=== PATIENT | female | born 1965 | race Caucasian/White ===

== ENCOUNTER 2016-12-12 22:01 | Inpatient (IN) | payer BC ==
[~2016-12-12] VITALS: Ht 175.3 cm; Wt 73.8 kg
[~2016-12-12 22:01] MED LIST: ALOE25CA4 PO; ASCO500T16 PO; BIOT1CAP3 PO; CALC500C70 PO; CETI10TA10 PO; CHOL1000 PO; CLMTP25 TD; DOCU-94 PO; FEXO1TAB46 PO; LEVO125T72 PO; MULT-506 PO; PSYL55.43 PO
[2016-12-12] MEDS ORDERED: ONDANSETRON INJ 2 MG/ML 2 ML VIAL IV STA (22:28)
[2016-12-12] MEDS ORDERED: FENTANYL CITRATE INJ 50 MCG/1 ML 2 ML VIAL IV STA (22:28)
[2016-12-12] MEDS ORDERED: SODIUM CHLORIDE 0.9% 1000ML 1,000 ML IV STA ×2 (22:28)
--- NOTE | 2016-12-12 23:03 | DIAGNOSTIC IMAGING REPORT ---
PA CHEST WITH ABDOMINAL SERIES CLINICAL HISTORY: Generalized abdominal pain. FINDINGS: A PA chest radiograph is compared to study dated 04/25/2015. The cardiomediastinal silhouette is unremarkable. The lungs and pleural spaces are clear. No pneumothorax is seen. The bony thorax is grossly intact. Supine and erect abdominal radiograph are compared to study dated 04/25/2015 and correlated with abdominal CT dated 12/30/2015. Cholecystectomy clips are seen in the right upper quadrant. There is a nonobstructed abdominal bowel gas pattern noting moderate constipation. No intraperitoneal free air is seen. Suture material is seen in the pelvis. There are no abnormal abdominal calcifications. The lumbosacral spine and bony pelvis appear intact. IMPRESSION: 1. No active disease in the chest. 2. Nonobstructed abdominal bowel gas pattern noting moderate constipation. Electronically signed by: Erwin Vilchis M.D. 12/12/2016 11:02 PM Dictated Date/Time: 12/12/2016 11:00 PM
[2016-12-12] MEDS ORDERED: OPTIRAY 320 IV PRN (23:15)
[2016-12-12 23:29] LABS: BASO % 0.6 %; BASO ABS # 0.04 K/uL (0-0.2); COMPLETE YES; EOS % 1.1 %; HEMATOCRIT 38.9 % (37-47); IG% 0.3 %; LYMPH % 33.1 %; LYMPH ABS # 2.18 K/uL (1.2-3.4); MEAN CELL VOLUME 87.4 fL (80-100); MEAN CORPUSCULAR HGB CONC 35.5 g/dl (32-36); MEAN PLATELET VOLUME 10.9 fL (7.4-10.4); MONO % 8.8 %; NEUT % 56.1 %; PLATELET COUNT 176 K/uL (130-400); RED BLOOD COUNT 4.45 M/uL (4.2-5.4); WHITE BLOOD COUNT 6.59 K/uL (4.8-10.8)
[2016-12-12 23:37] LABS: URINE APPEARANCE CLEAR (CLEAR); URINE BILIRUBIN NEG (NEG); URINE COLOR YELLOW; URINE NITRITE NEG (NEG); URINE SPECIFIC GRAVITY 1.016 (1.000-1.030); UROBILINOGEN NEG (NEG); ZZUR CULT IF INDIC CLEAN CATCH NO
[2016-12-12 23:38] LABS: MANUAL MICROSCOPIC REQUIRED? NO; REVIEW REQ? NO
[2016-12-12 23:48] LABS: ALT/SGPT 23 U/L (12-78); AST/SGOT 19 U/L (15-37); BLOOD UREA NITROGEN 24 mg/dl (7-18); BUN/CREATININE RATIO 27.6 (10-20); CALCIUM 9.3 mg/dl (8.5-10.1); CARBON DIOXIDE 22 mmol/L (21-32); CHLORIDE 111 mmol/L (98-107); CREATININE 0.88 mg/dl (0.60-1.20); GLUCOSE 110 mg/dl (70-99); POTASSIUM 3.5 mmol/L (3.5-5.1); SODIUM 142 mmol/L (136-145)
[2016-12-12 23:51] LABS: ALKALINE PHOSPHATASE 67 U/L (45-117)
[2016-12-13] MEDS ORDERED: FENTANYL CITRATE INJ 50 MCG/1 ML 2 ML VIAL IV STA (02:01)
[2016-12-13] MEDS ORDERED: ONDANSETRON INJ 2 MG/ML 2 ML VIAL IV STA (02:01)
--- NOTE | 2016-12-13 02:17 | History and Physical ---
History & Physical Date & Time of Service: Dec 13, 2016 at 02:05 Chief Complaint: L Side Abd Pain,History Of Twisted Bowel Primary Care Physician: Chet Ordonez M.D. History of Present Illness Source: patient 51 year old female with a history of recurrent small bowel obstruction, presenting with abdominal pain Patient comes in with left lower abdominal pain. It started tonight at 8 o' clock suddenly, and is gradually getting worse and she also started experiencing lots of burping, heartburn and nausea. She progressively began feeling some distension. She denies vomiting. Heating pad did not help. She pain she has is a LLQ, "Labor type", sharp/crunching pain that comes and goes 8/10. No radiation. No alleviating or exacerbating factors. She did just have a BM in the ED with slight relief of symptoms. She is known to have recurrent bowel obstructions. She has a history of multiple surgeries: , hysterectomy, Oophorectomy, Cholecystectomy, Colectomy due to Diverticulitis, Past Medical/Surgical History History of septic shock with resultant pelvic thrombosis Tubal Ligation with emergency hysterectomy Oophorectomy Cholecystectomy Colectomy due to Diverticulitis 6 yeras ago History of volvulus Mitral Valve prolapse Hypothyroid Medical Problems: (1) Diverticulitis Status: Chronic (2) Hypothyroidism Status: Chronic (3) Mitral valve prolapse Status: Resolved Surgical Problems: (1) S/P colectomy Status: Resolved Family History Heart disease Kidney disease Social History Smoking Status: Never Smoker Smokeless Tobacco Use: No Alcohol Use: occasionally Drug Use: none Marital Status: Housing status: lives with family Occupational Status: employed Immunizations History of Influenza Vaccine: Yes History of Tetanus Vaccine?: Yes History of Pneumococcal: Yes History of Hepatitis B Vaccine: No Multi-Drug Resistant Organisms History of MDRO: No Allergies Coded Allergies: Erythromycin (Verified Allergy, Unknown, EDEMA OF MOUTH/LIPS, 03/29/15) Oxycodone (Verified Adverse Reaction, Intermediate, Chest Pain.SYNCOPY, ) Reported by PT/[facility] record. Tramadol (Verified Adverse Reaction, Intermediate, CHEST PAIN,SYNCOPE, 03/29/15) Home Medications Scheduled Aloe Vera (Aloe Vera), 25 MG PO QAM Ascorbic Acid (Ascorbic Acid), 500 MG PO DAILY Biotin (Biotin), 5,000 MCG PO DAILY Calcium/Vitamin D (Os-Cesario 500 Plus D), 1 TAB PO QAM Cholecalciferol (Vitamin D3), 5,000 UNITS PO DAILY Estradiol (Climara), 1 PATCH TD WK Levothyroxine Sodium (Synthroid), 125 MCG PO QAM Multivitamin (Multivitamin), 1 TAB PO QAM Psyllium (Metamucil Powder), 1 PACK PO DAILY Scheduled PRN Cetirizine Hcl (Zyrtec), 10 MG PO DAILY PRN for Allergies Docusate Sodium (Colace), 1 CAP PO BID PRN for Constipation Fexofenadine Hcl (Socorro), 180 MG PO DAILY PRN for Allergies Review of Systems A 10 point review of systems was negative unless stated above. Physical Exam Vital Signs Date Time Temp Pulse Resp B/P (MAP) Pulse Ox O2 Delivery O2 Flow Rate FiO2 12/13/16 01:58 52 20 140/78 100 Room Air 12/13/16 00:45 48 12/13/16 00:35 46 18 113/75 98 Room Air 12/12/16 23:26 Room Air 12/12/16 23:26 53 12 133/87 100 Room Air 12/12/16 22:13 36.6 57 16 138/88 97 Room Air General Appearance: WD/WN, no apparent distress Head: normocephalic, atraumatic Eyes: normal inspection, EOMI ENT: hearing grossly normal, pharynx normal Neck: supple, no adenopathy, no JVD Respiratory/Chest: lungs clear, no respiratory distress Cardiovascular: regular rate, rhythm, no gallop, no murmur Abdomen/GI: non tender, soft, + tenderness, + pertinent finding (bowel sounds present; no guarding or rigidity) Genitourinary - Female: uterus normal shape and size Back: no CVA tenderness, no muscle spasm Extremities/Musculoskelatal: no calf tenderness, no pedal edema Neurologic/Psych: alert, normal mood/affect, oriented x 3 Skin: normal color, warm/dry, no rash Lymphatic: no adenopathy Diagnostics Laboratory Results Results Past 24 Hours Test 12/12/16 23:15 12/12/16 23:25 Range/Units White Blood Count 6.59 4.8-10.8 K/uL Red Blood Count 4.45 4.2-5.4 M/uL Hemoglobin 13.8 12.0-16.0 g/dL Hematocrit 38.9 37-47 % Mean Corpuscular Volume 87.4 80-100 fL Mean Corpuscular Hemoglobin 31.0 25-34 pg Mean Corpuscular Hemoglobin Concent 35.5 32-36 g/dl Platelet Count 176 130-400 K/uL Mean Platelet Volume 10.9 7.4-10.4 fL Neutrophils (%) (Auto) 56.1 % Lymphocytes (%) (Auto) 33.1 % Monocytes (%) (Auto) 8.8 % Eosinophils (%) (Auto) 1.1 % Basophils (%) (Auto) 0.6 % Neutrophils # (Auto) 3.70 1.4-6.5 K/uL Lymphocytes # (Auto) 2.18 1.2-3.4 K/uL Monocytes # (Auto) 0.58 0.11-0.59 K/uL Eosinophils # (Auto) 0.07 0-0.5 K/uL Basophils # (Auto) 0.04 0-0.2 K/uL RDW Standard Deviation 40.3 36.4-46.3 fL RDW Coefficient of Variation 12.6 11.5-14.5 % Immature Granulocyte % (Auto) 0.3 % Immature Granulocyte # (Auto) 0.02 0.00-0.02 K/uL Sodium Level 142 136-145 mmol/L Potassium Level 3.5 3.5-5.1 mmol/L Chloride Level 111 98-107 mmol/L Carbon Dioxide Level 22 21-32 mmol/L Anion Gap 9.0 3-11 mmol/L Blood Urea Nitrogen 24 7-18 mg/dl Creatinine 0.88 0.60-1.20 mg/dl Est Creatinine Clear Calc Drug Dose 80.0 ml/min Estimated GFR () 88.8 Estimated GFR (Non- 76.6 BUN/Creatinine Ratio 27.6 10-20 Random Glucose 110 70-99 mg/dl Calcium Level 9.3 8.5-10.1 mg/dl Total Bilirubin 0.5 0.2-1 mg/dl Direct Bilirubin < 0.1 0-0.2 mg/dl Aspartate Amino Transf (AST/SGOT) 19 15-37 U/L Alanine Aminotransferase (ALT/SGPT) 23 12-78 U/L Alkaline Phosphatase 67 45-117 U/L Total Protein 7.8 6.4-8.2 gm/dl Albumin 3.9 3.4-5.0 gm/dl Bedside Lactic Acid Venous 0.84 0.90-1.70 mmol/L Diagnostic Radiology CT abdomen STATRAD Small Bowel Obstruction Impression Assessment and Plan 51 year old female with history of recurrent SBO, present with SBO, confirmed on CT scan. She did have a bowel movement and is having some relief of symptoms which is reassuring. Small Bowel Obstruction - Symptoms seem mildly improved with 1 BM in the ED - NPO - IV NSS + 20 mEq KCL @ 100 ml/hr - Will hold off on NGT at this time, due to mild relief of symptoms with bowel movement; non-distended - Zofran for Nausea - Morphine 2 mg q 2 hours PRN for pain - General surgery consultation Hypothyroidism - Continue Synthroid DVT Prophylaxis - SCD Knee, THU Hose - Lovenox 40 mg s.c. daily Code Status - Level I Full Code Disposition - Med/Surg - OT and PT needs not anticipated at this time; patient is extremely active when at home Attending Addendum: I have physically seen and examined this patient, have supervised the medical residents activities, and agree with the H&P as noted above with the following exceptions as noted. The patient presents to the emergency department with left lower quadrant abdominal pain, burping, heartburn, and nausea without vomiting. The patient denies chest pain, palpitations, shortness of breath, cough, lower extremity swelling, sore throat, fevers, chills, sweats, weight change, vomiting, diarrhea or constipation, blood in urine or stool, dysuria, urinary frequency or urgency, lightheadedness, dizziness, headache, memory loss, rash, abnormal bruising or bleeding, imbalance, focal or generalized weakness, numbness or tingling in arms or legs, generalized arthralgias or myalgias, back or neck pain, night sweats, or allergy symptoms. The review of systems is otherwise negative other than for that already noted above, and at least 10 systems have been reviewed. The patient is awake, well-developed and adequately nourished, alert and oriented 3, normocephalic and atraumatic, lying in bed and in no acute distress. HEENT--PERRL, EOMI, mucous membranes and oropharynx dry. Neck--supple, no JVD or bruits, thyroid normal, trachea midline, no adenopathy. Heart--normal S1 and S2, no extra beats, no murmurs, rubs or gallops. Lungs--clear bilaterally with good air movement, no respiratory distress, no accessory muscle use. Abdomen--normal bowel sounds and soft, LLQ tenderness. Nondistended, no hernias or masses, no organomegaly. Extremities--no cyanosis, clubbing or edema. There are good distal pulses b/l. Dermatologic--normal skin turgor, normal color, warm and dry, no abnormal lymph nodes, no rash. Neurologic--cranial nerves II through XII grossly intact. Rheumatologic--normal range of motion, nontender, muscles and joints. Psychiatric--normal affect. Assessment and Plan: 1. Recurrent small bowel obstruction--symptoms have mildly improved after having had 2 bowel movements and the emergency department. History of partial colon resection due to diverticulitis. Patient will be admitted to the medical surgical floor. Nothing by mouth status. Zofran 4 mg IV every 6 hours when necessary. Famotidine 20 mg IV every 12 hours. Morphine sulfate 2 mg IV every 2 hours when necessary severe pain. NG tube to low suction if symptoms should worsen, patient prefers no NG tube at this time. Zosyn 3.375 mg IV every 6 hours. Gen. surgery consultation Level of Care Med/Surg Advanced Directives Existing Advance Directive: No Existing Living Will: No Existing Power of Business Leader: No Resuscitation Status FULL RESUSCITATION VTE Prophylaxis VTE Risk Assessment Done? Y/N: Yes Risk Level: Moderate Given or contraindicated: Enoxaparin (Lovenox)SQ Social Service Consult None Apply
[2016-12-13] MEDS ORDERED: ACETAMINOPHEN 325 MG TAB PO PRN (02:30)
[2016-12-13] MEDS ORDERED: MAGNESIUM HYDROXIDE SUSP 30 ML UDC PO PRN (02:30)
[2016-12-13] MEDS ORDERED: ONDANSETRON INJ 2 MG/ML 2 ML VIAL IV PRN (02:30)
[2016-12-13] MEDS ORDERED: ALUMINUM/MAGNESIUM/SIMETH (MAALOX MAX) 30 ML UDC PO PRN (02:30)
[2016-12-13] MEDS ORDERED: POLYETHYLENE (MIRALAX) 17 GM PACK PO PRN (02:30)
[2016-12-13 02:51] VITALS: O2SAT 99
[2016-12-13 03:05] VITALS: BP 127/83; PULSE 51; TEMP 36.4; O2SAT 100
--- NOTE | 2016-12-13 03:11 | EMERGENCY ROOM VISIT NOTE ---
History First contact with patient: 22:19 Chief Complaint: ABDOMINAL PAIN Stated Complaint: L SIDE ABD PAIN,HISTORY OF TWISTED BOWEL Nursing Triage Summary: Pt reports abdominal pain started around 8pm tonight. Hx of diverticulitis. Pt reports nausea and heart burn. History of Present Illness The patient is a 51 year old female who presents to the Emergency Room with complaints of nausea, vomiting and left sided abdominal pain for the past day. Patient has a history of bowel obstructions and diverticulitis. Patient states this feels more similar to her bowel obstructions. She has had multiple abdominal surgeries. Last bowel movement was yesterday. Pain currently 6 out of 10. Nothing makes it better or worse. It does not radiate. Patient denies chest pain, dyspnea, fever, chills, cough, congestion, back pain, urinary symptoms. Patient states all her bowel obstructions have resolved on their own. She had a colon resection secondary to diverticular disease. Review of Systems See HPI for pertinent positives & negatives. A total of 10 systems reviewed and were otherwise negative. Past Medical/Surgical History Medical Problems: (1) Diverticulitis (2) Hypothyroidism (3) Mitral valve prolapse Surgical Problems: (1) S/P colectomy Family History Heart disease Kidney disease Social History Smoking Status: Never Smoker Smokeless Tobacco Use: No Drug Use: none Marital Status: Housing Status: lives with family Occupation Status: employed Current/Historical Medications Scheduled Aloe Vera (Aloe Vera), 25 MG PO QAM Ascorbic Acid (Ascorbic Acid), 500 MG PO DAILY Biotin (Biotin), 5,000 MCG PO DAILY Calcium/Vitamin D (Os-Cesario 500 Plus D), 1 TAB PO QAM Cholecalciferol (Vitamin D3), 5,000 UNITS PO DAILY Estradiol (Climara), 1 PATCH TD WK Levothyroxine Sodium (Synthroid), 125 MCG PO QAM Multivitamin (Multivitamin), 1 TAB PO QAM Psyllium (Metamucil Powder), 1 PACK PO DAILY Scheduled PRN Cetirizine Hcl (Zyrtec), 10 MG PO DAILY PRN for Allergies Docusate Sodium (Colace), 1 CAP PO BID PRN for Constipation Fexofenadine Hcl (Socorro), 180 MG PO DAILY PRN for Allergies Allergies Coded Allergies: Erythromycin (Verified Allergy, Unknown, EDEMA OF MOUTH/LIPS, 12/8/15) Oxycodone (Verified Adverse Reaction, Intermediate, Chest Pain.SYNCOPY, ) Reported by PT/[facility] record. Tramadol (Verified Adverse Reaction, Intermediate, CHEST PAIN,SYNCOPE, 03/29/15) Physical Exam Vital Signs Date Time Temp Pulse Resp B/P (MAP) Pulse Ox O2 Delivery O2 Flow Rate FiO2 12/13/16 01:58 52 20 140/78 100 Room Air 12/13/16 00:45 48 12/13/16 00:35 46 18 113/75 98 Room Air 12/12/16 23:26 Room Air 12/12/16 23:26 53 12 133/87 100 Room Air 12/12/16 22:13 36.6 57 16 138/88 97 Room Air Physical Exam VITALS: Vitals are noted on the nurse's note and reviewed by myself. Vital signs stable. GENERAL: Pleasant female vomiting, in no acute distress, nondiaphoretic, well- developed well-nourished. SKIN: The skin was without rashes, erythema, edema, or bruising. There is no tenting of the skin. Capillary reflex less than 2 seconds. HEAD: Normocephalic atraumatic. EARS: External auditory canals clear, tympanic membranes pearly marie without erythema or effusion bilaterally. EYES: Pupils equal round and reactive to light and accommodation. Conjunctivae without injection, sclerae without icterus. Extraocular movements intact. NOSE: Patent, turbinates without inflammation or discharge. MOUTH: Mucous membranes moist. Pharynx without erythema or exudate. Uvula midline. Airway patent. Tongue does not deviate. NECK: Supple without nuchal rigidity. No lymphadenopathy. No thyromegaly. Cervical spine is nontender. No JVD. HEART: Regular rate and rhythm without murmurs gallops or rubs. LUNGS: Clear to auscultation bilaterally without wheezes, rales or rhonchi. No dullness to percussion. No retractions or accessory muscle use. ABDOMEN: Positive bowel sounds x 4. Normal tympanic percussion. Soft, tender to palpation left upper and lower quadrants, no CVA tenderness, without masses or organomegaly. Greene sign negative. No guarding or rebound tenderness. MUSCULOSKELETAL: No muscle atrophy, erythema, or edema noted. NEURO: Patient was alert and oriented to person place and time. Normal sensation to light and sharp touch. No focal neurological deficits. Medical Decision & Procedures Laboratory Results 12/12/16 23:15 Red Blood Count 4.45, Mean Corpuscular Volume 87.4, Mean Corpuscular Hemoglobin 31.0, Mean Corpuscular Hemoglobin Concent 35.5, Mean Platelet Volume 10.9, Neutrophils (%) (Auto) 56.1, Lymphocytes (%) (Auto) 33.1, Monocytes (%) (Auto) 8.8, Eosinophils (%) (Auto) 1.1, Basophils (%) (Auto) 0.6, Neutrophils # (Auto) 3.70, Lymphocytes # (Auto) 2.18, Monocytes # (Auto) 0.58, Eosinophils # (Auto) 0.07, Basophils # (Auto) 0.04 12/12/16 23:15 Test 12/12/16 00:00 12/12/16 23:15 12/12/16 23:25 Urine Color YELLOW Urine Appearance CLEAR (CLEAR) Urine pH 6.0 (4.5-7.5) Urine Specific [place] 1.016 (1.000-1.030) Urine Protein NEG (NEG) Urine Glucose (UA) NEG (NEG) Urine Ketones NEG (NEG) Urine Occult Blood NEG (NEG) Urine Nitrite NEG (NEG) Urine Bilirubin NEG (NEG) Urine Urobilinogen NEG (NEG) Urine Leukocyte Esterase NEG (NEG) White Blood Count 6.59 K/uL (4.8-10.8) Red Blood Count 4.45 M/uL (4.2-5.4) Hemoglobin 13.8 g/dL (12.0-16.0) Hematocrit 38.9 % (37-47) Mean Corpuscular Volume 87.4 fL (80-100) Mean Corpuscular Hemoglobin 31.0 pg (25-34) Mean Corpuscular Hemoglobin Concent 35.5 g/dl (32-36) Platelet Count 176 K/uL (130-400) Mean Platelet Volume 10.9 fL (7.4-10.4) Neutrophils (%) (Auto) 56.1 % Lymphocytes (%) (Auto) 33.1 % Monocytes (%) (Auto) 8.8 % Eosinophils (%) (Auto) 1.1 % Basophils (%) (Auto) 0.6 % Neutrophils # (Auto) 3.70 K/uL (1.4-6.5) Lymphocytes # (Auto) 2.18 K/uL (1.2-3.4) Monocytes # (Auto) 0.58 K/uL (0.11-0.59) Eosinophils # (Auto) 0.07 K/uL (0-0.5) Basophils # (Auto) 0.04 K/uL (0-0.2) RDW Standard Deviation 40.3 fL (36.4-46.3) RDW Coefficient of Variation 12.6 % (11.5-14.5) Immature Granulocyte % (Auto) 0.3 % Immature Granulocyte # (Auto) 0.02 K/uL (0.00-0.02) Anion Gap 9.0 mmol/L (3-11) Est Creatinine Clear Calc Drug Dose 80.0 ml/min Estimated GFR () 88.8 Estimated GFR (Non- 76.6 BUN/Creatinine Ratio 27.6 (10-20) Calcium Level 9.3 mg/dl (8.5-10.1) Total Bilirubin 0.5 mg/dl (0.2-1) Direct Bilirubin < 0.1 mg/dl (0-0.2) Aspartate Amino Transf (AST/SGOT) 19 U/L (15-37) Alanine Aminotransferase (ALT/SGPT) 23 U/L (12-78) Alkaline Phosphatase 67 U/L (45-117) Total Protein 7.8 gm/dl (6.4-8.2) Albumin 3.9 gm/dl (3.4-5.0) Bedside Lactic Acid Venous 0.84 mmol/L (0.90-1.70) Medications Administered Medications (Trade) Dose Ordered Sig/Demar Route Start Time Stop Time Status Last Admin Dose Admin Sodium Chloride 1,000 ml @ 999 mls/hr Q1H1M STAT IV 12/12/16 22:28 12/12/16 23:28 DC 12/12/16 23:21 999 MLS/HR Sodium Chloride 1,000 ml @ 125 mls/hr Q8H STAT IV 12/12/16 22:28 12/13/16 06:27 12/12/16 23:21 125 MLS/HR Ondansetron HCl (Zofran Inj) 4 mg NOW STAT IV 12/12/16 22:28 12/12/16 22:30 DC 12/12/16 23:20 4 MG Fentanyl Citrate (Fentanyl Inj) 50 mcg NOW STAT IV 12/12/16 22:28 12/12/16 22:30 DC 12/12/16 23:20 50 MCG Fentanyl Citrate (Fentanyl Inj) 50 mcg NOW STAT IV 12/13/16 02:01 12/13/16 02:02 DC 12/13/16 02:31 50 MCG Ondansetron HCl (Zofran Inj) 4 mg NOW STAT IV 12/13/16 02:01 12/13/16 02:02 DC 12/13/16 02:31 4 MG ED Course Prior records/ancillary studies reviewed. Triage Nursing notes reviewed. Additional history obtained from family The patient's history was concerning for abdominal pain. Differential diagnosis: Etiologies such as appendicitis, diverticulitis, PUD, biliary pathology, UTI, pancreatitis, obstruction, mesenteric ischemia, aortic pathology, infections, inflammatory bowel disease, renal colic, as well as others were entertained. Physical examination findings: As above. ER treatment provided: Fentanyl, Zofran, IV fluids On reassessment the patient felt better. Diagnostics interpreted by me: The labs revealed no leukocytosis. Negative lactic acid Imaging studies: CT ABDOMEN & PELVIS: Prior from 01/09/2016 Dilated small bowel loops in the left abdomen with air-fluid levels. Distal loops are collapsed. Consistent with small bowel obstruction. Mild associated mesenteric edema and fluid. Ischemic component not excluded. Just at and distal to the transition point in the left lower quadrant, thickened small bowel loop. May represent enteritis. No free air. Normal appendix. Small hiatal hernia. Sigmoid sutures Colonic diverticulosis without evidence acute diverticulitis. Cholecystectomy and mild central biliary dilation, stable. Absent uterus. Radiologist: Ashvin Carpio M.D. Study ready at 00:23 and initial results PA CHEST WITH ABDOMINAL SERIES CLINICAL HISTORY: Generalized abdominal pain. FINDINGS: A PA chest radiograph is compared to study dated 04/25/2015. The cardiomediastinal silhouette is unremarkable. The lungs and pleural spaces are clear. No pneumothorax is seen. The bony thorax is grossly intact. Supine and erect abdominal radiograph are compared to study dated 04/25/2015 and correlated with abdominal CT dated 12/30/2015. Cholecystectomy clips are seen in the right upper quadrant. There is a nonobstructed abdominal bowel gas pattern noting moderate constipation. No intraperitoneal free air is seen. Suture material is seen in the pelvis. There are no abnormal abdominal calcifications. The lumbosacral spine and bony pelvis appear intact. IMPRESSION: 1. No active disease in the chest. 2. Nonobstructed abdominal bowel gas pattern noting moderate constipation. Electronically signed by: Erwin Vilchis M.D. Consultation: A consultation was placed with the surgeon, Dr. Cano. the case was discussed and diagnostics were reviewed. He recommended medical admission and he will see the patient and be consulted in the morning. I spoke to [facility], Dr Damian, and he will evaluate the patient for admission. Exam and history seem consistent with small bowel obstruction. Patient had a small bowel movement just prior to me explaining the results to her. She states she would rather not have a NG tube at this time. This was deferred to medicine. Patient is agreeable to treatment plan of admission. Patient had a negative lactic acid. She felt much better to be medicated as above. I do not believe she has ischemic bowel.By the evaluation outlined above emergent etiologies such as appendicitis, diverticulitis, PUD, biliary pathology, UTI, pancreatitis, mesenteric ischemia, aortic pathology, infections, inflammatory bowel disease, renal colic, as well as others were deemed relatively unlikely. The pt informed about the findings as listed above. All questions were answered and pleased with the treatment. Case reviewed with my attending Medical Decision as above Impression Primary Impression: Small bowel obstruction Departure Information Dispostion Being Evaluated By Hospitalist Condition GOOD Referrals Chet Ordonez M.D. (PCP) [facility] Inst[facility]
[2016-12-13] MEDS: NSS + 20MEQ KCL 1000ML 1,000 ML IV SCH ×3 (03:21→21:48)
[2016-12-13 03:35] VITALS: Ht 175.3 cm; Wt 73.8 kg
[2016-12-13] MEDS: LEVOTHYROXINE 125 MCG TAB PO SCH (05:26)
[2016-12-13] MEDS: RANITIDINE IV 50 MG in DEXTROSE 5% 100ML 100 ML IV SCH ×3 (05:47→21:48)
[2016-12-13] MEDS: MoRPHine SULFATE 2 MG/ML CARP IV PRN ×3 (05:47→15:53)
[2016-12-13] MEDS ORDERED: PROCHLORPERAZINE INJ 5 MG in SYRINGE 4 ML IV STA (06:02)
[2016-12-13 06:50] VITALS: BP 112/73; PULSE 50; TEMP 36.7; O2SAT 95
--- NOTE | 2016-12-13 07:28 | DIAGNOSTIC IMAGING REPORT ---
ABDOMEN AND PELVIS CT WITH IV CONTRAST CT DOSE: 354.50 mGy.cm HISTORY: Left lower quadrant abdominal pain. TECHNIQUE: Multiaxial CT images of the abdomen and pelvis were performed following the use of intravenous contrast. A dose lowering technique was utilized adhering to the principles of ALARA. COMPARISON STUDY: Abdomen and pelvis CT 01/09/2016. FINDINGS: A stable 4 mm nodule within the left lower lobe on image 20. No pneumoperitoneum. No pneumatosis. Cholecystectomy. The liver, spleen, adrenal glands, pancreas, and kidneys are unremarkable. No retroperitoneal lymphadenopathy. The bladder is unremarkable. Prior rectosigmoid anastomosis. Hysterectomy. Colonic diverticulosis. Normal appendix. Distended loops of small bowel seen within the left midabdomen containing fluid levels and a small amount of surrounding mesenteric edema. This measures up to 3.6 cm in diameter. Both the proximal and distal loops of bowel to this area are decompressed. The loops of bowel distal to the site of obstruction are slightly thickened. IMPRESSION: 1. Small bowel obstruction within the left midabdomen. The loops of bowel distal to the site of obstruction are slightly thickened raising the possibility of an enteritis. There is mild mesenteric edema surrounding the distended loops of small bowel. Therefore, vascular compromise cannot be excluded. Of note, there is an additional transition point proximal to the site of obstruction. Therefore, a closed loop obstruction code have a similar appearance but is considered less likely. Consider follow-up for further evaluation. 2. Postoperative changes as described above. 3. Normal appendix. 4. Stable 4 mm nodule within the left lower lobe. Electronically signed by: Michael Edwards M.D. 12/13/2016 7:27 AM Dictated Date/Time: 12/13/2016 7:17 AM
[2016-12-13 07:44] LABS: HEMATOCRIT 37.4 % (37-47); MEAN CELL VOLUME 89.3 fL (80-100); MEAN CORPUSCULAR HEMOGLOBIN 31.5 pg (25-34); MEAN CORPUSCULAR HGB CONC 35.3 g/dl (32-36); PLATELET COUNT 160 K/uL (130-400); RED BLOOD COUNT 4.19 M/uL (4.2-5.4)
--- NOTE | 2016-12-13 07:44 | SURGICAL CONSULTATION ---
DATE OF CONSULTATION: 12/13/2016 DATE OF CONSULTATION: 12/13/2016 SUMMARY: This is a 51-year-old female that I was called at approximately 1:30 this morning by FAHAD Thompson in the Emergency Room with recurrent bowel obstruction. The patient was admitted to the medical service. The history is that she is a 51-year-old female who is very active. 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 Yesterday when she finished her daily routine with her bike she went home and ate some spaghetti with red sauce and started developing some lower abdominal pain mostly in the left lower quadrant, somewhat in the epigastric area transversely. The patient following this developed significant nausea and reflux and came down to the Emergency Room thinking that she had a bowel obstruction which she was familiar with since she was admitted here multiple times with a similar episode, last being about a year ago. PAST MEDICAL AND SURGICAL HISTORY: Included a hysterectomy for bleed with a left oophorectomy and then went back in and they took out the other ovary because of a torsion. She has also had a cholecystectomy. Her home meds were reviewed in her past medical history. PHYSICAL EXAMINATION: GENERAL: This morning, Margie is resting comfortably. She is nauseated and feels like she needs to vomit. I volunteered to put an NG tube in, she refused that. Her only pain that she is is in the left lower quadrant at this time. HEAD: Normocephalic. EYES: PERRLA. The sclerae is nonicteric. HEART AND LUNGS: Normal. ABDOMEN: Soft, it is not distended in the lower abdomen. In the mid abdomen there may have some fullness. She has some tympanism there. There are no hernias. EXTREMITIES: Grossly normal. VITAL SIGNS: Her last vitals showed a temperature of 36.4, pulse 51, respirations 16, blood pressure 127/83, O2 sats 100 on room air. I&O she has voided. She has had at least 3-4 bowel movements. She had 3 bowel movements in the ER and 1 this morning. LABORATORY DATA: Laboratory stahl showed her white count last night was 6.59. There is no left shift. The chemistry showed a potassium 3.5, BUN 24, creatinine 0.88. Lactic acid is 0.84. Liver enzymes were normal. The CAT scan, I don't have the official reading, but in review it looked like she had a small-bowel obstruction. In comparison to what we had seen about a year ago there may be a little more small bowel dilatation. PLAN: At this point I will get an upper GI with small bowel follow through with likelihood that this may eventually help her obstruction. I would keep her n.p.o. and certainly reevaluate her on a clinical basis, but most likely she is going to open up without any surgical intervention. We will follow along with you at this time.
[2016-12-13 07:52] LABS: PROTHROMBIN TIME (PATIENT) 11.2 SECONDS (9.0-12.0)
[2016-12-13 08:22] LABS: BUN/CREATININE RATIO 23.5 (10-20); CALCIUM 8.6 mg/dl (8.5-10.1); CREATININE 0.81 mg/dl (0.60-1.20); POTASSIUM 3.9 mmol/L (3.5-5.1)
[2016-12-13] MEDS: ENOXAPARIN 30 MG/0.3 ML SYR SQ SCH ×2 (08:48→21:00)
[2016-12-13] MEDS ORDERED: NURSING VERBAL MED ORDER ONE (11:30)
[2016-12-13] MEDS ORDERED: ONDANSETRON INJ 8 MG in DEXTROSE 5% 50ML 50 ML IV SCH (11:30)
[2016-12-13] MEDS ORDERED: METOCLOPRAMIDE HCL INJ 5 MG/ML 2 ML VIAL IV STA (12:21)
[2016-12-13] MEDS ORDERED: PROMETHAZINE HCL INJ 12.5 MG in SODIUM CHLORIDE 0.9% 50ML 50 ML IV PRN (14:15)
--- NOTE | 2016-12-13 15:09 | Progress Note ---
Progress Note Date of Service Dec 13, 2016. (Kanika Edgar ., PA-C) Progress Note Patient admitted after midnight. Seen and examined by me. Pt complains of 8/10 burning abdominal pain in upper quadrants and down center of the abdomen. She has also been nauseous with continued vomiting since receiving barium for upper GI study this morning. Pt did have 3 bowel movements early this morning while in ED which did provide some relief. She had 1 very small BM since moving up to the floor. Physical exam pertinent for diffuse abdominal tenderness, most marked in epigastrium and umbilical areas and in upper quadrants of abdomen. Hypoactive bowel sounds. Physical exam otherwise unremarkable. A/P: SBO--ongoing - Admit to med/surg - NPO - IVF with NSS + 20 KCl at 100 cc/hr - Zofran 4 mg IV q6h prn, Phenergan 12.5 mg IV q6h prn - Pt received Zofran 8 mg IV x1, Reglan 10 mg IV x 1 and still with vomiting - Insert NGT w/low intermittent wall suction - Check KUB to confirm placement - Morphine 2 mg IV q2h prn pain - Ranitidine 50 mg IV q8h - General surgery consulted, appreciate recs: upper GI w/small bowel follow through - Pt unable to complete upper GI d/t vomiting (Kanika Edgar ., PA-C) Attending Attestation: Pt seen/examined, chart reviewed, care plan d/w FAHAD Edgar. I agree with her documentation as outlined. Ms. Edgar appropriately ordered an NG tube because of persistent emesis despite reglan and zofran. When I saw her mid-afternoon the patient desperately asked us to hold off on the NG tube (she was now stating that the reglan helped). No flatus. Abd pain present in upper abdomen. VSS exam - gen - NAD abd - mild distension, BS severely diminished, tender epigastric region A/P: SBO in the setting of numerous previous abdominal surgeries. Appreciate gen surg consultation & recs. Cont NPO status and IVF. Low threshold for NG tube. Reglan 10mg IV q6h prn. Jak TRENT MD (Chet Trent MD)
[2016-12-13 15:34] VITALS: BP 120/78; PULSE 59; TEMP 36.7; O2SAT 100
--- NOTE | 2016-12-13 16:05 | DIAGNOSTIC IMAGING REPORT ---
GI W/AIR SMALL BOWEL ROUTINE CLINICAL HISTORY: recurrent small bowel obstruction COMPARISON STUDY: Abdomen and pelvis CT 12/13/2016. FLUOROSCOPY TIME: 3.4 minutes.. FINDINGS: 32 fluoroscopic spot and overhead images were obtained. The esophagus is normal in course, caliber, motility. No hiatus hernia. No gastroesophageal reflux. The duodenal bulb and duodenal C sweep are normally distensible. Suggestion of a tiny apthous ulcer at the gastric antrum. This is best in image 24. Small bowel follow-through demonstrates distended loops of proximal to mid small bowel which extend into the deep pelvis. This likely represents the transition point of the patient's known small bowel obstruction. IMPRESSION: 1. Multiple distended loops of proximal to mid small bowel which extend into the deep pelvis which likely represents a transition point of the patient's known small bowel obstruction. An additional KUB at 12 hours should be performed to confirm the transition point. 2. Suggestion of a tiny apthous ulcer at the gastric antrum. Electronically signed by: Michael Edwards M.D. 12/13/2016 4:04 PM Dictated Date/Time: 12/13/2016 3:59 PM
[2016-12-13] MEDS ORDERED: METOCLOPRAMIDE HCL INJ 5 MG/ML 2 ML VIAL IV PRN (17:45)
[2016-12-13 23:05] VITALS: BP 114/70; PULSE 55; TEMP 36.8; O2SAT 99
[2016-12-14] MEDS: LEVOTHYROXINE 125 MCG TAB PO SCH (05:51)
[2016-12-14] MEDS: NSS + 20MEQ KCL 1000ML 1,000 ML IV SCH ×3 (05:51→21:34)
[2016-12-14] MEDS: RANITIDINE IV 50 MG in DEXTROSE 5% 100ML 100 ML IV SCH ×3 (05:51→21:35)
[2016-12-14] MEDS ORDERED: ACETAMINOPHEN IV 100 ML IV STA (06:27)
--- NOTE | 2016-12-14 06:54 | PROGRESS NOTE ---
DATE: 12/14/2016 SUBJECTIVE: Margie feels great compared to yesterday. She says she had multiple bowel movements during the night. She is passing flatus. She did have an emesis with the contrast that we gave her for the upper GI. The preliminary films with the upper GI with small bowel follow-through at 3-1/2 hours showed significant hold up mid abdomen. There is a delayed film to be done this morning. OBJECTIVE: VITAL SIGNS: Margie's last vitals showed a temperature of 36.8, a pulse 55, respirations 14, blood pressure 114/70, O2 sats 99 on room air. Her I&O, she is voiding fine, although we did increase her fluid yesterday to 150 cc/hr but apparently that has not been followed through yet. Last urine was 775 yesterday. She says she is voiding fine, but none was recorded yet. ABDOMEN: Completely benign, much better so than yesterday and she is not feeling any pain. She is not nauseated at this time. LABORATORIES: Pending. ASSESSMENT AND PLAN: At this point, we will wait and see what the flat plate that will be done at 6:00 this morning shows. I was concerned that after reviewing the upper GI with small bowel follow-through yesterday that she would need surgery, but hopefully with her clinical picture, she is improved and this will not be the case. JOHN
[2016-12-14 07:06] VITALS: BP 107/67; PULSE 57; TEMP 36.6; O2SAT 96
--- NOTE | 2016-12-14 07:45 | DIAGNOSTIC IMAGING REPORT ---
KUB HISTORY: Bowel obstruction. follow up ugi series COMPARISON: Upper GI series 12/13/2016. FINDINGS: Contrast has passed through the dilated loops of small bowel now resides within the colon. The small bowel loops have slightly decompressed. Dilated gas-filled loop of small bowel remains within the left upper quadrant. No renal calculi. No ureteral calculi. No pneumoperitoneum or pneumatosis. IMPRESSION: Contrast has passed into the colon in the interval. A dilated loop of small bowel remains within the left upper quadrant. Therefore, this is consistent with a partial small bowel obstruction. Electronically signed by: Michael Edwards M.D. 12/14/2016 7:43 AM Dictated Date/Time: 12/14/2016 7:41 AM
--- NOTE | 2016-12-14 07:54 | PROGRESS NOTE ---
DATE: 12/14/2016 DATE: 12/14/2016 I saw her a couple hours ago. She had her KUB of the abdomen which shows no residual barium in the colon except 1 area of the small bowel, but pretty much everything went through and then she has contrast in the colon with significant diverticular disease. At this point, since clinically she is doing well I would go ahead and start her on full liquid diet and see how she progresses.
[2016-12-14 08:15] LABS: HEMATOCRIT 36.5 % (37-47); MEAN CELL VOLUME 91.9 fL (80-100); MEAN CORPUSCULAR HEMOGLOBIN 30.2 pg (25-34); MEAN CORPUSCULAR HGB CONC 32.9 g/dl (32-36); MEAN PLATELET VOLUME 10.9 fL (7.4-10.4); PLATELET COUNT 157 K/uL (130-400); RED BLOOD COUNT 3.97 M/uL (4.2-5.4); WHITE BLOOD COUNT 5.01 K/uL (4.8-10.8)
[2016-12-14 08:17] LABS: BUN/CREATININE RATIO 16.6 (10-20); CREATININE 0.76 mg/dl (0.60-1.20); POTASSIUM 3.9 mmol/L (3.5-5.1)
[2016-12-14] MEDS: ENOXAPARIN 30 MG/0.3 ML SYR SQ SCH ×2 (09:00→21:00)
--- NOTE | 2016-12-14 10:38 | Hospitalist Progress Note ---
Hospitalist Progress Note Date of Service Dec 14, 2016. (Kanika Edgar ., KERONC) Subjective Pt evaluation today including: conversation w/ patient, physical exam, chart review, lab review, review of studies, review of inpatient medication list Pain: Intermittent 6/10 sharp LLQ pain PO Intake: Tolerating full liquid diet Voiding: no voiding problems Patient reports feeling much better today. She states that she was able to have a formed bowel movement this morning after eating a full liquid breakfast. She did develop some LLQ pain after breakfast but denies any nausea or vomiting. She states she has an intermittent 6/10 sharp pain in the LLQ. She has been up ambulating in the hallway without difficulty. She does complain of a "pounding" frontal headache. The patient denies fevers, chills, sweats, chest pain, palpitations, claudication, cough, wheezing, shortness of breath, nausea, vomiting, dysuria, hematuria, urinary retention, paralysis, weakness, numbness and tingling. Additional Comments: See HPI for pertinent positives and negatives. All other systems reviewed and negative. (Kanika Edgar ., KERONC) Objective Vital Signs Date Time Temp Pulse Resp B/P (MAP) Pulse Ox O2 Delivery O2 Flow Rate FiO2 12/14/16 07:20 Room Air 12/14/16 07:06 36.6 57 16 107/67 (80) 96 Room Air 12/14/16 00:45 Room Air 12/13/16 23:05 36.8 55 14 114/70 (85) 99 Room Air 12/13/16 16:00 Room Air 12/13/16 15:34 36.7 59 18 120/78 (92) 100 Room Air (Kanika Edgar ., FAHAD-C) Physical Exam Notes: General appearance: Well-developed, well-nourished, no apparent distress Head: Normocephalic, atraumatic Eyes: Normal inspection, PERRL, EOMI ENT: Normal ENT inspection, hearing grossly normal, pharynx normal Neck: Supple, no JVD, trachea midline Respiratory/Chest: Lungs clear to auscultation, normal breath sounds, no respiratory distress Cardiovascular: Regular rate & rhythm, no gallop, no murmur Abdomen/GI: +Suprapubic area mildly TTP. Normal bowel sounds, soft Extremities/Musculoskeletal: Normal inspection, no calf tenderness, no pedal edema Neurological/Psych: Alert, normal mood/affect, oriented x 3 Skin: Normal color, warm/dry, no rash (Kanika Edgar PA-C) Laboratory Results Last 24 Hours Test 12/14/16 07:10 White Blood Count 5.01 K/uL Red Blood Count 3.97 M/uL Hemoglobin 12.0 g/dL Hematocrit 36.5 % Mean Corpuscular Volume 91.9 fL Mean Corpuscular Hemoglobin 30.2 pg Mean Corpuscular Hemoglobin Concent 32.9 g/dl RDW Standard Deviation 43.4 fL RDW Coefficient of Variation 13.0 % Platelet Count 157 K/uL Mean Platelet Volume 10.9 fL Sodium Level 143 mmol/L Potassium Level 3.9 mmol/L Chloride Level 115 mmol/L Carbon Dioxide Level 24 mmol/L Anion Gap 4.0 mmol/L Blood Urea Nitrogen 13 mg/dl Creatinine 0.76 mg/dl Est Creatinine Clear Calc Drug Dose 92.6 ml/min Estimated GFR () 106.0 Estimated GFR (Non- 91.5 BUN/Creatinine Ratio 16.6 Random Glucose 87 mg/dl Calcium Level 8.0 mg/dl (Kanika Edgar PA-C) Diagnostic Results Reviewed the following studies and agree with interpretation as follows: Patient Name: ALESSIA RODRIGUEZ Unit Number: [id number] Dictated: 12/13/161558 Transcribed: 12/13/161558 [facility] Printed Date/Time: [~ rep prt dt]/[~ rep prt tm] [~ rep ct labl] - [~ rep ct ivnm] [facility] [place] [address] Dictated: 12/13/161558 Transcribed: 12/13/161558 [facility] Printed Date/Time: [~ rep prt dt]/[~ rep prt tm] [~ rep ct labl] - [~ rep ct ivnm] Patient: ALESSIA RODRIGUEZ Address1: [address] [facility] Rec: [id number] Address2: Acct ID: [id number] [facility] [id number] Date: 1965 Sex: F Room/Bed: [facility] Ref Phy: Chet Ordonez M.D. SC: C.MSN Att Phy: Chet Dove MD Report #: [id number] [place] Phy: Chet Ordonez M.D. Test: GIASB Admit Phy: Khari Damian MD Hose Builder: ANDEER Interpreting Phy: Michael Edwards MD Diagnosis: SMALL BOWEL OBSTRUCTION Ordering Phy: Iglesia Cano M.D. Service Date: 12/13/16 Admit Date: 12/13/1707/24/17 MNE: [id number] CONF: DICTATED BY: Michael Edwards M.D.]] CC: Chet Ordonez M.D. Ramondelli, Salvatore, M.D. Siuta, Jonathan R., MD Endcc: [~ rep ct add3]] GI W/AIR SMALL BOWEL ROUTINE CLINICAL HISTORY: recurrent small bowel obstruction COMPARISON STUDY: Abdomen and pelvis CT 12/13/2016. FLUOROSCOPY TIME: 3.4 minutes.. FINDINGS: 32 fluoroscopic spot and overhead images were obtained. The esophagus is normal in course, caliber, motility. No hiatus hernia. No gastroesophageal reflux. The duodenal bulb and duodenal C sweep are normally distensible. Suggestion of a tiny apthous ulcer at the gastric antrum. This is best in image 24. Small bowel follow-through demonstrates distended loops of proximal to mid small bowel which extend into the deep pelvis. This likely represents the transition point of the patient's known small bowel obstruction. IMPRESSION: 1. Multiple distended loops of proximal to mid small bowel which extend into the deep pelvis which likely represents a transition point of the patient's known small bowel obstruction. An additional KUB at 12 hours should be performed to confirm the transition point. 2. Suggestion of a tiny apthous ulcer at the gastric antrum. Electronically signed by: Michael Edwards M.D. 12/13/2016 4:04 PM Dictated Date/Time: 12/13/2016 3:59 PM The status of this report is Signed. Draft = Not yet reviewed or approved by Radiologist. Signed = Reviewed and approved by Radiologist. <AttendingPhy>Chet Dove MD</AttendingPhy> <FamilyPhy>Chet Ordonez M.D.</FamilyPhy> <PrimaryPhy>Chet Ordonez M.D.</PrimaryPhy> <UnitNumber> [id number]</UnitNumber> <VisitNumber>[id number]</VisitNumber> <PatientName> JENNIFER,ALESSIA Sage</PatientName> <DateOfBirth>1965</DateOfBirth> <Location> C.MSN</Location> <ServiceDate>12/12/16</ServiceDate> <MNE>ESINDI</MNE> < OrderingPhy>Iglesia Cano M.D.</OrderingPhy> <OrderingPhyMNE>f rep ord dr flynn</OrderingPhyMNE> <DictatingPhyMNE>f rep dict dr flynn</DictatingPhyMNE> < CCListMNE>f rep ct mne</CCListMNE> <AdmittingPhyMNE>f pt admit dr flynn</ AdmittingPhyMNE> <AttendingPhyMNE>f pt attend dr flynn</AttendingPhyMNE> <ConsultingPhyMNE>f pt consult dr flynn</ConsultingPhyMNE> <FamilyPhyMNE>f pt fam dr flynn</FamilyPhyMNE> <OtherPhyMNE>f pt other dr flynn</OtherPhyMNE> < PrimaryPhyMNE>f pt prim care dr flynn</PrimaryPhyMNE> <ReferringPhyMNE>f pt referring dr flynn</ReferringPhyMNE> Patient Name: IBIS RODRIGUEZJUSTINE Sage Unit Number: [id number] Dictated: 12/14/16740 Transcribed: 12/14/16740 [facility] Printed Date/Time: [~ rep prt dt]/[~ rep prt tm] [~ rep ct labl] - [~ rep ct ivnm] [facility] [place] [place] [address] Dictated: 12/14/16740 Transcribed: 12/14/16740 [facility] Printed Date/Time: [~ rep prt dt]/[~ rep prt tm] [~ rep ct labl] - [~ rep ct ivnm] Patient: ALESSIA RODRIGUEZ Address1: [address] [facility] Rec: [id number] Address2: Acct ID: [id number] [facility] Zip: [place] [address] Date: 1965 Sex: F Room/Bed: [facility] Ref Phy: Chet Ordonez M.D. SC: C.MSN Att Phy: Chet Dove MD Report #: [id number] [place] Phy: Chet Ordonez M.D. Test: KUB Admit Phy: Khari Damian MD Hose Builder: COREY Interpreting Phy: Michael Edwards MD Diagnosis: SMALL BOWEL OBSTRUCTION Ordering Phy: Iglesia Cano M.D. Service Date: 12/14/16 Admit Date: 12/13/1707/24/17 MNE: [id number] CONF: DICTATED BY: Michael Edwards M.D.]] CC: Chet Ordonez M.D. Ramondelli, Salvatore, M.D. Siuta, Jonathan R., MD Endcc: [~ rep ct add3]] KUB HISTORY: Bowel obstruction. follow up ugi series COMPARISON: Upper GI series 12/13/2016. FINDINGS: Contrast has passed through the dilated loops of small bowel now resides within the colon. The small bowel loops have slightly decompressed. Dilated gas-filled loop of small bowel remains within the left upper quadrant. No renal calculi. No ureteral calculi. No pneumoperitoneum or pneumatosis. IMPRESSION: Contrast has passed into the colon in the interval. A dilated loop of small bowel remains within the left upper quadrant. Therefore, this is consistent with a partial small bowel obstruction. Electronically signed by: Michael Edwards M.D. 12/14/2016 7:43 AM Dictated Date/Time: 12/14/2016 7:41 AM The status of this report is Signed. Draft = Not yet reviewed or approved by Radiologist. Signed = Reviewed and approved by Radiologist. <AttendingPhy>Chet Dove MD</AttendingPhy> <FamilyPhy>Chet Ordonez M.D.</FamilyPhy> <PrimaryPhy>Chet Ordonez M.D.</PrimaryPhy> <UnitNumber> [id number]</UnitNumber> <VisitNumber>[id number]</VisitNumber> <PatientName> JENNIFERALESSIA</PatientName> <DateOfBirth>1965</DateOfBirth> <Location> C.MSN</Location> <ServiceDate>12/12/16</ServiceDate> <MNE>ESINDI</MNE> < OrderingPhy>Iglesia Cano M.D.</OrderingPhy> <OrderingPhyMNE>f rep ord dr flynn</OrderingPhyMNE> <DictatingPhyMNE>f rep dict dr flynn</DictatingPhyMNE> < CCListMNE>f rep ct mne</CCListMNE> <AdmittingPhyMNE>f pt admit dr flynn</ AdmittingPhyMNE> <AttendingPhyMNE>f pt attend dr flynn</AttendingPhyMNE> <ConsultingPhyMNE>f pt consult dr flynn</ConsultingPhyMNE> <FamilyPhyMNE>f pt fam dr flynn</FamilyPhyMNE> <OtherPhyMNE>f pt other dr flynn</OtherPhyMNE> < PrimaryPhyMNE>f pt prim care dr flynn</PrimaryPhyMNE> <ReferringPhyMNE>f pt referring dr flynn</ReferringPhyMNE> (Kanika Edgar ., PACarmelaC) Assessment and Plan 51 y/o female with a history of hypothyroidism, MVP, h/o previous SBO and multiple abdominal surgeries who presents with nausea and LLQ abdominal pain. CT abdomen/pelvis shows SBO. SBO--improving - Admit to med/surg - Pt refusing NGT when attending physician saw, now improved and no longer indicated - General surgery consulted, appreciate recs: advance to full liquid diet - Pt tolerating full liquids this morning w/o N/V but did have some abdominal pain after - Decrease IVF NSS + 20 mEq KCl from 150 to 100 cc/hr - Zofran 4 mg IV q6h prn, Phenergan 12.5 mg IV q6h prn, Reglan 10 mg IV q6h prn. Denies N/V today - Morphine 2 mg IV q2h prn pain - Ranitidine 50 mg IV q8h - Upper GI and small bowel x-ray shows multiple distended loops of proximal to mid small bowel, likely represents a transition point of the patient's known SBO. Suggestion of a tiny apthous ulcer at the gastric antrum. - KUB shows that contrast has passed into the colon in the interval. A dilated loop of small bowel remains within the left upper quadrant consistent with a partial SBO. Hypothyroidism -Resume Synthroid 125 mcg PO qd as no longer NPO DVT prophylaxis -Enoxaparin 40 mg SC q24h -THU sommers and SCDs Code Status -Level I, FULL RESUSCITATION STATUS (Kanika Edgar ., PAGabriel) Attending Attestation: Pt seen/examined, chart reviewed, care plan d/w FAHAD Edgar. I agree w/ the potter components of her documentation. Pt feeling much better - +flatus, +bowel movements, minimal abd discomfort, tolerating diet. Main complaint is frontal headache - it responded to fioricet that was ordered by gen surg. No emesis. VSS gen - nad heart - RRR lungs - CTA b/l abd - soft, NT, ND, BS+ A/P: 1. SBO - resolving. management per surgery 2. headache - may be migraine - toradol with anti-emetic prn, fioricet prn as well - follow d/c tomorrow if stable and ok with gen surg bmp in am Chet Dove MD (Chet Dove MD)
[2016-12-14] MEDS ORDERED: BUTALBITAL/ACETAMIN/CAFFEINE TAB PO STA (11:57)
[2016-12-14] MEDS ORDERED: BUTALBITAL/ACETAMIN/CAFFEINE TAB PO PRN (12:00)
[2016-12-14 15:15] VITALS: BP 123/81; PULSE 57; TEMP 36.6; O2SAT 96
[2016-12-14] MEDS ORDERED: KETOROLAC TROMETHAMINE 30 MG/ML VIAL IV PRN (16:30)
[2016-12-14 23:25] VITALS: BP 118/81; PULSE 67; TEMP 36.7; O2SAT 98
[2016-12-15] MEDS: RANITIDINE IV 50 MG in DEXTROSE 5% 100ML 100 ML IV SCH ×2 (05:29→13:24)
[2016-12-15] MEDS: LEVOTHYROXINE 125 MCG TAB PO SCH (05:29)
[2016-12-15] MEDS: NSS + 20MEQ KCL 1000ML 1,000 ML IV SCH (05:29)
[2016-12-15 07:09] VITALS: BP 115/74; PULSE 46; TEMP 36.6; O2SAT 98
[2016-12-15] MEDS: ENOXAPARIN 30 MG/0.3 ML SYR SQ SCH (08:32)
[2016-12-15 08:46] LABS: BUN/CREATININE RATIO 8.5 (10-20); CALCIUM 8.7 mg/dl (8.5-10.1); CREATININE 0.79 mg/dl (0.60-1.20); MAGNESIUM 1.8 mg/dl (1.8-2.4); POTASSIUM 3.6 mmol/L (3.5-5.1)
--- NOTE | 2016-12-15 09:30 | Surgery Progress Note ---
Surgery Progress Note Date of Service Dec 15, 2016. Subjective Patient examined at bedside this morning. Afebrile, vitals stable overnight on room air, no acute events. Feels great this morning. Tolerating full liquid diet without N/V. Ambulating and voiding without difficulty. Having BMs. Wants to try regular food. Objective Vital Signs: Date Time Temp Pulse Resp B/P (MAP) Pulse Ox O2 Delivery O2 Flow Rate FiO2 12/15/16 07:15 Room Air 12/15/16 07:09 36.6 46 17 115/74 (88) 98 Room Air 12/15/16 00:15 Room Air 12/14/16 23:25 36.7 67 16 118/81 (93) 98 Room Air 12/14/16 15:25 Room Air 12/14/16 15:15 36.6 57 16 123/81 (95) 96 Room Air General Appearance: WD/WN, no apparent distress Head: normocephalic, atraumatic Neck: supple Respiratory/Chest: lungs clear, normal breath sounds, no respiratory distress Cardiovascular: regular rate, rhythm Abdomen: normal bowel sounds, non tender, non distended, soft Extremities: normal range of motion Laboratory Results: Results Past 24 Hours Test 12/15/16 07:48 Range/Units Sodium Level 141 136-145 mmol/L Potassium Level 3.6 3.5-5.1 mmol/L Chloride Level 108 98-107 mmol/L Carbon Dioxide Level 26 21-32 mmol/L Anion Gap 7.0 3-11 mmol/L Blood Urea Nitrogen 7 7-18 mg/dl Creatinine 0.79 0.60-1.20 mg/dl Est Creatinine Clear Calc Drug Dose 89.1 ml/min Estimated GFR () 101.2 Estimated GFR (Non- 87.3 BUN/Creatinine Ratio 8.5 10-20 Random Glucose 85 70-99 mg/dl Calcium Level 8.7 8.5-10.1 mg/dl Magnesium Level 1.8 1.8-2.4 mg/dl Assessment & Plan Margie Norton is a 51 year old woman admitted with a partial small bowel obstruction, now resolving. -Advance to regular diet -Discontinue IVF -No pain at this time -If tolerates regular diet, possible discharge to home later today Loraine Godoy MD 12/15/16
[2016-12-15 14:06] VITALS: BP 115/74; PULSE 46; TEMP 36.6; O2SAT 98
--- NOTE | 2016-12-15 14:22 | Discharge Instructions ---
Discharge Instructions Date of Service Dec 15, 2016. Admission Reason for Admission: Small Bowel Obstruction Discharge Discharge Diagnosis / Problem: Small Bowel Obstruction Discharge Goals Goal(s): Improve disease control, Therapeutic intervention, Prevent Disease Progression Activity Recommendations Activity Limitations: resume your previous activity Lifting Limitations: none Exercise/Sports Limitations: none May Resume Sexual Activity: when tolerated Shower/Bathe: no limitations Driving or Machine Use: no limitations Progress diet gradually, as tolerated. . Current Hospital Diet Patient's current hospital diet: Regular Diet Discharge Diet Recommended Diet: Regular Diet Fluid Restriction: None Pending Studies Studies pending at discharge: no Laboratory Results Test 12/12/16 00:00 12/12/16 23:15 12/12/16 23:25 12/13/16 07:01 Urine Color YELLOW Urine Appearance CLEAR Urine pH 6.0 Urine Specific [place] 1.016 Urine Protein NEG Urine Glucose (UA) NEG Urine Ketones NEG Urine Occult Blood NEG Urine Nitrite NEG Urine Bilirubin NEG Urine Urobilinogen NEG Urine Leukocyte Esterase NEG Immature Granulocyte % (Auto) 0.3 White Blood Count 6.59 5.80 Red Blood Count 4.45 4.19 Hemoglobin 13.8 13.2 Hematocrit 38.9 37.4 Mean Corpuscular Volume 87.4 89.3 Mean Corpuscular Hemoglobin 31.0 31.5 Mean Corpuscular Hemoglobin Concent 35.5 35.3 Platelet Count 176 160 Mean Platelet Volume 10.9 11.0 Neutrophils (%) (Auto) 56.1 Lymphocytes (%) (Auto) 33.1 Monocytes (%) (Auto) 8.8 Eosinophils (%) (Auto) 1.1 Basophils (%) (Auto) 0.6 Neutrophils # (Auto) 3.70 Lymphocytes # (Auto) 2.18 Monocytes # (Auto) 0.58 Eosinophils # (Auto) 0.07 Basophils # (Auto) 0.04 Immature Granulocyte # (Auto) 0.02 Total Bilirubin 0.5 Direct Bilirubin < 0.1 Aspartate Amino Transferase (AST) 19 Alanine Aminotransferase (ALT) 23 Alkaline Phosphatase 67 Total Protein 7.8 Albumin 3.9 POC Lactic Acid Venous 0.84 RDW Standard Deviation 41.3 RDW Coefficient of Variation 12.7 Prothrombin Time 11.2 Prothrombin Time INR 1.0 Test 12/14/16 07:10 12/15/16 07:48 White Blood Count 5.01 Red Blood Count 3.97 Hemoglobin 12.0 Hematocrit 36.5 Mean Corpuscular Volume 91.9 Mean Corpuscular Hemoglobin 30.2 Mean Corpuscular Hemoglobin Concent 32.9 RDW Standard Deviation 43.4 RDW Coefficient of Variation 13.0 Platelet Count 157 Mean Platelet Volume 10.9 Sodium Level 143 141 Potassium Level 3.9 3.6 Chloride Level 115 108 Carbon Dioxide Level 24 26 Anion Gap 4.0 7.0 Blood Urea Nitrogen 13 7 Creatinine 0.76 0.79 Est Creatinine Clear Calc Drug Dose 92.6 89.1 Estimated GFR () 106.0 101.2 Estimated GFR (Non- 91.5 87.3 BUN/Creatinine Ratio 16.6 8.5 Random Glucose 87 85 Calcium Level 8.0 8.7 Magnesium Level 1.8 Work Instructions Return To Work: 2 days Lifting Limitations: none Medical Emergencies . Who to Call and When: Medical Emergencies: If at any time you feel your situation is an emergency, please call 911 immediately. . Non-Emergent Contact Non-Emergency issues call your: Primary Care Provider Call Non-Emergent contact if: you have a fever, you have any medication questions Please contact your PCP if any recurrent abdominal pain, colic, nausea, or vomiting. . . "Provider Documentation" section prepared by Deuce Fournier. . VTE Core Measure Inpt VTE Proph given/why not?: Enoxaparin (Lovenox)SQ
--- NOTE | 2016-12-16 00:07 | DISCHARGE SUMMARY ---
ADMITTING DIAGNOSIS: Small bowel obstruction. SECONDARY DIAGNOSES: 1. Status post hysterectomy and left oophorectomy for bleed. 2. History of right ovarian torsion status post right oophorectomy. 3. History of cholecystectomy. 4. Likely has abdominal adhesions. HOSPITAL COURSE: Mrs. Norton is a very pleasant 51-year-old white female, who presented acutely to [facility] Emergency Room with a recurrent small bowel obstruction. On 12/12/2016, she finished her daily routine, rode her bike home and ate some spaghetti with red sauce. Thereafter she began to develop some lower abdominal pain, mostly in the left lower quadrant and somewhat in the epigastric area. She then developed significant nausea, reflux, and anorexia. She subsequently presented to the ER for further evaluation and treatment. The patient was admitted, placed on bowel rest, given IV fluids and was given analgesics for pain control. The patient underwent an upper GI with small bowel followthrough, which showed multiple distant loops of proximal to mid small bowel obstruction. A followup KUB x-ray was done 24 hours later and this revealed only a partial small bowel obstruction and passage of barium into the distal bowel. As patient became less symptomatic, her diet was progressed. She ate a regular diet for lunch today, and tolerated this without abdominal pain, nausea, vomiting, or diarrhea. The patient has had 1 bowel movement since being here and is passing gas freely. She wants to go home. PHYSICAL EXAMINATION: VITAL SIGNS: Temperature is 36.6 degrees Celsius, pulse is 50 and regular, respiratory rate is 14 and unlabored. Blood pressure is 115/74. SpO2 is 98% on room air. GENERAL: The patient is in no acute distress. HEENT: Head is atraumatic, normocephalic. EOMs intact. Sclerae are anicteric. Facies symmetric. No perioral cyanosis. Mucous membranes are moist. NECK: Without thyromegaly, adenopathy or JVD. Carotid upstrokes are +2 bilaterally without bruits. CHEST AND LUNGS: Clear to auscultation throughout all lung laurent, no wheezes, rales or rhonchi. CARDIOVASCULAR: S1 and S2 are regular without murmur, gallop, or rub. PMI is nondisplaced. No lifts, heaves, or thrills. ABDOMEN: Bowel sounds present, mildly decreased. No masses, organomegaly, or tenderness. EXTREMITIES: Without clubbing, cyanosis, or edema. NEUROLOGIC: Within normal limits. LABORATORY DATA: Sodium is 141 mmol/L, potassium 3.6 mmol/L. BUN is 7mg/dL, creatinine is 0.79 mg/dL. Random glucose 85 mg/dL, magnesium level 1.8 mg/dL. CBC with diff is largely unremarkable. DISCHARGE MEDICATIONS: 1. Zyrtec 10 mg daily as needed. 2. Vitamin D3 5000 units daily. 3. Colace 100 mg b.i.d. 4. Estradiol transdermal system 0.025 mg apply patch to skin once weekly. 5. [place] 180 mg daily as needed for allergies. 6. Levothyroxine 125 mcg daily. 7. Multivitamin daily. 8. Metamucil 1 packet daily. 9. Aloe vera capsules 25 mg daily. 10. Vitamin C 500 mg a day. 11. Biotin 5000 mcg daily. 12. Calcium with vitamin D 500 mg daily. ALLERGIES: 1. ERYTHROMYCIN. 2. OXYCODONE. 3. TRAMADOL. CONSULTATIONS: Dr. Cano for general surgical consultation. FOLLOWUP INSTRUCTIONS: The patient is to progress diet as tolerated. Follow up with PCP in the next 1-2 weeks. The patient agrees with this plan. Attending Attestation: I agree with the potter components of this discharge summary by FAHAD Fournier. Chet LOPEZ
== END 2016-12-15 15:15 | disposition home or self-care (01) | DRG 390 ==
LOC: C.EDB 22:02 → C.MSN 12-13 02:22 → ENRESERV 12-13 02:40
PROVIDERS: ADMIT Student in an Organized Health Care Education/Training Program; ATTEND Internal Medicine
DX: K56.5 Intestinal adhesions [bands] with obstruction (postinfection) (principal); E03.9 Hypothyroidism, unspecified; G43.909 Migraine, unspecified, not intractable, without status migrainosus; Z87.19 Personal history of other diseases of the digestive system; Z90.49 Acquired absence of other specified parts of digestive tract; Z90.710 Acquired absence of both cervix and uterus; Z90.722 Acquired absence of ovaries, bilateral; Z79.890 Hormone replacement therapy; Z88.1 Allergy status to other antibiotic agents; Z88.5 Allergy status to narcotic agent; Z82.49 Family history of ischemic heart disease and other diseases of the circulatory system; Z84.1 Family history of disorders of kidney and ureter

== ENCOUNTER → 2017-03-22 | Outpatient (CLI) | payer BC ==
--- NOTE | 2017-03-25 15:20 | MAMMOGRAPHY REPORT ---
BILATERAL DIGITAL SCREENING MAMMOGRAM TOMOSYNTHESIS WITH CAD: 03/22/2017 CLINICAL HISTORY: Routine screening. Patient has no complaints. TECHNIQUE: Breast tomosynthesis in addition to standard 2D mammography was performed. Current study was also evaluated with a Computer Aided Detection (CAD) system. COMPARISON: Comparison is made to exams dated: 03/21/2016 mammogram, 03/18/2015 mammogram, 02/25/2014 mammogram, 02/24/2013 mammogram, 12/26/2011 mammogram, and 12/22/2010 mammogram - [facility] enter. BREAST COMPOSITION: There are scattered areas of fibroglandular density in both breasts. FINDINGS: No suspicious masses, calcifications, or areas of architectural distortion are noted in ei ther breast. There has been no significant interval change compared to prior exams. Grouped calcific ations in the left upper outer quadrant are stable dating back to at least the 2012 and 2010 exams. IMPRESSION: ACR BI-RADS CATEGORY 2: BENIGN There is no mammographic evidence of malignancy. A 1 year screening mammogram is recommended. The pa tient will receive written notification of the results. Approximately 10% of breast cancers are not detected with mammography. A negative mammographic report should not delay biopsy if a clinically suggestive mass is present. Karolyn Ochoa M.D. ah/:03/22/2017 16:28:44 Yeast Culture Developer: Macy MEDINA(Danna)(Jaime)(BD), [facility] letter sent: Normal 1/2 BI-RADS Code: ACR BI-RADS Category 2: Benign
== END | disposition home or self-care (01) ==
LOC: C.MAMM 15:50
PROVIDERS: ATTEND Obstetrics & Gynecology
DX: Z12.31 Encounter for screening mammogram for malignant neoplasm of breast (principal)

== ENCOUNTER 2017-07-11 18:19 | Emergency (ER) | payer BC ==
[~2017-07-11] VITALS: Ht 172.7 cm; Wt 73.2 kg
[2017-07-11 18:31] VITALS: TEMP 36.4; Ht 172.7 cm; Wt 73.2 kg
[2017-07-11] MEDS ORDERED: ONDANSETRON INJ 2 MG/ML 2 ML VIAL IV STA (18:53)
[2017-07-11 19:22] LABS: BASO % 0.4 %; BASO ABS # 0.02 K/uL (0-0.2); EOS % 0.8 %; EOS ABS # 0.04 K/uL (0-0.5); HEMATOCRIT 39.9 % (37-47); HEMOGLOBIN 13.9 g/dL (12.0-16.0); IG# 0.01 K/uL (0.00-0.02); LYMPH % 46.8 %; MEAN CELL VOLUME 87.7 fL (80-100); MEAN CORPUSCULAR HEMOGLOBIN 30.5 pg (25-34); MEAN CORPUSCULAR HGB CONC 34.8 g/dl (32-36); MEAN PLATELET VOLUME 10.2 fL (7.4-10.4); MONO ABS # 0.46 K/uL (0.11-0.59); NEUT % 42.8 %; PLATELET COUNT 194 K/uL (130-400); RED CELL DISTRIBUTION WIDTH CV 12.4 % (11.5-14.5); WHITE BLOOD COUNT 5.13 K/uL (4.8-10.8)
[2017-07-11 19:43] LABS: ALBUMIN 4.2 gm/dl (3.4-5.0); ALT/SGPT 22 U/L (12-78); AST/SGOT 16 U/L (15-37); BLOOD UREA NITROGEN 14 mg/dl (7-18); CALCIUM 9.3 mg/dl (8.5-10.1); CARBON DIOXIDE 25 mmol/L (21-32); CREATININE 0.93 mg/dl (0.60-1.20); GLUCOSE 96 mg/dl (70-99); LIPASE 293 U/L (73-393); POTASSIUM 3.4 mmol/L (3.5-5.1); SODIUM 138 mmol/L (136-145)
[2017-07-11 19:45] LABS: ALKALINE PHOSPHATASE 75 U/L (45-117); TOTAL PROTEIN 8.2 gm/dl (6.4-8.2)
--- NOTE | 2017-07-11 19:56 | DIAGNOSTIC IMAGING REPORT ---
ABDOMEN 2VIEW W/PA CHEST RTN CLINICAL HISTORY: llq pain eval for obstruction pain COMPARISON STUDY: No previous studies for comparison. FINDINGS: The soft tissues, psoas shadows, renal outlines and intestinal gas pattern appear normal. There is no evidence for bowel obstruction. There is no evidence for free intraperitoneal air. No abnormal abdominal calcifications are seen. A frontal view of the chest was performed and is unremarkable. IMPRESSION: Normal study. The above report was generated using voice recognition software. It may contain grammatical, syntax or spelling errors. Electronically signed by: George Menendez M.D. 07/11/2017 7:55 PM Dictated Date/Time: 07/11/2017 7:55 PM
[2017-07-11 20:22] VITALS: BP 116/71; PULSE 50; O2SAT 100
[2017-07-11] MEDS ORDERED: PSYL48.59 PO (20:25)
--- NOTE | 2017-07-11 21:50 | EMERGENCY ROOM VISIT NOTE ---
History Report prepared by Catherine: Aiden Lombardo Under the Supervision of: Dr. Saeid Oakley M.D. First contact with patient: 18:46 Chief Complaint: ABDOMINAL PAIN Stated Complaint: AB PAIN Nursing Triage Summary: Patient presents ambulatory to triage with c/o LLQ pain She has a history of small bowl obstruction States pain began about 1714 today Patient has had increased bloating, flatus, constipation, nausea History of Present Illness The patient is a 51 year old female who presents to the Emergency Room with complaints of intermittent abdominal pain since 1714 today. She describes the pain as a cramp that releases and then cramps again. She notes the pain is similar to previous symptoms related to her history of recurrent SBO. She has a history of partial colon resection for severe diverticulitis. She passed a small amount of stool after the pain began. She notes nausea, though denies any vomiting. She denies any fever, though she feels warm. She states that she is normally has CT scans. She states that she is okay with an XR. She states that she does not do well drinking the oral contrast and she normally vomits it back up. Source of History: patient Onset: 1714 today Position: abdomen Symptom Intensity: moderate Quality: cramping Timing: intermittent Associated Symptoms: + nausea, No fevers, No vomiting Note: She notes increased warmth Review of Systems See HPI for pertinent positives & negatives. A total of 10 systems reviewed and were otherwise negative. Past Medical & Surgical Medical Problems: (1) Diverticulitis (2) Hypothyroidism (3) Mitral valve prolapse Surgical Problems: (1) S/P colectomy Family History Heart disease Kidney disease Social History Smoking Status: Never Smoker Drug Use: none Marital Status: Housing Status: lives with family Occupation Status: employed Current/Historical Medications Scheduled Aloe Vera (Aloe Vera), 25 MG PO QAM Ascorbic Acid (Ascorbic Acid), 500 MG PO DAILY Biotin (Biotin), 5,000 MCG PO DAILY Calcium/Vitamin D (Os-Cesario 500 Plus D), 1 TAB PO QAM Cholecalciferol (Vitamin D3), 5,000 UNITS PO DAILY Estradiol (Climara), 1 PATCH TD WK Levothyroxine Sodium (Synthroid), 125 MCG PO QAM Multivitamin (Multivitamin), 1 TAB PO QAM Psyllium (Metamucil), 1 DOSE PO DAILY Scheduled PRN Cetirizine Hcl (Zyrtec), 10 MG PO DAILY PRN for Allergies Docusate Sodium (Colace), 100 MG PO BID PRN for Constipation Fexofenadine Hcl (Socorro), 180 MG PO DAILY PRN for Allergies Allergies Coded Allergies: Erythromycin (Verified Allergy, Unknown, EDEMA OF MOUTH/LIPS, 07/11/17) Oxycodone (Verified Adverse Reaction, Intermediate, Chest Pain.SYNCOPY, ) Reported by PT/[facility] record. Tramadol (Verified Adverse Reaction, Intermediate, CHEST PAIN,SYNCOPE, ) Physical Exam Vital Signs Date Time Temp Pulse Resp B/P (MAP) Pulse Ox O2 Delivery O2 Flow Rate FiO2 07/11/17 20:22 50 16 116/71 100 Room Air 07/11/17 18:31 36.4 63 16 127/79 100 Room Air Physical Exam Constitutional: Vital signs reviewed. Eyes: Pupils are equal round reactive to light. Conjunctiva are noninjected. ENT: Pharynx is clear without erythema or exudate. Mucous membranes are moist. Neck supple without meningeal signs. Respiratory: Clear to auscultation bilaterally. Breath sounds are equal bilaterally. Cardiovascular: Regular rate and rhythm. No rubs or gallops. GI: Soft, nondistended and mild LLQ tenderness, no guarding. Bowel sounds are present. Musculoskeletal: No peripheral edema. No CVA tenderness. Integumentary: No cyanosis. Neurological: The patient is awake and alert. No focal deficits. Psychiatric: Normal affect. Medical Decision & Procedures ER Provider Diagnostic Interpretation: Radiology results as stated below per my review and the radiologist's interpretation: ABDOMEN 2VIEW W/PA CHEST RTN CLINICAL HISTORY: llq pain eval for obstruction pain COMPARISON STUDY: No previous studies for comparison. FINDINGS: The soft tissues, psoas shadows, renal outlines and intestinal gas pattern appear normal. There is no evidence for bowel obstruction. There is no evidence for free intraperitoneal air. No abnormal abdominal calcifications are seen. A frontal view of the chest was performed and is unremarkable. IMPRESSION: Normal study. The above report was generated using voice recognition software. It may contain grammatical, syntax or spelling errors. Electronically signed by: George Menendez M.D. 07/11/2017 7:55 PM Dictated Date/Time: 07/11/2017 7:55 PM Laboratory Results 07/11/17 19:02 Red Blood Count 4.55, Mean Corpuscular Volume 87.7, Mean Corpuscular Hemoglobin 30.5, Mean Corpuscular Hemoglobin Concent 34.8, Mean Platelet Volume 10.2, Neutrophils (%) (Auto) 42.8, Lymphocytes (%) (Auto) 46.8, Monocytes (%) (Auto) 9.0, Eosinophils (%) (Auto) 0.8, Basophils (%) (Auto) 0.4, Neutrophils # (Auto) 2.20, Lymphocytes # (Auto) 2.40, Monocytes # (Auto) 0.46, Eosinophils # (Auto) 0.04, Basophils # (Auto) 0.02 07/11/17 19:02 Test 07/11/17 18:57 07/11/17 19:02 Urine Color YELLOW Urine Appearance CLEAR (CLEAR) Urine pH 7.5 (4.5-7.5) Urine Specific [place] 1.005 (1.000-1.030) Urine Protein NEG (NEG) Urine Glucose (UA) NEG (NEG) Urine Ketones NEG (NEG) Urine Occult Blood NEG (NEG) Urine Nitrite NEG (NEG) Urine Bilirubin NEG (NEG) Urine Urobilinogen NEG (NEG) Urine Leukocyte Esterase NEG (NEG) Urine Test NEG (NEG) White Blood Count 5.13 K/uL (4.8-10.8) Red Blood Count 4.55 M/uL (4.2-5.4) Hemoglobin 13.9 g/dL (12.0-16.0) Hematocrit 39.9 % (37-47) Mean Corpuscular Volume 87.7 fL (80-100) Mean Corpuscular Hemoglobin 30.5 pg (25-34) Mean Corpuscular Hemoglobin Concent 34.8 g/dl (32-36) Platelet Count 194 K/uL (130-400) Mean Platelet Volume 10.2 fL (7.4-10.4) Neutrophils (%) (Auto) 42.8 % Lymphocytes (%) (Auto) 46.8 % Monocytes (%) (Auto) 9.0 % Eosinophils (%) (Auto) 0.8 % Basophils (%) (Auto) 0.4 % Neutrophils # (Auto) 2.20 K/uL (1.4-6.5) Lymphocytes # (Auto) 2.40 K/uL (1.2-3.4) Monocytes # (Auto) 0.46 K/uL (0.11-0.59) Eosinophils # (Auto) 0.04 K/uL (0-0.5) Basophils # (Auto) 0.02 K/uL (0-0.2) RDW Standard Deviation 40.0 fL (36.4-46.3) RDW Coefficient of Variation 12.4 % (11.5-14.5) Immature Granulocyte % (Auto) 0.2 % Immature Granulocyte # (Auto) 0.01 K/uL (0.00-0.02) Anion Gap 5.0 mmol/L (3-11) Est Creatinine Clear Calc Drug Dose 73.0 ml/min Estimated GFR () 83.1 Estimated GFR (Non- 71.7 BUN/Creatinine Ratio 15.0 (10-20) Calcium Level 9.3 mg/dl (8.5-10.1) Total Bilirubin 0.4 mg/dl (0.2-1) Direct Bilirubin < 0.1 mg/dl (0-0.2) Aspartate Amino Transf (AST/SGOT) 16 U/L (15-37) Alanine Aminotransferase (ALT/SGPT) 22 U/L (12-78) Alkaline Phosphatase 75 U/L (45-117) Total Protein 8.2 gm/dl (6.4-8.2) Albumin 4.2 gm/dl (3.4-5.0) Lipase 293 U/L (73-393) Laboratory results as reviewed by me. Medications Administered Medications (Trade) Dose Ordered Sig/Demar Route Start Time Stop Time Status Last Admin Dose Admin Ondansetron HCl (Zofran Inj) 4 mg NOW STAT IV 07/11/17 18:53 07/11/17 18:54 DC 07/11/17 18:53 4 MG ED Course 184: The patient was evaluated in room C1B. A complete history and physical exam was performed. 1852: Ordered Zofran 4 mg IV 2009: I reassessed the patient at this time. She is resting comfortably. I discussed the results and treatment plan with the patient. I recommended a CT scan, though she preferred to try a more conservative treatment with a liquid diet. I answered all pertaining questions that she had. She expressed understanding and verbalized agreement. The patient will be discharged home. Medical Decision This is a 51-year-old female who presents with left lower quadrant abdominal pain. Differential diagnosis includes small bowel obstruction, partial obstruction, strain, kidney stone, UTI, diverticulitis. I did perform a limited focused review of portions of the patient's old chart on the electronic medical record. The patient was admitted in November 2016 for SBO. I did evaluate the patient as noted above. The patient is presenting with left lower quadrant abdominal pain. She states she has similar symptoms to when she had a bowel obstruction. I did treat her with Zofran IV. IV access was established. I did order and personally review the patient's abdominal and chest x-rays as described above. I did order and review the patient's blood work as noted in the electronic medical record. She has mild hypokalemia but otherwise her labs are unremarkable. Urinalysis was unremarkable as well. I did reassess the patient. She states that she has no symptoms currently. She has no abdominal pain. I did discuss the limitations of the x-rays and discuss the possibility of CT scanning. As the patient has no symptoms currently she preferred not to have the CAT scan. I did recommend she stay on a clear liquid diet for the next 24 hours and advance to full liquids after that as she said her symptoms are consistent with her prior bowel obstructions and she may be developing a small bowel obstruction. She was advised to return immediately should she have any worsening symptoms. She was discharged in good condition. Medication Reconcilliation Current Medication List: was personally reviewed by me Blood Pressure Screening Patient's blood pressure: Elevated blood pressure Blood pressure disposition: Elevated BP felt to be situational Impression Primary Impression: Abdominal pain, LLQ (left lower quadrant) Scribe Attestation The scribe's documentation has been prepared under my direct and personally reviewed by me in its entirety. I confirm that the note above accurately reflects all work, treatment, procedures, and medical decision making performed by me. Departure Information Dispostion Home / Self-Care Referrals Chet Ordonez M.D. (PCP) Forms Call Back Authorization, HOME CARE DOCUMENTATION FORM, IMPORTANT VISIT INFORMATION Patient Instructions ED Abdominal Pain Unkn Cause, My [facility], Obstruction Sm Bowel Additional Instructions You have been examined and treated today on an emergency basis only. This is not a substitute for, or an effort to provide, complete comprehensive medical care. It is impossible to recognize and treat all injuries or illnesses in a single emergency department visit. It is therefore important that you follow up closely with your physician. Call as soon as possible for an appointment. Return immediately for worsening symptoms or if you develop fever, vomiting, or any other concerning symptoms. Stay on a clear liquid diet for the next 24 hours. Advance to full liquids after this.
== END 2017-07-11 20:58 | disposition home or self-care (01) ==
LOC: C.EDB 18:20 → C.EDC 20:58
DX: R10.32 Left lower quadrant pain (principal); R03.0 Elevated blood-pressure reading, without diagnosis of hypertension; E87.6 Hypokalemia; K56.699 Other intestinal obstruction unspecified as to partial versus complete obstruction; K57.10 Diverticulosis of small intestine without perforation or abscess without bleeding; Z90.49 Acquired absence of other specified parts of digestive tract; E03.9 Hypothyroidism, unspecified; Z88.6 Allergy status to analgesic agent; Z88.1 Allergy status to other antibiotic agents; Z82.49 Family history of ischemic heart disease and other diseases of the circulatory system; Z84.1 Family history of disorders of kidney and ureter

== ENCOUNTER 2017-08-07 14:26 | Inpatient (IN) | payer BC ==
[~2017-08-07] VITALS: Ht 172.7 cm; Wt 72.4 kg
[~2017-08-07 14:26] MED LIST changes: +PSYL48.59 PO; -PSYL55.43 PO
[2017-08-07] MEDS ORDERED: ONDANSETRON INJ 2 MG/ML 2 ML VIAL IV STA ×2 (14:58→17:50)
[2017-08-07] MEDS ORDERED: FENTANYL CITRATE INJ 50 MCG/1 ML 2 ML VIAL IV STA ×2 (14:58→15:59)
[2017-08-07] MEDS ORDERED: SODIUM CHLORIDE 0.9% 1000ML 2,000 ML IV STA (14:58)
[2017-08-07] MEDS ORDERED: OPTIRAY 320 IV PRN (15:15)
[2017-08-07 15:22] LABS: BASO % 0.4 %; BASO ABS # 0.03 K/uL (0-0.2); EOS % 0.4 %; EOS ABS # 0.03 K/uL (0-0.5); HEMATOCRIT 40.8 % (37-47); HEMOGLOBIN 14.2 g/dL (12.0-16.0); IG# 0.02 K/uL (0.00-0.02); LYMPH % 25.5 %; LYMPH ABS # 1.82 K/uL (1.2-3.4); MEAN CELL VOLUME 87.6 fL (80-100); MEAN CORPUSCULAR HEMOGLOBIN 30.5 pg (25-34); MEAN CORPUSCULAR HGB CONC 34.8 g/dl (32-36); MEAN PLATELET VOLUME 10.2 fL (7.4-10.4); MONO % 8.1 %; MONO ABS # 0.58 K/uL (0.11-0.59); NEUT % 65.3 %; NEUT ABS # 4.65 K/uL (1.4-6.5); PLATELET COUNT 197 K/uL (130-400); RED CELL DISTRIBUTION WIDTH CV 12.2 % (11.5-14.5); RED CELL DISTRIBUTION WIDTH SD 39.1 fL (36.4-46.3); WHITE BLOOD COUNT 7.13 K/uL (4.8-10.8)
[2017-08-07 15:50] LABS: ALBUMIN 4.3 gm/dl (3.4-5.0); ALT/SGPT 23 U/L (12-78); AST/SGOT 17 U/L (15-37); BLOOD UREA NITROGEN 18 mg/dl (7-18); CALCIUM 9.6 mg/dl (8.5-10.1); CARBON DIOXIDE 25 mmol/L (21-32); CREATININE 0.99 mg/dl (0.60-1.20); GLUCOSE 96 mg/dl (70-99); LIPASE 225 U/L (73-393); SODIUM 138 mmol/L (136-145)
[2017-08-07 15:53] LABS: ALKALINE PHOSPHATASE 74 U/L (45-117); TOTAL PROTEIN 8.5 gm/dl (6.4-8.2)
[2017-08-07] MEDS: FENTANYL CITRATE INJ 50 MCG/1 ML 2 ML VIAL IV PRN ×3 (16:47→20:35)
--- NOTE | 2017-08-07 17:51 | DIAGNOSTIC IMAGING REPORT ---
ABD/PELVIS IV CONTRAST ONLY CLINICAL HISTORY: 52 years-old Female presenting with EVAL SBO, left-sided abdominal pain. TECHNIQUE: Multidetector CT of the abdomen and pelvis was performed after the administration of intravenous contrast. IV contrast: 118 mL of Optiray 320. A dose lowering technique was used consistent with the principles of ALARA (as low as reasonably achievable). COMPARISON: 12/13/2016. CT DOSE (mGy.cm): The estimated cumulative dose is 313.45 mGy.cm. FINDINGS: Technical Services Consultant topogram: Cholecystectomy clips. Lung bases: Lungs and pleural spaces clear. Normal heart size. No pericardial or pleural effusion. Liver: Normal morphology. No liver lesion. Poor opacification of the hepatic veins likely relates to timing of contrast bolus. Otherwise patent hepatic vasculature. Biliary: Mild biliary ductal prominence likely a reservoir effect in the post cholecystectomy state. Gallbladder surgically absent. Pancreas: Normal. Spleen: Normal. Adrenal glands: Normal. Kidneys and ureters: Normal. No hydronephrosis. Bladder: Allowing for underdistention, suggestion of circumferential bladder wall thickening. Pelvic organs: Uterus surgically absent. Bowel: Colocolonic anastomosis at the upper rectum likely indicating sigmoidectomy. Reticulosis of the descending colon. No pericolonic inflammatory change. The appendix is normal. Persistent segmental wall thickening of the extended loop of bowel in the left mid abdomen. The wall measures up to 7 mm in thickness (series 3 image [id number]). This distribution is unchanged from prior exam suggesting stricture/submucosal fibrotic change rather than submucosal edema. There is upstream small bowel distention compatible with small bowel obstruction. Small bowel measures up to 3.3 cm in diameter. There is fecal material upstream further evidencing obstruction. There is smooth tapering of less dilated upstream bowel, excluding a closed loop obstruction. No additional site of small bowel wall thickening. Peritoneal cavity: No free fluid or intraperitoneal gas. Lymph nodes: No enlarged lymph nodes in the abdomen or pelvis. Vasculature: Aorta and IVC patent and normal in caliber. Abdominal wall: Postsurgical changes suggested in the umbilical midline abdominal wall. Musculoskeletal: Normal. IMPRESSION: 1. Persistent segment of small bowel wall thickening in a loop in the left mid abdomen, which is the cause of a small bowel obstruction. This is likely a high-grade partial small bowel obstruction. This is more likely to represent stricture/submucosal fibrosis rather than submucosal edema considering its fixed appearance since the prior exam in November. Differential considerations include radiation enteritis, Crohn's disease, and prior mesenteric ischemia. Mesenteric lymphoma is considered less likely given the obstruction. Other etiologies such as drug induced enteritis, vasculitis, or angioedema are considered less likely because of the lack of change attendant 8 months. 2. Surgically absent uterus. 3. Circumferential bladder wall thickening may be present allowing for underdistention. Correlate with urinalysis to exclude cystitis. Electronically signed by: Christian Joyner M.D. 08/07/2017 5:49 PM Dictated Date/Time: 08/07/2017 5:39 PM
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
[2017-08-07] MEDS ORDERED: PROMETHAZINE HCL INJ 12.5 MG in SODIUM CHLORIDE 0.9% 50ML 50 ML IV STA (20:16)
--- NOTE | 2017-08-07 21:31 | Surgery Consultation ---
Consultation Date of Consultation: Aug 07, 2017. Attending Physician: Reason for Consultation: small bowel obstruction History of Present Illness Patient is a 52F with PMHx of MVP, hypothyroidism and septic shock who presents to the ED this evening due to LLQ abdominal pain which started around noon today. Reports the pain got progressively worse and she developed a burning pain along her epigastric area which prompted her to come to the ED. She has a history of 7 small bowel obstructions in the past which have all presented similarly. Reports her last small bowel obstruction occurred approximately 4 weeks ago. Reports she ate breakfast without issue this morning but her pain started soon after she had chicken salad for lunch. Reports nausea since the onset of her pain but denies any vomiting. Denies fever/chills/recent illness. She is urinating without issue. Reports she actually just had a BM approximately 20 minutes ago in the ED which was normal for her. PSHx significant for sigmoidectomy due to diverticulitis, , cholecystectomy. She also had a hysterectomy where they took everything but left 1 ovary. She later had surgery to remove the other ovary when it wrapped around her bowel. Appendix still present. Denies any other abdominal surgeries in the past. Denies use of blood thinning or anticoagulant medications. WBC WNL. CT shows findings significant for a high-grade partial small bowel obstruction. At this time patients pain is minimal. She did receive pain medication in the ED. She was also given phenergan in the ED and denies nausea/ vomiting at this time. Patient reports she does regularly take dulcolax which seems to help her bowels move. Past Medical/Surgical History Medical Problems: (1) Diverticulosis Colon (W/O Ment Of Hemorrhage) Status: Chronic (2) Hypothyroidism Status: Chronic (3) Mitral valve prolapse Status: Chronic Family History Heart disease Kidney disease Social History Smoking Status: Never Smoker Drug Use: none Marital Status: Housing Status: lives with family Occupation Status: employed Allergies Coded Allergies: Erythromycin (Verified Allergy, Unknown, EDEMA OF MOUTH/LIPS, 08/07/17) Oxycodone (Verified Adverse Reaction, Intermediate, Chest Pain.SYNCOPY, ) Reported by PT/[facility] record. Tramadol (Verified Adverse Reaction, Intermediate, CHEST PAIN,SYNCOPE, ) Home Medications Scheduled Aloe Vera (Aloe Vera), 25 MG PO QAM Ascorbic Acid (Ascorbic Acid), 500 MG PO DAILY Biotin (Biotin), 5,000 MCG PO DAILY Calcium/Vitamin D (Os-Cesario 500 Plus D), 1 TAB PO QAM Cholecalciferol (Vitamin D3), 5,000 UNITS PO DAILY Estradiol (Climara), 1 PATCH TD WK Levothyroxine Sodium (Synthroid), 125 MCG PO QAM Multivitamin (Multivitamin), 1 TAB PO QAM Psyllium (Metamucil), 1 DOSE PO DAILY Scheduled PRN Cetirizine Hcl (Zyrtec), 10 MG PO DAILY PRN for Allergies Docusate Sodium (Colace), 100 MG PO BID PRN for Constipation Fexofenadine Hcl (Socorro), 180 MG PO DAILY PRN for Allergies Current Inpatient Medications Current Inpatient Medications Medications (Trade) Dose Ordered Sig/Demar Route Start Time Stop Time Status Last Admin Dose Admin Fentanyl Citrate (Fentanyl Inj) 50 mcg Q1H PRN IV 08/07/17 15:00 08/21/17 14:59 08/07/17 20:35 50 MCG Ioversol (Optiray 320) 125 ml UD PRN IV 08/07/17 15:15 08/11/17 15:14 Review of Systems Constitutional: No fever, No chills, No fatigue Respiratory: No shortness of breath Cardiovascular: No chest pain Abdomen: + pain (LLQ pain, epigastic burning.), + nausea, + problem reported ( reports abdominal bloating and increased burping.), No vomiting, No diarrhea, No constipation Genitourinary - Female: No dysuria Integumentary: No color change Physical Exam Date Time Temp Pulse Resp B/P (MAP) Pulse Ox O2 Delivery O2 Flow Rate FiO2 08/07/17 20:36 44 15 119/77 100 Room Air 08/07/17 19:30 51 17 115/85 99 Room Air 08/07/17 19:01 114/72 08/07/17 19:00 54 20 100 Room Air 08/07/17 18:47 51 08/07/17 18:46 55 16 100 Room Air 08/07/17 18:31 122/77 08/07/17 18:16 47 15 98 Room Air 08/07/17 18:00 128/75 08/07/17 17:46 56 17 125/84 100 Room Air 08/07/17 17:45 53 16 125/84 100 Room Air 08/07/17 16:36 47 16 100 Room Air 08/07/17 16:31 102/70 08/07/17 16:21 56 21 100 Room Air 08/07/17 16:06 45 18 100 Room Air 08/07/17 16:01 122/64 08/07/17 15:51 48 21 100 Room Air 08/07/17 15:36 50 17 100 Room Air 08/07/17 15:31 107/74 08/07/17 15:30 49 17 100 Room Air 08/07/17 15:28 52 08/07/17 15:27 54 14 111/66 100 Room Air 08/07/17 14:39 36.5 58 20 141/88 100 Room Air Patient resting comfortably in bed with at bedside. General Appearance: WD/WN, no apparent distress Head: normocephalic, atraumatic ENT: hearing grossly normal Neck: trachea midline Respiratory/Chest: no respiratory distress, no accessory muscle use Abdomen/GI: soft, no organomegaly, no pulsatile mass, + tenderness (LLQ TTP ( mild)) Neurologic/Psych: alert, normal mood/affect, oriented x 3 Skin: normal color, warm/dry Laboratory Results Last 24 Hours Test 08/07/17 15:05 White Blood Count 7.13 K/uL Red Blood Count 4.66 M/uL Hemoglobin 14.2 g/dL Hematocrit 40.8 % Mean Corpuscular Volume 87.6 fL Mean Corpuscular Hemoglobin 30.5 pg Mean Corpuscular Hemoglobin Concent 34.8 g/dl Platelet Count 197 K/uL Mean Platelet Volume 10.2 fL Neutrophils (%) (Auto) 65.3 % Lymphocytes (%) (Auto) 25.5 % Monocytes (%) (Auto) 8.1 % Eosinophils (%) (Auto) 0.4 % Basophils (%) (Auto) 0.4 % Neutrophils # (Auto) 4.65 K/uL Lymphocytes # (Auto) 1.82 K/uL Monocytes # (Auto) 0.58 K/uL Eosinophils # (Auto) 0.03 K/uL Basophils # (Auto) 0.03 K/uL RDW Standard Deviation 39.1 fL RDW Coefficient of Variation 12.2 % Immature Granulocyte % (Auto) 0.3 % Immature Granulocyte # (Auto) 0.02 K/uL Urine Color YELLOW Urine Appearance CLEAR Urine pH 8.0 Urine Specific [place] 1.007 Urine Protein NEG Urine Glucose (UA) NEG Urine Ketones NEG Urine Occult Blood NEG Urine Nitrite NEG Urine Bilirubin NEG Urine Urobilinogen NEG Urine Leukocyte Esterase NEG Sodium Level 138 mmol/L Potassium Level 4.0 mmol/L Chloride Level 109 mmol/L Carbon Dioxide Level 25 mmol/L Anion Gap 4.0 mmol/L Blood Urea Nitrogen 18 mg/dl Creatinine 0.99 mg/dl Estimated GFR () 76.5 Estimated GFR (Non- 66.0 BUN/Creatinine Ratio 17.8 Random Glucose 96 mg/dl Calcium Level 9.6 mg/dl Total Bilirubin 0.6 mg/dl Aspartate Amino Transf (AST/SGOT) 17 U/L Alanine Aminotransferase (ALT/SGPT) 23 U/L Alkaline Phosphatase 74 U/L Total Protein 8.5 gm/dl Albumin 4.3 gm/dl Globulin 4.2 gm/dl Albumin/Globulin Ratio 1.0 Lipase 225 U/L Assessment & Plan small bowel obstruction pain controlled, abdomen soft, non-distended. Minimal LLQ TTP. No N/V at this time. No acute surgical intervention indicated at this time. May consider planned surgical options as she has had multiple small bowel obstructions in past. Admit per medicine service, bowel rest, NPO, IV fluids, pain medication prn, anti-emetics PRN, SCDs. Can hold off on NGT for now. May place to LIWS if patient develops uncontrolled nausea or vomiting. Will discuss findings with Dr. Dubon. Surgery will follow.
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
[2017-08-07 23:45] VITALS: BP 126/83; PULSE 47; TEMP 36.8; O2SAT 99; Ht 172.7 cm; Wt 72.4 kg
[2017-08-07] MEDS: SODIUM CHLORIDE 0.9% 1000ML 1,000 ML IV SCH (23:57)
[2017-08-08] MEDS: PROMETHAZINE HCL INJ 25 MG in SODIUM CHLORIDE 0.9% 50ML 50 ML IV PRN ×3 (04:09→20:14)
[2017-08-08] MEDS: KETOROLAC TROMETHAMINE 30 MG/ML VIAL IV PRN ×3 (06:44→20:15)
[2017-08-08 07:12] VITALS: BP 104/56; PULSE 50; TEMP 37; O2SAT 97
[2017-08-08] MEDS: SODIUM CHLORIDE 0.9% 1000ML 1,000 ML IV SCH ×2 (08:37→16:55)
--- NOTE | 2017-08-08 11:48 | Surgery Progress Note ---
Surgery Progress Note Date of Service Aug 08, 2017. Subjective 52-year-old female with history of multiple abdominal surgeries including sigmoidectomy for diverticulitis, with recurrent bowel obstructions, presented overnight with partial small-bowel obstruction. She started having some cramping along with some nausea yesterday, and presented to the emergency room last night. A CT scan revealed a recurrent partial small-bowel obstruction with a transition point in the left lower quadrant. At this area there is some thickening of the small bowel that is similar to a CT scan performed in November. At the time of my exam she had already had 2 bowel movements, was passing flatus, and felt sore in her abdomen but the pain she was having upon arrival was significantly improved. She was anxious to start liquids and was hoping for discharge later in the afternoon. Objective Vital Signs: Date Time Temp Pulse Resp B/P (MAP) Pulse Ox O2 Delivery O2 Flow Rate FiO2 08/08/17 07:12 37.0 50 17 104/56 (72) 97 Room Air 08/08/17 06:45 Room Air 08/08/17 00:00 Room Air 08/07/17 23:45 36.8 47 16 126/83 99 Room Air 08/07/17 23:22 62 16 109/64 95 08/07/17 22:00 114/68 08/07/17 21:50 58 16 94 Room Air 08/07/17 21:31 102/65 08/07/17 21:20 46 20 99 Room Air 08/07/17 21:15 57 19 98 Room Air 08/07/17 21:01 129/70 08/07/17 20:45 45 10 94 Room Air 08/07/17 20:36 44 15 119/77 100 Room Air 08/07/17 19:30 51 17 115/85 99 Room Air 08/07/17 19:01 114/72 08/07/17 19:00 54 20 100 Room Air 08/07/17 18:47 51 08/07/17 18:46 55 16 100 Room Air 08/07/17 18:31 122/77 08/07/17 18:16 47 15 98 Room Air 08/07/17 18:00 128/75 08/07/17 17:46 56 17 125/84 100 Room Air 08/07/17 17:45 53 16 125/84 100 Room Air 08/07/17 16:36 47 16 100 Room Air 08/07/17 16:31 102/70 08/07/17 16:21 56 21 100 Room Air 08/07/17 16:06 45 18 100 Room Air 08/07/17 16:01 122/64 08/07/17 15:51 48 21 100 Room Air 08/07/17 15:36 50 17 100 Room Air 08/07/17 15:31 107/74 08/07/17 15:30 49 17 100 Room Air 08/07/17 15:28 52 08/07/17 15:27 54 14 111/66 100 Room Air 08/07/17 14:39 36.5 58 20 141/88 100 Room Air General Appearance: WD/WN, no apparent distress Head: normocephalic, atraumatic Respiratory/Chest: chest non-tender, lungs clear, normal breath sounds, no respiratory distress, no accessory muscle use Cardiovascular: regular rate, rhythm, no edema, no gallop, no JVD, no murmur Abdomen: non tender, soft, + distended (Mild) Extremities: normal range of motion, non-tender, normal inspection, no pedal edema, no calf tenderness, normal capillary refill, pelvis stable Laboratory Results: Results Past 24 Hours Test 08/07/17 15:05 Range/Units White Blood Count 7.13 4.8-10.8 K/uL Red Blood Count 4.66 4.2-5.4 M/uL Hemoglobin 14.2 12.0-16.0 g/dL Hematocrit 40.8 37-47 % Mean Corpuscular Volume 87.6 80-100 fL Mean Corpuscular Hemoglobin 30.5 25-34 pg Mean Corpuscular Hemoglobin Concent 34.8 32-36 g/dl Platelet Count 197 130-400 K/uL Mean Platelet Volume 10.2 7.4-10.4 fL Neutrophils (%) (Auto) 65.3 % Lymphocytes (%) (Auto) 25.5 % Monocytes (%) (Auto) 8.1 % Eosinophils (%) (Auto) 0.4 % Basophils (%) (Auto) 0.4 % Neutrophils # (Auto) 4.65 1.4-6.5 K/uL Lymphocytes # (Auto) 1.82 1.2-3.4 K/uL Monocytes # (Auto) 0.58 0.11-0.59 K/uL Eosinophils # (Auto) 0.03 0-0.5 K/uL Basophils # (Auto) 0.03 0-0.2 K/uL RDW Standard Deviation 39.1 36.4-46.3 fL RDW Coefficient of Variation 12.2 11.5-14.5 % Immature Granulocyte % (Auto) 0.3 % Immature Granulocyte # (Auto) 0.02 0.00-0.02 K/uL Urine Color YELLOW Urine Appearance CLEAR CLEAR Urine pH 8.0 4.5-7.5 Urine Specific [place] 1.007 1.000-1.030 Urine Protein NEG NEG Urine Glucose (UA) NEG NEG Urine Ketones NEG NEG Urine Occult Blood NEG NEG Urine Nitrite NEG NEG Urine Bilirubin NEG NEG Urine Urobilinogen NEG NEG Urine Leukocyte Esterase NEG NEG Sodium Level 138 136-145 mmol/L Potassium Level 4.0 3.5-5.1 mmol/L Chloride Level 109 98-107 mmol/L Carbon Dioxide Level 25 21-32 mmol/L Anion Gap 4.0 3-11 mmol/L Blood Urea Nitrogen 18 7-18 mg/dl Creatinine 0.99 0.60-1.20 mg/dl Estimated GFR () 76.5 Estimated GFR (Non- 66.0 BUN/Creatinine Ratio 17.8 10-20 Random Glucose 96 70-99 mg/dl Calcium Level 9.6 8.5-10.1 mg/dl Total Bilirubin 0.6 0.2-1 mg/dl Aspartate Amino Transf (AST/SGOT) 17 15-37 U/L Alanine Aminotransferase (ALT/SGPT) 23 12-78 U/L Alkaline Phosphatase 74 45-117 U/L Total Protein 8.5 6.4-8.2 gm/dl Albumin 4.3 3.4-5.0 gm/dl Globulin 4.2 2.5-4.0 gm/dl Albumin/Globulin Ratio 1.0 0.9-2 Lipase 225 73-393 U/L Diagnostic Interpretation: ABD/PELVIS IV CONTRAST ONLY CLINICAL HISTORY: 52 years-old Female presenting with EVAL SBO, left-sided abdominal pain. TECHNIQUE: Multidetector CT of the abdomen and pelvis was performed after the administration of intravenous contrast. IV contrast: 118 mL of Optiray 320. A dose lowering technique was used consistent with the principles of ALARA (as low as reasonably achievable). COMPARISON: 12/13/2016. CT DOSE (mGy.cm): The estimated cumulative dose is 313.45 mGy.cm. 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 Lung bases: Lungs and pleural spaces clear. Normal heart size. No pericardial or pleural effusion. Liver: Normal morphology. No liver lesion. Poor opacification of the hepatic veins likely relates to timing of contrast bolus. Otherwise patent hepatic vasculature. Biliary: Mild biliary ductal prominence likely a reservoir effect in the post cholecystectomy state. Gallbladder surgically absent. Pancreas: Normal. Spleen: Normal. Adrenal glands: Normal. Kidneys and ureters: Normal. No hydronephrosis. Bladder: Allowing for underdistention, suggestion of circumferential bladder wall thickening. Pelvic organs: Uterus surgically absent. Bowel: Colocolonic anastomosis at the upper rectum likely indicating sigmoidectomy. Reticulosis of the descending colon. No pericolonic inflammatory change. The appendix is normal. Persistent segmental wall thickening of the extended loop of bowel in the left mid abdomen. The wall measures up to 7 mm in thickness (series 3 image 269). This distribution is unchanged from prior exam suggesting stricture/submucosal fibrotic change rather than submucosal edema. There is upstream small bowel distention compatible with small bowel obstruction. Small bowel measures up to 3.3 cm in diameter. There is fecal material upstream further evidencing obstruction. There is smooth tapering of less dilated upstream bowel, excluding a closed loop obstruction. No additional site of small bowel wall thickening. Peritoneal cavity: No free fluid or intraperitoneal gas. Lymph nodes: No enlarged lymph nodes in the abdomen or pelvis. Vasculature: Aorta and IVC patent and normal in caliber. Abdominal wall: Postsurgical changes suggested in the umbilical midline abdominal wall. Musculoskeletal: Normal. IMPRESSION: 1. Persistent segment of small bowel wall thickening in a loop in the left mid abdomen, which is the cause of a small bowel obstruction. This is likely a high-grade partial small bowel obstruction. This is more likely to represent stricture/submucosal fibrosis rather than submucosal edema considering its fixed appearance since the prior exam in November. Differential considerations include radiation enteritis, Crohn's disease, and prior mesenteric ischemia. Mesenteric lymphoma is considered less likely given the obstruction. Other etiologies such as drug induced enteritis, vasculitis, or angioedema are considered less likely because of the lack of change lead 8 months. 2. Surgically absent uterus. 3. Circumferential bladder wall thickening may be present allowing for underdistention. Correlate with urinalysis to exclude cystitis. Assessment & Plan 52-year-old female with recurrent small bowel obstruction. She has had 7 episodes in the past several years. I would normally attribute this to adhesive disease, however, her CT scan continues to show a thickened area of small bowel at the area of transition. This would be concerning for a process other than adhesive disease causing the obstruction. I discussed the findings with the patient and offered her diagnostic laparoscopy with lysis of adhesions and possible small bowel resection, possible open, however since she is feeling somewhat better she would prefer to pursue an outpatient workup. I think this is reasonable, and she is very aware of the signs and symptoms of obstruction. I think she is okay to start clear liquids and follow up with me as an outpatient. Patient may start clear liquids, advance diet as tolerated to low residual If patient continues to progress and is feeling better, she may be discharged this afternoon or tomorrow Recommend follow-up with myself as an outpatient Return precautions given The diagnosis, treatment options, and plan of care were discussed the patient, all questions were answered, the patient expressed understanding agrees the plan of care stated.
[2017-08-08] MEDS ORDERED: NURSING VERBAL MED ORDER ONE (12:00)
[2017-08-08] MEDS ORDERED: ACETAMINOPHEN 500 MG TAB PO PRN (12:30)
[2017-08-08] MEDS: ONDANSETRON INJ 2 MG/ML 2 ML VIAL IV PRN ×2 (12:44→19:29)
[2017-08-08 15:05] VITALS: BP 118/75; PULSE 65; TEMP 37.1; O2SAT 97
[2017-08-08 16:40] VITALS: BP 165/78; PULSE 90; TEMP 36.4; O2SAT 100
--- NOTE | 2017-08-08 19:01 | Progress Note ---
Subjective Date of Service: Aug 08, 2017. Subjective Pt evaluation today including: conversation w/ patient, physical exam, chart review, lab review, review of studies, review of inpatient medication list feeling better doing well with clears hoping to go home later today if possible discussed CT finding that looks like small bowel has wall thickening - and likely would be beneficial to evaluate w direct visualization if possible ( scope ideally, capsule if not) - she agrees Problem List Medical Problems: (1) Diverticulosis Colon (W/O Ment Of Hemorrhage) Status: Chronic (2) Hypothyroidism Status: Chronic (3) Mitral valve prolapse Status: Chronic Review of Systems all other ROS otherwise negative except for as above Objective Vital Signs Date Time Temp Pulse Resp B/P (MAP) Pulse Ox O2 Delivery O2 Flow Rate FiO2 08/08/17 15:08 Room Air 08/08/17 15:05 37.1 65 18 118/75 (89) 97 Room Air 08/08/17 07:12 37.0 50 17 104/56 (72) 97 Room Air 08/08/17 06:45 Room Air 08/08/17 00:00 Room Air 08/07/17 23:45 36.8 47 16 126/83 99 Room Air 08/07/17 23:22 62 16 109/64 95 08/07/17 22:00 114/68 08/07/17 21:50 58 16 94 Room Air 08/07/17 21:31 102/65 08/07/17 21:20 46 20 99 Room Air 08/07/17 21:15 57 19 98 Room Air 08/07/17 21:01 129/70 08/07/17 20:45 45 10 94 Room Air 08/07/17 20:36 44 15 119/77 100 Room Air 08/07/17 19:30 51 17 115/85 99 Room Air Physical Exam General Appearance: no apparent distress Eyes: EOMI ENT: hearing grossly normal Neck: trachea midline Respiratory/Chest: no respiratory distress, no accessory muscle use Abdomen: soft, + distended (very mild, nontender no guarding no rebound) Neurologic/Psychiatric: 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 High grade partial small bowel obstruction - improving - advance diet as tolerated if does well w low fiber then home later today; slower advancement if pain/nausea - outpt eval of small bowel area (will check if can be done locally - likely will need to be double balloon at tertiary -for which she prefers zulma) Hypothyroidism - home synthroid once able to take PO well Post menopausal symptoms - continue estrogen patch, outpt f/u on utility/risks/benefits DVT prophylaxis - SCD's FULL CODE
[2017-08-08 22:47] VITALS: BP 106/71; PULSE 83; TEMP 36.9; O2SAT 96
[2017-08-09] MEDS: SODIUM CHLORIDE 0.9% 1000ML 1,000 ML IV SCH ×2 (02:23→10:47)
--- NOTE | 2017-08-09 07:04 | Surgery Progress Note ---
Surgery Progress Note Date of Service Aug 09, 2017. Subjective + feeling well, + ambulating, + bowel movement, + flatus, + pain controlled, + diet (Tolerating clears), No complaints, No nausea, No vomiting Patient does reports some nausea/vomiting yesterday but since she has had multiple bowel movements and has been tolerating clear liquids without issue. Objective Vital Signs: Date Time Temp Pulse Resp B/P (MAP) Pulse Ox O2 Delivery O2 Flow Rate FiO2 08/08/17 23:50 Room Air 08/08/17 22:47 36.9 83 16 106/71 (83) 96 Room Air 08/08/17 20:00 Room Air 08/08/17 15:08 Room Air 08/08/17 15:05 37.1 65 18 118/75 (89) 97 Room Air 08/08/17 07:12 37.0 50 17 104/56 (72) 97 Room Air General Appearance: WD/WN, no apparent distress Head: normocephalic, atraumatic Neck: trachea midline Respiratory/Chest: no respiratory distress, no accessory muscle use Abdomen: non distended, soft, no organomegaly, no pulsatile mass, + tenderness (LLQ minimal TTP) Assessment & Plan Recurrent small bowel obstruction Doing well, minimal pain. Tolerating clears, No N/V at this time. Multiple BM yesterday and today. Ambulating in hallway frequently. Keep clears for breakfast due to N/V yesterday - ADAT. Outpatient follow-up with Dr. Dubon - will provide instructions. Okay to d/c today from surgical standpoint if she tolerates foods. Will discuss findings with Dr. Dubon. Please contact with questions or concerns.
[2017-08-09 07:21] VITALS: BP 108/72; PULSE 61; TEMP 36.4; O2SAT 99
[2017-08-09 08:49] VITALS: O2SAT 99
[2017-08-09] MEDS ORDERED: NURSING VERBAL MED ORDER ONE (11:15)
[2017-08-09 15:11] VITALS: BP 111/75; PULSE 61; TEMP 36.6; O2SAT 99
[2017-08-09 17:37] VITALS: BP 111/75; PULSE 61; TEMP 36.6; O2SAT 99
--- NOTE | 2017-08-09 18:27 | Discharge Instructions ---
Discharge Instructions Date of Service Aug 09, 2017. Admission Reason for Admission: Small Bowel Obstruction Discharge Discharge Diagnosis / Problem: small bowel obstruction Discharge Goals Goal(s): Diagnostic testing, Therapeutic intervention Activity Recommendations Activity Limitations: resume your previous activity . Instructions / Follow-Up Instructions / Follow-Up The local gastroenterologists don't believe they could reliably scope to the area of your small bowel in question - we'll have our nurse navigator refer/set you up in [place] for evaluation of this and probably a scope to directly evaluate the area that looked thickened. Current Hospital Diet Patient's current hospital diet: Low Fiber Diet Discharge Diet Recommended Diet: Low Fiber Diet Pending Studies Studies pending at discharge: no Medical Emergencies . Who to Call and When: Medical Emergencies: If at any time you feel your situation is an emergency, please call 911 immediately. . Non-Emergent Contact Non-Emergency issues call your: Primary Care Provider, [facility] . . "Provider Documentation" section prepared by Gio Ramirez. .
--- NOTE | 2017-08-09 18:45 | Discharge Summary ---
Discharge Summary Date of Service Aug 09, 2017. Discharge Summary Admission Date: Aug 07, 2017 at 21:35 Discharge Date: Aug 09, 2017 Discharge Disposition: Home Principal Diagnosis: SBO Problems/Secondary Diagnoses: (1) Diverticulosis Colon (W/O Ment Of Hemorrhage) Status: Chronic (2) Hypothyroidism Status: Chronic (3) Mitral valve prolapse Status: Chronic Immunizations: Have You Had Influenza Vaccine: Yes History of Tetanus Vaccine?: Yes History of Pneumococcal: Yes History of Hepatitis B Vaccine: No Procedures: ABD/PELVIS IV CONTRAST ONLY CLINICAL HISTORY: 52 years-old Female presenting with EVAL SBO, left-sided abdominal pain. TECHNIQUE: Multidetector CT of the abdomen and pelvis was performed after the administration of intravenous contrast. IV contrast: 118 mL of Optiray 320. A dose lowering technique was used consistent with the principles of ALARA (as low as reasonably achievable). COMPARISON: 12/13/2016. CT DOSE (mGy.cm): The estimated cumulative dose is 313.45 mGy.cm. 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 Lung bases: Lungs and pleural spaces clear. Normal heart size. No pericardial or pleural effusion. Liver: Normal morphology. No liver lesion. Poor opacification of the hepatic veins likely relates to timing of contrast bolus. Otherwise patent hepatic vasculature. Biliary: Mild biliary ductal prominence likely a reservoir effect in the post cholecystectomy state. Gallbladder surgically absent. Pancreas: Normal. Spleen: Normal. Adrenal glands: Normal. Kidneys and ureters: Normal. No hydronephrosis. Bladder: Allowing for underdistention, suggestion of circumferential bladder wall thickening. Pelvic organs: Uterus surgically absent. Bowel: Colocolonic anastomosis at the upper rectum likely indicating sigmoidectomy. Reticulosis of the descending colon. No pericolonic inflammatory change. The appendix is normal. Persistent segmental wall thickening of the extended loop of bowel in the left mid abdomen. The wall measures up to 7 mm in thickness (series 3 image 269). This distribution is unchanged from prior exam suggesting stricture/submucosal fibrotic change rather than submucosal edema. There is upstream small bowel distention compatible with small bowel obstruction. Small bowel measures up to 3.3 cm in diameter. There is fecal material upstream further evidencing obstruction. There is smooth tapering of less dilated upstream bowel, excluding a closed loop obstruction. No additional site of small bowel wall thickening. Peritoneal cavity: No free fluid or intraperitoneal gas. Lymph nodes: No enlarged lymph nodes in the abdomen or pelvis. Vasculature: Aorta and IVC patent and normal in caliber. Abdominal wall: Postsurgical changes suggested in the umbilical midline abdominal wall. Musculoskeletal: Normal. IMPRESSION: 1. Persistent segment of small bowel wall thickening in a loop in the left mid abdomen, which is the cause of a small bowel obstruction. This is likely a high-grade partial small bowel obstruction. This is more likely to represent stricture/submucosal fibrosis rather than submucosal edema considering its fixed appearance since the prior exam in November. Differential considerations include radiation enteritis, Crohn's disease, and prior mesenteric ischemia. Mesenteric lymphoma is considered less likely given the obstruction. Other etiologies such as drug induced enteritis, vasculitis, or angioedema are considered less likely because of the lack of change management lead 8 months. 2. Surgically absent uterus. 3. Circumferential bladder wall thickening may be present allowing for underdistention. Correlate with urinalysis to exclude cystitis. Electronically signed by: Christian Joyner M.D. 08/07/2017 5:49 PM Dictated Date/Time: 08/07/2017 5:39 PM Last Resulted CBC 08/07/17 15:05 Red Blood Count 4.66, Mean Corpuscular Volume 87.6, Mean Corpuscular Hemoglobin 30.5, Mean Corpuscular Hemoglobin Concent 34.8, Mean Platelet Volume 10.2, Neutrophils (%) (Auto) 65.3, Lymphocytes (%) (Auto) 25.5, Monocytes (%) (Auto) 8.1, Eosinophils (%) (Auto) 0.4, Basophils (%) (Auto) 0.4, Neutrophils # (Auto) 4.65, Lymphocytes # (Auto) 1.82, Monocytes # (Auto) 0.58, Eosinophils # (Auto) 0.03, Basophils # (Auto) 0.03 Last Resulted BMP 08/07/17 15:05 Consultations: general surgery Medication Reconciliation Continued Medications: Aloe Vera (Aloe Vera) 25 Mg Cap 25 MG PO QAM Ascorbic Acid (Ascorbic Acid) 500 Mg Tab 500 MG PO DAILY, TAB Biotin (Biotin) 5,000 Mcg Cap 5000 MCG PO DAILY Calcium/Vitamin D (Os-Cesario 500 Plus D) Tab 1 TAB PO QAM, TAB Cetirizine Hcl (Zyrtec) 10 Mg Tab 10 MG PO DAILY PRN for Allergies, TAB Cholecalciferol (Vitamin D3) 1,000 Unit Tab 5000 UNITS PO DAILY, 5 Refills Docusate Sodium (Colace) 100 Mg Cap 100 MG PO BID PRN for Constipation for 15 Days, #30 CAP Estradiol (Climara) 0.025 Mg Tdsy 1 PATCH TD WK CHANGE PATCH EVERY SATURDAY. Fexofenadine Hcl (Socorro) 180 Mg Tab 180 MG PO DAILY PRN for Allergies, TAB Levothyroxine Sodium (Synthroid) 125 Mcg Tab 125 MCG PO QAM, TAB Multivitamin (Multivitamin) Tab 1 TAB PO QAM, 0 Refills Psyllium (Metamucil) 48.57 % Pow 1 DOSE PO DAILY Discharge Exam Physical Exam: General Appearance: no apparent distress Eyes: EOMI ENT: hearing grossly normal Neck: trachea midline Respiratory/Chest: no respiratory distress, no accessory muscle use Abdomen / GI: non tender (no distention), soft Neurologic/Psychiatric: fruit washer II-XII nml as tested, alert, normal mood/affect Skin: normal color, warm/dry Hospital Course 52 year old female with a PMH of repeated SBO presented to [facility] due to worsening abdominal pain and was found to have a LLQ SBO . High grade partial small bowel obstruction - improving - stable for home - outpt eval of small bowel area (will check if can be done locally - likely will need to be double balloon at tertiary -for which she prefers zulma) Hypothyroidism - home synthroid Post menopausal symptoms - continue estrogen patch, outpt f/u on utility/risks/benefits ongoing over time DVT prophylaxis - SCDs and ambulation utilized while here FULL CODE Total Time Spent: Less than 30 minutes This includes examination of the patient, discharge planning, medication reconciliation, and communication with other providers. Discharge Instructions Please refer to the electronic Patient Visit Report (Discharge Instructions) for additional information. Additional Copies To Chet Ordonez M.D.
== END 2017-08-09 18:40 | disposition home or self-care (01) | DRG 390 ==
LOC: C.EDB 14:27 → C.MSN 21:35 → ENRESERV 21:44
PROVIDERS: ADMIT Hospitalist; ATTEND Family Medicine
DX: K56.51 Intestinal adhesions [bands], with partial obstruction (principal); Y83.2 Surgical operation with anastomosis, bypass or graft as the cause of abnormal reaction of the patient, or of later complication, without mention of misadventure at the time of the procedure; E03.9 Hypothyroidism, unspecified; N95.9 Unspecified menopausal and perimenopausal disorder; Z79.890 Hormone replacement therapy; Z79.899 Other long term (current) drug therapy; Z88.1 Allergy status to other antibiotic agents; Z88.5 Allergy status to narcotic agent

== ENCOUNTER → 2017-09-12 | Outpatient (CLI) | payer BC ==
[~2017-09-12] MED LIST changes: +GADAVIST IV PRN
--- NOTE | 2017-09-12 10:33 | DIAGNOSTIC IMAGING REPORT ---
ENTEROGRAPHY ABD/PELVIS COMBO CLINICAL HISTORY: 52 years-old Female presenting with K63.9 Bowel wall [id number] History of small bowel obstruc. TECHNIQUE: Multisequence, multiplanar MR imaging of the abdomen and pelvis was performed before and after the administration of intravenous contrast using an enterography protocol. IV contrast: 7 mL of Gadavist. 1 mg of glucagon was also administered IM as part of the examination. COMPARISON: CT from 08/07/2017. FINDINGS: Localizer images: Unremarkable. Lung bases: Lung bases clear. Normal heart size. No pericardial or pleural effusion. Liver: Normal morphology. No liver lesion. Patent hepatic vasculature. Biliary: No intrahepatic or extrahepatic biliary ductal dilatation. Normal gallbladder. Pancreas: Normal. Spleen: Normal. Adrenal glands: Normal. Kidneys and ureters: Normal. No hydronephrosis. Bladder: Normal. Pelvic organs: Normal. Bowel: Colorectal anastomosis noted at the upper rectum, which is patent. Diverticulosis of the descending colon. The previously noted loop of small bowel in the left lower quadrant with pathologic wall thickening is no longer apparent. No small bowel distention to suggest low-grade or high-grade obstruction. No pericolonic or perienteric inflammatory change. No dilated bowel. Peritoneal cavity: No free fluid. Lymph nodes: No enlarged lymph nodes in the abdomen or pelvis. Vasculature: Aorta and IVC patent and normal in caliber. Abdominal wall: Normal. Musculoskeletal: Normal. IMPRESSION: 1. Resolution of previously noted small bowel wall thickening in the left lower quadrant. No evidence of abnormal small bowel distention or obstruction. Given the resolution since the prior exam, this could suggest enteritis, vasculitis, or angioedema as the etiology. No fixed fibrostenotic stricture. Electronically signed by: Christian Joyner M.D. 09/12/2017 10:32 AM Dictated Date/Time: 09/12/2017 10:20 AM
== END | disposition home or self-care (01) ==
LOC: C.MRIBC 08:30
PROVIDERS: ATTEND Surgery
DX: K63.9 Disease of intestine, unspecified (principal); Z87.19 Personal history of other diseases of the digestive system

== ENCOUNTER 2018-12-15 14:23 | Inpatient (IN) ==
--- OUTSIDE RECORDS SUMMARY | 2018-12-15 14:25 | External Medical Summary | Continuity of Care Document ---
:1965 Author Name Gilda Edmonds, Provider Address Unavailable Unavailable , Care Team Providers Name Role Phone Unavailable Unavailable Unavailable Diego Edmonds, Olive Dale Unavailable [email or web address] [email or web address] Iniguez Unavailable Unavailable Unavailable Unavailable Unavailable Problems Encounter for routine gynecological examination (V72.31) (Z0 1.419) Postmenopausal HRT (hormone replacement therapy) (V07.4) (Z7 9.890) Angioedema (995.1) (T78.3XXA) History of cold-induced urticaria (V13.3) (Z87.2) History of small bowel obstruction (V12.79) (Z87.19) Bowel wall thickening (569.89) (K63.9) Mitral valve prolapse syndrome (424.0) (I34.1) Need for prophylactic measure (V07.9) (Z29.9) Diverticulitis of colon (562.11) (K57.32) Hypothyroidism (244.9) (E03.9) Biliary dyskinesia (575.8) (K82.8) Allergies and Adverse Reactions Erythromycin Derivatives (Allergy) React ion: Anaphylaxis Percodan TABS (Allergy) Ultram TABS (Allergy) Medications Estradiol 0.025 MG/24HR Transdermal Patc h Weekly; apply 1 patch every week as directed Grey Cortze Start: 20-Apr-2013 Quantity: 12 Refills: 3 Zyrtec TABS; TAKE TABLET PRN , M.D. Refills: 0 Socorro CAPS; TAKE 1 CAPSULE PRN , M.D. Refills: 0 Synthroid 125 MCG Oral Tablet; TAKE 1 TABLET DAILY DIRECT ED. , M.D. Refills: 0 Multi-Vitamin Oral Tablet; TAKE 1 TABLET DAILY. , M.D. Refills: 0 Vitamin D TABS , M.D. Refills: 0 Vitamin C 250 MG Oral Tablet , M.D. Refills: 0 Echinacea 500 MG Oral Capsule; TAKE 1 CAPSULE TWICE DAILY. , M.D. Start: 16-Aug-2017 Refills: 0 Metamucil 48.57 % Oral Powder; USE DIRECTEDGrey Traylor Start: 16-Aug-2017 Refills: 0 822 GM Bottle Procedures History of Tubal Ligation Status: Comple josi History of Section Status: Comp leted History of Hand Repair Status: Completed History of Total Abdominal Hysterectomy With Removal Of Righ t Status: Completed Ovary History of Salpingo-oophorectomy Left Side Status: Completed History of Oral Surgery Tooth Extraction Status: Completed History of Cholecystectomy Status: Compl eted History of Partial Colectomy Status: Com pleted History of Breast Surgery Reduction Procedure Bilateral Status: Completed Need for prophylactic measure Immunizations Immunizations not documented Family History Father Family history of Heart Disease (V17.49) Status: Active uncle Family history of Colon Cancer (V16.0) Status: Active Family history of Colon Cancer (V16.0) Status: Active aunt Family history of Acute Lymphoma Status: Active Unknown Family Member Family history of breast cancer (V16.3) Status: Active Comments: Family History (Z80.3) Grandparent Family history of diabetes mellitus (V18.0) (Z83.3) Status: Active Mother Family history of hypertension (V17.49) (Z82.49) Status: Act jorge Family history of cerebrovascular accident (CVA) (V17.1) (Z8 2.3) Status: Active Family history of Hemorrhage of brain, nontraumatic (4 31) (I61.9) Status: Active Grandmother Family history of cerebrovascular accident (CVA) (V17.1) (Z8 2.3) Status: Active Plan of Treatment Planned Observations Planned Goals not documented Results No Known Results Results not documented Encounters Appointment; Luisa Nicolas M.D. 11-Apr-2018 14:00 Encounter Diagnosis: Problem not documented Appointment; Olive Cortez M.D. 04-Feb-2018 11:30 Encounter Diagnosis: Problem not documented Appointment; Luisa Nicolas M.D. 16-Jan-2018 9:50 Encounter Diagnosis: Problem not documented Appointment; Sagar Dubon DO 16-Aug-2017 9:00 Encounter Diagnosis: Problem not documented Appointment; Olive Cortez M.D. 01-Feb-2017 13:45 Encounter Diagnosis: Problem not documented
[2018-12-15] MEDS ORDERED: HYDROmorphone INJ 0.5 MG/0.5 ML SYR IV STA ×2 (14:53→17:55)
[2018-12-15] MEDS ORDERED: ONDANSETRON INJ 2 MG/ML 2 ML VIAL IV STA ×2 (14:53→17:55)
[2018-12-15] MEDS ORDERED: SODIUM CHLORIDE 0.9% 1000ML 1,000 ML IV ONE (14:53)
[2018-12-15] MEDS ORDERED: SODIUM CHLORIDE 0.9% 500 ML IV SCH (15:00)
[2018-12-15 15:02] LABS: Basophils # (auto) 0.03 K/uL (0-0.2); Basophils % (auto) 0.6 %; Eosinophils # (auto) 0.04 K/uL (0-0.5); Eosinophils % (auto) 0.8 %; Hematocrit (blood only) 39.7 % (37-47); Hemoglobin 14.2 g/dL (12.0-16.0); Immature Granulocytes # (auto) 0.01 K/uL (0.00-0.02); Immature Granulocytes % (auto) 0.2 %; Lymphocytes # (auto) 1.68 K/uL (1.2-3.4); Lymphocytes % (auto) 32.4 %; Mean Corpuscular Hemoglobin 30.9 pg (25-34); Mean Corpuscular Hgb Conc 35.8 g/dL (32-36); Mean Corpuscular Volume 86.5 fL (80-100); Mean Platelet Volume 10.2 fL (7.4-10.4); Monocytes # (auto) 0.48 K/uL (0.11-0.59); Monocytes % (auto) 9.3 %; Neutrophils # (auto) 2.94 K/uL (1.4-6.5); Neutrophils % (auto) 56.7 %; Platelet Count 192 K/uL (130-400); RDW Standard Deviation 41.3 fL (36.4-46.3); Red Blood Count 4.59 M/uL (4.2-5.4); White Blood Count 5.18 K/uL (4.8-10.8)
[2018-12-15 15:11] LABS: Albumin Level 4.4 gm/dl (3.4-5.0); BUN Creatinine Ratio 20.6 (10-20); Calcium 9.7 mg/dl (8.5-10.1); Creatinine Clr Calc Pharmacy 71.4 ml/min; Est GFR (African American) 81.9; Est GFR (Non-African American) 70.7; Potassium 3.7 mmol/L (3.5-5.1)
[2018-12-15 15:14] LABS: Albumin Globulin Ratio 1.2 (0.9-2); Bilirubin,Total 0.7 mg/dl (0.2-1); Globulin 3.8 gm/dl (2.5-4.0); Total Protein 8.2 gm/dl (6.4-8.2)
[2018-12-15 15:34] LABS: Appearance Urine Clear (Clear); Bilirubin Urine Negative (Negative); Blood Urine Negative (Negative); Color Urine Yellow; Glucose Urine UA Negative (Negative); Ketones Urine Negative (Negative); Leukocyte Esterase Urine Negative (Negative); Nitrite Urine Negative (Negative); Protein Urine Negative (Negative); Specific Gravity Urine 1.011 (1.000-1.030); Urobilinogen Urine Negative (Negative); pH Urine 8.5 (4.5-7.5)
[2018-12-15] MEDS ORDERED: IOVERSOL 100ml IV PRN (15:40)
--- NOTE | 2018-12-15 16:03 | CT Scan Report ---
ABDOMEN AND PELVIS CT WITH IV CONTRAST CT DOSE: 344.60 mGy.cm HISTORY: Acute abdominal pain with small bowel obstruction SBO TECHNIQUE: Multiaxial CT images of the abdomen and pelvis were performed following the use of intrave nous contrast. A dose lowering technique was utilized adhering to the principles of ALARA. COMPARISON STUDY: CT abdomen and pelvis 08/07/2017, and 12/13/2016, 04/26/2015 and 03/30/2015 MR enterogra phy 09/12/2017 FINDINGS: Unchanged 4 mm solid nodule the basal left lower lobe. No pneumatosis or pneumoperitoneum. The imaged inferior cardiac chambers appear unremarkable. Trace pericardial effusion. Cholecystectomy. Mild int rahepatic and extrahepatic delayed ductal dilation is likely on a postsurgical basis. Liver otherwise appears unremarkable. Patency of the hepatic and portal veins. Spleen, pancreas and adrenal glands a re unremarkable. Kidneys, ureters and urinary bladder are unremarkable. Hysterectomy. No adnexal mass lesions. Aorta and IVC are within normal limits. No adenopathy. Multiple dilated fluid-filled loops of small bowel with air-fluid levels are noted measuring up to 3. 5 cm transversely. Transition point involves a loop of small bowel within the abdominal left lower qu adrant which demonstrates moderate circumferential wall thickening, image 284 series 3. This appears to be within the same location of prior studies dated 12/13/2016 and 08/07/2017 no obstructing mass sammi ntified. There is mild interloop edema with reactive mesenteric edema. Postoperative changes from marshall or partial sigmoid colon resection with colocolonic anastomosis. Colonic diverticulosis without acute diverticulitis. Normal terminal ileum and appendix. Breast parenchyma and soft tissues appear unrema rkable. Bones appear intact. IMPRESSION: 1. Small bowel obstruction with transition point present within the abdominal left lower quadrant. Si te of obstruction is a loop of small bowel within the abdominal left lower quadrant which again demon strates circumference wall thickening. A similar disease pattern was seen on multiple prior studies d ating back to least 2015. No obstructing mass identified. No pneumatosis or pneumoperitoneum. 2. Cholecystectomy. 3. Normal appendix. 4. Prior partial sigmoid colon resection with colocolonic anastomosis. 5. Chronic diverticulosis without acute diverticulitis. Electronically signed by: Jordon Neri M.D. 12/15/2018 4:02 PM
--- NOTE | 2018-12-15 17:37 | History & Physical Report ---
Date of Service December 15, 2018 Assessment & Plan (1) Small bowel obstruction: Hx of same, all resolved without OR intervention Will hold on gen surg c/s for now IVF, NPO PRN zofran, morphine (2) Hypothyroid: IV dosing (3) DVT prophylaxis: SCDs and ambulation in case of need for OR History of Present Illness Primary Care Provider: Chet Ordonez MD 53 y/o F c/o abd pain. Pt states she was having a usual day for herself until around 11a when she had sudden onset of LLQ pain. It was cramping and non radiating and would come and go. She then developed nausea and her pain was worse. Pt has hx of SBO and this felt similar, so she knew to come to the ED. She states she did have one episode of emesis on the way to the ED, but it was minimal. Pt states she had a loose bowel movement yesterday and then more loose and more this this AM after this started. Pt denies fever, SOB, chest pain, LE pain or swelling. Pt is s/p IVF, zofran in the ED and states she is now passing gas. Her pain and nausea are improving. Allergies Allergy/AdvReac Type Severity Reaction Status Date / Time erythromycin base Allergy Intermediate EDEMA OF Verified 12/15/18 15:30 MOUTH/LIPS oxycodone AdvReac Intermediate Chest Verified 12/15/18 15:30 Pain.SYNCOPY tramadol AdvReac Intermediate CHEST Verified 12/15/18 15:30 PAIN,SYNCOPE Home Medications Home Medications Medication Instructions Recorded Confirmed Type aloe vera 1 cap PO QAM 03/01/18 12/15/18 History ascorbic acid (vitamin C) [Vitamin 500 mg PO DAILY 03/01/18 12/15/18 History C] biotin 1 tab PO QAM 03/01/18 12/15/18 History calcium carbonate-vitamin D3 1 tab PO QAM 03/01/18 12/15/18 History [Calcium 500 + D] cetirizine 10 mg PO DAILY PRN 03/01/18 12/15/18 History cholecalciferol (vitamin D3) 5,000 unit PO DAILY 03/01/18 12/15/18 History docusate sodium 100 mg PO BID PRN 03/01/18 12/15/18 History estradiol 1 patch TRANSDERMAL WK 03/01/18 12/15/18 History fexofenadine [Socorro Allergy] 180 mg PO DAILY PRN 03/01/18 12/15/18 History levothyroxine 125 mcg PO QAM 03/01/18 12/15/18 History multivitamin 1 tab PO QAM 03/01/18 12/15/18 History hyoscyamine sulfate 0.125 mg PO Q8 PRN 12/15/18 12/15/18 History Past Med/Surg History Medical History Bradycardia PT'S NORM. PT STATES WHEN SLEEPING THAT POST OP HER HR IS HIGH 30'S AND LOW 40'S. 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 PT HAS NOT NEEDED AN ECHO IS "SEVERAL YEARS" Diverticular disease History of hysterectomy PARTIAL Surgical History History of bilateral tubal ligation History of bowel resection S/T DIVERTICULITIS, AND ILLEUS History of laparoscopy BSO History of thumb surgery RIGHT HAND History of wisdom tooth extraction Status post trigger finger release TOTAL 3 FINGERS Family History Mother Stroke Other No pertinent family history in first degree relatives Social History Preferred Language: Swedish Communication Ability: Effective Audio Visual Aids Director Required: No Beliefs That Will Affect Care: None Current Living Situation: Spouse Feels Safe at Home: Yes Smoking Status: Never smoker Second Hand Exposure: No ; Hx Alcohol Use: Yes Alcohol type: other Alcohol Intake Frequency Comment: a glass of wine once a week or so Hx Substance Use: No Review of Systems Review of Systems: Pertinent positives and negatives reviewed in HPI--all others negative Physical Exam Constitutional: WD/WN, vitals as above Eyes: normal visual laurent by confrontation and + anicteric sclerae Neck: normal visual inspection and trachea midline Respiratory: normal respiratory effort, lungs clear to auscultation Cardiovascular: Rate/Rhythm: regular rate and regular rhythm Gastrointestinal (Abdomen): Inspection/Auscultation: + abdomen distended Percussion/Palpation: + abdomen tender (LLQ) and abdomen soft Musculoskeletal: Head/Neck/Chest: normocephalic and head atraumatic negative for edema, peripheral pulses intact Skin: no rashes, warm and dry Neurologic: awake; not confused Speech / Cognition: normal speech Psychiatric: A+Ox3, euthymic affect Results & Data Vital Signs (Past 12 Hours) Vital Signs Temp Pulse Pulse Resp BP BP Pulse Ox 12/15/18 17:30 52 L 18 114/72 100 12/15/18 16:30 47 L 16 107/63 94 12/15/18 16:20 46 L 16 99 12/15/18 16:10 47 L 14 94 12/15/18 16:00 48 L 16 108/60 93 12/15/18 15:55 45 L 14 117/52 L 100 12/15/18 15:50 43 L 19 100 12/15/18 15:49 66 23 99 12/15/18 15:22 99 12/15/18 15:20 53 L 13 99 12/15/18 15:12 59 L 14 112/69 100 12/15/18 15:10 54 L 15 100 12/15/18 15:01 77 22 12/15/18 14:50 54 L 16 12/15/18 14:40 56 L 16 12/15/18 14:39 58 L 18 12/15/18 14:35 76 19 129/90 12/15/18 14:27 36.5 C 62 16 131/84 100 Diagnostic Findings CTAP: SBO in LLQ Code Status & VTE Plan Code Status Full code VTE Prophylaxis Plan VTE Prophylaxis will be ordered: Yes PG Care Time/CCT Total # of Minutes Spent Total Time Spent with Patient: Total time spent is greater than 50% in coordination of care (as documented) at patient's floor/unit and/or counseling patient:
--- NOTE | 2018-12-15 17:45 | Emergency Department Note ---
Entered by Milo Pires acting as a scribe for Bharti Maier MD History of Present Illness General Chief complaint: Abdominal Pain Stated complaint: SEVERE ABD PAIN, VOMITING Time Seen by Provider: 12/15/18 14:35 Source: patient History of Present Illness Provider complaint: Abdominal pain Onset (ago): hour(s) (3.5) Location: abdomen Severity: similar to prior episodes Pain Consistency: + colicky Maximum Pain Intensity: 10 Current Pain Intensity: 10 Relieved By: + none Exacerbated By: + other (Sitting up) Associated symptoms: + nausea/vomiting The patient is a 53 year old female who presents to the Emergency Room with complaints of colicky abdominal pain that started today about 3.5 hours ago. The patient rates the pain as a 10/10 and notes that sitting up exacerbates it. With the pain, the patient also had an episode of emesis en route to the hospital. The patient reports that she has an extensive history of "twisted bowel," having it 9 times in the past, and today's symptoms feel similar. The patient states s he also has a history of a cholecystectomy as well as diverticulitis for which she had to have a partial bowel resection done. Home Medications Home Medications Medication Instructions Recorded Confirmed Type aloe vera 1 cap PO QAM 03/01/18 12/15/18 History ascorbic acid (vitamin C) [Vitamin 500 mg PO DAILY 03/01/18 12/15/18 History C] biotin 1 tab PO QAM 03/01/18 12/15/18 History calcium carbonate-vitamin D3 1 tab PO QAM 03/01/18 12/15/18 History [Calcium 500 + D] cetirizine 10 mg PO DAILY PRN 03/01/18 12/15/18 History cholecalciferol (vitamin D3) 5,000 unit PO DAILY 03/01/18 12/15/18 History docusate sodium 100 mg PO BID PRN 03/01/18 12/15/18 History estradiol 1 patch TRANSDERMAL WK 03/01/18 12/15/18 History fexofenadine [Socorro Allergy] 180 mg PO DAILY PRN 03/01/18 12/15/18 History levothyroxine 125 mcg PO QAM 03/01/18 12/15/18 History multivitamin 1 tab PO QAM 03/01/18 12/15/18 History hyoscyamine sulfate 0.125 mg PO Q8 PRN 12/15/18 12/15/18 History Allergies Allergy/AdvReac Type Severity Reaction Status Date / Time erythromycin base Allergy Intermediate EDEMA OF Verified 12/15/18 15:30 MOUTH/LIPS oxycodone AdvReac Intermediate Chest Verified 12/15/18 15:30 Pain.SYNCOPY tramadol AdvReac Intermediate CHEST Verified 12/15/18 15:30 PAIN,SYNCOPE Past Med/Surg History Medical History Bradycardia PT'S NORM. PT STATES WHEN SLEEPING THAT POST OP HER HR IS HIGH 30'S AND LOW 40'S. 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 and A total of 10 systems reviewed and were otherwise negative Physical Exam Vital Signs Vital Signs - 24 hr 12/15/18 17:10 12/15/18 17:20 12/15/18 17:30 Pulse Rate 46 L 55 L Pulse Rate [Apical] 52 L Pulse Rate from SpO2 Sensor 48 L 49 L Pulse Rhythm [Apical] Regular Respiratory Rate 19 23 18 Respiratory Effort / Characteristics Non-Labored Spontaneous Respiratory Depth Normal Respiratory Pattern Regular Blood Pressure Blood Pressure [Left Arm] 114/72 Blood Pressure Mean Blood Pressure Mean [Left Arm] 86 Pulse Oximetry 100 100 Oxygen Delivery Method Room Air 12/15/18 17:31 12/15/18 17:32 Pulse Rate Pulse Rate [Apical] Pulse Rate from SpO2 Sensor 49 L 47 L Pulse Rhythm [Apical] Respiratory Rate Respiratory Effort / Characteristics Respiratory Depth Respiratory Pattern Blood Pressure 114/72 Blood Pressure [Left Arm] Blood Pressure Mean 86 Blood Pressure Mean [Left Arm] Pulse Oximetry 100 100 Oxygen Delivery Method Vital signs reviewed. General: Well-appearing 53 year old female, in no significant distress. HEENT: No scleral icterus, PERRLA, neck supple. Atraumatic. Cardiovascular: Regular rate and rhythm, no extra sounds. Pulmonary: Clear to auscultation bilaterally, normal work of breathing. Abdomen: Soft, diffuse tenderness, positive tympani to percussion, positive sanju l sounds. Musculoskeletal: Atraumatic, no peripheral edema. Neurologic: Patient awake alert and oriented x 3. Skin: Warm, dry, no rash Course 52: Past medical records reviewed. The patient was evaluated in room female, and a complete history and physical examination were performed. 1643: I spoke to Dr. Fidencio Wing about the patient's case. He suggested getting a C4 on the patient. 1648: I spoke to Dr. Maxwell [facility] Hospitalist about the patient's case. She will be accepting the patient for further evaluation. 1701: The patient has refused the NG tube. Consultations Consultation #1: I spoke to Dr. Fidencio Wing about the patient's case. He suggested getting a C4 on the patient. Time: 16:43 Consultation #2: I spoke to Dr. Maxwell [facility] Hospitalist about the patient's case. She will be accepting the patient for further evaluation. Time: 16:48 Administered Medications Acetaminophen (Tylenol) 650 mg PO Q4H PRN PRN Reason: pain/fever Stop: 01/14/19 19:06 Last Admin: 12/16/18 13:04 Dose: 650 mg Documented by: [id number] Admin: 12/16/18 09:04 Dose: 650 mg Documented by: [id number] Admin: 12/16/18 05:19 Dose: 650 mg Documented by: [id number] Dextrose/Sodium Chloride (D5w And Nss) 1,000 mls @ 100 mls/hr IV .Q10H WAYNE Stop: 01/14/19 19:06 Last Admin: 12/16/18 16:08 Dose: 100 mls/hr Documented by: [id number] Infusion: 12/16/18 16:01 Dose: 100 mls/hr Documented by: [id number] Admin: 12/16/18 06:01 Dose: 100 mls/hr Documented by: [id number] Infusion: 12/16/18 06:01 Dose: 100 mls/hr Documented by: [id number] Admin: 12/15/18 20:09 Dose: 100 mls/hr Documented by: [id number] Levothyroxine Sodium 62.5 mcg/ (Syringe) 3.125 mls @ 2 mls/min IV DAILY@0900 WAYNE Stop: 01/15/19 08:59 Last Admin: 12/16/18 09:04 Dose: 2 mls/min Documented by: [id number] Ioversol (Optiray 320 100ml) 94 ml IV ONCE PRN PRN Reason: Interaction Checking Stop: 12/19/18 15:39 Last Admin: 12/15/18 15:41 Dose: 94 ml Documented by: [id number] Ketorolac Tromethamine (Toradol) 30 mg IV Q6H PRN PRN Reason: Pain Stop: 12/20/18 20:59 Last Admin: 12/15/18 21:54 Dose: 30 mg Documented by: [id number] Ondansetron HCl (Zofran) 4 mg IV Q6H PRN PRN Reason: Nausea Stop: 01/14/19 19:06 Last Admin: 12/16/18 08:33 Dose: 4 mg Documented by: [id number] Discontinued Medications Hydromorphone HCl (Dilaudid) 0.5 mg IV NOW STA Stop: 12/15/18 14:54 Last Admin: 12/15/18 15:10 Dose: 0.5 mg Documented by: [id number] Hydromorphone HCl (Dilaudid) 0.5 mg IV NOW STA Stop: 12/15/18 17:56 Last Admin: 12/15/18 18:02 Dose: 0.5 mg Documented by: [id number] Sodium Chloride (Nss 1000ml) 1,000 mls @ 125 mls/hr IV .Q8H ONE Stop: 12/15/18 22:52 Last Infusion: 12/15/18 20:03 Dose: 0 mls/hr Documented by: [id number] Infusion: 12/15/18 18:32 Dose: 0 mls/hr Documented by: [id number] Admin: 12/15/18 15:58 Dose: 125 mls/hr Documented by: [id number] Sodium Chloride (Nss) 500 mls @ 999 mls/hr IV .Q31M WAYNE Stop: 12/15/18 15:30 Last Infusion: 12/15/18 15:58 Dose: 0 mls/hr Documented by: [id number] Admin: 12/15/18 15:11 Dose: 999 mls/hr Documented by: [id number] Ondansetron HCl (Zofran) 4 mg IV NOW STA Stop: 12/15/18 14:54 Last Admin: 12/15/18 15:08 Dose: 4 mg Documented by: [id number] Ondansetron HCl (Zofran) 4 mg IV NOW STA Stop: 12/15/18 17:56 Last Admin: 12/15/18 18:01 Dose: 4 mg Documented by: [id number] Medical Decision Making Differential Diagnosis Differential diagnoses includes but is not limited to gastritis, peptic ulcer disease, GERD, gallbladder disease, pancreatitis, small bowel obstruction, acute coronary syndrome, pericarditis, ischemic bowel, irritable bowel disease, irritable bowel syndrome, appendicitis, diverticulitis, malignancy, hernia, urinary tract infection, torsion, perforation, trauma, infectious. Medical Records Attestation: I reviewed the patient's medical records. Home Medications Current Medication List: was personally reviewed by me Laboratory Data Attestation: I reviewed the patient's lab results. Result diagrams: 12/16/18 06:53 12/16/18 06:53 Lab Results 12/15/18 12/15/18 12/15/18 Range/Units 14:44 14:44 14:44 WBC 5.18 (4.8-10.8) K/uL RBC 4.59 (4.2-5.4) M/uL Hgb 14.2 (12.0-16.0) g/dL Hct 39.7 (37-47) % MCV 86.5 (80-100) fL MCH 30.9 (25-34) pg MCHC 35.8 (32-36) g/dL RDW Std Deviation 41.3 (36.4-46.3) fL RDW Coeff of Yani 13.0 (11.5-14.5) % Plt Count 192 (130-400) K/uL MPV 10.2 (7.4-10.4) fL Immature Gran % (Auto) 0.2 % Neut % (Auto) 56.7 % Lymph % (Auto) 32.4 % [place] % (Auto) 9.3 % Eos % (Auto) 0.8 % Baso % (Auto) 0.6 % Immature Gran # (Auto) 0.01 (0.00-0.02) K/uL Neut # (Auto) 2.94 (1.4-6.5) K/uL Lymph # (Auto) 1.68 (1.2-3.4) K/uL [place] # (Auto) 0.48 (0.11-0.59) K/uL Eos # (Auto) 0.04 (0-0.5) K/uL Baso # (Auto) 0.03 (0-0.2) K/uL Sodium 140 (136-145) mmol/L Potassium 3.7 (3.5-5.1) mmol/L Chloride 107 (98-107) mmol/L Carbon Dioxide 27 (21-32) mmol/L Anion Gap 7.0 (3-11) BUN 19 H (7-18) mg/dl Creatinine 0.93 (0.6-1.2) mg/dl Est Cr Clr Drug Dosing 71.4 ml/min Est GFR ( Amer) 81.9 Est GFR (Non-Af Amer) 70.7 BUN/Creatinine Ratio 20.6 H (10-20) Glucose 97 (70-99) mg/dl Lactate (0.4-2.0) mmol/L Calcium 9.7 (8.5-10.1) mg/dl Total Bilirubin 0.7 (0.2-1) mg/dl AST 17 (15-37) U/L ALT 24 (12-78) U/L Alkaline Phosphatase 73 (45-117) U/L Total Protein 8.2 (6.4-8.2) gm/dl Albumin 4.4 (3.4-5.0) gm/dl Globulin 3.8 (2.5-4.0) gm/dl Albumin/Globulin Ratio 1.2 (0.9-2) Lipase 312 (73-393) U/L Urine Color Yellow Urine Appearance Clear (Clear) Urine pH 8.5 H (4.5-7.5) Ur Specific [place] 1.011 (1.000-1.030) Urine Protein Negative (Negative) Urine Glucose (UA) Negative (Negative) Urine Ketones Negative (Negative) Urine Blood Negative (Negative) Urine Nitrite Negative (Negative) Urine Bilirubin Negative (Negative) Urine Urobilinogen Negative (Negative) Ur Leukocyte Esterase Negative (Negative) 12/15/18 Range/Units 15:29 WBC (4.8-10.8) K/uL RBC (4.2-5.4) M/uL Hgb (12.0-16.0) g/dL Hct (37-47) % MCV (80-100) fL MCH (25-34) pg MCHC (32-36) g/dL RDW Std Deviation (36.4-46.3) fL RDW Coeff of Yani (11.5-14.5) % Plt Count (130-400) K/uL MPV (7.4-10.4) fL Immature Gran % (Auto) % Neut % (Auto) % Lymph % (Auto) % [place] % (Auto) % Eos % (Auto) % Baso % (Auto) % Immature Gran # (Auto) (0.00-0.02) K/uL Neut # (Auto) (1.4-6.5) K/uL Lymph # (Auto) (1.2-3.4) K/uL [place] # (Auto) (0.11-0.59) K/uL Eos # (Auto) (0-0.5) K/uL Baso # (Auto) (0-0.2) K/uL Sodium (136-145) mmol/L Potassium (3.5-5.1) mmol/L Chloride (98-107) mmol/L Carbon Dioxide (21-32) mmol/L Anion Gap (3-11) BUN (7-18) mg/dl Creatinine (0.6-1.2) mg/dl Est Cr Clr Drug Dosing ml/min Est GFR ( Amer) Est GFR (Non-Af Amer) BUN/Creatinine Ratio (10-20) Glucose (70-99) mg/dl Lactate 1.3 (0.4-2.0) mmol/L Calcium (8.5-10.1) mg/dl Total Bilirubin (0.2-1) mg/dl AST (15-37) U/L ALT (12-78) U/L Alkaline Phosphatase (45-117) U/L Total Protein (6.4-8.2) gm/dl Albumin (3.4-5.0) gm/dl Globulin (2.5-4.0) gm/dl Albumin/Globulin Ratio (0.9-2) Lipase (73-393) U/L Urine Color Urine Appearance (Clear) Urine pH (4.5-7.5) Ur Specific [place] (1.000-1.030) Urine Protein (Negative) Urine Glucose (UA) (Negative) Urine Ketones (Negative) Urine Blood (Negative) Urine Nitrite (Negative) Urine Bilirubin (Negative) Urine Urobilinogen (Negative) Ur Leukocyte Esterase (Negative) Imaging Data Radiologist's Impression: Radiology results as stated below per my review and the radiologist's interpretation: ABDOMEN AND PELVIS CT WITH IV CONTRAST CT DOSE: 344.60 mGy.cm HISTORY: Acute abdominal pain with small bowel obstruction SBO TECHNIQUE: Multiaxial CT images of the abdomen and pelvis were performed following the use of intravenous contrast. A dose lowering technique was utilized adhering to the principles of ALARA. COMPARISON STUDY: CT abdomen and pelvis 08/07/2017, and 12/13/2016, 04/26/2015 and 03/30/2015 MR enterography 09/12/2017 FINDINGS: Unchanged 4 mm solid nodule the basal left lower lobe. No pneumatosis or pne umoperitoneum. The imaged inferior cardiac chambers appear unremarkable. Trace pericardial effusion. Cholecystectomy. Mild intrahepatic and extrahepatic delayed ductal dilation is likely on a postsurgical basis. Liver otherwise appears unremarkable. Patency of the hepatic and portal veins. Spleen, pancreas and adrenal glands are unremarkable. Kidneys, ureters and urinary bladder are unremarkable. Hysterectomy. No adnexal mass lesions. Aorta and IVC are within normal limits. No adenopathy. Multiple dilated fluid-filled loops of small bowel with air-fluid levels are noted measuring up to 3.5 cm transversely. Transition point involves a loop of small bowel within the abdominal left lower quadrant which demonstrates moderate circumferential wall thickening, image 284 series 3. This appears to be within the same location of prior studies dated 12/13/2016 and 08/07/2017 no obstructing mass identified. There is mild interloop edema with reactive mesenteric edema. Postoperative changes from prior partial sigmoid colon resection with colocolonic anastomosis. Colonic diverticulosis without acute diverticulitis. Normal terminal ileum and appendix. Breast parenchyma and soft tissues appear unremarkable. Bones appear intact. IMPRESSION: 1. Small bowel obstruction with transition point present within the abdominal left lower quadrant. Site of obstruction is a loop of small bowel within the abdominal left lower quadrant which again demonstrates circumference wall thickening. A similar disease pattern was seen on multiple prior studies dating back to least 2016. No obstructing mass identified. No pneumatosis or pneumoperitoneum. 2. Cholecystectomy. 3. Normal appendix. 4. Prior partial sigmoid colon resection with colocolonic anastomosis. 5. Chronic diverticulosis without acute diverticulitis. Electronically signed by: Jordon Neri M.D. 12/15/2018 4:02 PM Blood Pressure Blood Pressure Findings: Normal blood pressure Blood Pressure Disposition: further management by hospitalist MDM Narrative This patient was evaluated and appeared to be in some discomfort. IV access was obtained and laboratory work was drawn. The patient was placed on the awake overnight monitor. Patient was administered IV Dilaudid and Zofran for pain and nausea. Patient was hydrated with normal saline solution. CT imaging of the abdomen and pelvis was performed and reveals evidence of SBO. Laboratory work is fairly reassuring and UA is negative. Patient was advised of the findings. Dr. Maxwell of the hospitalist service was consulted for further evaluation and management. Patient is aware of the plan, and NG tube was recommended. Patient is extremely apprehensive about the procedure and is declining at this time. Impression & Plan Small bowel obstruction Discharge Plan Visit Data *Final* Discharge Date/Time: 12/15/18 18:20 Chief Complaint: Abdominal Pain Stated Complaint: SEVERE ABD PAIN, VOMITING ED Provider: Bharti Maier Discharge Problem: Small bowel obstruction Patient Disposition: Admitted As Inpatient Discharge Instructions Interventions: ED Discharge Assessment Last Done: 12/15/18 18:20 The scribe's documentation has been prepared under my direction and personally reviewed by me in its entirety. I confirm that the note above accurately reflect s all work, treatment, procedures, and medical decision making performed by me.
[2018-12-15] MEDS ORDERED: ONDANSETRON INJ 2 MG/ML 2 ML VIAL IV PRN (19:07)
[2018-12-15] MEDS ORDERED: MAGNESIUM HYDROXIDE SUSP 30 ML UDC PO PRN (19:07)
[2018-12-15] MEDS ORDERED: MoRPHine SULFATE 2 MG/ML CARP IV PRN (19:07)
[2018-12-15] MEDS: D5W AND NSS 1,000 ML IV SCH (20:09)
[2018-12-15] MEDS ORDERED: KETOROLAC 30 MG/ML VIAL IV PRN (21:00)
[2018-12-16] MEDS: ACETAMINOPHEN 325 MG TAB PO PRN ×4 (05:19→21:06)
[2018-12-16] MEDS: D5W AND NSS 1,000 ML IV SCH ×2 (06:01→16:08)
[2018-12-16 07:35] LABS: Basophils # (auto) 0.01 K/uL (0-0.2); Basophils % (auto) 0.2 %; Eosinophils # (auto) 0.05 K/uL (0-0.5); Eosinophils % (auto) 1.1 %; Hematocrit (blood only) 35.7 % (37-47); Hemoglobin 12.2 g/dL (12.0-16.0); Immature Granulocytes # (auto) 0.01 K/uL (0.00-0.02); Immature Granulocytes % (auto) 0.2 %; Lymphocytes # (auto) 1.29 K/uL (1.2-3.4); Lymphocytes % (auto) 27.4 %; Mean Corpuscular Hemoglobin 30.3 pg (25-34); Mean Corpuscular Hgb Conc 34.2 g/dL (32-36); Mean Corpuscular Volume 88.6 fL (80-100); Mean Platelet Volume 10.3 fL (7.4-10.4); Monocytes # (auto) 0.59 K/uL (0.11-0.59); Monocytes % (auto) 12.5 %; Neutrophils # (auto) 2.76 K/uL (1.4-6.5); Neutrophils % (auto) 58.6 %; Platelet Count 147 K/uL (130-400); RDW Coefficient of Variation 13.2 % (11.5-14.5); RDW Standard Deviation 43.3 fL (36.4-46.3); Red Blood Count 4.03 M/uL (4.2-5.4); White Blood Count 4.71 K/uL (4.8-10.8)
[2018-12-16 08:03] LABS: BUN Creatinine Ratio 18.2 (10-20); Calcium 8.3 mg/dl (8.5-10.1); Est GFR (African American) 84.1; Est GFR (Non-African American) 72.5; Magnesium 2.1 mg/dl (1.8-2.4); Phosphorus 3.6 mg/dl (2.5-4.9); Potassium 4.1 mmol/L (3.5-5.1)
[2018-12-16] MEDS ORDERED: LEVOTHYROXINE SODIUM 62.5 MCG in SYRINGE 0 ML IV SCH (09:00)
--- NOTE | 2018-12-16 21:45 | Hospitalist Progress Note ---
Date of Service December 16, 2018 Assessment & Plan (1) Small bowel obstruction: Resolving nicely w/ conservative measures. Can advance diet to full liquids in am. Cut fluid rate to 50cc/hr. Labs am. Suspect SBO was on basis of adhesions from prior colonic surgery and other surgeries. Has had numerous SBOs in the past - all of them resolved conservatively. (2) Hypothyroid: stop IV dosing; convert to PO. TSH 12/2017 wnl. (3) DVT prophylaxis: SCDs and ambulation anticipate d/c in am Subjective had 2 BMs since 10am this am. +flatus multiple times. tolerating ice chips and clears. no nausea/vomiting. mild soreness in LLQ but this, too, is improved. Review of Systems Constitutional: no fever Respiratory: no dyspnea Cardiovascular: no chest pain Physical Exam Constitutional: WD/WN, vitals as above no acute distress ENMT: external ear and nose normal, oropharynx normal Respiratory: normal respiratory effort, lungs clear to auscultation Cardiovascular: RRR, no murmur, no edema Heart Sounds: normal S1 and normal S2 Vessels: posterior tibial pulses present and dorsalis pedis pulses present ; no JVD Gastrointestinal (Abdomen): Inspection/Auscultation: + abdomen distended (mild) and normal bowel sounds Percussion/Palpation: abdomen soft; abdomen nontender and no hepatosplenomegaly Psychiatric: A+Ox3, euthymic affect Results & Data Vital Signs (Past 12 Hours) Vital Signs Temp Pulse Resp BP Pulse Ox 12/16/18 15:29 36.5 C 51 L 18 98/63 L 98 Laboratory Results Laboratory Results - last 24 hr 12/16/18 12/16/18 06:53 06:53 WBC 4.71 L RBC 4.03 L Hgb 12.2 Hct 35.7 L MCV 88.6 MCH 30.3 MCHC 34.2 RDW Std Deviation 43.3 RDW Coeff of Yani 13.2 Plt Count 147 MPV 10.3 Immature Gran % (Auto) 0.2 Neut % (Auto) 58.6 Lymph % (Auto) 27.4 [place] % (Auto) 12.5 Eos % (Auto) 1.1 Baso % (Auto) 0.2 Immature Gran # (Auto) 0.01 Neut # (Auto) 2.76 Lymph # (Auto) 1.29 [place] # (Auto) 0.59 Eos # (Auto) 0.05 Baso # (Auto) 0.01 Sodium 143 Potassium 4.1 Chloride 113 H Carbon Dioxide 25 Anion Gap 5.0 BUN 17 Creatinine 0.91 Est Cr Clr Drug Dosing 73.0 Est GFR ( Amer) 84.1 Est GFR (Non-Af Amer) 72.5 BUN/Creatinine Ratio 18.2 Glucose 95 Calcium 8.3 L Phosphorus 3.6 Magnesium 2.1 PG Care Time/CCT Total # of Minutes Spent Total Time Spent with Patient: Total time spent is greater than 50% in coordination of care (as documented) at patient's floor/unit and/or counseling patient: (1) Hypothyroid Hypothyroidism type: acquired Qualified Code(s): E03.9 - Hypothyroidism, unspecified
[2018-12-17] MEDS ORDERED: LEVOTHYROXINE SODIUM 125 MCG TABLET PO SCH (06:30)
[2018-12-17] MEDS: ACETAMINOPHEN 325 MG TAB PO PRN (06:35)
[2018-12-17 07:47] LABS: Est GFR (African American) 88.8; Potassium 4.4 mmol/L (3.5-5.1)
[2018-12-17 07:48] LABS: BUN Creatinine Ratio 10.8 (10-20); Calcium 8.7 mg/dl (8.5-10.1); Creatinine Clr Calc Pharmacy 76.3 ml/min; Est GFR (Non-African American) 76.6
[2018-12-17 07:51] LABS: Thyroid Stimulating Hormone 1.23 uIu/ml (0.300-4.500)
--- NOTE | 2018-12-23 14:46 | Discharge Summary ---
Date of Service date of admission - 12/15/18 date of discharge - 12/17/18 Admission HPI Per Admitting Provider 53 y/o F c/o abd pain. Pt states she was having a usual day for herself until around 11am when she had sudden onset of LLQ pain. It was cramping and nonradiating and would come and go. She then developed nausea and her pain was worse. Pt has hx of SBO and this felt similar, so she knew to come to the ED. She states she did have one episode of emesis on the way to the ED, but it was minimal. Pt states she had a loose bowel movement yesterday and also this AM. Pt denies fever, SOB, chest pain, LE pain or swelling. Upon ED presentation a CT of the abdomen/pelvis confirmed a SBO with transition point in the LLQ. She received IVF and zofran in the ED. By the time the admitting hospitalist performed the admission the patient reported some passage of flatus. NG tube was deferred. Principal Diagnosis small bowel obstruction Discharge Exam Constitutional WD/WN, vitals as above no acute distress ENMT external ear and nose normal, oropharynx normal Respiratory normal respiratory effort, lungs clear to auscultation Cardiovascular RRR, no murmur, no edema Heart Sounds: normal S1 and normal S2 Vessels: posterior tibial pulses present and dorsalis pedis pulses present; no JVD Gastrointestinal (Abdomen) Inspection/Auscultation: + abdomen distended (scant - marked improvement from prior exams) and normal bowel sounds Percussion/Palpation: abdomen soft; abdomen nontender and no hepatosplenomegaly Psychiatric A+Ox3, euthymic affect Discharge Data Allergies Allergy/AdvReac Type Severity Reaction Status Date / Time erythromycin base Allergy Intermediate EDEMA OF Verified 12/15/18 15:30 MOUTH/LIPS oxycodone AdvReac Intermediate Chest Verified 12/15/18 15:30 Pain.SYNCOPY tramadol AdvReac Intermediate CHEST Verified 12/15/18 15:30 PAIN,SYNCOPE Ordered Studies CT abd pelvis - IMPRESSION: 1. Small bowel obstruction with transition point present within the abdominal left lower quadrant. Site of obstruction is a loop of small bowel within the abdominal left lower quadrant which again demonstrates circumference wall thickening. A similar disease pattern was seen on multiple prior studies dating back to least 2015. No obstructing mass identified. No pneumatosis or pneumoperitoneum. 2. Cholecystectomy. 3. Normal appendix. 4. Prior partial sigmoid colon resection with colocolonic anastomosis. 5. Chronic diverticulosis without acute diverticulitis. Hospital Course (1) Small bowel obstruction: The patient's SBO resolved rather quickly with conservative measures. She never needed NG tube decompression. By the AM of hospital day #2 she was passing flatus and stool. Clear liquid diet was resumed at that time and advanced without difficulty. She continued to have bowel movements on hospital day #3 which was her day of discharge. Suspect the SBO was on the basis of adhesions from prior colonic surgery and other surgeries. She has had numerous SBOs in the past - fortunately all of them resolved conservatively and without need for surgery. I recommended that she have a routine follow-up with her surgeon at [facility] who performed her colonic resection years ago for diverticulitis. I also recommended follow-up with her PCP within a week of discharge. Low-fiber diet was advised for about 10 days post-discharge followed by a regular diet. (2) Hypothyroid: TSH this admission was 1. No changes were made in her synthroid. Total Time Total Time Spent Total Time Spent (In Minutes): 25 Total Time Includes: Examination of the Patient, Discharge Planning and Medication Reconciliation Discharge Plan Discharge Items Patient Disposition: Home - Self-Care Reason For Visit: SBO Discharge Diagnosis: SBO (small bowel obstruction) - resolved Discharge Goals: Decrease discomfort, Diagnostic testing and Therapeutic intervention Activity: As commented below Activity Comment: take it easy for the next 2 days then gradually increase activities Exercise/Sports: Gradually increase as tolerated Driving/Machine Use: No limitations Non-emergency contact: Primary Care Provider Call non-emergency contact if: you have any medication questions, your symptoms worsen, your pain is not controlled, your pain is worsening, your pain is unusual for you, your pain is concerning for you and your temperature is above 100.5 Follow-up/Referrals: Chet Ordonez MD [Primary Care Provider] - 12/23/18 10:50 am (Please, follow up at Dr. Ordonez' office on SaturdayDecember 23 at 10:50 am. *If you need to change this appointment, call the office at [phone].) Diet: Low Fiber Addtl Provider Instructions: You were admitted for SBO. This resolved with conservative measures including bowel rest/diet restriction, fluids, and time. Your CAT scan showed that the "lead point" which caused the bowel obstruction was in the left lower portion of the abdomen. This is why you had mild abdominal discomfort in that location. Your CAT scan was very similar to past CATs you have had at [facility]. It is likely that your SBOs are due to adhesions (scar tissue) from your prior surgeries in the abdomen. Recommendations - 1. low fiber diet for 7-10 days. Avoid high-fiber cereals, excessive fruits/veggies, beans, etc. Can return to normal diet in about 10 days. Especially for today, 12/17/18, please avoid "heavy foods", fast food, fried foods, etc. Gradually increase your solids intake today. 2. please push fluids and focus on good hydration over the next few days. 3. gradually increase your activities over the next 2-3 days. 4. please consider following-up with your surgeon at [place], Dr Burroughs, in 3-4 weeks to discuss the frequent nature of your bowel obstructions. 5. see Dr Ordonez within 1 week. Return to [facility] if - * you have worsening or recurrent abdominal pain * you have recurrent nausea and/or vomiting * you cannot pass stool or gas from your rectum * you have any concerns that the bowel obstruction is returning * you have fever over 100.5 degrees * any other concerns Prescriptions: Continued multivitamin Tablet 1 tab PO QAM RF: 0 cetirizine 10 mg Tablet 10 mg PO DAILY PRN (Reason: Allergy Symptoms) RF: 0 fexofenadine [Socorro Allergy] 180 mg Tablet 180 mg PO DAILY PRN (Reason: Allergy Symptoms) RF: 0 estradiol 0.025 mg/24 hr Patch Weekly 1 patch Transdermal WK RF: 0 ascorbic acid (vitamin C) [Vitamin C] 500 mg Tablet 500 mg PO DAILY RF: 0 levothyroxine 125 mcg Tablet 125 mcg PO QAM RF: 0 cholecalciferol (vitamin D3) 5,000 unit Capsule 5,000 unit PO DAILY RF: 0 docusate sodium 100 mg Tablet 100 mg PO BID PRN (Reason: Constipation) RF: 0 aloe vera 25 mg Capsule 1 cap PO QAM RF: 0 calcium carbonate-vitamin D3 [Calcium 500 + D] 500 mg(1,250mg) -200 unit Tablet 1 tab PO QAM RF: 0 biotin 5 mg Tablet 1 tab PO QAM RF: 0 hyoscyamine sulfate 0.125 mg Tablet 0.125 mg PO Q8 PRN (Reason: Pain) RF: 0 Stand-Alone Forms: Call Back Authorization, [facility] Discharge Orders: Discharge Order (Routine); Ordered 12/17/18 Ordered By: Chet Dove Admission Data Admit Date/Time: 12/15/18 17:34 Attending Provider: Chet Dove Admit Provider: Sally Maxwell Primary Care Provider: Chet Ordonez Other Providers: Sally Maxwell Service: Medical Other Interventions: Discharge Summary Assessment (RN) Last Done: 12/17/18 11:14 DC Date/Time DO NOT enter until pt leaves facility: 12/17/18 13:55
== END 2018-12-17 13:55 | disposition home or self-care (01) | DRG 390 ==
LOC: ED 14:23 → 4W 17:34 → SUATTDRO 17:34 → 4W 18:20

== ENCOUNTER 2020-07-26 18:22 | Inpatient (IN) ==
[2020-07-26] MEDS ORDERED: ONDANSETRON INJ 2 MG/ML 2 ML VIAL IV STA (19:56)
[2020-07-26] MEDS ORDERED: SODIUM CHLORIDE 0.9% 1000ML 1,000 ML IV STA (19:56)
[2020-07-26] MEDS ORDERED: MoRPHine SULFATE 2 MG/ML CARP IV STA ×2 (19:56→22:28)
--- NOTE | 2020-07-26 20:02 | Emergency Department Note ---
Impression & Plan Small bowel obstruction, Abdominal pain, High serum chloride ED Provider Note NAME: ALESSIA RODRIGUEZ AGE: 54 SEX: F : 1965 ARRIVES VIA: Walk-In INFORMANT: Patient ED PROVIDER(S): Gio oTrres DO CHIEF COMPLAINT: Severe abdominal pain HPI: Patient is a 54-year-old female with a past medical history of bowel resection secondary to diverticulitis, cholecystectomy and hysterectomy that presents to the ER for left lower quadrant abdominal pain. Sharp and stabbing in nature and comes and goes in waves. At its worst is a 10 out of 10. At baseline is a 4 out of 10. She notes this feels like her previous obstructions. She has been belching. She is not passing gas anymore. Denies any dysuria urgency or frequency. No vaginal bleeding or vaginal discharge. No other exacerbating or remitting factors. ROS: See above HPI for pertinent positives & negatives. A total of 10 systems reviewed and were otherwise negative. PAST MEDICAL HISTORY:See Below PAST SURGICAL HISTORY:See Below FAMILY HISTORY:See Below SOCIAL HISTORY:See Below HOME MEDICATIONS:See Below ALLERGIES:See Below VITALS:See Below PHYSICAL EXAMINATION: GENERAL: Sitting up in bed, alert, moderate distress, holding left lower quadrant EYE EXAM: normal conjunctiva. OROPHARYNX: no exudate, no erythema, lips, buccal mucosa, and tongue normal and mucous membranes are moist NECK: supple, no nuchal rigidity, no adenopathy, non-tender LUNGS: Clear to auscultation. Normal chest wall mechanics HEART: no murmurs, S1 normal and S2 normal ABDOMEN: abdomen soft, mild tenderness left lower quadrant, normo-active bowel sounds, no masses, no rebound or guarding. BACK: Back is symmetrical on inspection and there is no deformity, no midline tenderness, no CVA tenderness. SKIN: no rashes and no bruising UPPER EXTREMITIES: upper extremities are grossly normal. LOWER EXTREMITIES: No pitting edema. NEURO EXAM: Normal sensorium, cranial nerves II-XII grossly intact, normal speech, no gross weakness of arms, no gross weakness of legs. MEDICAL DECISION MAKING: Patient is a 54-year-old female who presents the ER for abdominal pain which feels like her previous bowel obstructions as well as belching and not passing gas. IV was established blood work was obtained. Labs show no significant leukocytosis or anemia. INR was unremarkable. BMP with a slightly elevated chloride. LFTs bilirubin and troponin was negative. Lipase was normal. UA was negative. Covid was negative. CT confirms possible early small bowel obstruction. With this and her complaints and her previous history she was given IV fluids and multiple dose of IV narcotics as well as Zofran and discussed with the hospitalist for further evaluation. Triage Nursing notes reviewed. Limited review of prior medical records performed Vital Signs: reviewed and remarkable for no significant abnormalities Differential diagnosis: Differential diagnoses includes but is not limited to gastritis, peptic ulcer disease, GERD, gallbladder disease, pancreatitis, small bowel obstruction, acute coronary syndrome, pericarditis, ischemic bowel, irritable bowel disease, irritable bowel syndrome, appendicitis, diverticulitis, malignancy, hernia, urinary tract infection, torsion, perforation, trauma, infectious. ER treatment provided: See below Diagnostics interpreted by me: ECG: none Cardiac Monitoring: An order was placed for continuous cardiac monitoring. The monitor shows a rate of 52 with sinus rhythm. Laboratory studies: As stated above and show below. Imaging studies: CT abdomen pelvis shows early small bowel obstruction cannot be excluded Consultation(s): Discussed with Dr. Susie Zarate for further evaluation Procedures: none Critical Care: None Past Med/Surg History Medical History (Updated 07/26/20 @ 23:43 by Gio Torres DO) Bradycardia PT'S NORM. PT STATES WHEN SLEEPING THAT POST OP HER HR IS HIGH 30'S AND LOW 40'S. 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 PT HAS NOT NEEDED AN ECHO IS "SEVERAL YEARS" Diverticular disease Hypothyroid Postmenopausal hormone replacement therapy Small bowel obstruction Surgical History History of bilateral tubal ligation History of bowel resection S/T DIVERTICULITIS, AND ILLEUS History of hysterectomy PARTIAL History of laparoscopy BSO History of partial colectomy History of thumb surgery RIGHT HAND History of wisdom tooth extraction Hx of breast reduction, elective Status post trigger finger release TOTAL 3 FINGERS Family History Mother Stroke Family/Other Breast cancer Uncle Colorectal cancer Other Kidney stones Denies family history of Ovarian cancer Social History (Updated 05/02/20 @ 14:19 by Kerri Grubbs) Smoking Status: Never smoker Second Hand Exposure: No; Hx Alcohol Use: Yes Alcohol type: other Alcohol Intake Frequency Comment: a glass of wine once a week or so Hx Substance Use: No Preferred Language: Greek Communication Ability: Effective Button Broacher Required: No Beliefs That Will Affect Care: None Current Living Situation: Spouse Current Living Situation Comment: House Feels Safe at Home: Yes Assistive Devices: None Allergies Allergies Allergy/AdvReac Type Severity Reaction Status Date / Time erythromycin base Allergy Intermediate EDEMA OF Verified 07/26/20 20:26 MOUTH/LIPS oxycodone AdvReac Intermediate Chest Verified 07/26/20 20:26 Pain.SYNCOPY tramadol AdvReac Intermediate CHEST Verified 07/26/20 20:26 PAIN,SYNCOPE Home Meds Home Medications Medication Instructions Recorded Confirmed aloe vera 1 cap PO QAM 03/01/18 07/26/20 ascorbic acid (vitamin C) [Vitamin 500 mg PO DAILY 03/01/18 07/26/20 C] calcium carbonate-vitamin D3 1 tab PO QAM 03/01/18 07/26/20 [Calcium 500 + D] cetirizine 10 mg PO DAILY PRN 03/01/18 07/26/20 cholecalciferol (vitamin D3) 5,000 unit PO DAILY 03/01/18 07/26/20 docusate sodium 100 mg PO BID PRN 03/01/18 07/26/20 fexofenadine [Socorro Allergy] 180 mg PO DAILY PRN 03/01/18 07/26/20 multivitamin 1 tab PO QAM 03/01/18 07/26/20 hyoscyamine sulfate 0.125 mg PO Q8 PRN 12/15/18 07/26/20 ascorbic acid-vitamin E-biotin 1 tab PO DAILY 06/29/19 07/26/20 [Hair, Skin, Nails with Biotin] echinacea 500 mg PO DAILY 06/29/19 07/26/20 levothyroxine 100 mcg PO QAM 07/26/20 07/26/20 Previous Rx's Medication Instructions Recorded estradiol 0.0375 mg/24 hr weekly 1 patch TRANSDERMAL WK #12 ea 05/02/20 transdermal patch Results & Data (ED) Vital Signs Vital Signs - 24 hr 07/26/20 18:47 07/26/20 20:30 07/26/20 20:37 Temperature 36.9 C Temperature Source Temporal Artery Scan Pulse Rate 60 51 L 51 L Pulse Rate from SpO2 Sensor 52 L 51 L Respiratory Rate 18 25 H 19 Blood Pressure 128/88 107/79 Blood Pressure Mean 101 88 Pulse Oximetry 99 99 99 Sepsis Recent Fever Within 48 Hours No Sepsis New/Unexplained Change in Mental Status No Sepsis Action Taken by Nursing No Action Required 07/26/20 20:40 07/26/20 20:50 07/26/20 21:05 Temperature Temperature Source Pulse Rate 52 L 51 L 51 L Pulse Rate from SpO2 Sensor 53 L 51 L 53 L Respiratory Rate 12 14 19 Blood Pressure Blood Pressure Mean Pulse Oximetry 100 97 99 Sepsis Recent Fever Within 48 Hours Sepsis New/Unexplained Change in Mental Status Sepsis Action Taken by Nursing 07/26/20 21:10 07/26/20 21:20 07/26/20 21:30 Temperature Temperature Source Pulse Rate 52 L 54 L 52 L Pulse Rate from SpO2 Sensor 52 L 55 L 53 L Respiratory Rate 13 14 10 L Blood Pressure 113/79 Blood Pressure Mean 90 Pulse Oximetry 99 98 97 Sepsis Recent Fever Within 48 Hours Sepsis New/Unexplained Change in Mental Status Sepsis Action Taken by Nursing 07/26/20 21:31 07/26/20 21:40 07/26/20 21:50 Temperature Temperature Source Pulse Rate 54 L 51 L 69 Pulse Rate from SpO2 Sensor 54 L 51 L 56 L Respiratory Rate 18 16 17 Blood Pressure Blood Pressure Mean Pulse Oximetry 100 100 100 Sepsis Recent Fever Within 48 Hours Sepsis New/Unexplained Change in Mental Status Sepsis Action Taken by Nursing 07/26/20 22:00 07/26/20 22:10 07/26/20 22:20 Temperature Temperature Source Pulse Rate 61 48 L 85 Pulse Rate from SpO2 Sensor 52 L 49 L 55 L Respiratory Rate 21 21 17 Blood Pressure 123/78 Blood Pressure Mean 93 Pulse Oximetry 100 100 100 Sepsis Recent Fever Within 48 Hours Sepsis New/Unexplained Change in Mental Status Sepsis Action Taken by Nursing 07/26/20 22:30 Temperature Temperature Source Pulse Rate 50 L Pulse Rate from SpO2 Sensor 49 L Respiratory Rate 23 Blood Pressure 123/82 Blood Pressure Mean 95 Pulse Oximetry 100 Sepsis Recent Fever Within 48 Hours Sepsis New/Unexplained Change in Mental Status Sepsis Action Taken by Nursing Laboratory Data Result diagrams: 07/26/20 20:19 07/26/20 20:19 Lab Results 07/26/20 07/26/20 07/26/20 Range/Units 20:19 20:19 20:19 WBC 5.83 (4.8-10.8) K/uL RBC 4.68 (4.2-5.4) M/uL Hgb 14.6 (12.0-16.0) g/dL Hct 40.9 (37-47) % MCV 87.4 (80-100) fL MCH 31.2 (25-34) pg MCHC 35.7 (32-36) g/dL RDW Std Deviation 40.5 (36.4-46.3) fL RDW Coeff of Yani 12.6 (11.5-14.5) % Plt Count 181 (130-400) K/uL MPV 10.5 H (7.4-10.4) fL Immature Gran % (Auto) 0.3 % Neut % (Auto) 49.0 % Lymph % (Auto) 38.9 % [place] % (Auto) 10.1 % Eos % (Auto) 1.0 % Baso % (Auto) 0.7 % Neut # (Auto) 2.85 (1.4-6.5) K/uL Lymph # (Auto) 2.27 (1.2-3.4) K/uL [place] # (Auto) 0.59 (0.11-0.59) K/uL Eos # (Auto) 0.06 (0-0.5) K/uL Baso # (Auto) 0.04 (0-0.2) K/uL Immature Gran # (Auto) 0.02 (0.00-0.02) K/uL PT 10.5 (9.0-12.0) Seconds INR 1.0 (0.9-1.1) Sodium 139 (136-145) mmol/L Potassium 3.8 (3.5-5.1) mmol/L Chloride 109 H (98-107) mmol/L Carbon Dioxide 24 (21-32) mmol/L Anion Gap 6.0 (3-11) BUN 16 (7-18) mg/dl Creatinine 0.84 (0.6-1.2) mg/dl Est Cr Clr Drug Dosing 78.1 ml/min Est GFR ( Amer) 92.0 Est GFR (Non-Af Amer) 79.3 BUN/Creatinine Ratio 18.7 (10-20) Glucose 90 (70-99) mg/dl Calcium 9.4 (8.5-10.1) mg/dl Total Bilirubin 0.4 (0.2-1) mg/dl AST 16 (15-37) U/L ALT 20 (12-78) U/L Alkaline Phosphatase 75 (45-117) U/L Troponin I < 0.015 (0-0.045) ng/ml Total Protein 7.8 (6.4-8.2) gm/dl Albumin 4.1 (3.4-5.0) gm/dl Globulin 3.7 (2.5-4.0) gm/dl Albumin/Globulin Ratio 1.1 (0.9-2) Lipase 179 (73-393) U/L Urine Color Urine Appearance (Clear) Urine pH (4.5-7.5) Ur Specific [place] (1.000-1.030) Urine Protein (Negative) Urine Glucose (UA) (Negative) Urine Ketones (Negative) Urine Blood (Negative) Urine Nitrite (Negative) Urine Bilirubin (Negative) Urine Urobilinogen (Negative) Ur Leukocyte Esterase (Negative) COVID-19 Eval Order SARS-CoV-2 (PCR) (Negative) Influenza Type A (PCR) (Neg) Influenza Type B (PCR) (Neg) RSV (RT-PCR) (Neg) 07/26/20 07/26/20 07/26/20 Range/Units 20:19 20:19 20:19 WBC (4.8-10.8) K/uL RBC (4.2-5.4) M/uL Hgb (12.0-16.0) g/dL Hct (37-47) % MCV (80-100) fL MCH (25-34) pg MCHC (32-36) g/dL RDW Std Deviation (36.4-46.3) fL RDW Coeff of Yani (11.5-14.5) % Plt Count (130-400) K/uL MPV (7.4-10.4) fL Immature Gran % (Auto) % Neut % (Auto) % Lymph % (Auto) % [place] % (Auto) % Eos % (Auto) % Baso % (Auto) % Neut # (Auto) (1.4-6.5) K/uL Lymph # (Auto) (1.2-3.4) K/uL [place] # (Auto) (0.11-0.59) K/uL Eos # (Auto) (0-0.5) K/uL Baso # (Auto) (0-0.2) K/uL Immature Gran # (Auto) (0.00-0.02) K/uL PT (9.0-12.0) Seconds INR (0.9-1.1) Sodium (136-145) mmol/L Potassium (3.5-5.1) mmol/L Chloride (98-107) mmol/L Carbon Dioxide (21-32) mmol/L Anion Gap (3-11) BUN (7-18) mg/dl Creatinine (0.6-1.2) mg/dl Est Cr Clr Drug Dosing ml/min Est GFR ( Amer) Est GFR (Non-Af Amer) BUN/Creatinine Ratio (10-20) Glucose (70-99) mg/dl Calcium (8.5-10.1) mg/dl Total Bilirubin (0.2-1) mg/dl AST (15-37) U/L ALT (12-78) U/L Alkaline Phosphatase (45-117) U/L Troponin I (0-0.045) ng/ml Total Protein (6.4-8.2) gm/dl Albumin (3.4-5.0) gm/dl Globulin (2.5-4.0) gm/dl Albumin/Globulin Ratio (0.9-2) Lipase (73-393) U/L Urine Color Yellow Urine Appearance Clear (Clear) Urine pH >= 9.0 H (4.5-7.5) Ur Specific [place] 1.012 (1.000-1.030) Urine Protein Negative (Negative) Urine Glucose (UA) Negative (Negative) Urine Ketones Negative (Negative) Urine Blood Negative (Negative) Urine Nitrite Negative (Negative) Urine Bilirubin Negative (Negative) Urine Urobilinogen Negative (Negative) Ur Leukocyte Esterase Negative (Negative) COVID-19 Eval Order CovFluRsv at [facility] SARS-CoV-2 (PCR) NEGATIVE (Negative) Influenza Type A (PCR) Negative (Neg) Influenza Type B (PCR) Negative (Neg) RSV (RT-PCR) Negative (Neg) Administered Medications Discontinued Medications Sodium Chloride (Nss 1000ml) 1,000 mls @ 999 mls/hr IV .[id number] STA Stop: 07/26/20 20:56 Last Infusion: 07/26/20 21:32 Dose: 0 mls/hr Documented by: [id number] Admin: 07/26/20 20:22 Dose: 999 mls/hr Documented by: [id number] Ioversol (Ioversol 100ml) 93 ml IV ONCE ONE Stop: 07/26/20 21:00 Last Admin: 07/26/20 21:00 Dose: 93 ml Documented by: [id number] Morphine Sulfate (Morphine Sulfate 2 Mg/Ml Carp) 2 mg IV NOW STA Stop: 07/26/20 19:57 Last Admin: 07/26/20 20:21 Dose: 2 mg Documented by: [id number] Morphine Sulfate (Morphine Sulfate 2 Mg/Ml Carp) 2 mg IV NOW STA Stop: 07/26/20 22:29 Last Admin: 07/26/20 22:46 Dose: 2 mg Documented by: [id number] Ondansetron HCl (Ondansetron Inj 2 Mg/Ml 2 Ml Vial) 4 mg IV NOW STA Stop: 07/26/20 19:57 Last Admin: 07/26/20 20:22 Dose: 4 mg Documented by: [id number] Discharge Plan Visit Data Chief Complaint: Abdominal Pain Stated Complaint: Abdominal Pain ED Provider: Gio Torres Discharge Problem: Small bowel obstruction, Abdominal pain, High serum chloride Forms Stand Alone Forms: [employer] [facility] [employer] Prescriptions Prescriptions: No Action estradiol 0.0375 mg/24 hr patch weekly 1 patch Transdermal WK Qty: 12 RF: 3 Hair, Skin, Nails with Biotin 7.5-7.5-1,250 mg-unit-mcg Tablet,Chewable 1 tab PO DAILY RF: 0 echinacea 500 mg Capsule 500 mg PO DAILY RF: 0 multivitamin Tablet 1 tab PO QAM RF: 0 cetirizine 10 mg Tablet 10 mg PO DAILY PRN (Reason: Allergy Symptoms) RF: 0 fexofenadine [Socorro Allergy] 180 mg Tablet 180 mg PO DAILY PRN (Reason: Allergy Symptoms) RF: 0 ascorbic acid (vitamin C) [Vitamin C] 500 mg Tablet 500 mg PO DAILY RF: 0 cholecalciferol (vitamin D3) 5,000 unit Capsule 5,000 unit PO DAILY RF: 0 docusate sodium 100 mg Tablet 100 mg PO BID PRN (Reason: Constipation) RF: 0 aloe vera 25 mg Capsule 1 cap PO QAM RF: 0 calcium carbonate-vitamin D3 [Calcium 500 + D] 500 mg(1,250mg) -200 unit Tablet 1 tab PO QAM RF: 0 hyoscyamine sulfate 0.125 mg Tablet 0.125 mg PO Q8 PRN (Reason: Pain) RF: 0 levothyroxine 100 mcg tablet 100 mcg PO QAM RF: 0 Discharge Problem: Abdominal pain Qualifiers: Abdominal location: unspecified location Qualified Code(s): R10.9 - Unspecified abdominal pain
[2020-07-26 20:29] LABS: Basophils # (auto) 0.04 K/uL (0-0.2); Basophils % (auto) 0.7 %; Eosinophils # (auto) 0.06 K/uL (0-0.5); Hematocrit (blood only) 40.9 % (37-47); Hemoglobin 14.6 g/dL (12.0-16.0); Immature Granulocytes # (auto) 0.02 K/uL (0.00-0.02); Immature Granulocytes % (auto) 0.3 %; Lymphocytes # (auto) 2.27 K/uL (1.2-3.4); Lymphocytes % (auto) 38.9 %; Mean Corpuscular Hemoglobin 31.2 pg (25-34); Mean Corpuscular Hgb Conc 35.7 g/dL (32-36); Mean Corpuscular Volume 87.4 fL (80-100); Mean Platelet Volume 10.5 fL (7.4-10.4); Monocytes # (auto) 0.59 K/uL (0.11-0.59); Monocytes % (auto) 10.1 %; Neutrophils # (auto) 2.85 K/uL (1.4-6.5); Platelet Count 181 K/uL (130-400); RDW Coefficient of Variation 12.6 % (11.5-14.5); RDW Standard Deviation 40.5 fL (36.4-46.3); Red Blood Count 4.68 M/uL (4.2-5.4); White Blood Count 5.83 K/uL (4.8-10.8)
[2020-07-26 20:35] LABS: Appearance Urine Clear (Clear); Bilirubin Urine Negative (Negative); Blood Urine Negative (Negative); Color Urine Yellow; Glucose Urine UA Negative (Negative); Ketones Urine Negative (Negative); Leukocyte Esterase Urine Negative (Negative); Nitrite Urine Negative (Negative); Protein Urine Negative (Negative); Specific Gravity Urine 1.012 (1.000-1.030); Urobilinogen Urine Negative (Negative); pH Urine >= 9.0 (4.5-7.5)
[2020-07-26 20:39] LABS: Prothrombin Time 10.5 Seconds (9.0-12.0)
[2020-07-26 20:45] LABS: Albumin Level 4.1 gm/dl (3.4-5.0); BUN Creatinine Ratio 18.7 (10-20); Blood Urea Nitrogen 16 mg/dl (7-18); Calcium 9.4 mg/dl (8.5-10.1); Carbon Dioxide 24 mmol/L (21-32); Chloride 109 mmol/L (98-107); Creatinine Clr Calc Pharmacy 78.1 ml/min; Est GFR (Non-African American) 79.3; Glucose 90 mg/dl (70-99); Lipase 179 U/L (73-393); Potassium 3.8 mmol/L (3.5-5.1); Sodium 139 mmol/L (136-145)
[2020-07-26 20:50] LABS: Alanine Aminotransferase 20 U/L (12-78); Albumin Globulin Ratio 1.1 (0.9-2); Alkaline Phosphatase 75 U/L (45-117); Aspartate Aminotransferase 16 U/L (15-37); Bilirubin,Total 0.4 mg/dl (0.2-1); Globulin 3.7 gm/dl (2.5-4.0); Total Protein 7.8 gm/dl (6.4-8.2); Troponin I < 0.015 ng/ml (0-0.045)
[2020-07-26] MEDS ORDERED: OPTIRAY 320 100ml IV ONE (20:59)
[2020-07-26 23:13] LABS: Influenza A virus by PCR Negative (Neg); Influenza B virus by PCR Negative (Neg); RSV by PCR Negative (Neg); SARS CoV2 RNA(COVID-19) InHosp NEGATIVE (Negative)
[2020-07-26] MEDS ORDERED: ONDANSETRON INJ 2 MG/ML 2 ML VIAL IV PRN (23:47)
[2020-07-26] MEDS ORDERED: KETOROLAC TROMETHAMINE 15 MG/ML VIAL IV PRN (23:47)
[2020-07-26] MEDS ORDERED: HYDROmorphone INJ 0.5 MG/0.5 ML SYR IV PRN ×2 (23:47)
--- NOTE | 2020-07-26 23:49 | History & Physical Report ---
Date of Service July 26, 2020 Assessment & Plan (1) Small bowel obstruction: Patient is a 54 year old female with PMHx SBO, Diverticulitis requiring bowel resection, Hypothyroidism, postmenopausal hormone replacement therapy that presents with history of LLQ abdominal pain similar to prior SBO pain. Small Bowel Obstruction -Suspect secondary to patients multitude of bowel surgeries in the past -CT Ab/Pelv statrad noting possible partial small bowel obstruction in the LLQ where pain is located -Will defer NG decompression at this time and treat conservatively in hopes that it can resolve with bowel rest -NPO for bowel rest, LR 125ml/hr x2L -Zofran and Phenergan PRN for nausea -Toradol and Dilaudid PRN for pain, morphine worsens patients nausea -Repeat KUB in AM to monitor for resolution Hypothyroidism -Continue home Levothyroxine Estrogen Replacement -Patient wearing estrogen patch, changes every Saturday Dispo: Med/Surg for IVF and monitoring for resolution of SBO FEN: NPO, LR 125ml/hr x2L DVT: Lovenox QD Code: Full History of Present Illness Chief Complaint: Abdominal pain Primary Care Provider: Chet Ordonez MD Patient is a 54 year old female with PMHx SBO, Diverticulitis requiring bowel resection, Hypothyroidism, postmenopausal hormone replacement therapy that presents with history of LLQ abdominal pain similar to prior SBO pain. Patient notes that around 4:30PM today she noticed she was having some left sided lower abdominal pain and inability to pass gas. She notes that her last bowel movement was fairly loose and was around lunch time today. She states that her pain has ranged from a 4/10 to an 8/10 depending. She states that since being in the ED she has been able to pass some gas, but no stool. CT scan in the ED statrad showed a partial SBO in the LLQ of the small bowel in addition to possible enteritis. Patient notes currently that she is having abdominal pain in the LLQ 4/10 dull ache to sharp pain and nausea. She denies any fever, chills, SOB, chest pain, chest pressure, dysuria, hematuria. Med Hx: Hypothyroidism, SBO, Diverticulitis, postmenopausal hormone therapy replacement Surg Hx: Cholecystectomy, Hysterectomy, Bowel Resection, Elective breast reduction Soc Hx: No tobacco or illicit drug use. Has 1-2 alcoholic beverages/month Allergies Allergy/AdvReac Type Severity Reaction Status Date / Time erythromycin base Allergy Intermediate EDEMA OF Verified 07/26/20 20:26 MOUTH/LIPS oxycodone AdvReac Intermediate Chest Verified 07/26/20 20:26 Pain.SYNCOPY tramadol AdvReac Intermediate CHEST Verified 07/26/20 20:26 PAIN,SYNCOPE Home Medications Medication Instructions Recorded Confirmed Type aloe vera 1 cap PO QAM 03/01/18 07/26/20 History ascorbic acid (vitamin C) [Vitamin 500 mg PO DAILY 03/01/18 07/26/20 History C] calcium carbonate-vitamin D3 1 tab PO QAM 03/01/18 07/26/20 History [Calcium 500 + D] cetirizine 10 mg PO DAILY PRN 03/01/18 07/26/20 History cholecalciferol (vitamin D3) 5,000 unit PO DAILY 03/01/18 07/26/20 History docusate sodium 100 mg PO BID PRN 03/01/18 07/26/20 History fexofenadine [Socorro Allergy] 180 mg PO DAILY PRN 03/01/18 07/26/20 History multivitamin 1 tab PO QAM 03/01/18 07/26/20 History hyoscyamine sulfate 0.125 mg PO Q8 PRN 12/15/18 07/26/20 History Hair, Skin, Nails with Biotin 1 tab PO DAILY 06/29/19 07/26/20 History echinacea 500 mg PO DAILY 06/29/19 07/26/20 History estradiol 0.0375 mg/24 hr weekly 1 patch TRANSDERMAL WK #12 ea 05/02/20 07/26/20 Rx transdermal patch levothyroxine 100 mcg PO QAM 07/26/20 07/26/20 History ondansetron HCl [Zofran] 4 mg PO Q6H PRN #30 tab 07/27/20 Rx Past Med/Surg History Medical History Bradycardia PT'S NORM. PT STATES WHEN SLEEPING THAT POST OP HER HR IS HIGH 30'S AND LOW 40'S. 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 PT HAS NOT NEEDED AN ECHO IS "SEVERAL YEARS" Diverticular disease Hypothyroid Postmenopausal hormone replacement therapy Small bowel obstruction Surgical History History of bilateral tubal ligation History of bowel resection S/T DIVERTICULITIS, AND ILLEUS History of hysterectomy PARTIAL History of laparoscopy BSO History of partial colectomy History of thumb surgery RIGHT HAND History of wisdom tooth extraction Hx of breast reduction, elective Status post trigger finger release TOTAL 3 FINGERS Family History Mother Stroke Family/Other Breast cancer maternal cousin Uncle Colorectal cancer paternal Other Kidney stones Denies family history of Ovarian cancer Social History Smoking Status: Never smoker Second Hand Exposure: No; Hx Alcohol Use: Yes Alcohol type: wine Alcohol Intake Frequency Comment: a glass of wine once a week or so Hx Substance Use: No Preferred Language: Italian Communication Ability: Effective Detective Sergeant Required: No Beliefs That Will Affect Care: None Current Living Situation: Spouse Current Living Situation Comment: House Other Information That Helps Us Care for You: No Feels Safe at Home: Yes Safety Concerns: Feels Safe At This Time Assistive Devices: Glasses Review of Systems Review of Systems: All systems reviewed & are unremarkable except as noted in Subjective Physical Exam Constitutional: WD/WN, vitals as above Eyes: PERRL, conjunctivae normal, anicteric sclerae ENMT: external ear and nose normal, oropharynx normal Respiratory: normal respiratory effort, lungs clear to auscultation Cardiovascular: RRR, no murmur, no edema Gastrointestinal (Abdomen): Inspection/Auscultation: abdomen normal to inspection and normal bowel sounds; abdomen not distended Percussion/Palpation: + abdomen tender (slight TTP in the LLQ ) and abdomen soft Musculoskeletal: no cyanosis or clubbing, extremities motor strength 5/5 Neurologic: PERRL, EOMI, accommodation nl, no face palsy, no dysarthria Psychiatric: A+Ox3, euthymic affect Results & Data Results & Data ([facility]) Vital Signs (Past 12 Hours) Vital Signs Temp Pulse Resp BP Pulse Ox 07/26/20 22:30 50 L 23 123/82 100 07/26/20 22:20 85 17 100 07/26/20 22:10 48 L 21 100 07/26/20 22:00 61 21 123/78 100 04/06/21 21:50 69 17 100 07/26/20 21:40 51 L 16 100 07/26/20 21:31 54 L 18 100 07/26/20 21:30 52 L 10 L 113/79 97 07/26/20 21:20 54 L 14 98 07/26/20 21:10 52 L 13 99 07/26/20 21:05 51 L 19 99 07/26/20 20:50 51 L 14 97 07/26/20 20:40 52 L 12 100 07/26/20 20:37 51 L 19 99 07/26/20 20:30 51 L 25 H 107/79 99 07/26/20 18:47 36.9 C 60 18 128/88 99 Laboratory Results Lab Results 07/26/20 07/26/20 07/26/20 Range/Units 20:19 20:19 20:19 WBC 5.83 (4.8-10.8) K/uL RBC 4.68 (4.2-5.4) M/uL Hgb 14.6 (12.0-16.0) g/dL Hct 40.9 (37-47) % MCV 87.4 (80-100) fL MCH 31.2 (25-34) pg MCHC 35.7 (32-36) g/dL RDW Std Deviation 40.5 (36.4-46.3) fL RDW Coeff of Yani 12.6 (11.5-14.5) % Plt Count 181 (130-400) K/uL MPV 10.5 H (7.4-10.4) fL Immature Gran % (Auto) 0.3 % Neut % (Auto) 49.0 % Lymph % (Auto) 38.9 % Moore % (Auto) 10.1 % Eos % (Auto) 1.0 % Baso % (Auto) 0.7 % Neut # (Auto) 2.85 (1.4-6.5) K/uL Lymph # (Auto) 2.27 (1.2-3.4) K/uL Moore # (Auto) 0.59 (0.11-0.59) K/uL Eos # (Auto) 0.06 (0-0.5) K/uL Baso # (Auto) 0.04 (0-0.2) K/uL Immature Gran # (Auto) 0.02 (0.00-0.02) K/uL PT 10.5 (9.0-12.0) Seconds INR 1.0 (0.9-1.1) Sodium 139 (136-145) mmol/L Potassium 3.8 (3.5-5.1) mmol/L Chloride 109 H (98-107) mmol/L Carbon Dioxide 24 (21-32) mmol/L Anion Gap 6.0 (3-11) BUN 16 (7-18) mg/dl Creatinine 0.84 (0.6-1.2) mg/dl Est Cr Clr Drug Dosing 78.1 ml/min Est GFR ( Amer) 92.0 Est GFR (Non-Af Amer) 79.3 BUN/Creatinine Ratio 18.7 (10-20) Glucose 90 (70-99) mg/dl Calcium 9.4 (8.5-10.1) mg/dl Magnesium (1.8-2.4) mg/dl Total Bilirubin 0.4 (0.2-1) mg/dl AST 16 (15-37) U/L ALT 20 (12-78) U/L Alkaline Phosphatase 75 (45-117) U/L Troponin I < 0.015 (0-0.045) ng/ml Total Protein 7.8 (6.4-8.2) gm/dl Albumin 4.1 (3.4-5.0) gm/dl Globulin 3.7 (2.5-4.0) gm/dl Albumin/Globulin Ratio 1.1 (0.9-2) Lipase 179 (73-393) U/L Urine Color Urine Appearance (Clear) Urine pH (4.5-7.5) Ur Specific [place] (1.000-1.030) Urine Protein (Negative) Urine Glucose (UA) (Negative) Urine Ketones (Negative) Urine Blood (Negative) Urine Nitrite (Negative) Urine Bilirubin (Negative) Urine Urobilinogen (Negative) Ur Leukocyte Esterase (Negative) COVID-19 Eval Order SARS-CoV-2 (PCR) (Negative) Influenza Type A (PCR) (Neg) Influenza Type B (PCR) (Neg) RSV (RT-PCR) (Neg) 07/26/20 07/26/20 07/26/20 Range/Units 20:19 20:19 20:19 WBC (4.8-10.8) K/uL RBC (4.2-5.4) M/uL Hgb (12.0-16.0) g/dL Hct (37-47) % MCV (80-100) fL MCH (25-34) pg MCHC (32-36) g/dL RDW Std Deviation (36.4-46.3) fL RDW Coeff of Yani (11.5-14.5) % Plt Count (130-400) K/uL MPV (7.4-10.4) fL Immature Gran % (Auto) % Neut % (Auto) % Lymph % (Auto) % Moore % (Auto) % Eos % (Auto) % Baso % (Auto) % Neut # (Auto) (1.4-6.5) K/uL Lymph # (Auto) (1.2-3.4) K/uL Moore # (Auto) (0.11-0.59) K/uL Eos # (Auto) (0-0.5) K/uL Baso # (Auto) (0-0.2) K/uL Immature Gran # (Auto) (0.00-0.02) K/uL PT (9.0-12.0) Seconds INR (0.9-1.1) Sodium (136-145) mmol/L Potassium (3.5-5.1) mmol/L Chloride (98-107) mmol/L Carbon Dioxide (21-32) mmol/L Anion Gap (3-11) BUN (7-18) mg/dl Creatinine (0.6-1.2) mg/dl Est Cr Clr Drug Dosing ml/min Est GFR ( Amer) Est GFR (Non-Af Amer) BUN/Creatinine Ratio (10-20) Glucose (70-99) mg/dl Calcium (8.5-10.1) mg/dl Magnesium (1.8-2.4) mg/dl Total Bilirubin (0.2-1) mg/dl AST (15-37) U/L ALT (12-78) U/L Alkaline Phosphatase (45-117) U/L Troponin I (0-0.045) ng/ml Total Protein (6.4-8.2) gm/dl Albumin (3.4-5.0) gm/dl Globulin (2.5-4.0) gm/dl Albumin/Globulin Ratio (0.9-2) Lipase (73-393) U/L Urine Color Yellow Urine Appearance Clear (Clear) Urine pH >= 9.0 H (4.5-7.5) Ur Specific [place] 1.012 (1.000-1.030) Urine Protein Negative (Negative) Urine Glucose (UA) Negative (Negative) Urine Ketones Negative (Negative) Urine Blood Negative (Negative) Urine Nitrite Negative (Negative) Urine Bilirubin Negative (Negative) Urine Urobilinogen Negative (Negative) Ur Leukocyte Esterase Negative (Negative) COVID-19 Eval Order [facility]FluRsv at [facility] SARS-CoV-2 (PCR) NEGATIVE (Negative) Influenza Type A (PCR) Negative (Neg) Influenza Type B (PCR) Negative (Neg) RSV (RT-PCR) Negative (Neg) 07/26/20 07/27/20 07/27/20 Range/Units 20:19 05:56 05:56 WBC 8.36 (4.8-10.8) K/uL RBC 4.57 (4.2-5.4) M/uL Hgb 14.0 (12.0-16.0) g/dL Hct 40.8 (37-47) % MCV 89.3 (80-100) fL MCH 30.6 (25-34) pg MCHC 34.3 (32-36) g/dL RDW Std Deviation 41.8 (36.4-46.3) fL RDW Coeff of Yani 12.9 (11.5-14.5) % Plt Count 167 (130-400) K/uL MPV 10.6 H (7.4-10.4) fL Immature Gran % (Auto) 0.1 % Neut % (Auto) 81.4 % Lymph % (Auto) 13.2 % Moore % (Auto) 5.0 % Eos % (Auto) 0.2 % Baso % (Auto) 0.1 % Neut # (Auto) 6.80 H (1.4-6.5) K/uL Lymph # (Auto) 1.10 L (1.2-3.4) K/uL Moore # (Auto) 0.42 (0.11-0.59) K/uL Eos # (Auto) 0.02 (0-0.5) K/uL Baso # (Auto) 0.01 (0-0.2) K/uL Immature Gran # (Auto) 0.01 (0.00-0.02) K/uL PT (9.0-12.0) Seconds INR (0.9-1.1) Sodium 141 (136-145) mmol/L Potassium 3.9 (3.5-5.1) mmol/L Chloride 112 H (98-107) mmol/L Carbon Dioxide 25 (21-32) mmol/L Anion Gap 4.0 (3-11) BUN 13 (7-18) mg/dl Creatinine 0.85 (0.6-1.2) mg/dl Est Cr Clr Drug Dosing 77.2 ml/min Est GFR ( Amer) 90.7 Est GFR (Non-Af Amer) 78.2 BUN/Creatinine Ratio 15.4 (10-20) Glucose 96 (70-99) mg/dl Calcium 8.3 L (8.5-10.1) mg/dl Magnesium 2.2 2.0 (1.8-2.4) mg/dl Total Bilirubin (0.2-1) mg/dl AST (15-37) U/L ALT (12-78) U/L Alkaline Phosphatase (45-117) U/L Troponin I (0-0.045) ng/ml Total Protein (6.4-8.2) gm/dl Albumin (3.4-5.0) gm/dl Globulin (2.5-4.0) gm/dl Albumin/Globulin Ratio (0.9-2) Lipase (73-393) U/L Urine Color Urine Appearance (Clear) Urine pH (4.5-7.5) Ur Specific [place] (1.000-1.030) Urine Protein (Negative) Urine Glucose (UA) (Negative) Urine Ketones (Negative) Urine Blood (Negative) Urine Nitrite (Negative) Urine Bilirubin (Negative) Urine Urobilinogen (Negative) Ur Leukocyte Esterase (Negative) COVID-19 Eval Order SARS-CoV-2 (PCR) (Negative) Influenza Type A (PCR) (Neg) Influenza Type B (PCR) (Neg) RSV (RT-PCR) (Neg) Diagnostic Findings KUB CLINICAL HISTORY: SBO follow up COMPARISON STUDY: CT of the abdomen and pelvis July 26, 2020. FINDINGS: Cholecystectomy clips are noted. Sigmoid anastomosis is noted. A few loops of moderately dilated small bowel are similar to prior CT. IMPRESSION: No significant change in a few loops of moderately dilated small bowel. ACT 112: Negative or not required by law. Electronically signed by: Fidencio Guzman M.D. 07/27/2020 9:53 AM Dictated: 07/27/2051Transcribed: 07/27/2052\\ CT OF THE ABDOMEN AND PELVIS WITH CONTRAST CLINICAL HISTORY: Abdominal pain. COMPARISON STUDY: CT of the abdomen and pelvis June 29, 2019. TECHNIQUE: Following IV administration of 93 mL of Optiray-320, axial images of the abdomen and pelvis were obtained from the lung bases to the proximal femurs. Images were reviewed in the axial, sagittal, and coronal planes. IV contrast was administered without complication. Automated exposure control was utilized for the study. A dose lowering technique was utilized adhering to the principles of ALARA. CT DOSE: 332.25 mGy.cm FINDINGS: No pneumatosis, free air or portal venous gas is present. Biliary ductal dilatation is unchanged since prior exam. This is likely related to cholecystectomy. There is no peripancreatic infiltration. There is no pancreatic ductal dilatation dictation. The spleen, adrenal glands and kidneys are unrem arkable. There is no hydronephrosis. The nephrograms are symmetric. No hepatic lesions are present. Liver morphology is normal. Note is made of mild wall thickening of multiple left abdominal small bowel loops which were shown on prior examination. A few loops of moderately dilated fluid-filled upper extreme small bowel are similar to prior exam of June 28, 2020 as well. There is minimal infiltration. Sigmoid anastomosis is noted. The appendix is unremarkable. There is no lymphadenopathy. Major vasculature is patent. No acute fracture or suspicious lesion is identified within the visualized skeletal structures. IMPRESSION: 1. Wall thickening of several left abdominal small bowel loops with a few loops of moderately dilated upstream small bowel with trace ascites and minimal mesenteric infiltration. Findings similar to previous exam. The appearance favors a nonspecific enteritis with partial small bowel obstruction. 2. Normal appendix. 3. No change in biliary ductal dilatation which is likely related to cholecystectomy. ACT 112: Negative or not required by law. Electronically signed by: Fidencio Guzman M.D. 07/27/2020 8:12 AM Dictated: 07/27/20805Transcribed: 07/27/20805 Code Status & VTE Plan VTE Prophylaxis Plan VTE Prophylaxis will be ordered: Yes Supervising Physician Co-Signing Physician Notes Patient seen and examined, chart reviewed, case discussed with Dr. Zuluaga and I agree with his assessment and plan as documented above. Briefly, patient is a 54yo female with multiple bowel surgeries in past, multiple episodes of SBO in the past all of which were managed conservatively presenting with SBO today. On exam she is afebrile, HD stable - baseline bradycardia confirmed, asymptomatic Skin - no rash HEENT - NC/AT, PERRL, EOMI, MMM, Neck supple Heart - +S1/S2, regular, no m/r/g Lungs - CTA Abd- +BS, soft, diffusely tender without rebound/guarding/peritoneal signs Ext - No edema Labs and images reviewed Assessment/Plan - conservative management -Bowel rest -IVF and electrolyte repletion -Pain and nausea control -Remainder of plan as above Resident Activity Tracking Resident Involvement: Resident Care Provided Care Provided: Adult [facility] Medicine
[2020-07-27] MEDS: LACTATED RINGER'S 1,000 ML IV SCH ×2 (01:36→09:51)
[2020-07-27] MEDS ORDERED: PROMETHAZINE HCL 12.5 MG in SODIUM CHLORIDE 0.9% 50 ML IV PRN (03:38)
[2020-07-27] MEDS ORDERED: ENOXAPARIN INJ 40 MG/0.4 ML SYR SQ SCH (06:00)
[2020-07-27 06:16] LABS: Basophils # (auto) 0.01 K/uL (0-0.2); Basophils % (auto) 0.1 %; Eosinophils # (auto) 0.02 K/uL (0-0.5); Eosinophils % (auto) 0.2 %; Hematocrit (blood only) 40.8 % (37-47); Immature Granulocytes # (auto) 0.01 K/uL (0.00-0.02); Immature Granulocytes % (auto) 0.1 %; Lymphocytes % (auto) 13.2 %; Mean Corpuscular Hemoglobin 30.6 pg (25-34); Mean Corpuscular Hgb Conc 34.3 g/dL (32-36); Mean Corpuscular Volume 89.3 fL (80-100); Mean Platelet Volume 10.6 fL (7.4-10.4); Monocytes # (auto) 0.42 K/uL (0.11-0.59); Neutrophils % (auto) 81.4 %; Platelet Count 167 K/uL (130-400); RDW Coefficient of Variation 12.9 % (11.5-14.5); RDW Standard Deviation 41.8 fL (36.4-46.3); Red Blood Count 4.57 M/uL (4.2-5.4); White Blood Count 8.36 K/uL (4.8-10.8)
[2020-07-27] MEDS ORDERED: LEVOTHYROXINE SODIUM 100 MCG TABLET PO SCH (06:30)
[2020-07-27 06:52] LABS: BUN Creatinine Ratio 15.4 (10-20); Calcium 8.3 mg/dl (8.5-10.1); Creatinine Clr Calc Pharmacy 77.2 ml/min; Est GFR (African American) 90.7; Est GFR (Non-African American) 78.2; Potassium 3.9 mmol/L (3.5-5.1)
--- NOTE | 2020-07-27 08:13 | CT Scan Report ---
CT OF THE ABDOMEN AND PELVIS WITH CONTRAST CLINICAL HISTORY: Abdominal pain. COMPARISON STUDY: CT of the abdomen and pelvis June 29, 2019. TECHNIQUE: Following IV administration of 93 mL of Optiray-320, axial images of the abdomen and pelvi s were obtained from the lung bases to the proximal femurs. Images were reviewed in the axial, sagitt al, and coronal planes. IV contrast was administered without complication. Automated exposure contro l was utilized for the study. A dose lowering technique was utilized adhering to the principles of A ULISES. CT DOSE: 332.25 mGy.cm FINDINGS: No pneumatosis, free air or portal venous gas is present. Biliary ductal dilatation is unch anged since prior exam. This is likely related to cholecystectomy. There is no peripancreatic infiltr ation. There is no pancreatic ductal dilatation dictation. The spleen, adrenal glands and kidneys are unremarkable. There is no hydronephrosis. The nephrograms are symmetric. No hepatic lesions are pres ent. Liver morphology is normal. Note is made of mild wall thickening of multiple left abdominal smal l bowel loops which were shown on prior examination. A few loops of moderately dilated fluid-filled u pper extreme small bowel are similar to prior exam of June 28, 2020 as well. There is minimal infiltr ation. Sigmoid anastomosis is noted. The appendix is unremarkable. There is no lymphadenopathy. Major vasculature is patent. No acute fracture or suspicious lesion is identified within the visualized sk eletal structures. IMPRESSION: 1. Wall thickening of several left abdominal small bowel loops with a few loops of moderately dilated upstream small bowel with trace ascites and minimal mesenteric infiltration. Findings similar to pre vious exam. The appearance favors a nonspecific enteritis with partial small bowel obstruction. 2. Normal appendix. 3. No change in biliary ductal dilatation which is likely related to cholecystectomy. ACT 112: Negative or not required by law. Electronically signed by: Fidencio Guzman M.D. 07/27/2020 8:12 AM
--- NOTE | 2020-07-27 09:55 | XRay Report ---
KUB CLINICAL HISTORY: SBO follow up COMPARISON STUDY: CT of the abdomen and pelvis July 26, 2020. FINDINGS: Cholecystectomy clips are noted. Sigmoid anastomosis is noted. A few loops of moderately di lated small bowel are similar to prior CT. IMPRESSION: No significant change in a few loops of moderately dilated small bowel. ACT 112: Negative or not required by law. Electronically signed by: Fidencio Guzman M.D. 07/27/2020 9:53 AM
--- NOTE | 2020-07-27 10:22 | Hospitalist Progress Note ---
Date of Service July 27, 2020 Assessment & Plan Admission and Anticipated Discharge Date Admission Date: July 26, 2020 Results & Data Results & Data ([facility]) Vital Signs (Past 12 Hours) Vital Signs Temp Pulse Pulse Resp BP BP Pulse Ox 07/27/20 07:22 36.8 C 52 L 17 112/66 98 07/27/20 01:10 36.6 C 57 L 16 117/67 97 07/27/20 00:31 47 L 14 97 07/27/20 00:30 52 L 14 112/72 98 07/27/20 00:01 61 24 122/73 100 07/27/20 00:00 76 16 99 07/26/20 23:30 70 19 100 07/26/20 23:00 50 L 13 120/64 97 07/26/20 22:30 50 L 23 123/82 100
[2020-07-27] MEDS ORDERED: ACETAMINOPHEN 325 MG TAB PO ONE (10:47)
[2020-07-27] MEDS ORDERED: ACETAMINOPHEN 325 MG TAB PO PRN (17:15)
--- NOTE | 2020-07-27 18:16 | Discharge Summary ---
Date of Service July 27, 2020 Admission HPI Per Admitting Provider Patient is a 54 year old female with PMHx SBO, Diverticulitis requiring bowel resection, Hypothyroidism, postmenopausal hormone replacement therapy that presents with history of LLQ abdominal pain similar to prior SBO pain. Patient notes that around 4:30PM today she noticed she was having some left sided lower abdominal pain and inability to pass gas. She notes that her last bowel movement was fairly loose and was around lunch time today. She states that her pain has ranged from a 4/10 to an 8/10 depending. She states that since being in the ED she has been able to pass some gas, but no stool. CT scan in the ED statrad showed a partial SBO in the LLQ of the small bowel in addition to possible enteritis. Patient notes currently that she is having abdominal pain in the LLQ 4/10 dull ache to sharp pain and nausea. She denies any fever, chills, SOB, chest pain, chest pressure, dysuria, hematuria. Med Hx: Hypothyroidism, SBO, Diverticulitis, postmenopausal hormone therapy replacement Surg Hx: Cholecystectomy, Hysterectomy, Bowel Resection, Elective breast reduction Soc Hx: No tobacco or illicit drug use. Has 1-2 alcoholic beverages/month Admission Exam Per Admitting Provider Constitutional: WD/WN, vitals as above Eyes: PERRL, conjunctivae normal, anicteric sclerae ENMT: external ear and nose normal, oropharynx normal Respiratory: normal respiratory effort, lungs clear to auscultation Cardiovascular: RRR, no murmur, no edema Gastrointestinal (Abdomen): Inspection/Auscultation: abdomen normal to inspection and normal bowel sounds; abdomen not distended Percussion/Palpation: + abdomen tender (slight TTP in the LLQ ) and abdomen soft Musculoskeletal: no cyanosis or clubbing, extremities motor strength 5/5 Neurologic: PERRL, EOMI, accommodation nl, no face palsy, no dysarthria Psychiatric: A+Ox3, euthymic affect Principal Diagnosis Partial SBO Discharge Exam Well-appearing, no acute distress, sitting in bedside chair NCAT, MMM Bradycardia, regular rhythm, no murmur appreciated (pt's history of MVP noted) Resp CTABL Abd - soft, minimal generalized tenderness to palpation, BS normoactive Mood euthymic, affect congruent with mood, pleasant, interactive Discharge Data Allergies Allergy/AdvReac Type Severity Reaction Status Date / Time erythromycin base Allergy Intermediate EDEMA OF Verified 07/26/20 20:26 MOUTH/LIPS oxycodone AdvReac Intermediate Chest Verified 07/26/20 20:26 Pain.SYNCOPY tramadol AdvReac Intermediate CHEST Verified 07/26/20 20:26 PAIN,SYNCOPE Consultations 07/26/20 22:03 ED Decision to Admit Stat Ordered Studies 07/26/20 19:56 CT abd pelvis IV con only Urgent Hospital Course (1) Small bowel obstruction: Partial small bowel obstruction Patient was admitted with nausea, vomiting, and abdominal pain without fever or leukocytosis. Imaging was concerning for partial SBO. Patient's history of recurrent SBO was noted. Obstruction was thought to be secondary to patient's history of multiple abdominal surgeries including cholecystectomy and bowel resection for diverticulitis. Patient was treated conservatively with IVF, bowel rest, antiemetics, and analgesics. NG decompression was deferred pending clinical change. Patient clinically improved overnight, and repeat KUB the morning after admission was reassuring. By afternoon, patient was ambulating with minimal pain, and was able to tolerate a clear liquid diet. Patient's clinical picture continued to improve, and that evening (hospital day 1), patient was discharged home in stable condition with antiemetic medication and instructions for gentle diet advancement. Patient was hemodynamically stable for the entirety of her hospital stay. Hypothyroidism Patient's home dose levothyroxine was continued during her hospital stay. Estrogen replacement Patient was wearing an estrogen replacement patch upon arrival to the ED. This was not removed or replaced, as patient changes this weekly on Sundays. Total Time Total Time Spent Total Time Spent (In Minutes): see attending documentation Discharge Plan Discharge Items Patient Disposition: Home - Self-Care Reason For Visit: SBO Discharge Diagnosis: SBO Activity: Resume your previous activity Non-emergency contact: Primary Care Provider Call non-emergency contact if: your symptoms worsen, your pain is not controlled, your pain is worsening and you have a fever Follow-up/Referrals: Chet Ordonez MD [Primary Care Provider] - Diet: Other - See Diet Comment Addtl Attending Provider Instructions: You were admitted for partial small bowel obstruction (SBO). You were treated with IV fluids and anti-nausea medicine. Your bowel began functioning well on its own without the need for surgical intervention. You have tolerated a clear liquid diet and had multiple bowel movements so far today, which support our team's decision that it is safe for you to be discharged home. A discharge summary will be sent to your primary care physician to ensure continuity of care. Please bring this discharge summary with you to your next office appointment so that your provider can review it at that time. Follow-up appointments: - Make a follow-up appointment with your primary care physician (Dr. Ordonez or Dr. Ovalles, the resident physician who saw you in the hospital) within the next week. It is very important that you follow up with them shortly after discharge from the hospital. - Keep all your follow-up appointments as already scheduled. If you cannot make an appointment, notify your provider. Diet: You tolerated a clear liquid diet in the hospital prior to discharge. You indicated to the treatment team that you have a good understanding of how to advance your diet slowly towards a regular diet, since you have had small bowel obstructions before. Please contact your primary care provider if you have questions or concerns about advancing your diet. Medications: - Your medication list has been reviewed and reconciled upon discharge to ensure accuracy and continuity of care. - You are provided with a list of all your current medications at this time. Please review this list closely and make note of any changes. - Please take all of your medications exactly as prescribed. * You have been prescribed one new medicine, ondansetron (also known as zofran), to help with nausea. You can take ondansetron (4mg) one tablet every six hours as needed for nausea. If you have worsening nausea despite using ondansetron, please contact your primary care provider. - Tell your primary care provider if you cannot afford your medications. - Call your primary care provider if you are having any side effects or any other problems. - Call your primary care provider before taking any over the counter medications or supplements, including herbals and vitamins, because some of these may interact with your current medications and/or make your symptoms worse. CONTACT YOUR PRIMARY CARE PROVIDER if you experience any of the following: -fever -inability to pass gas or have a bowel movement -inability to tolerate food or liquid intake -shortness of breath or have more difficulty breathing -inability to take medications or follow treatment plan CALL 911 OR GO TO THE EMERGENCY DEPARTMENT if you experience any of the following: -sudden, severe abdominal pain -sudden, severe nausea or vomiting -vomit that is red, bloody, black, or looks like coffee grounds -sudden chest pain, or chest pain that radiates (moves) to your jaw or arm -sudden or severe shortness of breath Thank you for allowing us to participate in your care. Pending Studies at Discharge: No Stand-Alone Forms: My [facility] Medications and DC Order Prescriptions: New ondansetron HCl [Zofran] 4 mg tablet 4 mg PO Q6H PRN (Reason: nausea and vomiting) Qty: 30 RF: 1 Continued estradiol 0.0375 mg/24 hr patch weekly 1 patch Transdermal WK Qty: 12 RF: 3 Hair, Skin, Nails with Biotin 7.5-7.5-1,250 mg-unit-mcg Tablet,Chewable 1 tab PO DAILY RF: 0 echinacea 500 mg Capsule 500 mg PO DAILY RF: 0 multivitamin Tablet 1 tab PO QAM RF: 0 cetirizine 10 mg Tablet 10 mg PO DAILY PRN (Reason: Allergy Symptoms) RF: 0 fexofenadine [Socorro Allergy] 180 mg Tablet 180 mg PO DAILY PRN (Reason: Allergy Symptoms) RF: 0 ascorbic acid (vitamin C) [Vitamin C] 500 mg Tablet 500 mg PO DAILY RF: 0 cholecalciferol (vitamin D3) 5,000 unit Capsule 5,000 unit PO DAILY RF: 0 docusate sodium 100 mg Tablet 100 mg PO BID PRN (Reason: Constipation) RF: 0 aloe vera 25 mg Capsule 1 cap PO QAM RF: 0 calcium carbonate-vitamin D3 [Calcium 500 + D] 500 mg(1,250mg) -200 unit Tablet 1 tab PO QAM RF: 0 hyoscyamine sulfate 0.125 mg Tablet 0.125 mg PO Q8 PRN (Reason: Pain) RF: 0 levothyroxine 100 mcg tablet 100 mcg PO QAM RF: 0 Discharge Orders: Discharge Order (Routine); Ordered 07/27/20 Ordered By: Rodo Ovalles Admission Data Admit Date/Time: 07/26/20 23:47 Attending Provider: Concepción Hoff Admit Provider: Saeid Zuluaga Primary Care Provider: Ceht Ordonez Other Providers: Марина Zarate Other Interventions: Discharge Summary Assessment (RN) Last Done: 07/27/20 18:23 Supervising Physician Co-Signing Physician Notes Resident Physician Supervision Note: I independently interviewed and examined the patient and verified the potter history and physical, reviewed labs and image studies, discussed the case with the resident Dr. Ovalles and agree with the findings and care plan. Resident Activity Tracking Resident Involvement: Resident Care Provided Care Provided: Adult [facility]
--- NOTE | 2020-07-27 21:00 | Billing Data ---
Date of Service July 27, 2020 Coding Level of Care Code 19777 Initial Inpt Care Lvl 3
[2020-07-29] MEDS ORDERED: ESTRADIOL SCH (08:00)
--- NOTE | 2020-08-03 13:25 | Coding Query ---
CODING QUERY To promote full compliance with coding requirements relating to patient care, provider participation is requested in all cases of private branch exchange service advisor uncertainty. Please assist us with the question(s) below: Coding Question(s): Partial Small Bowel Obstruction is documented with documentation of, "Obstruction was thought to be secondary to patient's history of multiple abdominal surgeries including cholecystectomy and bowel resection for diverticulitis". Please Specify below. ( ) Partial Small Bowel Obstruction - thought to be secondary to patient's history of multiple abdominal surgeries including cholecystectomy and bowel resection for diverticulitis. This is Postoperative Complication. ( x ) Partial Small Bowel Obstruction - thought to be secondary to patient's history of multiple abdominal surgeries including cholecystectomy and bowel resection for diverticulitis. This is NOT Postoperative Complication. ( ) Partial Small Bowel Obstruction - thought to be secondary to patient's history of multiple abdominal surgeries including cholecystectomy and bowel resection for diverticulitis. Other: Please Specify Physician's Response(s): Thank you Amanda High Principal Diagnosis: "that condition established after study, to be chiefly responsible for occasioning the admission of the patient to the hospital for care." Co-Existing Principal Diagnosis: "when two or more diagnoses equally meet the criteria for principal diagnosis as determined by the circumstances of admission, diagnostic work up, and/or therapy provided, and the Alphabetic Index, Tabular List, or another coding guideline does not provide sequencing direction, any one of the diagnoses may be sequenced first." "When the physician has documented what appears to be a current diagnosis in the body of the record, but has not included the diagnosis in the final diagnostic statement, the physician should be asked whether the diagnosis should be added." (Source Coding Clinic 2 QTR90. p3-4) JOHN
== END 2020-07-27 19:08 | disposition home or self-care (01) | DRG 390 ==
LOC: ED 18:22 → SUATTDRO 23:47 → 3W 23:47

== ENCOUNTER 2020-10-18 06:12 | Inpatient (IN) ==
[2020-10-18] MEDS ORDERED: ONDANSETRON INJ 2 MG/ML 2 ML VIAL IV STA (06:36)
[2020-10-18] MEDS ORDERED: HYDROmorphone INJ 0.5 MG/0.5 ML SYR IV STA (06:36)
--- NOTE | 2020-10-18 06:41 | Emergency Department Note ---
Impression & Plan Partial small bowel obstruction, History of bowel resection, Abdominal pain, Vomiting ED Provider Note NAME: ALESSIA RODRIGUEZ AGE: 55 SEX: F : 1965 ARRIVES VIA: Ambulance INFORMANT: Patient ED PROVIDER(S): Gio Torres DO CHIEF COMPLAINT: Abdominal pain HPI: Patient is a 55-year-old female with a past medical history of a small bowel resection secondary to diverticulitis that presents to the ER last night for abdominal pain which started around 8 PM associate with nausea and vomiting. This feels like her previous small bowel obstructions. Pain is located in the lower belly and is sharp stabbing in nature and comes in waves. No other exacerbating or remitting factors. She was seen here last night and had blood work as well as a negative Covid test and CT abdomen pelvis which showed partial small bowel obstruction. She went home she was feeling much better after fluids and Dilaudid and continued to vomit and consequently came back in. ROS: See above HPI for pertinent positives & negatives. A total of 10 systems reviewed and were otherwise negative. PAST MEDICAL HISTORY:See Below PAST SURGICAL HISTORY:See Below FAMILY HISTORY:See Below SOCIAL HISTORY:See Below HOME MEDICATIONS:See Below ALLERGIES:See Below VITALS:See Below PHYSICAL EXAMINATION: GENERAL: Sitting up in bed, alert, well appearing, well nourished, no distress, non-toxic EYE EXAM: normal conjunctiva. OROPHARYNX: no exudate, no erythema, lips, buccal mucosa, and tongue normal and mucous membranes are moist NECK: supple, no nuchal rigidity, no adenopathy, non-tender LUNGS: Clear to auscultation. Normal chest wall mechanics HEART: no murmurs, S1 normal and S2 normal ABDOMEN: abdomen soft, non-tender, normo-active bowel sounds, no masses, no rebound or guarding. UPPER EXTREMITIES: upper extremities are grossly normal. LOWER EXTREMITIES: No pitting edema. NEURO EXAM: Normal sensorium, cranial nerves II-XII grossly intact, normal speech, no gross weakness of arms, no gross weakness of legs. MEDICAL DECISION MAKING: Patient is a 55-year-old female who was seen and evaluated yesterday and diagnosed with partial small bowel obstruction. She requested to be discharged and was discharged home and she thought she may be able to get past this at home. She presents today/this morning for worsening symptoms. IV was established blood work was obtained. Labs show no significant leukocytosis or anemia. BMP with slightly elevated chloride at 109. LFTs bilirubin and lipase is under remarkable. Patient was given IV fluids Zofran and Dilaudid. Obstruction series suggesting consistent with an SBO requested by internal medicine. Patient was updated bedside discussed with hospitalist admitted for further work-up. Triage Nursing notes reviewed. Limited review of prior medical records performed Vital Signs: reviewed and remarkable for no significant abnormalities Differential diagnosis: Differential diagnoses includes but is not limited to gastritis, peptic ulcer disease, GERD, gallbladder disease, pancreatitis, small bowel obstruction, acute coronary syndrome, pericarditis, ischemic bowel, irritable bowel disease, irritable bowel syndrome, appendicitis, diverticulitis, malignancy, hernia, urinary tract infection, torsion, perforation, trauma, infectious. ER treatment provided: See below Diagnostics interpreted by me: ECG: none Cardiac Monitoring: An order was placed for continuous cardiac monitoring. The monitor shows a rate of 52 with sinus rhythm. Laboratory studies: As stated above and show below. Imaging studies: Obstruction series with air-fluid levels Consultation(s): none Procedures: none Critical Care: None Past Med/Surg History Medical History (Updated 10/18/20 @ 12:51 by Gio Torres DO) Abdominal pain Bradycardia PT'S NORM. PT STATES WHEN SLEEPING THAT POST OP HER HR IS HIGH 30'S AND LOW 40'S. 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 PT HAS NOT NEEDED AN ECHO IS "SEVERAL YEARS" Diverticular disease Hypothyroid Postmenopausal hormone replacement therapy Small bowel obstruction numerous episodes (10+) Surgical History (Updated 10/18/20 @ 12:51 by Gio Torres DO) History of bilateral tubal ligation History of bowel resection S/P DIVERTICULITIS (hemicolectomy) - [facility] () History of hysterectomy PARTIAL History of laparoscopy BSO History of thumb surgery RIGHT HAND History of wisdom tooth extraction Hx of breast reduction, elective Status post trigger finger release TOTAL 3 FINGERS Family History Mother Stroke Hypertension Family/Other Breast cancer maternal cousin Uncle Colorectal cancer paternal Father Atrial fibrillation Other Kidney stones Denies family history of Ovarian cancer Social History (Updated 10/18/20 @ 08:11 by Chet Dove) Smoking Status: Never smoker Second Hand Exposure: No; Do You Dip or Chew Tobacco: No; Hx Alcohol Use: Yes Alcohol type: wine Alcohol Intake Frequency Comment: a glass of wine once a week or so Hx Substance Use: No Preferred Language: Romansh Communication Ability: Effective Bowling Ball Assembler Required: No Beliefs That Will Affect Care: None marital status: Current Living Situation: Spouse Current Living Situation Comment: [place] 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[employer]; 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[place] How many Children do You have: 2 How many Children do You have Comment: 1 son, 1 daughter Other Information That Helps Us Care for You: No Feels Safe at Home: Yes Safety Concerns: Feels Safe At This Time Assistive Devices: None Allergies Allergies Allergy/AdvReac Type Severity Reaction Status Date / Time erythromycin base Allergy Intermediate EDEMA OF Verified 10/17/20 21:59 MOUTH/LIPS oxycodone AdvReac Intermediate Chest Verified 10/17/20 21:59 Pain.SYNCOPY tramadol AdvReac Intermediate CHEST Verified 10/17/20 21:59 PAIN,SYNCOPE Home Meds Home Medications Medication Instructions Recorded Confirmed aloe vera 1 cap PO QAM 03/01/18 10/17/20 ascorbic acid (vitamin C) [Vitamin 500 mg PO DAILY 03/01/18 10/17/20 C] calcium carbonate-vitamin D3 1 tab PO QAM 03/01/18 10/17/20 [Calcium 500 + D] cholecalciferol (vitamin D3) 5,000 unit PO DAILY 03/01/18 10/17/20 docusate sodium 100 mg PO BID PRN 03/01/18 10/17/20 multivitamin 1 tab PO QAM 03/01/18 10/17/20 hyoscyamine sulfate 0.125 mg PO Q8 PRN 12/15/18 10/17/20 Hair, Skin, Nails with Biotin 1 tab PO DAILY 06/29/19 10/17/20 echinacea 500 mg PO DAILY 06/29/19 10/17/20 levothyroxine 100 mcg PO QAM 07/26/20 10/17/20 terbinafine HCl 250 mg PO DAILY 10/17/20 10/17/20 Previous Rx's Medication Instructions Recorded estradiol 0.0375 mg/24 hr weekly 1 patch TRANSDERMAL WK #12 ea 05/02/20 transdermal patch ondansetron HCl [Zofran] 4 mg PO Q6H PRN #30 tab 07/27/20 Results & Data (ED) Vital Signs Vital Signs - 24 hr 10/18/20 06:18 10/18/20 07:04 Temperature 36.8 C Temperature Source Oral Pulse Rate 52 L Pulse Rate [Finger] 52 L Pulse Rhythm Regular Pulse Strength Normal Respiratory Rate 19 16 Respiratory Effort / Characteristics Non-Labored Spontaneous Accessory Muscle Use Respiratory Depth Normal Blood Pressure [Right Arm] 118/72 Blood Pressure Mean [Right Arm] 87 Pulse Oximetry 100 97 Oxygen Delivery Method Room Air Room Air Sepsis Recent Fever Within 48 Hours No Sepsis New/Unexplained Change in Mental Status No Sepsis Action Taken by Nursing No Action Required Laboratory Data Result diagrams: 10/18/20 06:30 10/18/20 06:30 Lab Results 10/18/20 10/18/20 10/18/20 Range/Units : 06:30 06:30 WBC 6.19 (4.8-10.8) K/uL RBC 4.77 (4.2-5.4) M/uL Hgb 14.6 (12.0-16.0) g/dL Hct 43.2 (37-47) % MCV 90.6 (80-100) fL MCH 30.6 (25-34) pg MCHC 33.8 (32-36) g/dL RDW Std Deviation 42.4 (36.4-46.3) fL RDW Coeff of Yani 12.8 (11.5-14.5) % Plt Count 189 (130-400) K/uL MPV 11.1 H (7.4-10.4) fL Immature Gran % (Auto) 0.3 % Neut % (Auto) 53.8 % Lymph % (Auto) 33.4 % Hood % (Auto) 11.6 % Eos % (Auto) 0.6 % Baso % (Auto) 0.3 % Neut # (Auto) 3.32 (1.4-6.5) K/uL Lymph # (Auto) 2.07 (1.2-3.4) K/uL Hood # (Auto) 0.72 H (0.11-0.59) K/uL Eos # (Auto) 0.04 (0-0.5) K/uL Baso # (Auto) 0.02 (0-0.2) K/uL Immature Gran # (Auto) 0.02 (0.00-0.02) K/uL Sodium 140 (136-145) mmol/L Potassium 3.8 (3.5-5.1) mmol/L Chloride 109 H (98-107) mmol/L Carbon Dioxide 21 (21-32) mmol/L Anion Gap 10.0 (3-11) BUN 15 (7-18) mg/dl Creatinine 0.86 (0.6-1.2) mg/dl Est Cr Clr Drug Dosing 75.4 ml/min Est GFR ( Amer) 88.8 ml/min Est GFR (Non-Af Amer) 76.6 ml/min BUN/Creatinine Ratio 17.0 (10-20) Glucose 119 H (70-99) mg/dl Calcium 9.6 (8.5-10.1) mg/dl Magnesium 2.1 (1.8-2.4) mg/dl Total Bilirubin 0.6 (0.2-1) mg/dl AST 17 (15-37) U/L ALT 23 (12-78) U/L Alkaline Phosphatase 67 (45-117) U/L Total Protein 7.7 (6.4-8.2) gm/dl Albumin 4.0 (3.4-5.0) gm/dl Globulin 3.7 (2.5-4.0) gm/dl Albumin/Globulin Ratio 1.1 (0.9-2) Lipase 393 (73-393) U/L Administered Medications Hydromorphone HCl (Hydromorphone Inj 0.5 Mg/0.5 Ml Syr) 0.5 mg IV Q3H PRN PRN Reason: Pain Stop: 11/01/20 08:46 Last Admin: 10/18/20 12:02 Dose: 0.5 mg Documented by: [id number] Potassium Chloride/Dextrose/Sod Cl (D5nss + 20meq Kcl) 20 meq in 1,000 mls @ 125 mls/hr IV .Q8H WAYNE Stop: 11/17/20 09:14 Last Infusion: 10/18/20 10:00 Dose: 125 mls/hr Documented by: [id number] Infusion: 10/18/20 09:45 Dose: 0 mls/hr Documented by: [id number] Admin: 10/18/20 09:23 Dose: 125 mls/hr Documented by: [id number] Promethazine HCl 12.5 mg/ (Sodium Chloride) 50.5 mls @ 202 mls/hr IV Q6H PRN PRN Reason: Nausea And Vomiting Stop: 11/17/20 08:46 Last Infusion: 10/18/20 10:07 Dose: 0 mls/hr Documented by: [id number] Admin: 10/18/20 09:45 Dose: 202 mls/hr Documented by: [id number] Ondansetron HCl (Ondansetron Inj 2 Mg/Ml 2 Ml Vial) 4 mg IV Q6H PRN PRN Reason: Nausea Stop: 11/17/20 08:46 Last Admin: 10/18/20 11:17 Dose: 4 mg Documented by: [id number] Discontinued Medications Hydromorphone HCl (Hydromorphone Inj 0.5 Mg/0.5 Ml Syr) 0.5 mg IV NOW STA Stop: 10/18/20 06:37 Last Admin: 10/18/20 06:58 Dose: 0.5 mg Documented by: [id number] Hydromorphone HCl (Hydromorphone Inj 0.5 Mg/0.5 Ml Syr) 0.25 mg IV Q3H PRN PRN Reason: Pain Stop: 11/01/20 08:46 Last Admin: 10/18/20 09:20 Dose: 0.25 mg Documented by: [id number] Ondansetron HCl (Ondansetron Inj 2 Mg/Ml 2 Ml Vial) 4 mg IV NOW STA Stop: 10/18/20 06:37 Last Admin: 10/18/20 06:58 Dose: 4 mg Documented by: [id number] Imaging Data Radiologist's Impression: Chest/Abdomen X-ray 10/18/20 06:49 PA CHEST RADIOGRAPH AND UPRIGHT AND SUPINE AP RADIOGRAPHS OF THE ABDOMEN CLINICAL HISTORY: Small bowel obstruction. COMPARISON STUDY: Chest radiograph and abdominal series July 11, 2017. CT of the abdomen and pelvis October 18, 2020 at 12:03 AM. FINDINGS: Lung volumes are normal. There is no consolidation or evidence for pulmonary edema. No pneumothorax or pleural effusion is noted. Cardiac size is normal. Mediastinal contours are normal. There is no free air. Contrast within the collecting systems and bladder from recent contrast-enhanced CT is noted. There are cholecystectomy clips. Surgical staple line within the pelvis is noted. Persistent small bowel dilatation is noted. A stool-filled loop of small bowel within left lower quadrant measures 5.2 cm in caliber. Small bowel air- fluid levels are present. IMPRESSION: 1. No free air. 2. Persistent small bowel dilatation consistent with a small bowel obstruction. Associated small bowel air-fluid levels. 3. No acute cardiopulmonary findings. ACT 112: Negative or not required by law. Electronically signed by: Fidencio Guzman M.D. 10/18/2020 7:32 AM Discharge Plan Visit Data Chief Complaint: Abdominal Pain Stated Complaint: SEVERE ABD. PAIN/NAUSEA & VOMITING ED Provider: Gio Torres Discharge Problem: Partial small bowel obstruction, History of bowel resection, Abdominal pain, Vomiting Patient Disposition: Admitted As Inpatient Discharge Instructions Interventions: ED Discharge Assessment Last Done: 10/18/20 08:29 Discharge Problem: Abdominal pain Qualifiers: Abdominal location: unspecified location Qualified Code(s): R10.9 - Unspecified abdominal pain Vomiting Qualifiers: Vomiting type: unspecified Vomiting Intractability: unspecified Nausea presence: with nausea Qualified Code(s): R11.2 - Nausea with vomiting, unspecified
[2020-10-18 07:15] LABS: Basophils # (auto) 0.02 K/uL (0-0.2); Basophils % (auto) 0.3 %; Eosinophils # (auto) 0.04 K/uL (0-0.5); Eosinophils % (auto) 0.6 %; Hematocrit (blood only) 43.2 % (37-47); Hemoglobin 14.6 g/dL (12.0-16.0); Immature Granulocytes # (auto) 0.02 K/uL (0.00-0.02); Immature Granulocytes % (auto) 0.3 %; Lymphocytes # (auto) 2.07 K/uL (1.2-3.4); Lymphocytes % (auto) 33.4 %; Mean Corpuscular Hemoglobin 30.6 pg (25-34); Mean Corpuscular Hgb Conc 33.8 g/dL (32-36); Mean Corpuscular Volume 90.6 fL (80-100); Mean Platelet Volume 11.1 fL (7.4-10.4); Monocytes # (auto) 0.72 K/uL (0.11-0.59); Monocytes % (auto) 11.6 %; Neutrophils # (auto) 3.32 K/uL (1.4-6.5); Neutrophils % (auto) 53.8 %; Platelet Count 189 K/uL (130-400); RDW Coefficient of Variation 12.8 % (11.5-14.5); RDW Standard Deviation 42.4 fL (36.4-46.3); Red Blood Count 4.77 M/uL (4.2-5.4); White Blood Count 6.19 K/uL (4.8-10.8)
[2020-10-18 07:32] LABS: Calcium 9.6 mg/dl (8.5-10.1); Creatinine Clr Calc Pharmacy 75.4 ml/min; Est GFR (African American) 88.8 ml/min; Est GFR (Non-African American) 76.6 ml/min; Potassium 3.8 mmol/L (3.5-5.1)
[2020-10-18 07:34] LABS: Albumin Globulin Ratio 1.1 (0.9-2); Bilirubin,Total 0.6 mg/dl (0.2-1); Globulin 3.7 gm/dl (2.5-4.0); Total Protein 7.7 gm/dl (6.4-8.2)
--- NOTE | 2020-10-18 07:34 | XRay Report ---
PA CHEST RADIOGRAPH AND UPRIGHT AND SUPINE AP RADIOGRAPHS OF THE ABDOMEN CLINICAL HISTORY: Small bowel obstruction. COMPARISON STUDY: Chest radiograph and abdominal series July 11, 2017. CT of the abdomen and pelvis October 18, 2020 at 12:03 AM. FINDINGS: Lung volumes are normal. There is no consolidation or evidence for pulmonary edema. No pne umothorax or pleural effusion is noted. Cardiac size is normal. Mediastinal contours are normal. Ther e is no free air. Contrast within the collecting systems and bladder from recent contrast-enhanced CT is noted. There are cholecystectomy clips. Surgical staple line within the pelvis is noted. Persiste nt small bowel dilatation is noted. A stool-filled loop of small bowel within left lower quadrant pearl sures 5.2 cm in caliber. Small bowel air-fluid levels are present. IMPRESSION: 1. No free air. 2. Persistent small bowel dilatation consistent with a small bowel obstruction. Associated small sanju l air-fluid levels. 3. No acute cardiopulmonary findings. ACT 112: Negative or not required by law. Electronically signed by: Fidencio Guzman M.D. 10/18/2020 7:32 AM
--- NOTE | 2020-10-18 07:54 | History & Physical Report ---
Date of Service October 18, 2020 Assessment & Plan (1) Small bowel obstruction: History and CT along with x-rays all c/w SBO. This is likely on the basis of adhesions. Has had numerous intra-abdominal and pelvic surgeries. Upper GI series with SBFT in July 2020 was wnl. No red flags on history or on CT imaging. Plan - * NPO * IV fluids * IV pain meds * IV anti-emetics * any worsening, refractory vomiting, etc - place NG tube and obtain surgical consult She has had 10+ SBOs to her recollection and all previous events have resolved without surgical intervention. (2) Hypothyroid: Last TSH in [facility] - 2019. Check TSH am. Can hold synthroid today; hopefully can resume tomorrow if able to take PO. (3) History of bowel resection: Sigmoid resection 2nd to diverticulitis. No diverticulitis on 10/17/20 CT scan. (4) DVT prophylaxis: lovenox 40mg daily starting tomorrow History of Present Illness Chief Complaint: pSBO, abdominal pain Primary Care Provider: Chet Ordonez MD 55yo female with h/o multiple SBOs in the past - last one in 07/2020 managed conservatively - presents with acute onset of abdominal pain, nausea, and vomiting beginning at 1800 last night. Pain is worst in the LLQ, with radiation of pain to the RLQ. Was seen in the ER late last night and had CT of abd/pelvis showing SBO. She was passing liquid BMs in ER last pm and felt better therefore she requested d/c. Went home about 0200. She went to bed upon return home. Woke at 0430 with abdominal pain, dizziness, and had emesis once again at home (two times). She called EMS because of how poorly she felt. Ambulance was summoned to her home, and in the ambulance en route to [facility] she had emesis three times. Upon ER arrival her vomiting had stopped. Received IV pain meds and pain is now 5/10 on pain scale. Denies passage of flatus over the last few hours. Allergies Allergy/AdvReac Type Severity Reaction Status Date / Time erythromycin base Allergy Intermediate EDEMA OF Verified 10/17/20 21:59 MOUTH/LIPS oxycodone AdvReac Intermediate Chest Verified 10/17/20 21:59 Pain.SYNCOPY tramadol AdvReac Intermediate CHEST Verified 10/17/20 21:59 PAIN,SYNCOPE Home Medications Medication Instructions Recorded Confirmed Type aloe vera 1 cap PO QAM 03/01/18 10/17/20 History ascorbic acid (vitamin C) [Vitamin 500 mg PO DAILY 03/01/18 10/17/20 History C] calcium carbonate-vitamin D3 1 tab PO QAM 03/01/18 10/17/20 History [Calcium 500 + D] cholecalciferol (vitamin D3) 5,000 unit PO DAILY 03/01/18 10/17/20 History docusate sodium 100 mg PO BID PRN 03/01/18 10/17/20 History multivitamin 1 tab PO QAM 03/01/18 10/17/20 History hyoscyamine sulfate 0.125 mg PO Q8 PRN 12/15/18 10/17/20 History Hair, Skin, Nails with Biotin 1 tab PO DAILY 06/29/19 10/17/20 History echinacea 500 mg PO DAILY 06/29/19 10/17/20 History estradiol 0.0375 mg/24 hr weekly 1 patch TRANSDERMAL WK #12 ea 05/02/20 10/17/20 Rx transdermal patch levothyroxine 100 mcg PO QAM 07/26/20 10/17/20 History ondansetron HCl [Zofran] 4 mg PO Q6H PRN #30 tab 07/27/20 10/17/20 Rx terbinafine HCl 250 mg PO DAILY 10/17/20 10/17/20 History Past Med/Surg History Medical History (Updated 10/18/20 @ 08:44 by Chet Dove) Abdominal pain Bradycardia PT'S NORM. PT STATES WHEN SLEEPING THAT POST OP HER HR IS HIGH 30'S AND LOW 40'S. 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 PT HAS NOT NEEDED AN ECHO IS "SEVERAL YEARS" Diverticular disease Hypothyroid Postmenopausal hormone replacement therapy Small bowel obstruction numerous episodes (10+) Surgical History (Updated 10/18/20 @ 08:44 by Chet Dove) History of bilateral tubal ligation History of bowel resection S/P DIVERTICULITIS (hemicolectomy) - [facility] () History of hysterectomy PARTIAL History of laparoscopy BSO History of thumb surgery RIGHT HAND History of wisdom tooth extraction Hx of breast reduction, elective Status post trigger finger release TOTAL 3 FINGERS Family History Mother Stroke Hypertension Family/Other Breast cancer maternal cousin Uncle Colorectal cancer paternal Father Atrial fibrillation Other Kidney stones Denies family history of Ovarian cancer Social History (Updated 10/18/20 @ 08:11 by Chet Dove) Smoking Status: Never smoker Second Hand Exposure: No; Hx Alcohol Use: Yes Alcohol type: wine Alcohol Intake Frequency Comment: a glass of wine once a week or so Hx Substance Use: No Preferred Language: Greenlandic Communication Ability: Effective Building Service Worker Required: No Beliefs That Will Affect Care: None marital status: Current Living Situation: Spouse Current Living Situation Comment: [place] current occupation: [employer] at [employer]; 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[place] How many Children do You have: 2 How many Children do You have Comment: 1 son, 1 daughter Feels Safe at Home: Yes Assistive Devices: Glasses Review of Systems Constitutional: no fever, no fatigue, no anorexia, no weight loss and no weight gain Eyes: no worsening vision Ear, Nose, Mouth, Throat: no dysphagia Respiratory: no cough and no dyspnea Cardiovascular: no chest pain Gastrointestinal: + abdominal pain, + nausea, + vomiting and + diarrhea/loose stools; no blood in stools Genitourinary: no dysuria Musculoskeletal: no back pain and no neck pain Integumentary: no rash Neurologic: + dizziness (middle of night prior to arrival at [facility]) and + headache(s) Psychiatric: no depression Endocrine: no diabetes Hematologic / Lymphatic: no easy bleeding and no easy bruising Allergy / Immunological: + urticaria (cold urticaria ) Physical Exam Constitutional: well developed and well nourished; no acute distress and no altered mental status Eyes: PERRL ENMT: Ears: no TM abnormality Mouth: + dry oral mucous membranes Neck: trachea midline, no thyromegaly Respiratory: normal respiratory effort, lungs clear to auscultation Cardiovascular: Rate/Rhythm: regular rate and regular rhythm Heart Sounds: normal S1 and normal S2; no murmur Vessels: posterior tibial pulses present and dorsalis pedis pulses present; no JVD Extremities: no edema Gastrointestinal (Abdomen): Inspection/Auscultation: + abdomen distended and + hyperactive bowel sounds Percussion/Palpation: + abdomen tender (mild - LLQ); no guarding, abdomen not rigid and no hepatosplenomegaly Musculoskeletal: no cyanosis or clubbing, extremities motor strength 5/5 Skin: no rashes, warm and dry Neurologic: deep tendon reflexes 2+ bilaterally and moves all extremities; no focal motor deficits Psychiatric: A+Ox3, euthymic affect Lymphatic: no cervical lymphadenopathy Results & Data Results & Data ([facility]) Vital Signs (Past 12 Hours) Vital Signs Temp Pulse Pulse Resp BP Pulse Ox 10/18/20 07:04 52 L 16 118/72 97 10/18/20 06:18 36.8 C 52 L 19 100 Laboratory Results Laboratory Results - last 24 hr 10/18/20 10/18/20 06:30 06:30 WBC 6.19 RBC 4.77 Hgb 14.6 Hct 43.2 MCV 90.6 MCH 30.6 MCHC 33.8 RDW Std Deviation 42.4 RDW Coeff of Yani 12.8 Plt Count 189 MPV 11.1 H Immature Gran % (Auto) 0.3 Neut % (Auto) 53.8 Lymph % (Auto) 33.4 [place] % (Auto) 11.6 Eos % (Auto) 0.6 Baso % (Auto) 0.3 Neut # (Auto) 3.32 Lymph # (Auto) 2.07 [place] # (Auto) 0.72 H Eos # (Auto) 0.04 Baso # (Auto) 0.02 Immature Gran # (Auto) 0.02 Sodium 140 Potassium 3.8 Chloride 109 H Carbon Dioxide 21 Anion Gap 10.0 BUN 15 Creatinine 0.86 Est Cr Clr Drug Dosing 75.4 Est GFR ( Amer) 88.8 Est GFR (Non-Af Amer) 76.6 BUN/Creatinine Ratio 17.0 Glucose 119 H Calcium 9.6 Total Bilirubin 0.6 AST 17 ALT 23 Alkaline Phosphatase 67 Total Protein 7.7 Albumin 4.0 Globulin 3.7 Albumin/Globulin Ratio 1.1 Lipase 393 Diagnostic Findings Chest/Abdomen X-ray 10/18/20 06:49 PA CHEST RADIOGRAPH AND UPRIGHT AND SUPINE AP RADIOGRAPHS OF THE ABDOMEN CLINICAL HISTORY: Small bowel obstruction. COMPARISON STUDY: Chest radiograph and abdominal series July 11, 2017. CT of the abdomen and pelvis October 18, 2020 at 12:03 AM. FINDINGS: Lung volumes are normal. There is no consolidation or evidence for pulmonary edema. No pneumothorax or pleural effusion is noted. Cardiac size is normal. Mediastinal contours are normal. There is no free air. Contrast within the collecting systems and bladder from recent contrast-enhanced CT is noted. There are cholecystectomy clips. Surgical staple line within the pelvis is noted. Persistent small bowel dilatation is noted. A stool-filled loop of small bowel within left lower quadrant measures 5.2 cm in caliber. Small bowel air- fluid levels are present. IMPRESSION: 1. No free air. 2. Persistent small bowel dilatation consistent with a small bowel obstruction. Associated small bowel air-fluid levels. 3. No acute cardiopulmonary findings. ACT 112: Negative or not required by law. Electronically signed by: Fidencio Guzman M.D. 10/18/2020 7:[address] abd/pelvis (10/17/20) - IMPRESSION: 1. Findings are consistent with a small bowel obstruction. A transition point is identified involving a loop of jejunum in the left lower quadrant, and this is similar in appearance to the 07/26/2020 examination. 2. The small bowel below the transition point appears thick walled with mucosal hyperemia. This suggests a nonspecific enteritis, and associated mucosal edema or underlying stricture may be the underlying cause of obstruction. 3. There is postoperative change from sigmoid colon resection with colocolonic anastomosis. 4. There is moderate diverticulosis of the remaining colon without CT evidence of acute diverticulitis. 5. There is trace interloop fluid and a small volume of free fluid in the pelvis. There is no pneumatosis intestinalis, portal venous gas, intraperitoneal free air. Code Status & VTE Plan Code Status full VTE Prophylaxis Plan VTE Prophylaxis will be ordered: Yes PG Care Time/CCT Total # of Minutes Spent Total Time Spent with Patient: Total time spent is greater than 50% in coordination of care (as documented) at patient's floor/unit and/or counseling patient: Coding Level of Care Code 50250 Initial Inpt Care Lvl 2 Diagnoses Small bowel obstruction K56.609 Hypothyroid E03.9 Hypothyroidism type: acquired History of bowel resection Z98.890; Z90.49 DVT prophylaxis Z29.9 (1) Hypothyroid Hypothyroidism type: acquired Qualified Code(s): E03.9 - Hypothyroidism, unspecified
[2020-10-18] MEDS ORDERED: HYDROmorphone INJ 0.5 MG/0.5 ML SYR IV PRN ×2 (08:47→11:50)
[2020-10-18] MEDS ORDERED: ONDANSETRON INJ 2 MG/ML 2 ML VIAL IV PRN (08:47)
[2020-10-18] MEDS ORDERED: PROMETHAZINE HCL 12.5 MG in SODIUM CHLORIDE 0.9% 50 ML IV PRN (08:47)
[2020-10-18] MEDS: D5NSS + 20MEQ KCL 20 MEQ/1,000 ML BAG IV SCH ×2 (09:23→18:01)
[2020-10-18] MEDS ORDERED: ACETAMINOPHEN 1,000 MG/100 ML VIAL IV PRN (19:49)
[2020-10-19] MEDS: D5NSS + 20MEQ KCL 20 MEQ/1,000 ML BAG IV SCH ×2 (01:07→09:13)
[2020-10-19 06:56] LABS: BUN Creatinine Ratio 17.8 (10-20); Creatinine Clr Calc Pharmacy 92.7 ml/min; Est GFR (African American) 113.8 ml/min; Est GFR (Non-African American) 98.2 ml/min
[2020-10-19 07:12] LABS: Thyroid Stimulating Hormone 0.664 uIu/ml (0.300-4.500)
[2020-10-19] MEDS ORDERED: LEVOTHYROXINE SODIUM 100 MCG TABLET PO SCH (08:35)
[2020-10-19] MEDS: ACETAMINOPHEN 500 MG TAB PO PRN ×2 (08:45→15:23)
[2020-10-19] MEDS ORDERED: ENOXAPARIN INJ 40 MG/0.4 ML SYR SQ SCH (09:00)
--- NOTE | 2020-10-19 16:33 | Discharge Summary ---
Date of Service date of admission - October 18, 2020 date of discharge - October 19, 2020 Admission HPI Per Admitting Provider 55yo female with h/o multiple SBOs in the past - last one in 07/2020 managed conservatively - presents with acute onset of abdominal pain, nausea, and vomiting beginning at 1800 last night. Pain is worst in the LLQ, with radiation of pain to the RLQ. Was seen in the ER late last night and had CT of abd/pelvis showing SBO. She was passing liquid BMs in ER last pm and felt better therefore she requested d/c. Went home about 0200. She went to bed upon return home. Woke at 0430 with abdominal pain, dizziness, and had emesis once again at home (two times). She called EMS because of how poorly she felt. Ambulance was summoned to her home, and in the ambulance en route to [facility] she had emesis three times. Upon ER arrival her vomiting had stopped. Received IV pain meds and pain is now 5/10 on pain scale. Denies passage of flatus over the last few hours. Principal Diagnosis SBO - resolving Discharge Exam Constitutional well developed and well nourished; no acute distress and no altered mental status ENMT external ear and nose normal, oropharynx normal Respiratory normal respiratory effort, lungs clear to auscultation Cardiovascular Rate/Rhythm: regular rate and regular rhythm Heart Sounds: normal S1, normal S2 and + click; no murmur Vessels: posterior tibial pulses present and dorsalis pedis pulses present; no JVD Extremities: no edema Gastrointestinal (Abdomen) normal bowel sounds, soft, nontender, no hepatosplenomegaly Inspection/Auscultation: + abdomen distended (minimal/scant ) Psychiatric A+Ox3, euthymic affect Discharge Data Allergies Allergy/AdvReac Type Severity Reaction Status Date / Time erythromycin base Allergy Intermediate EDEMA OF Verified 10/17/20 21:59 MOUTH/LIPS oxycodone AdvReac Intermediate Chest Verified 10/17/20 21:59 Pain.SYNCOPY tramadol AdvReac Intermediate CHEST Verified 10/17/20 21:59 PAIN,SYNCOPE Procedures Performed Chest/Abdomen X-ray 10/18/20 06:49 PA CHEST RADIOGRAPH AND UPRIGHT AND SUPINE AP RADIOGRAPHS OF THE ABDOMEN CLINICAL HISTORY: Small bowel obstruction. COMPARISON STUDY: Chest radiograph and abdominal series July 11, 2017. CT of the abdomen and pelvis October 18, 2020 at 12:03 AM. FINDINGS: Lung volumes are normal. There is no consolidation or evidence for pulmonary edema. No pneumothorax or pleural effusion is noted. Cardiac size is normal. Mediastinal contours are normal. There is no free air. Contrast within the collecting systems and bladder from recent contrast-enhanced CT is noted. There are cholecystectomy clips. Surgical staple line within the pelvis is noted. Persistent small bowel dilatation is noted. A stool-filled loop of small bowel within left lower quadrant measures 5.2 cm in caliber. Small bowel air- fluid levels are present. IMPRESSION: 1. No free air. 2. Persistent small bowel dilatation consistent with a small bowel obstruction. Associated small bowel air-fluid levels. 3. No acute cardiopulmonary findings. ACT 112: Negative or not required by law. Electronically signed by: Fidencio Guzman M.D. 10/18/2020 7:[address] abd/pelvis (performed during first ER visit on 10/17/20) - IMPRESSION: 1. Findings are consistent with a small bowel obstruction. A transition point is identified involving a loop of jejunum in the left lower quadrant, and this is similar in appearance to the 07/26/2020 examination. 2. The small bowel below the transition point appears thick walled with mucosal hyperemia. This suggests a nonspecific enteritis, and associated mucosal edema or underlying stricture may be the underlying cause of obstruction. 3. There is postoperative change from sigmoid colon resection with colocolonic anastomosis. 4. There is moderate diverticulosis of the remaining colon without CT evidence of acute diverticulitis. 5. There is trace interloop fluid and a small volume of free fluid in the pelvis. There is no pneumatosis intestinalis, portal venous gas, intraperitoneal free air. Hospital Course (1) Small bowel obstruction: History and CT along with x-rays all c/w SBO. This was likely on the basis of adhesions. Has had numerous intra-abdominal and pelvic surgeries in the past. Has had multiple episodes of SBO treated successfully with conservative measures. Upper GI series with Small bowel follow-through in July 2020 was wnl. No red flags on history or on CT imaging this admission. This SBO episode was treated with bowel rest, IV fluids, IV anti-emetics, and pain medication. NG tube was deferred. She did have 1 episode of emesis on hospital day #1 but none thereafter. During her short stay she had multiple bowel movements and plenty of flatus. On the AM of hospital day #2 she was initiated on a clear liquid diet. She did well with this with no GI intolerance. She was asked to follow a clear liquid diet for 24 hours post-discharge, fo llowed by 24 hours of full liquids, and then subsequently could introduce low-fiber foods back into her diet. She was counseled to follow a low-fiber diet for 7 days and then could resume normal fiber-rich foods thereafter. Warning signs that would prompt a repeat visit to the ER were discussed in detail at discharge. (2) Hypothyroid: TSH wnl this admission. Cont synthroid 100mcg daily. (3) History of bowel resection: Sigmoid resection 2nd to diverticulitis in the past. No diverticulitis on 10/17/20 CT scan. Total Time Total Time Spent Total Time Spent (In Minutes): 25 Total Time Includes: Examination of the Patient, Discharge Planning and Medication Reconciliation Discharge Plan Discharge Items Patient Disposition: Home - Self-Care Reason For Visit: SBO (Small Bowel Obstruction) Discharge Diagnosis: SBO - resolving Activity: As commented below Activity Comment: no heavy exertional activity x 3 days, then gradually increase activities Non-emergency contact: Primary Care Provider Call non-emergency contact if: you have any medication questions, your symptoms worsen, your pain is not controlled and your pain is worsening Follow-up/Referrals: Melisa Vickers CRNP [Nurse Practitioner] - (A community resource consultant will be phoning you with an appt time and date to see MARLEE Rascon. Office was closed at your time of discharge and could not be scheduled.) Chet Ordonez MD [Primary Care Provider] - 10/24/20 1:10 pm (You will be seeing Dr. Ovalles) Diet: Clear liquid Addtl Attending Provider Instructions: Mrs Norton, You were admitted and treated for small bowel obstruction. You improved with conservative measures including bowel rest, IV fluids, IV pain meds and nausea medication, and time. You began to pass plenty of bowel movements and gas. The bloating in your abdomen improved. We started a clear liquid diet and you have tolerated this well. Recommendations -- 1. Diet - * TodayOctober 19 - clear liquids only; focus on good hydration * Tomorrow, October 20 - advance to full liquids - see handout * October 21 - advance to low fiber diet - also see handout * once you have advanced to low fiber diet please stay on low fiber for about 1 week, then can resume more of a normal diet thereafter 2. Avoid use of laxatives, stool softeners, etc for the next 7-10 days 3. Take it easy for a few days then gradually increase your activity level 4. If you experience any recurrent vomiting, severe nausea, lack of stool or gas from your bottom, abdominal pain, or bloating please return to [facility] right away Follow-up - see Dr Ordonez within 1 week; see Melisa Vickers at the [facility] GI office in 1-2 weeks Continue to feel better! -Dr Dove Pending Studies at Discharge: No Stand-Alone Forms: My [facility], Smoking Cessation Medications and DC Order Prescriptions: Continued estradiol 0.0375 mg/24 hr patch weekly 1 patch Transdermal WK Qty: 12 RF: 3 Hair, Skin, Nails with Biotin 7.5-7.5-1,250 mg-unit-mcg Tablet,Chewable 1 tab PO DAILY RF: 0 echinacea 500 mg Capsule 500 mg PO DAILY RF: 0 multivitamin Tablet 1 tab PO QAM RF: 0 ascorbic acid (vitamin C) [Vitamin C] 500 mg Tablet 500 mg PO DAILY RF: 0 cholecalciferol (vitamin D3) 5,000 unit Capsule 5,000 unit PO DAILY RF: 0 aloe vera 25 mg Capsule 1 cap PO QAM RF: 0 calcium carbonate-vitamin D3 [Calcium 500 + D] 500 mg(1,250mg) -200 unit Tablet 1 tab PO QAM RF: 0 levothyroxine 100 mcg tablet 100 mcg PO QAM RF: 0 ondansetron HCl [Zofran] 4 mg tablet 4 mg PO Q6H PRN (Reason: nausea and vomiting) Qty: 30 RF: 1 terbinafine HCl 250 mg tablet 250 mg PO DAILY RF: 0 Discontinued docusate sodium 100 mg Tablet 100 mg PO BID PRN (Reason: Constipation) RF: 0 hyoscyamine sulfate 0.125 mg Tablet 0.125 mg PO Q8 PRN (Reason: Pain) RF: 0 Discharge Orders: Discharge Order (Routine); Ordered 10/19/20 Ordered By: Chet Craig/Other Patient Handouts: Small Bowel Obstruction, Low-Fiber Diet, Full Liquid Diet Dc Admission Data Admit Date/Time: 10/18/20 07:53 Attending Provider: Chet Dove Admit Provider: Chet Dove Primary Care Provider: Chet Ordonez Other Providers: Chet Dove Other Interventions: Discharge Summary Assessment (RN) Last Done: 10/19/20 16:53 Coding Level of Care Code None Diagnoses Small bowel obstruction K56.609 Hypothyroid E03.9 Hypothyroidism type: acquired History of bowel resection Z98.890; Z90.49 Comment see "PG E/M" entry dated 10/19/20 for coding
--- NOTE | 2020-10-19 23:41 | Billing Data ---
Date of Service October 19, 2020 Coding Level of Care Code D/C Day Management <30 mins
== END 2020-10-19 17:26 | disposition home or self-care (01) | DRG 390 ==
LOC: ED 06:12 → 3W 06:12

== ENCOUNTER 2022-02-08 22:26 | Inpatient (IN) ==
[2022-02-08] MEDS ORDERED: ONDANSETRON INJ 2 MG/ML 2 ML VIAL ONE ×2 (22:40→23:15)
[2022-02-08 22:47] LABS: Basophils # (auto) 0.07 K/uL (0-0.2); Basophils % (auto) 0.8 %; Eosinophils # (auto) 0.07 K/uL (0-0.50); Eosinophils % (auto) 0.8 %; Hematocrit (blood only) 40.7 % (34.1-44.9); Hemoglobin 14.6 g/dl (12.0-16.0); Immature Granulocytes # (auto) 0.03 K/uL (0.00-0.02); Immature Granulocytes % (auto) 0.3 %; Lymphocytes # (auto) 1.91 K/uL (1.2-3.4); Lymphocytes % (auto) 21.2 %; Mean Corpuscular Hemoglobin 30.8 pg (25.0-34.0); Mean Corpuscular Hgb Conc 35.9 g/dL (32.0-36.0); Mean Corpuscular Volume 85.9 fL (80.0-100.0); Mean Platelet Volume 10.5 fL (9.4-12.3); Monocytes # (auto) 0.63 K/uL (0.24-0.82); Neutrophils % (auto) 69.9 %; Platelet Count 213 K/uL (130-400); RDW Standard Deviation 40.5 fL (36.4-46.3); Red Blood Count 4.74 M/uL (3.93-5.22); White Blood Count 9.01 K/ul (4.8-10.8)
[2022-02-08 23:08] LABS: Alanine Aminotransferase 18 U/L (7-52); Albumin Globulin Ratio 1.2 (0.9-2); Albumin Level 4.3 gm/dl (3.4-5.0); Alkaline Phosphatase 55 U/L (34-104); Anion Gap 10 (3-11); Aspartate Aminotransferase 22 U/L (13-39); BUN Creatinine Ratio 20.3 (10-20); Bilirubin,Total 0.4 mg/dl (0.2-1.0); Blood Urea Nitrogen 16 mg/dl (6-23); Calcium 9.9 mg/dl (8.5-10.1); Carbon Dioxide 23 mmol/L (21-32); Chloride 106 mmol/L (98-107); Est GFR (African American) 97.7 ml/min; Est GFR (Non-African American) 84.3 ml/min; Globulin 3.7 gm/dl (2.5-4.0); Glucose 96 mg/dl (70-99(Fasting)); Lipase 51 U/L (11-82); Potassium 3.8 mmol/L (3.5-5.1); Sodium 139 mmol/L (136-145)
[2022-02-08 23:29] LABS: Appearance Urine Cloudy (Clear); Bacteria Urine Automated Negative (Negative); Bilirubin Urine Negative (Negative); Blood Urine Negative (Negative); Color Urine Yellow; Epithelial Cell Urine Auto >30 /lpf (0-5); Glucose Urine UA Negative (Negative); Ketones Urine Trace (Negative); Leukocyte Esterase Urine Negative (Negative); Nitrite Urine Negative (Negative); RBC Urine Automated 0-4 /hpf (0-4); Specific Gravity Urine 1.016 (1.000-1.030); Urobilinogen Urine Negative (Negative); WBC Urine Automated 0 /hpf (0-5); pH Urine >= 9.0 (4.5-7.5)
[2022-02-08 23:43] LABS: Protein Urine Trace (Negative)
[2022-02-08 23:59] LABS: Amorphous Sediment Urine Present (None Prsent)
[2022-02-09] LABS: Cast Urine Automated 0 /lpf (0-5)
[2022-02-09] MEDS ORDERED: HYDROmorphone INJ 0.5 MG/0.5 ML SYR IV STA ×2 (00:07→02:43)
[2022-02-09] MEDS ORDERED: PROMETHAZINE 12.5 MG/50.5 ML BAG IV STA (00:07)
--- NOTE | 2022-02-09 00:10 | Emergency Department Note ---
History of Present Illness General Chief complaint: Abdominal Pain Stated complaint: ABDOMINAL PAIN Time Seen by Provider: 02/08/22 23:53 History of Present Illness Maximum Pain Intensity: 8 This 56-year-old female patient presents to the emergency department today for evaluation of left lower quadrant abdominal pain and nausea/vomiting. Patient does have a history of similar symptoms associated with small bowel obstruction. She did have history of resection associated with diverticulitis in the past. The patient has taken Zofran without relief of her symptoms. She did also take some supplements and Senokot which did not help either. Patient rates her pain 8/10 and describes it as sharp. She states her last bowel movement was earlier today at the onset of her symptoms. Symptoms began about 5 PM after eating a salad for dinner. No recent diarrhea or constipation. No recent fever. She was in her usual state of health up until about 5 PM this evening. Home Medications Medication Instructions Recorded Confirmed Type aloe vera 25 mg capsule 1 cap PO QAM 03/01/18 02/09/22 History ascorbic acid (vitamin C) 500 mg 500 mg PO DAILY 03/01/18 02/09/22 History tablet (Vitamin C) calcium carbonate 500 mg-vitamin 1 tab PO QAM 03/01/18 02/09/22 History D3 5 mcg (200 unit) tablet (Calcium 500 + D) cholecalciferol (vitamin D3) 125 5,000 unit PO DAILY 03/01/18 02/09/22 History mcg (5,000 unit) capsule multivitamin 1 tab PO QAM 03/01/18 02/09/22 History ascorbic acid 7.5 mg-vit E 7.5 1 tab PO DAILY 06/29/19 02/09/22 History unit-biotin 1,250 mcg chewable tablet (Hair,Skin,Nails with Biotin) echinacea 500 mg capsule 500 mg PO DAILY 06/29/19 02/09/22 History levothyroxine 100 mcg tablet 100 mcg PO DAILYBB 07/26/20 02/09/22 History docusate sodium 100 mg capsule 100 mg PO BID #60 caps 12/03/20 02/09/22 Rx (Colace) estradiol 0.0375 mg/24 hr weekly 1 patch transdermal WK #12 ea 12/04/21 02/09/22 Rx transdermal patch oxycodone 5 mg tablet 5 mg PO Q6 PRN pain #20 tabs 01/12/22 02/09/22 Rx sennosides 8.6 mg tablet (Senokot) 8.6 mg PO HS PRN while taking 02/09/22 02/09/22 History narcotics Allergies Allergy/AdvReac Type Severity Reaction Status Date / Time erythromycin base Allergy Intermediate EDEMA OF Verified 02/09/22 01:41 MOUTH/LIPS oxycodone AdvReac Intermediate Chest Verified 02/09/22 01:41 Pain.SYNCOPY tramadol AdvReac Intermediate CHEST Verified 02/09/22 01:41 PAIN,SYNCOPE Past Med/Surg History Medical History Bradycardia PT'S NORM. PT STATES WHEN SLEEPING THAT POST OP HER HR IS HIGH 30'S AND LOW 40'S. 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 PT HAS NOT NEEDED AN ECHO IS "SEVERAL YEARS" Diverticular disease History of intestinal obstruction Postmenopausal hormone replacement therapy Small bowel obstruction numerous episodes Small bowel obstruction Surgical History Family history of reaction to anesthesia SISTER/NAUSEA H/O oophorectomy H/O right knee surgery History of bilateral tubal ligation History of bowel resection S/P DIVERTICULITIS (hemicolectomy) - [facility] () History of hysterectomy PARTIAL History of thumb surgery RIGHT HAND History of wisdom tooth extraction Hx of breast reduction, elective Status post trigger finger release Family History Mother Hypertension Stroke Family/Other Breast cancer maternal cousin Uncle Colorectal cancer paternal Father Atrial fibrillation Sister GIST, non-malignant stomach Other Kidney stones Denies family history of Ovarian cancer Social History Smoking Status: Never smoker Second Hand Exposure: No; Do You Dip or Chew Tobacco: No; Tobacco Cessation Education Requested by Patient: No Hx Alcohol Use: Yes Alcohol type: wine Alcohol Intake Frequency Comment: a glass of wine once a week or so Hx Substance Use: No Preferred Language: Mongolian Communication Ability: Effective Disability Program Navigator Required: No Beliefs That Will Affect Care: None marital status: Current Living Situation: Spouse Current Living Situation Comment: Dany 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[employer]; 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[place] How many Children do You have: 2 How many Children do You have Comment: 1 son, 1 daughter Other Information That Helps Us Care for You: No Feels Safe at Home: Yes Safety Concerns: Feels Safe At This Time Assistive Devices: None Review of Systems A total of 10 systems reviewed and were otherwise negative Physical Exam Vital Signs Vital Signs - 24 hr 02/08/22 22:31 02/09/22 00:55 Temperature 36.2 C L Temperature Source Temporal Artery Scan Pulse Rate 62 Pulse Rate [Apical] 85 Respiratory Rate 18 21 Respiratory Depth Normal Blood Pressure 119/94 Blood Pressure [Right Arm] 138/81 Blood Pressure Mean 102 Blood Pressure Mean [Right Arm] 100 Pulse Oximetry 100 98 Oxygen Delivery Method Room Air Sepsis New/Unexplained Change in Mental Status N/A Sepsis Action Taken by Nursing No Action Required VITALS: Vitals are noted on the nurse's note and reviewed by myself. Vital signs stable. GENERAL: This is a 56-year-old, in no acute distress, nondiaphoretic, well- developed well-nourished. SKIN: The skin was without rashes, erythema, edema, or bruising. There is no tenting of the skin. Capillary refill less than 2 seconds. HEAD: Normocephalic atraumatic. EYES: Conjunctivae without injection, sclerae without icterus. NECK: Supple without nuchal rigidity. No lymphadenopathy. No JVD. HEART: Regular rate and rhythm without murmurs gallops or rubs. LUNGS: Clear to auscultation bilaterally without wheezes, rales or rhonchi. No retractions or accessory muscle use. ABDOMEN: Positive bowel sounds x 4. Left lower quadrant tenderness to palpation with guarding. Abdomen otherwise without masses or organomegaly. No rebound tenderness. MUSCULOSKELETAL: No muscle atrophy, erythema, or edema noted. Full range of motion without joint tenderness in all extremities. No tenderness to palpation. Normal gait. Strength 5/5 throughout. NEURO: Patient was alert and oriented to person place and time. No focal neurological deficits. Course Course The patient was seen and evaluated as above. An order was placed for continuous cardiac monitoring. The monitor shows a normal sinus rhythm at a rate of 68 bpm. IV access obtained, labs drawn. Patient medicated with IV fluids, Dilaudid, promethazine Imaging performed and reviewed by myself and radiologist as noted. Labs reviewed by myself. I discussed the findings with the patient at bedside. I discussed the case with Dr. Lobo, general surgeon on-call. He recommends the patient be admitted to the medicine service. He will consult in the morning I discussed the case with [facility]. Zarate, [facility]. She did agree to see and evaluate the patient for admission Administered Medications Lactated Ringer's (Lr) 1,000 mls @ 100 mls/hr IV .Q10H WAYNE Stop: 02/10/22 01:51 Last Admin: 02/09/22 06:28 Dose: 100 mls/hr Documented By: NATHALY Levothyroxine Sodium (Levothyroxine Sodium 100 Mcg Tablet) 100 mcg PO DAILYBB WAYNE Stop: 03/11/22 06:29 Last Admin: 02/09/22 06:27 Dose: 100 mcg Documented By: NATHALY Discontinued Medications Hydromorphone HCl (Hydromorphone Inj 0.5 Mg/0.5 Ml Syr) 0.5 mg IV NOW STA Stop: 02/09/22 00:08 Last Admin: 02/09/22 00:16 Dose: 0.5 mg Documented By: YENNY Hydromorphone HCl (Hydromorphone Inj 0.5 Mg/0.5 Ml Syr) 0.5 mg IV NOW STA Stop: 02/09/22 02:44 Last Admin: 02/09/22 03:01 Dose: 0.5 mg Documented By: UBALDO Promethazine HCl (Phenergan) 12.5 mg in 50.5 mls @ 202 mls/hr IV NOW STA Stop: 02/09/22 00:21 Last Infusion: 02/09/22 02:58 Dose: 0 mls/hr Documented By: Admin: 02/09/22 00:17 Dose: 202 mls/hr Documented By: YENNY Ioversol (Optiray 350 100ml) 100 ml IV ONCE ONE Stop: 02/09/22 00:38 Last Admin: 02/09/22 00:37 Dose: 87 ml Documented By: JOSH Ondansetron HCl (Ondansetron Inj 2 Mg/Ml 2 Ml Vial) Confirm Administered Dose 4 mg .ROUTE .STK-MED ONE Stop: 02/08/22 22:41 Last Admin: 02/08/22 23:21 Dose: Not Given Documented By: LOREE Ondansetron HCl (Ondansetron Inj 2 Mg/Ml 2 Ml Vial) Confirm Administered Dose 4 mg .ROUTE .STK-MED ONE Stop: 02/08/22 23:16 Last Admin: 02/08/22 23:21 Dose: 4 mg Documented By: LOREE Medical Decision Making Differential Diagnosis Etiologies such as appendicitis, diverticulitis, obstruction, inflammatory bowel disease, renal colic, PUD, biliary pathology, pancreatitis, mesenteric ischemia, aortic pathology, infections, genitourinary, UTI, perforated viscus, as well as others were entertained. Medical Records Attestation: I reviewed the patient's medical records. Home Medications Current Medication List: was personally reviewed by me Laboratory Data Attestation: I reviewed the patient's lab results. No leukocytosis, anemia, thrombocytopenia. Renal, hepatic function, and electrolytes without significant abnormality. Urinalysis negative for obvious evidence of infection. COVID-19 testing negative Result diagrams: 02/08/22 22:35 02/08/22 22:35 Lab Results 02/08/22 02/08/22 02/08/22 Range/Units 22:35 22:35 23:00 WBC 9.01 (4.8-10.8) K/ul RBC 4.74 (3.93-5.22) M/uL Hgb 14.6 (12.0-16.0) g/dl Hct 40.7 (34.1-44.9) % MCV 85.9 (80.0-100.0) fL MCH 30.8 (25.0-34.0) pg MCHC 35.9 (32.0-36.0) g/dL RDW Std Deviation 40.5 (36.4-46.3) fL RDW Coeff of Yani 13.0 (11.5-14.5) % Plt Count 213 (130-400) K/uL MPV 10.5 (9.4-12.3) fL Immature Gran % (Auto) 0.3 % Neut % (Auto) 69.9 % Lymph % (Auto) 21.2 % Bowie % (Auto) 7.0 % Eos % (Auto) 0.8 % Baso % (Auto) 0.8 % Neut # (Auto) 6.30 (1.4-6.5) K/uL Lymph # (Auto) 1.91 (1.2-3.4) K/uL Bowie # (Auto) 0.63 (0.24-0.82) K/uL Eos # (Auto) 0.07 (0-0.50) K/uL Baso # (Auto) 0.07 (0-0.2) K/uL Immature Gran # (Auto) 0.03 H (0.00-0.02) K/uL Sodium 139 (136-145) mmol/L Potassium 3.8 (3.5-5.1) mmol/L Chloride 106 (98-107) mmol/L Carbon Dioxide 23 (21-32) mmol/L Anion Gap 10 (3-11) BUN 16 (6-23) mg/dl Creatinine 0.79 (0.6-1.2) mg/dl Est Cr Clr Drug Dosing Not Reportable Est GFR ( Amer) 97.7 ml/min Est GFR (Non-Af Amer) 84.3 ml/min BUN/Creatinine Ratio 20.3 H (10-20) Glucose 96 (70-99(Fasting)) mg/dl Calcium 9.9 (8.5-10.1) mg/dl Total Bilirubin 0.4 (0.2-1.0) mg/dl AST 22 (13-39) U/L ALT 18 (7-52) U/L Alkaline Phosphatase 55 (34-104) U/L Total Protein 8.0 (6.0-8.3) gm/dl Albumin 4.3 (3.4-5.0) gm/dl Globulin 3.7 (2.5-4.0) gm/dl Albumin/Globulin Ratio 1.2 (0.9-2) Lipase 51 (11-82) U/L Urine Color Yellow Urine Appearance Cloudy A (Clear) Urine pH >= 9.0 H (4.5-7.5) Ur Specific [place] 1.016 (1.000-1.030) Urine Protein Trace H (Negative) Urine Glucose (UA) Negative (Negative) Urine Ketones Trace H (Negative) Urine Blood Negative (Negative) Urine Nitrite Negative (Negative) Urine Bilirubin Negative (Negative) Urine Urobilinogen Negative (Negative) Ur Leukocyte Esterase Negative (Negative) Urine WBC (Auto) 0 (0-5) /hpf Urine RBC (Auto) 0-4 (0-4) /hpf U Hyaline Cast (Auto) 0 (0-5) /lpf U Epithel Cells (Auto) >30 H (0-5) /lpf Urine Bacteria (Auto) Negative (Negative) Ur Renal Epithelial Cell Not Reportable Amorphous Sediment Present A (None Prsent) SARS-CoV-2, RNA, NAAT (NEGATIVE) 02/09/22 Range/Units 01:39 WBC (4.8-10.8) K/ul RBC (3.93-5.22) M/uL Hgb (12.0-16.0) g/dl Hct (34.1-44.9) % MCV (80.0-100.0) fL MCH (25.0-34.0) pg MCHC (32.0-36.0) g/dL RDW Std Deviation (36.4-46.3) fL RDW Coeff of Yani (11.5-14.5) % Plt Count (130-400) K/uL MPV (9.4-12.3) fL Immature Gran % (Auto) % Neut % (Auto) % Lymph % (Auto) % Bowie % (Auto) % Eos % (Auto) % Baso % (Auto) % Neut # (Auto) (1.4-6.5) K/uL Lymph # (Auto) (1.2-3.4) K/uL Bowie # (Auto) (0.24-0.82) K/uL Eos # (Auto) (0-0.50) K/uL Baso # (Auto) (0-0.2) K/uL Immature Gran # (Auto) (0.00-0.02) K/uL Sodium (136-145) mmol/L Potassium (3.5-5.1) mmol/L Chloride (98-107) mmol/L Carbon Dioxide (21-32) mmol/L Anion Gap (3-11) BUN (6-23) mg/dl Creatinine (0.6-1.2) mg/dl Est Cr Clr Drug Dosing Est GFR ( Amer) ml/min Est GFR (Non-Af Amer) ml/min BUN/Creatinine Ratio (10-20) Glucose (70-99(Fasting)) mg/dl Calcium (8.5-10.1) mg/dl Total Bilirubin (0.2-1.0) mg/dl AST (13-39) U/L ALT (7-52) U/L Alkaline Phosphatase (34-104) U/L Total Protein (6.0-8.3) gm/dl Albumin (3.4-5.0) gm/dl Globulin (2.5-4.0) gm/dl Albumin/Globulin Ratio (0.9-2) Lipase (11-82) U/L Urine Color Urine Appearance (Clear) Urine pH (4.5-7.5) Ur Specific [place] (1.000-1.030) Urine Protein (Negative) Urine Glucose (UA) (Negative) Urine Ketones (Negative) Urine Blood (Negative) Urine Nitrite (Negative) Urine Bilirubin (Negative) Urine Urobilinogen (Negative) Ur Leukocyte Esterase (Negative) Urine WBC (Auto) (0-5) /hpf Urine RBC (Auto) (0-4) /hpf U Hyaline Cast (Auto) (0-5) /lpf U Epithel Cells (Auto) (0-5) /lpf Urine Bacteria (Auto) (Negative) Ur Renal Epithelial Cell Amorphous Sediment (None Prsent) SARS-CoV-2, RNA, NAAT NEGATIVE (NEGATIVE) Imaging Data Radiologist's Impression: Patient: ALESSIA RODRIGUEZ (Female) : 67 Status: ER Date: 02/09/22 00:40 Room #: History: PAIN AT LLQ, HX SBO, VOMITING Slices: [id number] Priors: Tech: Srinivasa Lenz @ [phone] Exams: CT ABDOMEN & PELVIS With Contrast Contrast: IV Amt: 87 ML OPTIRAY 350 Accession Numbers: [id number] Referring Physician: MINDA MCGOWAN Preliminary Findings Only See Final R eport For Complete Findings CT ABDOMEN & PELVIS With Contrast: High-grade small bowel obstruction measures up to 3.8 cm with a collapsed appearance of distal small bowel loops. Consider adhesions a likely etiology with zone of transition in the left lower quadrant. Alternatively, the small bowel distal to the transition zone in the region of the left iliac fossa is slightly thick-walled which may reflect a nonspecific enteritis raising the possibility that a small bowel stricture may also be p resent Radiologist: Main Guzman MD Study ready at 00:42 and initial results transmitted at 00:58 Blood Pressure Blood Pressure Findings: Normal blood pressure MDM Narrative This 56-year-old female patient presents to the emergency department today for evaluation of abdominal pain consistent with small bowel obstruction she has experienced in the past. Work-up here in the ED is consistent with a high-grade small bowel obstruction. Patient's pain and nausea were well controlled. I did discuss the case with general surgery. Did also discussed the case with the [facility] physician. She did agree to evaluate the patient for admission. Please see inpatient provider dictations regarding ongoing management care of this patient. The chart was completed utilizing [employer] Speech voice recognition software. Grammatical errors, random word insertions, pronoun errors, and incomplete sentences are an occasional consequence of this system due to software li mitations, ambient noise, and hardware issues. Any formal questions or concerns about the content, text, or information contained within the body of this dictation should be directly addressed to the provider for clarification. Impression & Plan Small bowel obstruction, Abdominal pain, Nausea & vomiting Discharge Plan Visit Data Chief Complaint: Abdominal Pain Stated Complaint: ABDOMINAL PAIN ED Provider: Minda Mcgowan ED Midlevel Provider: Kanika Mcfarlane Discharge Problem: Small bowel obstruction, Abdominal pain, Nausea & vomiting Patient Disposition: Admitted As Inpatient Discharge Instructions Interventions: ED Discharge Assessment Last Done: 02/09/22 05:36
[2022-02-09] MEDS ORDERED: OPTIRAY 350 100ml IV ONE (00:37)
--- NOTE | 2022-02-09 02:37 | Surgery Consultation ---
Date of Consultation February 09, 2022 Assessment & Plan (1) Small bowel obstruction: pt is a 56 year-old female who presents to ER with 9 hours history abdominal pain with nausea and vomiting, CT scan- diagnosis- SBO, IMP: SBO, Plan, no emergent surgery indication now, Medicine team will admit pt to [facility] , conservative treatment first, NPO, IV fluid, control pain, may need NG tube if pt is still have vomiting or more abdominal pain, repeat labs tomorrow, pt agrees with the plan, I answered all questions, History of Present Illness Reason for Consultation: SBO Requesting Physician: Kanika Mcfarlane PA-C History of Present Illness Chief complaint: Abdominal Pain Stated complaint: ABDOMINAL PAIN Time Seen by Provider: 02/08/22 23:53 History of Present Illness Maximum Pain Intensity: 8 This 56-year-old female patient presents to the emergency department today for evaluation of left lower quadrant abdominal pain and nausea/vomiting. Patient does have a history of similar symptoms associated with small bowel obstruction. She did have history of resection associated with diverticulitis in the past. The patient has taken Zofran without relief of her symptoms. She did also take some supplements and Senokot which did not help either. Patient rates her pain 8/10 and describes it as sharp. She states her last bowel movement was earlier today at the onset of her symptoms. Symptoms began about 5 PM after eating a salad for dinner. No recent diarrhea or constipation. No recent fever. She was in her usual state of health up until about 5 PM this evening. I ( Paula Lobo MD) got a call for consult SBO, I reviewed pt's H/P, labs, CT scan with pt, Home Medications Medication Instructions Recorded Confirmed Type aloe vera 25 mg capsule 1 cap PO QAM 03/01/18 01/09/22 History ascorbic acid (vitamin C) 500 mg 500 mg PO DAILY 03/01/18 2 History tablet (Vitamin C) calcium carbonate 500 mg-vitamin 1 tab PO QAM 03/01/18 2 History D3 5 mcg (200 unit) tablet (Calcium 500 + D) cholecalciferol (vitamin D3) 125 5,000 unit PO DAILY 03/01/18 2 History mcg (5,000 unit) capsule multivitamin 1 tab PO QAM 03/01/18 01/09/22 History ascorbic acid 7.5 mg-vit E 7.5 1 tab PO DAILY 06/29/19 01/09/22 History unit-biotin 1,250 mcg chewable tablet (Hair,Skin,Nails with Biotin) echinacea 500 mg capsule 500 mg PO DAILY 06/29/19 01/09/22 Histor y levothyroxine 100 mcg tablet 100 mcg PO QAM 07/26/20 01/09/22 Hi story ondansetron HCl 4 mg tablet 4 mg PO Q6H PRN nausea and 07/27/2001/09 Rx (Zofran) vomiting #30 tabs docusate sodium 100 mg capsule 100 mg PO BID #60 caps 12/03/20 Rx (Colace) sennosides 8.6 mg tablet (Senokot) 8.6 mg PO HS #30 tabs 12/03/20 Rx estradiol 0.0375 mg/24 hr weekly 1 patch transdermal WK #12 ea 12/04/21 01/09/22 Rx transdermal patch oxycodone 5 mg tablet 5 mg PO Q6 PRN pain #20 tabs 01/12/22 01/12/22 Rx Allergies Allergy/AdvReac Type Severity Reaction Status Date / Time erythromycin base Allergy Intermediate EDEMA OF Verified 01/09/22 07:54 MOUTH/LIPS oxycodone AdvReac Intermediate Chest Verified 01/09/22 07:54 Pain.SYNCOPY tramadol AdvReac Intermediate CHEST Verified 01/09/22 07:54 PAIN,SYNCOPE COLD ENVIRONMENT Allergy Intermediate Hives Uncoded 01/09/22 07:54 Past Med/Surg History Medical History Bradycardia PT'S NORM. 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 PT HAS NOT NEEDED AN ECHO IS "SEVERAL YEARS"Diverticular disease History of intestinal obstruction Postmenopausal hormone replacement therapy Small bowel obstruction numerous episodes Surgical History Family history of reaction to anesthesia H/O oophorectomy H/O right knee surgery History of bilateral tubal ligation History of bowel resection History of hysterectomy History of thumb surgery History of wisdom tooth extraction Hx of breast reduction, elective Status post trigger finger release Family History Mother Hypertension StrokeFamily/Other Breast cancerUncle Colorectal cancerFather Atrial fibrillationSister GIST, non-malignantOther Kidney stones Denies family history of Ovarian cancer Social History Smoking Status: Never smoker Second Hand Exposure: No; Hx Alcohol Use: Yes Alcohol type: wine Alcohol Intake Frequency Comment: a glass of wine once a week or so Preferred Language: Ghanaian Communication Ability: Effective Client Services Coordinator Required: No Beliefs That Will Affect Care: None marital status: Current Living Situation: Spouse Current Living Situation Comment: [place] 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[employer]; 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[place] How many Children do You have: 2 How many Children do You have Comment: 1 son, 1 daughter Feels Safe at Home: Yes Assistive Devices: None Review of Systems A total of 10 systems reviewed and were otherwise negative Allergies Allergy/AdvReac Type Severity Reaction Status Date / Time erythromycin base Allergy Intermediate EDEMA OF Verified 02/09/22 01:41 MOUTH/LIPS oxycodone AdvReac Intermediate Chest Verified 02/09/22 01:41 Pain.SYNCOPY tramadol AdvReac Intermediate CHEST Verified 02/09/22 01:41 PAIN,SYNCOPE COLD ENVIRONMENT Allergy Intermediate Hives Uncoded 02/09/22 01:41 Home Medications Medication Instructions Recorded Confirmed Type aloe vera 25 mg capsule 1 cap PO QAM 03/01/18 02/09/22 History ascorbic acid (vitamin C) 500 mg 500 mg PO DAILY 03/01/18 02/09/22 History tablet (Vitamin C) calcium carbonate 500 mg-vitamin 1 tab PO QAM 03/01/18 02/09/22 History D3 5 mcg (200 unit) tablet (Calcium 500 + D) cholecalciferol (vitamin D3) 125 5,000 unit PO DAILY 03/01/18 02/09/22 History mcg (5,000 unit) capsule multivitamin 1 tab PO QAM 03/01/18 02/09/22 History ascorbic acid 7.5 mg-vit E 7.5 1 tab PO DAILY 06/29/19 02/09/22 History unit-biotin 1,250 mcg chewable tablet (Hair,Skin,Nails with Biotin) echinacea 500 mg capsule 500 mg PO DAILY 06/29/19 02/09/22 History levothyroxine 100 mcg tablet 100 mcg PO DAILYBB 07/26/20 02/09/22 History docusate sodium 100 mg capsule 100 mg PO BID #60 caps 12/03/20 02/09/22 Rx (Colace) estradiol 0.0375 mg/24 hr weekly 1 patch transdermal WK #12 ea 12/04/21 02/09/22 Rx transdermal patch oxycodone 5 mg tablet 5 mg PO Q6 PRN pain #20 tabs 01/12/22 02/09/22 Rx sennosides 8.6 mg tablet (Senokot) 8.6 mg PO HS PRN while taking 02/09/22 02/09/22 History narcotics Patient History Medical History Bradycardia PT'S NORM. PT STATES WHEN SLEEPING THAT POST OP HER HR IS HIGH 30'S AND LOW 40'S. 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 PT HAS NOT NEEDED AN ECHO IS "SEVERAL YEARS" Diverticular disease History of intestinal obstruction Postmenopausal hormone replacement therapy Small bowel obstruction numerous episodes Surgical History Family history of reaction to anesthesia H/O oophorectomy H/O right knee surgery History of bilateral tubal ligation History of bowel resection History of hysterectomy History of thumb surgery History of wisdom tooth extraction Hx of breast reduction, elective Status post trigger finger release Family History Mother Hypertension Stroke Family/Other Breast cancer Uncle Colorectal cancer Father Atrial fibrillation Sister GIST, non-malignant Other Kidney stones Denies family history of Ovarian cancer Social History Smoking Status: Never smoker Second Hand Exposure: No; Hx Alcohol Use: Yes Alcohol type: wine Alcohol Intake Frequency Comment: a glass of wine once a week or so Preferred Language: Ghanaian Communication Ability: Effective Client Services Coordinator Required: No Beliefs That Will Affect Care: None marital status: Current Living Situation: Spouse Current Living Situation Comment: [place] 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[employer]; 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[place] How many Children do You have: 2 How many Children do You have Comment: 1 son, 1 daughter Feels Safe at Home: Yes Assistive Devices: None Physical Exam Constitutional: WD/WN, vitals as above no distress Eyes: PERRL, conjunctivae normal, anicteric sclerae Neck: trachea midline, no thyromegaly Respiratory: normal respiratory effort, lungs clear to auscultation Cardiovascular: RRR, no murmur, no edema Gastrointestinal (Abdomen): soft, mild tenderness periumbilical area, no rebound pain, no distend, BS +, Musculoskeletal: no cyanosis or clubbing, extremities motor strength 5/5 Neurologic: patellar DTR's 2+ bilat, sensation intact Psychiatric: A+Ox3, euthymic affect Results & Data ([facility]) Vital Signs (Past 12 Hours) Vital Signs Temp Pulse Pulse Resp BP BP Pulse Ox 02/09/22 00:55 85 21 138/81 98 02/08/22 22:31 36.2 C L 62 18 119/94 100 O2 Del Method 02/09/22 00:55 Room Air 02/08/22 22:31 Laboratory Results Abnormal lab results 02/08/22 02/08/22 02/08/22 Range/Units 22:35 22:35 23:00 Immature Gran # (Auto) 0.03 H (0.00-0.02) K/uL BUN/Creatinine Ratio 20.3 H (10-20) Urine Appearance Cloudy A (Clear) Urine pH >= 9.0 H (4.5-7.5) Urine Protein Trace H (Negative) Urine Ketones Trace H (Negative) U Epithel Cells (Auto) >30 H (0-5) /lpf Amorphous Sediment Present A (None Prsent) Diagnostic Findings CT scan - SBO,
--- NOTE | 2022-02-09 02:47 | History & Physical Report ---
Date of Service February 09, 2022 Assessment & Plan (1) Small bowel obstruction: Plan: 56yo female presenting with SBO. Patient with history bowel resection for diverticulitis, hysterectomy. Pain is well controlled at present. No nausea. -Admit to medical -Keep NPO -Conservative therapy with Morphine PRN, Zofran -Gentle IVF -NGT should pain or nausea progress -General surgery consultation appreciated F/E/N - LR at 100mL/hr, monitor electrolytes and replete as needed, NPO Ppx - Low risk for DVT Code -Full Dispo - Admit to medical History of Present Illness Chief Complaint: abdominal pain Primary Care Provider: Chet Ordonez MD Margie Norton is a pleasant 56yo female with prior diverticulitis s/p bowel resection appx 10 years ago at [facility] [place], recurrent SBO presenting with abdominal pain. She has never had surgery for SBO. Patient was in her usual state of health until this afternoon around 17:00 when she developed LLQ pain after eating dinner. Pain in the LLQ is typical for her SBO pain. Her pain persisted and worsened throughout the evening, severe, 8/10. She had associated nausea with multiple episodes of nonbloody/non-bilious vomiting. She is passing a small amount of flatus and had two small BMs appx 30 minutes ago. She has no additional complaints - denies fever, chills, chest pain, cough, SOB. In the ER she is afebrile, HD stable. Pain is well controlled after IV dilaudid 0.5mg, starting to return now. ER Course: Dilaudid, Zofran, Phenergan Allergies Allergy/AdvReac Type Severity Reaction Status Date / Time erythromycin base Allergy Intermediate EDEMA OF Verified 02/09/22 01:41 MOUTH/LIPS oxycodone AdvReac Intermediate Chest Verified 02/09/22 01:41 Pain.SYNCOPY tramadol AdvReac Intermediate CHEST Verified 02/09/22 01:41 PAIN,SYNCOPE Home Medications Medication Instructions Recorded Confirmed Type aloe vera 25 mg capsule 1 cap PO QAM 03/01/18 02/09/22 History ascorbic acid (vitamin C) 500 mg 500 mg PO DAILY 03/01/18 02/09/22 History tablet (Vitamin C) calcium carbonate 500 mg-vitamin 1 tab PO QAM 03/01/18 02/09/22 History D3 5 mcg (200 unit) tablet (Calcium 500 + D) cholecalciferol (vitamin D3) 125 5,000 unit PO DAILY 03/01/18 02/09/22 History mcg (5,000 unit) capsule multivitamin 1 tab PO QAM 03/01/18 02/09/22 History ascorbic acid 7.5 mg-vit E 7.5 1 tab PO DAILY 06/29/19 02/09/22 History unit-biotin 1,250 mcg chewable tablet (Hair,Skin,Nails with Biotin) echinacea 500 mg capsule 500 mg PO DAILY 06/29/19 02/09/22 History levothyroxine 100 mcg tablet 100 mcg PO DAILYBB 07/26/20 02/09/22 History docusate sodium 100 mg capsule 100 mg PO BID #60 caps 12/03/20 02/09/22 Rx (Colace) estradiol 0.0375 mg/24 hr weekly 1 patch transdermal WK #12 ea 12/04/21 02/09/22 Rx transdermal patch oxycodone 5 mg tablet 5 mg PO Q6 PRN pain #20 tabs 01/12/22 02/09/22 Rx sennosides 8.6 mg tablet (Senokot) 8.6 mg PO HS PRN while taking 02/09/22 02/09/22 History narcotics Past Med/Surg History Medical History (Updated 02/09/22 @ 03:37 by Марина Zarate DO) Bradycardia PT'S NORM. PT STATES WHEN SLEEPING THAT POST OP HER HR IS HIGH 30'S AND LOW 40'S. 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 PT HAS NOT NEEDED AN ECHO IS "SEVERAL YEARS" Diverticular disease History of intestinal obstruction Postmenopausal hormone replacement therapy Small bowel obstruction numerous episodes Small bowel obstruction Surgical History Family history of reaction to anesthesia SISTER/NAUSEA H/O oophorectomy H/O right knee surgery History of bilateral tubal ligation History of bowel resection S/P DIVERTICULITIS (hem[facility]lectomy) - [facility] () History of hysterectomy PARTIAL History of thumb surgery RIGHT HAND History of wisdom tooth extraction Hx of breast reduction, elective Status post trigger finger release Family History Mother Hypertension Stroke Family/Other Breast cancer maternal cousin Uncle Colorectal cancer paternal Father Atrial fibrillation Sister GIST, non-malignant stomach Other Kidney stones Denies family history of Ovarian cancer Social History Smoking Status: Never smoker Second Hand Exposure: No; Hx Alcohol Use: Yes Alcohol type: wine Alcohol Intake Frequency Comment: a glass of wine once a week or so Preferred Language: Pakistani Communication Ability: Effective Etl Software Engineer Required: No Beliefs That Will Affect Care: None marital status: Current Living Situation: Spouse Current Living Situation Comment: [place] 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[employer]; 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[place] How many Children do You have: 2 How many Children do You have Comment: 1 son, 1 daughter Feels Safe at Home: Yes Assistive Devices: None Review of Systems Review of Systems: All systems reviewed & are unremarkable except as noted in HPI & below Physical Exam Physical Exam: General: patient resting comfortably, NAD, non-toxic in appearance, AA&O x 4 Skin: warm, dry, intact, no rashes or lesions HEENT: NC/AT, PERRL, EOMI, anicteric sclera, conjunctiva without injection, external ear normal to inspection and nontender, nares patent, moist mucus membranes, dentition intact, no oropharyngeal lesions, neck supple, trachea midline, no LAD, no thyromegaly, no JVD Heart: +S1/S2, regular, no m/r/g Lungs: equal air entry bilaterally, no rales/rhonchi/wheezes Abd: +BS, soft, ND, diffuse abdominal pain without rebound/guarding/peritonitis, no masses/organomegaly/ascites Ext: warm, 2+ pulses in UE/LE bilaterally, no clubbing/cyanosis or edema Neuro: nonfocal, patient AA&O x 4, speech intact, no facial droop, moving all extremities on command with equal strength 5/5 Results & Data Results & Data ([facility]) Vital Signs (Past 12 Hours) Vital Signs Temp Pulse Pulse Resp BP BP Pulse Ox 02/09/22 00:55 85 21 138/81 98 02/08/22 22:31 36.2 C L 62 18 119/94 100 O2 Del Method 02/09/22 00:55 Room Air 02/08/22 22:31 Laboratory Results Laboratory Results WBC 9.01 K/ul (4.8-10.8) 02/08/22 22:35 RBC 4.74 M/uL (3.93-5.22) 02/08/22 22:35 Hgb 14.6 g/dl (12.0-16.0) 02/08/22 22:35 Hct 40.7 % (34.1-44.9) 02/08/22 22:35 MCV 85.9 fL (80.0-100.0) 02/08/22 22:35 MCH 30.8 pg (25.0-34.0) 02/08/22:35 MCHC 35.9 g/dL (32.0-36.0) 02/08/22:35 RDW Std Deviation 40.5 fL (36.4-46.3) 02/08/22: RDW Coeff of Yani 13.0 % (11.5-14.5) 02/08/22: Plt Count 213 K/uL (130-400) 02/08/22 22:35 MPV 10.5 fL (9.4-12.3) 02/08/22 22:35 Immature Gran % (Auto) 0.3 % 02/08/22 22:35 Neut % (Auto) 69.9 % 02/08/22 22:35 Lymph % (Auto) 21.2 % 02/08/22 22:35 Dickson % (Auto) 7.0 % 02/08/22 22:35 Eos % (Auto) 0.8 % 02/08/22:35 Baso % (Auto) 0.8 % 02/08/22 22:35 Neut # (Auto) 6.30 K/uL (1.4-6.5) 02/08/22 22:35 Lymph # (Auto) 1.91 K/uL (1.2-3.4) 02/08/22 22:35 Dickson # (Auto) 0.63 K/uL (0.24-0.82) 02/08/22 22:35 Eos # (Auto) 0.07 K/uL (0-0.50) 02/08/22 22:35 Baso # (Auto) 0.07 K/uL (0-0.2) 02/08/22 22:35 Immature Gran # (Auto) 0.03 K/uL (0.00-0.02) H 02/08/22 22:35 Sodium 139 mmol/L (136-145) 02/08/22 22:35 Potassium 3.8 mmol/L (3.5-5.1) 02/08/22 22:35 Chloride 106 mmol/L (98-107) 02/08/22 22:35 Carbon Dioxide 23 mmol/L (21-32) 02/08/22 22:35 Anion Gap 10 (3-11) 02/08/22 22:35 BUN 16 mg/dl (6-23) 02/08/22 22:35 Creatinine 0.79 mg/dl (0.6-1.2) 02/08/22:35 Est Cr Clr Drug Dosing Not Reportable 02/08/22 22:35 Est GFR ( Amer) 97.7 ml/min 02/08/22 22:35 Est GFR (Non-Af Amer) 84.3 ml/min 02/08/22 22:35 BUN/Creatinine Ratio 20.3 (10-20) H 02/08/22 22:35 Glucose 96 mg/dl (70-99(Fasting)) 02/08/22 22:35 Calcium 9.9 mg/dl (8.5-10.1) 02/08/22:35 Total Bilirubin 0.4 mg/dl (0.2-1.0) 02/08/22 22:35 AST 22 U/L (13-39) 02/08/22 22:35 ALT 18 U/L (7-52) 02/08/22 22:35 Alkaline Phosphatase 55 U/L (34-104) 02/08/22 22:35 Total Protein 8.0 gm/dl (6.0-8.3) 02/08/22 22:35 Albumin 4.3 gm/dl (3.4-5.0) 02/08/22:35 Globulin 3.7 gm/dl (2.5-4.0) 02/08/22 22:35 Albumin/Globulin Ratio 1.2 (0.9-2) 02/08/22 22:35 Lipase 51 U/L (11-82) 02/08/22 22:35 Urine Color Yellow 02/08/22 23:00 Urine Appearance Cloudy (Clear) A 02/08/22 23:00 Urine pH >= 9.0 (4.5-7.5) H 02/08/22 23:00 Ur Specific Somers 1.016 (1.000-1.030) 02/08/22 23:00 Urine Protein Trace (Negative) H 02/08/22 23:00 Urine Glucose (UA) Negative (Negative) 02/08/22 23:00 Urine Ketones Trace (Negative) H 02/08/22 23:00 Urine Blood Negative (Negative) 02/08/22 23:00 Urine Nitrite Negative (Negative) 02/08/22 23:00 Urine Bilirubin Negative (Negative) 02/08/22:00 Urine Urobilinogen Negative (Negative) 02/08/22 23:00 Ur Leukocyte Esterase Negative (Negative) 02/08/22 23:00 Urine WBC (Auto) 0 /hpf (0-5) 02/08/22 23:00 Urine RBC (Auto) 0-4 /hpf (0-4) 02/08/22:00 U Hyaline Cast (Auto) 0 /lpf (0-5) 02/08/22 23:00 U Epithel Cells (Auto) >30 /lpf (0-5) H 02/08/22 23:00 Urine Bacteria (Auto) Negative (Negative) 02/08/22 23:00 Ur Renal Epithelial Cell Not Reportable 02/08/22 23:00 Amorphous Sediment Present (None Prsent) A 02/08/22 23:00 SARS-CoV-2, RNA, NAAT NEGATIVE (NEGATIVE) 02/09/22 01:[address] Abdomen and pelvis with contrast: Per STAT rad - high-grade small bowel obstruction measures up to 3.8 cm with a collapsed appearance of distal small bowel loops. Consider adhesions a likely etiology with zone of transition int he left lower quadrant. Alternatively, the small bowel distal to the transition zone in the region fo the left iliac fossa is slightly thick-walled which may reflect a nonspecific enteritis raising the possibility that a small bowel stricture may also be present. PG Care Time/CCT Total # of Minutes Spent Total Time Spent with Patient: Total time spent is greater than 50% in coordination of care (as documented) at patient's floor/unit and/or counseling patient: Coding Level of Care Code 66435 Initial Inpt Care Lvl 2 Diagnoses Small bowel obstruction K56.609
[2022-02-09] MEDS ORDERED: MoRPHine SULFATE 4 MG/ML 1 ML CARP\\VIAL IV PRN (05:52)
[2022-02-09] MEDS: LEVOTHYROXINE SODIUM 100 MCG TABLET PO SCH (06:27)
[2022-02-09] MEDS: LACTATED RINGER'S 1,000 ML IV SCH ×2 (06:28→17:26)
--- NOTE | 2022-02-09 07:04 | Hospitalist Progress Note ---
Date of Service February 09, 2022 Assessment & Plan (1) Small bowel obstruction: (2) Nausea & vomiting: (3) Abdominal pain: Plan Margie Norton is a pleasant 56yo female with prior diverticulitis s/p bowel [place] [facility] [place] recurrent SBO presenting with abdominal pa in. She has never had surgery for SBO. On 02/08 pt was eating dinner and started to have LLQ pain.She had associated nausea with multiple episodes of nonbloody/non-bilious vomiting. She is passing a small amount of flatus and stated that she has had two small BMs. She has no additional complaints - denies fever, chills, chest pain, cough, SOB. Small bowel obstruction -CT scan consistent with SBO. -CBC, CMP, bilirubin, protein levels are unremarkable. -General Surgery consulted -NPO, Continue Morphine PRN, Zofran PRN, and IVF -NGT should pain or nausea progress. Pain and nausea tolerated at this time. -Will continue to monitor. -Repeat CBC and BMP tomorrow. F/E/N - LR at 100mL/hr, monitor electrolytes and replete as needed, NPO Ppx - Low risk for DVT Code -Full Dispo - med/surg Admission and Anticipated Discharge Date Admission Date: February 09, 2022 Supervising Physician Co-Signing Physician Notes Resident Physician Supervision Note: I independently interviewed and examined the patient and verified the potter history and physical, reviewed labs and image studies and agree with resident findings and care plan. Subjective Patient was seen bedside this AM. She states that she is still nausea at this time but has not had an further episodes of vomiting since yesterday. States that zofran has not really helped with the nausea but phenergan has helped. Patient states that her abdominal pain has improved significantly with the IV pain meds and she has been able to pas gas. She still has not had a significant BM at this time. Reports small passage of stools. Majority of her pain is in her L side of her abdomen. Review of Systems Review of Systems: Constitutional: denies fever, chills, fatigue HEENT: denies congestion, sore throat CV: denies chest pain, palpitations Resp: denies shortness of breath, cough GI: denies vomiting, diarrhea +constipation, ab pain, and nausea : denies pain with urination, change in urinary frequency Neuro: denies new numbness, tingling, weakness Physical Exam Physical Exam: Constitutional: well-appearing, mild distress HEENT: NCAT, no conjunctival injection CV: regular rhythm, no murmur appreciated, extremities well-perfused, no LE edema Resp: CTABL, no wheezes/rales/rhonchi appreciated, no increased work of breathing GI: soft, nondistended, nontender, BS normoactive MSK: no gross deformities appreciated Skin: warm, dry, no rash appreciated Neuro: alert, oriented, no focal neurologic deficit appreciated Results & Data Results & Data ([facility]) Vital Signs (Past 12 Hours) Vital Signs Temp Pulse Pulse Resp BP BP Pulse Ox 02/09/22 05:52 36.6 C 68 18 119/73 98 02/09/22 05:00 70 18 114/75 99 02/09/22 03:00 64 20 119/72 98 02/09/22 00:55 85 21 138/81 98 02/08/22 22:31 36.2 C L 62 18 119/94 100 O2 Del Method 02/09/22 05:52 Room Air 02/09/22 05:00 Room Air 02/09/22 03:00 Room Air 02/09/22 00:55 Room Air 02/08/22 22:31 Resident Activity Tracking Resident Involvement: Resident Care Provided Care Provided: Adult Hospital Medicine
--- NOTE | 2022-02-09 07:33 | CT Scan Report ---
ABDOMEN AND PELVIS CT WITH IV CONTRAST CT DOSE: 327.07 mGy.cm HISTORY: Left lower quadrant pain, N/V, hx. SBO TECHNIQUE: Multiaxial CT images of the abdomen and pelvis were performed following the use of intrave nous contrast. A dose lowering technique was utilized adhering to the principles of ALARA. COMPARISON STUDY: Abdomen and pelvis CT 10/18/2020. FINDINGS: Dilated loops of proximal to mid small bowel. With a focal transition point within the jeju num within the left mid abdomen on image 261 consistent with a small bowel obstruction. The dilated l oops of fluid-filled small bowel measure up to 4.2 cm in diameter. Mild thickening of the decompresse d jejunal loops within the left side of the abdomen. Trace pelvic free fluid. Distal sigmoid anastomo sis again noted. Colonic diverticulosis. No evidence for acute diverticulitis. Normal appendix. The b ladder is decompressed. The uterus is surgically absent. Trace mesenteric edema adjacent to the dilat ed loops of small bowel within the left side the abdomen. Prior cholecystectomy. The liver, spleen, a drenal glands, pancreas, and kidneys are unremarkable. No hydronephrosis. No retroperitoneal lymphade nopathy. The main portal vein is patent. Normal caliber abdominal aorta. No suspicious lytic are robby tic osseous lesions. Stable 4 mm nodule within the left lower lobe on image 22. This is considered to be benign given the greater than 2 year stability. No pneumoperitoneum. No pneumatosis. IMPRESSION: 1. Small bowel obstruction with the transition point located within the left mid abdomen where there are a few thickened loops of jejunum at this location. This is similar to the prior study. Therefore, this could represent a chronic stricture and/or a focal nonspecific enteritis. 2. Trace pelvic free fluid. 3. Colonic diverticulosis. No evidence for acute diverticulitis. 4. Additional findings as described above. ACT 112: Negative or not required by law. Electronically signed by: Michael Edwards M.D. 02/09/2022 7:32 AM
[2022-02-09] MEDS: ONDANSETRON INJ 2 MG/ML 2 ML VIAL IV PRN ×2 (08:17→14:32)
[2022-02-09] MEDS: MoRPHine SULFATE 2 MG/ML CARP IV PRN ×2 (08:17→11:34)
[2022-02-09] MEDS ORDERED: PROMETHAZINE HCL 12.5 MG in SODIUM CHLORIDE 0.9% 50 ML IV PRN (08:33)
--- NOTE | 2022-02-09 14:43 | Medical Student Progress Note ---
Date of Service February 09, 2022 Assessment & Plan (1) Abdominal pain: Plan (1) Small bowel obstruction: 56yo female presenting with SBO. Patient with history bowel resection for diverticulitis, hysterectomy. Pain is well controlled at present. No nausea. -Admit to medical -Keep NPO -Conservative therapy with Morphine PRN, Zofran, Phenergan -Gentle IVF -NGT should pain or nausea progress -General surgery consultation appreciated --NPO, IV fluid, control pain, may need NG tube if pt is still have vomiting or more abdominal pain, repeat labs tomorrow, pt agrees with the plan -Bowel Rest (2) Hypothyroidism -levothyroxine 100mcg PO F/E/N - LR at 100mL/hr, monitor electrolytes and replete as needed, NPO Ppx - Low risk for DVT Code -Full Dispo - Admit to medical Admission and Anticipated Discharge Date Admission Date: February 09, 2022 Subjective Better but still nausea, 4/10 pain improved from 10/10 yd. Last BM last night skinny. Flatus occurred around 12 pm today. Loose stools normally. Fairly regular everyday sometimes every 2 days. Slight IRVING after receiving Dilaudid. No fever, vomiiting, dysuria, diarrhea. Review of Systems Review of Systems: as per hpi Physical Exam Constitutional: WD/WN, vitals as above Respiratory: normal respiratory effort, lungs clear to auscultation Cardiovascular: RRR, no murmur, no edema Gastrointestinal (Abdomen): laparoscopic scars; lower quadrant pain to deep palpation; bowel sounds present Results & Data ([facility]) Vital Signs (Past 12 Hours) Vital Signs Temp Pulse Resp BP Pulse Ox O2 Del Method 02/09/22 07:59 36.9 C 69 16 114/69 97 Room Air 02/09/22 05:52 36.6 C 68 18 119/73 98 Room Air 02/09/22 05:00 70 18 114/75 99 Room Air 02/09/22 03:00 64 20 119/72 98 Room Air
[2022-02-10] MEDS ORDERED: ACETAMINOPHEN 1,000 MG/100 ML VIAL IV STA (03:36)
--- NOTE | 2022-02-10 05:49 | Surgery Progress Note ---
Date of Service February 10, 2022 Assessment & Plan (1) Abdominal pain: Plan: Patient has been admitted on the hospitalist service. We recommend proceeding as follows: Continue IV fluids until oral intake is deemed adequate As patient has had improved and her clinical exam and her bowel function has returned to returned consideration can be given to advancing her diet beginning with clear liquids Admission and Anticipated Discharge Date Admission Date: February 09, 2022 Supervising Physician Co-Signing Physician Notes As per Clemente Metcalf physician hospital aides and assistants teacher The abdomen is soft minimally distended there is no localized tenderness Subjective Patient is resting comfortably in bed. She notes over the past 12 hours she has had a small bowel movement and is passing flatus. She notes that she does not have any abdominal pain and does not have any nausea or vomiting. Physical Exam Gastrointestinal (Abdomen): Abdomen is soft and nondistended with positive bowel sounds. There is minimal to no pain with palpation. Results & Data ([facility]) Vital Signs (Past 12 Hours) Vital Signs Temp Pulse Resp BP Pulse Ox O2 Del Method 02/09/22 23:21 36.8 C 53 L 16 107/68 98 Room Air PG Care Time/CCT Total # of Minutes Spent Total Time Spent with Patient: Total time spent is greater than 50% in coordination of care (as documented) at patient's floor/unit and/or counseling patient: Coding Level of Care Code 37959 Subseq Hosp Care Lvl 1 Diagnoses Abdominal pain R10.9
[2022-02-10] MEDS: LEVOTHYROXINE SODIUM 100 MCG TABLET PO SCH (06:15)
[2022-02-10 06:19] LABS: Hematocrit (blood only) 37.1 % (34.1-44.9); Hemoglobin 12.6 g/dl (12.0-16.0); Mean Corpuscular Hemoglobin 30.1 pg (25.0-34.0); Mean Corpuscular Volume 88.5 fL (80.0-100.0); Mean Platelet Volume 10.5 fL (9.4-12.3); Platelet Count 177 K/uL (130-400); RDW Coefficient of Variation 13.6 % (11.5-14.5); RDW Standard Deviation 44.1 fL (36.4-46.3); Red Blood Count 4.19 M/uL (3.93-5.22); White Blood Count 5.64 K/ul (4.8-10.8)
--- NOTE | 2022-02-10 07:09 | Hospitalist Progress Note ---
Date of Service February 10, 2022 Assessment & Plan (1) Small bowel obstruction: (2) Nausea & vomiting: (3) Abdominal pain: Plan Margie Norton is a 56yo female with prior diverticulitis s/p bowel resection appx 10 years ago at [facility] [place], recurrent SBO presenting with abdominal pain. On pt was eating dinner and started to have LLQ pain.She had associated nausea with multiple episodes of nonbloody/non-bilious vomiting. She is passing a small amount of flatus and stated that she has had two small BMs. She has no additional complaints. Small bowel obstruction -CT scan consistent with SBO. -CBC, CMP, bilirubin, protein levels are unremarkable. -General Surgery consulted - conservative mx -Pain and nausea have almost completely resolved at this time. -Advanced diet from NPO to clear liquids today. Will monitor and if oral intake is adequate then can D/C IVF -d/c IVF F/E/N - hep lock, monitor electrolytes and replete as needed, clear liquids Ppx - Low risk for DVT Code -Full Dispo - med/surg Admission and Anticipated Discharge Date Admission Date: February 09, 2022 Supervising Physician Co-Signing Physician Notes Resident Physician Supervision Note: I independently interviewed and examined the patient and verified the potter history and physical, reviewed labs and image studies and agree with resident findings and care plan. Subjective Patient was seen bedside this AM. She states that her ab pain is much better and is just slightly tender to the touch. She has been able to pass a small amount of stool and has been passing flatus. She is also no longer having any N/V. She has been able to get up and work around. Review of Systems Review of Systems: Constitutional: denies fever, chills, fatigue HEENT: denies congestion, sore throat CV: denies chest pain, palpitations Resp: denies shortness of breath, cough GI: denies, nausea, vomiting, diarrhea +ab pain tenderness and constipation : denies pain with urination, change in urinary frequency Neuro: denies new numbness, tingling, weakness Physical Exam Physical Exam: Constitutional: well-appearing, no acute distress HEENT: NCAT, no conjunctival injection CV: regular rhythm, no murmur appreciated, extremities well-perfused, no LE edema Resp: CTABL, no wheezes/rales/rhonchi appreciated, no increased work of breathing GI: soft, nondistended, nontender, BS normoactive MSK: no gross deformities appreciated Skin: warm, dry, no rash appreciated Neuro: alert, oriented, no focal neurologic deficit appreciated Results & Data Results & Data ([facility]) Vital Signs (Past 12 Hours) Vital Signs Temp Pulse Resp BP Pulse Ox O2 Del Method 02/09/22 23:21 36.8 C 53 L 16 107/68 98 Room Air Resident Activity Tracking Resident Involvement: Resident Care Provided Care Provided: Adult Hospital Medicine
[2022-02-10 07:12] LABS: BUN Creatinine Ratio 17.1 (10-20); Calcium 8.8 mg/dl (8.5-10.1); Creatinine Clr Calc Pharmacy 78.2 ml/min; Est GFR (African American) 93.4 ml/min; Est GFR (Non-African American) 80.6 ml/min; Potassium 3.9 mmol/L (3.5-5.1)
[2022-02-10 08:15] LABS: Basophils # (auto) 0.04 K/uL (0-0.2); Basophils % (auto) 0.7 %; Eosinophils # (auto) 0.12 K/uL (0-0.50); Eosinophils % (auto) 2.1 %; Immature Granulocytes # (auto) 0.03 K/uL (0.00-0.02); Immature Granulocytes % (auto) 0.5 %; Lymphocytes # (auto) 1.65 K/uL (1.2-3.4); Lymphocytes % (auto) 28.9 %; Monocytes # (auto) 0.76 K/uL (0.24-0.82); Monocytes % (auto) 13.3 %; Neutrophils % (auto) 54.5 %
[2022-02-10] MEDS ORDERED: ACETAMINOPHEN 500 MG TAB PO ONE (12:00)
--- NOTE | 2022-02-11 05:06 | Surgery Progress Note ---
Date of Service February 11, 2022 Assessment & Plan (1) Abdominal pain: Plan: Patient has been admitted on the hospitalist service. We recommend proceeding as follows: As patient is tolerating liquid diet, primary service has ordered for diet to be advanced to regular for a.m. meal. If solid food as tolerated patient can likely be discharged home thereafter Admission and Anticipated Discharge Date Admission Date: February 09, 2022 Supervising Physician Co-Signing Physician Notes As per Clemente Metcalf physician anesthesia assistant The patient has no complaints tolerated a liquid diet has multiple bowel movements The abdomen is completely benign From surgical point of view the patient can be discharged instructions given to her would be low fiber diet until her stools normalize in caliber then at that time go to a high-fiber diet She should follow-up with Dr. Lobo in his office on an as-needed basis Subjective Patient is resting comfortably in bed. She denies significant abdominal pain. She denies any nausea or vomiting. She tolerated liquids yesterday. She notes that she continues to have bowel movements. She is interested in trying diet advancement. Physical Exam Gastrointestinal (Abdomen): Bowel sounds are present. Abdomen is soft, nondistended, nontender to palpation. Results & Data ([facility]) Vital Signs (Past 12 Hours) Vital Signs Temp Pulse Resp BP Pulse Ox O2 Del Method 02/10/22 22:37 36.8 C 64 16 110/71 99 Room Air PG Care Time/CCT Total # of Minutes Spent Total Time Spent with Patient: Total time spent is greater than 50% in coordination of care (as documented) at patient's floor/unit and/or counseling patient: Coding Level of Care Code 99991 Subseq Hosp Care Lvl 1 Diagnoses Abdominal pain R10.9
[2022-02-11] MEDS: LEVOTHYROXINE SODIUM 100 MCG TABLET PO SCH (05:35)
--- NOTE | 2022-02-11 09:38 | Discharge Summary ---
Date of Service February 11, 2022 Admission HPI Per Admitting Provider Margie Norton is a pleasant 56yo female with prior diverticulitis s/p bowel resection appx 10 years ago at [facility], recurrent SBO presenting with abdominal pain. She has never had surgery for SBO. Patient was in her usual state of health until this afternoon around 17:00 when she developed LLQ pain after eating dinner. Pain in the LLQ is typical for her SBO pain. Her pain persisted and worsened throughout the evening, severe, 8/10. She had associated nausea with multiple episodes of nonbloody/non-bilious vomiting. She is passing a small amount of flatus and had two small BMs appx 30 minutes ago. She has no additional complaints - denies fever, chills, chest pain, cough, SOB. In the ER she is afebrile, HD stable. Pain is well controlled after IV dilaudid 0.5mg, starting to return now. ER Course: Dilaudid, Zofran, Phenergan Admission Exam Per Admitting Provider General: patient resting comfortably, NAD, non-toxic in appearance, AA&O x 4 Skin: warm, dry, intact, no rashes or lesions HEENT: NC/AT, PERRL, EOMI, anicteric sclera, conjunctiva without injection, external ear normal to inspection and nontender, nares patent, moist mucus membranes, dentition intact, no oropharyngeal lesions, neck supple, trachea midline, no LAD, no thyromegaly, no JVD Heart: +S1/S2, regular, no m/r/g Lungs: equal air entry bilaterally, no rales/rhonchi/wheezes Abd: +BS, soft, ND, diffuse abdominal pain without rebound/guarding/peritonitis, no masses/organomegaly/ascites Ext: warm, 2+ pulses in UE/LE bilaterally, no clubbing/cyanosis or edema Neuro: nonfocal, patient AA&O x 4, speech intact, no facial droop, moving all extremities on command with equal strength 5/5 Principal Diagnosis small bowel obstruction Discharge Exam Constitutional: well-appearing, no acute distress HEENT: NCAT, no conjunctival injection CV: regular rhythm, no murmur appreciated, extremities well-perfused, no LE edema Resp: CTABL, no wheezes/rales/rhonchi appreciated, no increased work of breathing GI: soft, nondistended, nontender, BS normoactive MSK: no gross deformities appreciated Skin: warm, dry, no rash appreciated Neuro: alert, oriented, no focal neurologic deficit appreciated Discharge Data Allergies Allergy/AdvReac Type Severity Reaction Status Date / Time erythromycin base Allergy Intermediate EDEMA OF Verified 02/09/22 01:41 MOUTH/LIPS oxycodone AdvReac Intermediate Chest Verified 02/09/22 01:41 Pain.SYNCOPY tramadol AdvReac Intermediate CHEST Verified 02/09/22 01:41 PAIN,SYNCOPE Consultations 02/09/22 02:24 ED Decision to Admit Stat 02/09/22 05:52 Consult General Surgery Routine Ordered Studies 02/09/22 00:07 CT abd pelvis IV con only Urgent Hospital Course (1) Small bowel obstruction: (2) Nausea & vomiting: (3) Abdominal pain: Plan Margie Norton is a 56yo female with prior diverticulitis s/p bowel resection appx 10 years ago at [facility], recurrent SBO presenting with abdominal pain. On 02/08 pt was eating dinner and started to have LLQ pain.She had associated nausea with multiple episodes of nonbloody/non-bilious vomiting. Small bowel obstruction -CT scan consistent with SBO. -CBC, CMP, bilirubin, protein levels are unremarkable. -General Surgery consulted - conservative mx -Pain and nausea have almost completely resolved -Advanced diet without any issues and have had 2 small bowel movements on date of discharge. -Diet recommendations: low fiber diet until stools normalize. Then high fiber diet -Should follow up with her PCP in a week or return to the hospital if she is not able to have a significant BM. Total Time Total Time Spent Total Time Spent (In Minutes): 30 Discharge Plan Discharge Items Patient Disposition: Home - Self-Care Reason For Visit: SBO Discharge Diagnosis: Small bowel obstruction Activity: Resume your previous activity Non-emergency contact: Primary Care Provider Call non-emergency contact if: you have any medication questions, your pain is concerning for you and your temperature is above 101.5 Follow-up/Referrals: Chet Ordonez MD [Primary Care Provider] - Paula Lobo MD [Physician] - (PT WILL F/U WITH SURGERY PRN) Diet: Other - See Diet Comment Diet Comment: low fiber diet until stools normalize. Then high fiber diet Addtl Attending Provider Instructions: You were admitted to the hospital for small bowel obstruction. You were treated with IV fluids, pain medication, nausea medication. We advanced your diet as tolerated and you were able to have some small bowel movements. A discharge summary will be sent to your primary care physician to ensure continuity of care. Please bring this discharge summary with you to your next office appointment so that your provider can review it at that time. Follow-up appointments: * Make a follow-up appointment with your Dr. Ordonez (PCP) within the next week. It is very important that you follow up with them shortly after discharge from the hospital. * Make a follow-up appointment with Dr. Lobo when needed for continue management of your small bowel obstruction. * Keep all your follow-up appointments as already scheduled. If you cannot make an appointment, notify your provider. Medications: Your medication list has been reviewed and reconciled upon discharge to ensure accuracy and continuity of care. An updated list of all your medications is included with your hospital discharge paperwork. Please review this list closely, and make note of any changes. * No new medications were added for you during this admission. * Take your medications as instructed; do not skip a dose of your medicines. Make sure all of your doctors know every medicine you are taking (including vaze-oez-sksvicf medicines, vitamins, and supplements). Call your primary care provider before taking any new medicines (including over- the-counter medicines, vitamins, and supplements), because some of these may interact with your current medications, or may make your symptoms worse. Tell your primary care provider if you cannot afford your medications. CONTACT YOUR PRIMARY CARE PROVIDER if you experience any of the following: * Worsening of symptoms * Fever, chills, or fatigue * Difficulty following your treatment plan, or difficulty taking medications CALL 911 OR GO TO THE EMERGENCY DEPARTMENT if you experience any of the following: * Sudden, severe abdominal pain or nausea/vomiting * Severe chest pain, or chest pain that radiates (moves) to your jaw or arm * Sudden, severe shortness of breath or difficulty breathing Thank you for allowing us to participate in your care. Pending Studies at Discharge: No Stand-Alone Forms: My [email or web address], Smoking Cessation Medications and DC Order Prescriptions: Continued estradiol 0.0375 mg/24 hr patch weekly 1 patch Transdermal WK Qty: 12 2RF Rx Instructions: CHANGE THIS PATCH EVERY SATURDAY oxycodone 5 mg tablet 5 mg PO Q6 PRN (Reason: pain) Qty: 20 0RF Hair, Skin, Nails with Biotin 7.5-7.5-1,250 mg-unit-mcg Tablet,Chewable 1 tab PO DAILY echinacea 500 mg Capsule 500 mg PO DAILY multivitamin Tablet 1 tab PO QAM ascorbic acid (vitamin C) [Vitamin C] 500 mg Tablet 500 mg PO DAILY cholecalciferol (vitamin D3) 5,000 unit Capsule 5,000 unit PO DAILY aloe vera 25 mg Capsule 1 cap PO QAM calcium carbonate-vitamin D3 [Calcium 500 + D] 500 mg(1,250mg) -200 unit Tablet 1 tab PO QAM levothyroxine 100 mcg tablet 100 mcg PO DAILYBB docusate sodium [Colace] 100 mg capsule 100 mg PO BID Qty: 60 0RF sennosides [Senokot] 8.6 mg tablet 8.6 mg PO HS PRN (Reason: while taking narcotics) Label Comments: ONLY TAKES PRN IF TAKING PAIN MEDS Discharge Orders: Discharge Order (Routine); Ordered 02/11/22 Ordered By: Erwin Maddox Admission Data Admit Date/Time: 02/09/22 02:46 Attending Provider: Concepción Hoff Admit Provider: Марина Zarate Primary Care Provider: Chet Ordonez Other Providers: Марина Zarate ; Paula Lobo Other Interventions: Discharge Summary Assessment (RN) Last Done: 02/11/22 09:49 Supervising Physician Co-Signing Physician Notes Resident Physician Supervision Note: I independently interviewed and examined the patient and verified the potter history and physical, reviewed labs and image studies and agree with resident findings and care plan. Resident Activity Tracking Resident Involvement: Resident Care Provided Care Provided: Adult Hospital Medicine
== END 2022-02-11 10:19 | disposition home or self-care (01) | DRG 390 ==
LOC: ED 22:26 → SUATTDRO 02-09 02:46 → 3N 02-09 02:46

== ENCOUNTER 2022-05-04 02:50 | Inpatient (IN) ==
[2022-05-04] MEDS ORDERED: SODIUM CHLORIDE 0.9% 1000ML 1,000 ML IV STA (02:53)
--- NOTE | 2022-05-04 03:07 | Emergency Department Note ---
Impression & Plan SBO (small bowel obstruction) ADMIT ED Provider Note HPI: The patient is a 56-year-old female with history of diverticulitis status post partial bowel resection approximately 14 years ago, history of recurrent small bowel obstruction, presents emergency department with a chief complaint of lower abdominal pain. Patient states that her pain began about 2 hours prior to arrival to the ED. She has had approximately 4 episodes of vomiting. Patient states this does feel somewhat different than small bowel obstruction episodes that she has had in the past. On arrival here to the ED the patient is hemodynamically stable, she is in no acute distress, she was given a dose of fentanyl prior to arrival and she states this did help significantly with her discomfort. ROS: - Per HPI *Outpatient medications and allergy history reviewed. *Pertinent external medical records reviewed. 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 Findings could represent early or partial SBO related to enteritis. Normal appendix. Surgical changes sigmoid colon. Colonic diverticulosis. Cholecys tectomy. Prior exam unavailable for comparison due to technical issues. Radiologist:Kamlesh Quezada MD Interventions provided in ED: -IV morphine, IV Zofran Medical Decision Making: Patient presented to the emergency department with abdominal discomfort, she does have a history of small bowel obstructions that been recurrent since a partial colectomy about [address] diverticulitis[address] imaging of the abdomen pelvis was obtained that shows evidence of what appears to be partial small bowel obstruction related to possibly enteritis. Appendix appears normal. Lab work was obtained and is largely reassuring, lactic acid is within normal limits patient does have a history of small bowel obstruction with apparent transition point near the left lower quadrant which is noted in CT imaging read tonight by stat rad. Given the patient's history, I do feel that she would benefit from admission for symptomatic management and surgical consultation if symptoms worsen. Patient states she would prefer not to have an NG tube placed unless she becomes more symptomatic as she has not had any active vomiting here but she still does feel nauseous with some lower abdominal pain. Pain is improved following IV morphine and nausea is improved following IV Zofran. Case was discussed with the on-call hospitalist for [facility], Dr. Zarate, and the patient was admitted in stable condition for further care. Disposition discussion held by myself with: Patient and at the bedside Diagnosis: 1. Abdominal pain, acute 2. Small bowel obstruction 3. Nausea and vomiting Disposition: Admission George Delaney DO Emergency Medicine Past Med/Surg History Medical History Bradycardia PT'S NORM. PT STATES WHEN SLEEPING THAT POST OP HER HR IS HIGH 30'S AND LOW 40'S. Congenital mitral valve prolapse NOT HAD ANY ISSUES. Last echo was normal through [facility] around 2019 Diverticular disease History of intestinal obstruction Hypothyroidism Postmenopausal hormone replacement therapy Small bowel obstruction hx Surgical History Family history of reaction to anesthesia SISTER/NAUSEA H/O oophorectomy H/O right knee surgery History of bilateral tubal ligation History of bowel resection S/P DIVERTICULITIS (hemicolectomy) - [facility] () History of section History of hysterectomy PARTIAL History of photorefractive keratectomy (PRK) History of thumb surgery RIGHT HAND History of wisdom tooth extraction Hx of breast reduction, elective Status post trigger finger release Family History Mother Hypertension Stroke Family/Other Breast cancer maternal cousin Uncle Colorectal cancer paternal Father Atrial fibrillation Sister GIST, non-malignant stomach Other Kidney stones Denies family history of Ovarian cancer Social History Smoking Status: Never smoker Second Hand Exposure: No; Hx Alcohol Use: Yes Alcohol type: wine Alcohol Intake Frequency Comment: a glass of wine once a week or so Hx Substance Use: No Preferred Language: East Timorese Communication Ability: Effective Round Kiln Drawer Required: No Beliefs That Will Affect Care: None marital status: Current Living Situation: Spouse Current Living Situation Comment: [place] 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[employer]; 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[place] How many Children do You have: 2 How many Children do You have Comment: 1 son, 1 daughter Feels Safe at Home: Yes Assistive Devices: None Allergies Allergies Allergy/AdvReac Type Severity Reaction Status Date / Time erythromycin base Allergy Intermediate EDEMA OF Verified 04/17/22 11:06 MOUTH/LIPS oxycodone AdvReac Intermediate Chest Verified 04/17/22 11:06 Pain.SYNCOPY tramadol AdvReac Intermediate CHEST Verified 04/17/22 11:06 PAIN,SYNCOPE Home Meds Home Medications Medication Instructions Recorded Confirmed aloe vera 25 mg capsule 1 cap PO QAM 03/01/18 04/17/22 ascorbic acid (vitamin C) 500 mg 500 mg PO QAM 03/01/18 04/17/22 tablet (Vitamin C) calcium carbonate 500 mg-vitamin 1 tab PO QAM 03/01/18 04/17/22 D3 5 mcg (200 unit) tablet (Calcium 500 + D) multivitamin 1 tab PO QAM 03/01/18 04/17/22 ascorbic acid 7.5 mg-vit E 7.5 1 tab PO QAM 06/29/19 04/17/22 unit-biotin 1,250 mcg chewable tablet (Hair,Skin,Nails with Biotin) echinacea 500 mg capsule 500 mg PO QAM 06/29/19 04/17/22 levothyroxine 100 mcg tablet 100 mcg PO DAILYBB 07/26/20 04/17/22 Previous Rx's Medication Instructions Recorded docusate sodium 100 mg capsule 100 mg PO BID #60 caps 12/03/20 (Colace) hydrocodone 5 mg-acetaminophen 325 1 tab PO Q4H PRN pain #8 tabs 04/17/22 mg tablet estradiol 0.0375 mg/24 hr weekly 1 patch transdermal WK #12 ea 04/23/22 transdermal patch Results & Data (ED) Vital Signs Vital Signs - 24 hr 05/04/22 02:38 05/04/22 02:53 05/04/22 02:55 Pulse Rate 57 L 65 Respiratory Rate 16 18 Respiratory Effort / Characteristics Non-Labored Respiratory Depth Normal Blood Pressure 128/78 123/72 Blood Pressure Mean 94 89 Pulse Oximetry 99 99 94 Oxygen Delivery Method Room Air Room Air Room Air Sepsis Recent Fever Within 48 Hours No Sepsis New/Unexplained Change in Mental Status No Sepsis Action Taken by Nursing No Action Required Laboratory Data 05/04/22 03:00 05/04/22 03:00 Lab Results 05/04/22 05/04/22 05/04/22 Range/Units 03:00 03:00 03:11 WBC 9.76 (4.8-10.8) K/ul RBC 4.62 (3.93-5.22) M/uL Hgb 14.2 (12.0-16.0) g/dl Hct 40.2 (34.1-44.9) % MCV 87.0 (80.0-100.0) fL MCH 30.7 (25.0-34.0) pg MCHC 35.3 (32.0-36.0) g/dL RDW Std Deviation 38.0 (36.4-46.3) fL RDW Coeff of Yani 11.9 (11.5-14.5) % Plt Count 217 (130-400) K/uL MPV 10.3 (9.4-12.3) fL Immature Gran % (Auto) 0.4 % Neut % (Auto) 77.5 % Lymph % (Auto) 13.9 % [place] % (Auto) 7.4 % Eos % (Auto) 0.3 % Baso % (Auto) 0.5 % Neut # (Auto) 7.56 H (1.4-6.5) K/uL Lymph # (Auto) 1.36 (1.2-3.4) K/uL [place] # (Auto) 0.72 (0.24-0.82) K/uL Eos # (Auto) 0.03 (0-0.50) K/uL Baso # (Auto) 0.05 (0-0.2) K/uL Immature Gran # (Auto) 0.04 H (0.00-0.02) K/uL Sodium 140 (136-145) mmol/L Potassium 3.8 (3.5-5.1) mmol/L Chloride 108 H (98-107) mmol/L Carbon Dioxide 24 (21-32) mmol/L Anion Gap 8 (3-11) BUN 12 (6-23) mg/dl Creatinine 0.82 (0.6-1.2) mg/dl Est Cr Clr Drug Dosing 78.2 ml/min Est GFR ( Amer) 93.4 ml/min Est GFR (Non-Af Amer) 80.6 ml/min BUN/Creatinine Ratio 14.6 (10-20) Glucose 99 (70-99(Fasting)) mg/dl Lactate (0.4-2.0) mmol/L Calcium 10.1 (8.5-10.1) mg/dl Total Bilirubin 0.6 (0.2-1.0) mg/dl AST 22 (13-39) U/L ALT 17 (7-52) U/L Alkaline Phosphatase 64 (34-104) U/L Troponin I High Sens (0-14) pg/ml Total Protein 7.5 (6.0-8.3) gm/dl Albumin 4.2 (3.4-5.0) gm/dl Globulin 3.3 (2.5-4.0) gm/dl Albumin/Globulin Ratio 1.3 (0.9-2) Lipase 34 (11-82) U/L Urine Color Yellow Urine Appearance Cloudy A (Clear) Urine pH >= 9.0 H (4.5-7.5) Ur Specific [place] 1.016 (1.000-1.030) Urine Protein Trace H (Negative) Urine Glucose (UA) Negative (Negative) Urine Ketones Negative (Negative) Urine Blood Negative (Negative) Urine Nitrite Negative (Negative) Urine Bilirubin Negative (Negative) Urine Urobilinogen Negative (Negative) Ur Leukocyte Esterase Negative (Negative) Urine WBC (Auto) 1-5 (0-5) /hpf Urine RBC (Auto) 0-4 (0-4) /hpf U Hyaline Cast (Auto) 0 (0-5) /lpf U Epithel Cells (Auto) >30 H (0-5) /lpf Urine Bacteria (Auto) Negative (Negative) Ur Renal Epithelial Cell Not Reportable Amorphous Sediment Present A (None Prsent) SARS-CoV-2, RNA, NAAT (NEGATIVE) 05/04/22 05/04/22 05/04/22 Range/Units 03:19 04:51 05:10 WBC (4.8-10.8) K/ul RBC (3.93-5.22) M/uL Hgb (12.0-16.0) g/dl Hct (34.1-44.9) % MCV (80.0-100.0) fL MCH (25.0-34.0) pg MCHC (32.0-36.0) g/dL RDW Std Deviation (36.4-46.3) fL RDW Coeff of Yani (11.5-14.5) % Plt Count (130-400) K/uL MPV (9.4-12.3) fL Immature Gran % (Auto) % Neut % (Auto) % Lymph % (Auto) % [place] % (Auto) % Eos % (Auto) % Baso % (Auto) % Neut # (Auto) (1.4-6.5) K/uL Lymph # (Auto) (1.2-3.4) K/uL [place] # (Auto) (0.24-0.82) K/uL Eos # (Auto) (0-0.50) K/uL Baso # (Auto) (0-0.2) K/uL Immature Gran # (Auto) (0.00-0.02) K/uL Sodium (136-145) mmol/L Potassium (3.5-5.1) mmol/L Chloride (98-107) mmol/L Carbon Dioxide (21-32) mmol/L Anion Gap (3-11) BUN (6-23) mg/dl Creatinine (0.6-1.2) mg/dl Est Cr Clr Drug Dosing ml/min Est GFR ( Amer) ml/min Est GFR (Non-Af Amer) ml/min BUN/Creatinine Ratio (10-20) Glucose (70-99(Fasting)) mg/dl Lactate 1.0 (0.4-2.0) mmol/L Calcium (8.5-10.1) mg/dl Total Bilirubin (0.2-1.0) mg/dl AST (13-39) U/L ALT (7-52) U/L Alkaline Phosphatase (34-104) U/L Troponin I High Sens 3.3 (0-14) pg/ml Total Protein (6.0-8.3) gm/dl Albumin (3.4-5.0) gm/dl Globulin (2.5-4.0) gm/dl Albumin/Globulin Ratio (0.9-2) Lipase (11-82) U/L Urine Color Urine Appearance (Clear) Urine pH (4.5-7.5) Ur Specific [place] (1.000-1.030) Urine Protein (Negative) Urine Glucose (UA) (Negative) Urine Ketones (Negative) Urine Blood (Negative) Urine Nitrite (Negative) Urine Bilirubin (Negative) Urine Urobilinogen (Negative) Ur Leukocyte Esterase (Negative) Urine WBC (Auto) (0-5) /hpf Urine RBC (Auto) (0-4) /hpf U Hyaline Cast (Auto) (0-5) /lpf U Epithel Cells (Auto) (0-5) /lpf Urine Bacteria (Auto) (Negative) Ur Renal Epithelial Cell Amorphous Sediment (None Prsent) SARS-CoV-2, RNA, NAAT NEGATIVE (NEGATIVE) Administered Medications Discontinued Medications Hydromorphone HCl (Hydromorphone Inj 1 Mg/Ml Syringe) 1 mg IV NOW STA Stop: 05/04/22 05:22 Last Admin: 05/04/22 05:41 Dose: 1 mg Documented By: DOUG Sodium Chloride (Nss 1000ml) 1,000 mls @ 999 mls/hr IV .Q1H1M STA Stop: 05/04/22 03:53 Last Admin: 05/04/22 03:15 Dose: 999 mls/hr Documented By: CINTHYA Ioversol (Optiray 350 100ml) 100 ml IV ONCE ONE Stop: 05/04/22 04:18 Last Admin: 05/04/22 04:17 Dose: 84 ml Documented By: JOSH Morphine Sulfate (Morphine Sulfate 4 Mg/Ml 1 Ml Carp\Vial) 4 mg IV NOW STA Stop: 05/04/22 03:14 Last Admin: 05/04/22 03:15 Dose: 4 mg Documented By: CINTHYA Ondansetron HCl (Ondansetron Inj 2 Mg/Ml 2 Ml Vial) 4 mg IV NOW STA Stop: 05/04/22 04:50 Last Admin: 05/04/22 05:00 Dose: 4 mg Documented By: CINTHYA Discharge Plan Visit Data Chief Complaint: Abdominal Pain Stated Complaint: ABDOMINAL PAIN ED Provider: George Delaney Discharge Problem: SBO (small bowel obstruction) Patient Disposition: Admitted As Inpatient Forms Stand Alone Forms: [facility], Virtual Emergency Department, Important Visit Information Prescriptions Prescriptions: No Action estradiol 0.0375 mg/24 hr patch weekly 1 patch Transdermal WK Qty: 12 2RF Rx Instructions: CHANGE THIS PATCH EVERY SATURDAY Hair, Skin, Nails with Biotin 7.5-7.5-1,250 mg-unit-mcg Tablet,Chewable 1 tab PO QAM echinacea 500 mg Capsule 500 mg PO QAM multivitamin Tablet 1 tab PO QAM ascorbic acid (vitamin C) [Vitamin C] 500 mg Tablet 500 mg PO QAM aloe vera 25 mg Capsule 1 cap PO QAM calcium carbonate-vitamin D3 [Calcium 500 + D] 500 mg(1,250mg) -200 unit Tablet 1 tab PO QAM levothyroxine 100 mcg tablet 100 mcg PO DAILYBB docusate sodium [Colace] 100 mg capsule 100 mg PO BID Qty: 60 0RF hydrocodone-acetaminophen 5-325 mg tablet 1 tab PO Q4H MDD 6 PRN (Reason: pain) Qty: 8 0RF Referrals Referrals: Chet Ordonez MD [Primary Care Provider] -
[2022-05-04] MEDS ORDERED: MoRPHine SULFATE 4 MG/ML 1 ML CARP\\VIAL IV STA (03:13)
[2022-05-04 03:14] LABS: Basophils # (auto) 0.05 K/uL (0-0.2); Basophils % (auto) 0.5 %; Eosinophils # (auto) 0.03 K/uL (0-0.50); Eosinophils % (auto) 0.3 %; Hematocrit (blood only) 40.2 % (34.1-44.9); Hemoglobin 14.2 g/dl (12.0-16.0); Immature Granulocytes # (auto) 0.04 K/uL (0.00-0.02); Immature Granulocytes % (auto) 0.4 %; Lymphocytes # (auto) 1.36 K/uL (1.2-3.4); Lymphocytes % (auto) 13.9 %; Mean Corpuscular Hemoglobin 30.7 pg (25.0-34.0); Mean Corpuscular Hgb Conc 35.3 g/dL (32.0-36.0); Mean Platelet Volume 10.3 fL (9.4-12.3); Monocytes # (auto) 0.72 K/uL (0.24-0.82); Monocytes % (auto) 7.4 %; Neutrophils # (auto) 7.56 K/uL (1.4-6.5); Neutrophils % (auto) 77.5 %; Platelet Count 217 K/uL (130-400); RDW Coefficient of Variation 11.9 % (11.5-14.5); Red Blood Count 4.62 M/uL (3.93-5.22); White Blood Count 9.76 K/ul (4.8-10.8)
[2022-05-04 03:36] LABS: Albumin Globulin Ratio 1.3 (0.9-2); Albumin Level 4.2 gm/dl (3.4-5.0); BUN Creatinine Ratio 14.6 (10-20); Bilirubin,Total 0.6 mg/dl (0.2-1.0); Calcium 10.1 mg/dl (8.5-10.1); Creatinine Clr Calc Pharmacy 78.2 ml/min; Est GFR (African American) 93.4 ml/min; Est GFR (Non-African American) 80.6 ml/min; Globulin 3.3 gm/dl (2.5-4.0); Potassium 3.8 mmol/L (3.5-5.1); Total Protein 7.5 gm/dl (6.0-8.3)
[2022-05-04 03:58] LABS: Appearance Urine Cloudy (Clear); Bacteria Urine Automated Negative (Negative); Bilirubin Urine Negative (Negative); Blood Urine Negative (Negative); Color Urine Yellow; Epithelial Cell Urine Auto >30 /lpf (0-5); Glucose Urine UA Negative (Negative); Ketones Urine Negative (Negative); Leukocyte Esterase Urine Negative (Negative); Nitrite Urine Negative (Negative); RBC Urine Automated 0-4 /hpf (0-4); Specific Gravity Urine 1.016 (1.000-1.030); Urobilinogen Urine Negative (Negative); pH Urine >= 9.0 (4.5-7.5)
[2022-05-04 04:05] LABS: Protein Urine Trace (Negative)
[2022-05-04] MEDS ORDERED: OPTIRAY 350 100ml IV ONE (04:17)
[2022-05-04] MEDS ORDERED: ONDANSETRON INJ 2 MG/ML 2 ML VIAL IV STA (04:49)
[2022-05-04 05:12] LABS: Amorphous Sediment Urine Present (None Prsent); Cast Urine Automated 0 /lpf (0-5)
--- NOTE | 2022-05-04 05:13 | History & Physical Report ---
Date of Service May 04, 2022 Assessment & Plan (1) Small bowel obstruction: Plan: Margie Norton is a 56yo female with history of diverticulosis s/p partial colectomy with recurrent SBO presenting with abdominal pain. Imaging suggestive of partial SBO with transition point in the LLQ. -Admit to medical -No distention, nausea resolved, will hold off on NGT placement and Surgical consultation for now -Dilaudid 1mg IV q 6 hours PRN -Phenergan 12.5mg IV q 6 hours PRN -IVF with NSS at 100mL/hr x 2 L -Check Mg and PO4 and replete as needed (2) Hypothyroidism: Plan: Chronic -Continue Synthroid 100mcg po daily F/E/N - NSS at 100mL/hr x 2L, monitor electrolytes, NPO for now Ppx - Low risk for DVT Code - Full per discussion with patient Dispo - Admit to medical History of Present Illness Chief Complaint: Abdominal pain Primary Care Provider: Chet Ordonez MD Margie Norton is a 56yo female with remote history of diverticulitis s/p partial colectomy with recurrent SBO presenting with abdominal pain. Patient woke from sleep 05/04/22 at 12:30 with LLQ abdominal pain, nausea, dizziness and rigors. She vomited 4 times, brown liquid. She was passing gas prior to arrival and had several bowel movements. No additional complaints - patient denies fever, chest pain, cough, SOB, dysuria. In the ER she is afebrile, HD stable. Patient developed some chest discomfort in the ER after receiving Morphine as well as decrease in O2 saturation. ER Course: Morphine 4mg IV, Zofran 4mg IV, NSS x 1L Allergies Allergy/AdvReac Type Severity Reaction Status Date / Time erythromycin base Allergy Intermediate EDEMA OF Verified 04/17/22 11:06 MOUTH/LIPS oxycodone AdvReac Intermediate Chest Verified 04/17/22 11:06 Pain.SYNCOPY tramadol AdvReac Intermediate CHEST Verified 04/17/22 11:06 PAIN,SYNCOPE Home Medications Medication Instructions Recorded Confirmed Type aloe vera 25 mg capsule 1 cap PO QAM 03/01/18 04/17/22 History ascorbic acid (vitamin C) 500 mg 500 mg PO QAM 03/01/18 04/17/22 History tablet (Vitamin C) calcium carbonate 500 mg-vitamin 1 tab PO QAM 03/01/18 04/17/22 History D3 5 mcg (200 unit) tablet (Calcium 500 + D) multivitamin 1 tab PO QAM 03/01/18 04/17/22 History ascorbic acid 7.5 mg-vit E 7.5 1 tab PO QAM 06/29/19 04/17/22 History unit-biotin 1,250 mcg chewable tablet (Hair,Skin,Nails with Biotin) echinacea 500 mg capsule 500 mg PO QAM 06/29/19 04/17/22 History levothyroxine 100 mcg tablet 100 mcg PO DAILYBB 07/26/20 04/17/22 History docusate sodium 100 mg capsule 100 mg PO BID #60 caps 12/03/20 04/17/22 Rx (Colace) hydrocodone 5 mg-acetaminophen 325 1 tab PO Q4H PRN pain #8 tabs 04/17/22 Rx mg tablet estradiol 0.0375 mg/24 hr weekly 1 patch transdermal WK #12 ea 04/23/22 Rx transdermal patch Past Med/Surg History Medical History (Updated 05/04/22 @ 05:47 by Марина Zarate DO) Bradycardia PT'S NORM. PT STATES WHEN SLEEPING THAT POST OP HER HR IS HIGH 30'S AND LOW 40'S. Congenital mitral valve prolapse NOT HAD ANY ISSUES. Last echo was normal through [facility] around 2019 Diverticular disease History of intestinal obstruction Hypothyroidism Postmenopausal hormone replacement therapy Small bowel obstruction hx Surgical History Family history of reaction to anesthesia SISTER/NAUSEA H/O oophorectomy H/O right knee surgery History of bilateral tubal ligation History of bowel resection S/P DIVERTICULITIS (hemicolectomy) - [facility] () History of section History of hysterectomy PARTIAL History of photorefractive keratectomy (PRK) History of thumb surgery RIGHT HAND History of wisdom tooth extraction Hx of breast reduction, elective Status post trigger finger release Family History Mother Hypertension Stroke Family/Other Breast cancer maternal cousin Uncle Colorectal cancer paternal Father Atrial fibrillation Sister GIST, non-malignant stomach Other Kidney stones Denies family history of Ovarian cancer Social History Smoking Status: Never smoker Second Hand Exposure: No; Hx Alcohol Use: Yes Alcohol type: wine Alcohol Intake Frequency Comment: a glass of wine once a week or so Hx Substance Use: No Preferred Language: Irish Communication Ability: Effective Blacksmith Helper Required: No Beliefs That Will Affect Care: None marital status: Current Living Situation: Spouse Current Living Situation Comment: [place] 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[employer]; 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[place] How many Children do You have: 2 How many Children do You have Comment: 1 son, 1 daughter Feels Safe at Home: Yes Assistive Devices: None Review of Systems Review of Systems: All systems reviewed & are unremarkable except as noted in HPI & below Physical Exam Physical Exam: General: patient in mild discomfort, NAD, non-toxic in appearance, AA&O x 4 Skin: warm, dry, intact, no rashes or lesions HEENT: NC/AT, PERRL, EOMI, anicteric sclera, conjunctiva without injection, external ear normal to inspection and nontender, nares patent, moist mucus membranes, dentition intact, no oropharyngeal lesions, neck supple, trachea midline, no LAD, no thyromegaly, no JVD Heart: +S1/S2, regular, no m/r/g Lungs: equal air entry bilaterally, no rales/rhonchi/wheezes Abd: Diminished bowel sounds, soft, ND, tender in LLQ without rebound/guarding or peritonitis, no masses/organomegaly/ascites Ext: warm, 2+ pulses in UE/LE bilaterally, no clubbing/cyanosis or edema Neuro: nonfocal, patient AA&O x 4, speech intact, no facial droop, moving all extremities on command with equal strength 5/5 Results & Data Results & Data ([facility]) Vital Signs (Past 12 Hours) Vital Signs Pulse Resp BP Pulse Ox O2 Del Method 05/04/22 02:55 65 18 123/72 94 Room Air 05/04/22 02:53 99 Room Air 05/04/22 02:38 57 L 16 128/78 99 Room Air Laboratory Results Laboratory Results WBC 9.76 K/ul (4.8-10.8) 05/04/22 03:00 RBC 4.62 M/uL (3.93-5.22) 05/04/22 03:00 Hgb 14.2 g/dl (12.0-16.0) 05/04/22 03:00 Hct 40.2 % (34.1-44.9) 05/04/22 03:00 MCV 87.0 fL (80.0-100.0) 05/04/22 03:00 MCH 30.7 pg (25.0-34.0) 05/04/22 03:00 MCHC 35.3 g/dL (32.0-36.0) 05/04/22 03:00 RDW Std Deviation 38.0 fL (36.4-46.3) 05/04/22 03:00 RDW Coeff of Yani 11.9 % (11.5-14.5) 05/04/22 03:00 Plt Count 217 K/uL (130-400) 05/04/22 03:00 MPV 10.3 fL (9.4-12.3) 05/04/22 03:00 Immature Gran % (Auto) 0.4 % 05/04/22 03:00 Neut % (Auto) 77.5 % 05/04/22 03:00 Lymph % (Auto) 13.9 % 05/04/22 03:00 [place] % (Auto) 7.4 % 05/04/22 03:00 Eos % (Auto) 0.3 % 05/04/22 03:00 Baso % (Auto) 0.5 % 05/04/22 03:00 Neut # (Auto) 7.56 K/uL (1.4-6.5) H 05/04/22 03:00 Lymph # (Auto) 1.36 K/uL (1.2-3.4) 05/04/22 03:00 [place] # (Auto) 0.72 K/uL (0.24-0.82) 05/04/22 03:00 Eos # (Auto) 0.03 K/uL (0-0.50) 05/04/22 03:00 Baso # (Auto) 0.05 K/uL (0-0.2) 05/04/22 03:00 Immature Gran # (Auto) 0.04 K/uL (0.00-0.02) H 05/04/22 03:00 Sodium 140 mmol/L (136-145) 05/04/22 03:00 Potassium 3.8 mmol/L (3.5-5.1) 05/04/22 03:00 Chloride 108 mmol/L (98-107) H 05/04/22 03:00 Carbon Dioxide 24 mmol/L (21-32) 05/04/22 03:00 Anion Gap 8 (3-11) 05/04/22 03:00 BUN 12 mg/dl (6-23) 05/04/22 03:00 Creatinine 0.82 mg/dl (0.6-1.2) 05/04/22 03:00 Est Cr Clr Drug Dosing 78.2 ml/min 05/04/22 03:00 Est GFR ( Amer) 93.4 ml/min 05/04/22 03:00 Est GFR (Non-Af Amer) 80.6 ml/min 05/04/22 03:00 BUN/Creatinine Ratio 14.6 (10-20) 05/04/22 03:00 Glucose 99 mg/dl (70-99(Fasting)) 05/04/22 03:00 Lactate 1.0 mmol/L (0.4-2.0) 05/04/22 03:19 Calcium 10.1 mg/dl (8.5-10.1) 05/04/22 03:00 Total Bilirubin 0.6 mg/dl (0.2-1.0) 05/04/22 03:00 AST 22 U/L (13-39) 05/04/22 03:00 ALT 17 U/L (7-52) 05/04/22 03:00 Alkaline Phosphatase 64 U/L (34-104) 05/04/22 03:00 Total Protein 7.5 gm/dl (6.0-8.3) 05/04/22 03:00 Albumin 4.2 gm/dl (3.4-5.0) 05/04/22 03:00 Globulin 3.3 gm/dl (2.5-4.0) 05/04/22 03:00 Albumin/Globulin Ratio 1.3 (0.9-2) 05/04/22 03:00 Lipase 34 U/L (11-82) 05/04/22 03:00 Urine Color Yellow 05/04/22 03:11 Urine Appearance Cloudy (Clear) A 05/04/22 03:11 Urine pH >= 9.0 (4.5-7.5) H 05/04/22 03:11 Ur Specific [place] 1.016 (1.000-1.030) 05/04/22 03:11 Urine Protein Trace (Negative) H 05/04/22 03:11 Urine Glucose (UA) Negative (Negative) 05/04/22 03:11 Urine Ketones Negative (Negative) 05/04/22 03:11 Urine Blood Negative (Negative) 05/04/22 03:11 Urine Nitrite Negative (Negative) 05/04/22 03:11 Urine Bilirubin Negative (Negative) 05/04/22 03:11 Urine Urobilinogen Negative (Negative) 05/04/22 03:11 Ur Leukocyte Esterase Negative (Negative) 05/04/22 03:[address] of the Abdomen, per STAT rad-Minimal to moderately dilated small bowel in all 4 quadrants with transition point in the left lower quadrant near a short segment of thickened small bowel. Findings could represent early or partial SBO related to enteritis. Normal appendix. Surgical changes sigmoid colon. Colonic diverticulosis. Cholecystectomy. Prior exam unavailable for comparison due to technical issues. PG Care Time/CCT Total # of Minutes Spent Total Time Spent with Patient: Total time spent is greater than 50% in coordination of care (as documented) at patient's floor/unit and/or counseling patient: Coding Level of Care Code 12967 INT INP/OBS CARE 2MIN Diagnoses Small bowel obstruction K56.609 Hypothyroidism E03.9
[2022-05-04] MEDS ORDERED: HYDROmorphone INJ 1 MG/ML SYRINGE IV STA (05:21)
[2022-05-04] MEDS ORDERED: HYDROmorphone INJ 1 MG/ML SYRINGE IV PRN (06:04)
[2022-05-04] MEDS ORDERED: PROMETHAZINE HCL 6.25 MG in SODIUM CHLORIDE 0.9% 50 ML IV PRN (06:04)
[2022-05-04 06:58] LABS: Magnesium 1.9 mg/dl (1.7-2.4); Phosphorus 2.1 mg/dl (2.5-4.9)
--- NOTE | 2022-05-04 07:08 | Hospitalist Progress Note ---
Date of Service May 04, 2022 Assessment & Plan (1) Small bowel obstruction: Plan: Margie Norton is a 56yo female with a history of diverticulitis status post partial bowel resection approximately 14 years ago and a history of recurrent small bowel obstruction (last admission in January) presents with LLQ abdominal pain. Imaging suggestive of partial SBO with transition point in the LLQ. -No abdominal distention. Vomiting and nausea has resolved. -Dilaudid 1mg IV q 6 hours PRN for abdominal pain -Phenergan 12.5mg IV q 6 hours PRN for nasuea -IVF with NSS at 100mL/hr x 2 L -Currently NPO. Surgery consultation deferred due to improving symptoms. Advance diet as tolerated. -Labs showed Mg WNL and mildly low phos of 2.1 -Given 15 mmoles of potassium phosphate -Check Mg and PO4 and replete as needed -Follow up with research laboratory specialist and GI upon discharge (2) Hypothyroidism: Plan: Chronic -Continue Synthroid 100mcg po daily F/E/N - NSS at 100mL/hr x 2L, monitor electrolytes. Advance diet as tolerated Ppx - Low risk for DVT Code - Full Dispo - med/surg Admission and Anticipated Discharge Date Admission Date: May 04, 2022 Supervising Physician Co-Signing Physician Notes Resident Physician Supervision Note: I independently interviewed and examined the patient and verified the potter history and physical, reviewed labs and image studies and agree with resident findings and care plan. Subjective 56-year-old female with history of diverticulitis status post partial bowel resection approximately 14 years ago, history of recurrent small bowel obstruction (last admission in January), presents emergency department with a chief complaint of lower abdominal pain. Patient has had symptoms of small bowel obstruction similar to this episode but this episode felt much more abrupt that previous episodes. Patient felt cyclical symptoms of left lower quadrant pain radiating to the the left groin and lower abdomen. These symptoms are accompanied by feeling lightheadedness and chills that resolve briefly before recurring. Patient had approximately 4 episodes of vomiting. Patient was given a dose of fentanyl prior to arrival without relief. CT abdomen/pelvis was obtained that shows evidence of possible partial small bowel obstruction with transition point near left lower quadrant possibly secondary to enteritis. Lab work showedno evidence of leukocytosis with a largely normal BMP and lactate levels. Patient was stable upon arrival. IV morphine and IV Zofran were given for pain and nausea, respectively. Today, patient is in no acute distress. Cyclical symptoms of abdominal pain and associated lightheadedness and chills have since resolved. Patient has had 2 small hard bowel movements with no blood since arrival. Patient indicates she is unsure why this episode occurred as she has had no change in her diet or medications. Patient eats a well balanced diet and avoids highly processed foods and limits red meat intake. Patient has been consistent in taking 2 Colaces per day. Patient had colonoscopy done 3-4 years ago which was significant for diverticulosis. Patient does not see GI for follow up since hemicolectomy and has not seen a research laboratory specialist since hemicolectomy 10+ years ago. Patient has been NPO since last night. Review of Systems Constitutional: no fever and no chills Respiratory: no dyspnea Cardiovascular: no chest pain Gastrointestinal: Per HPI, no active abdominal pain at this time. Neurologic: no tingling and no paresthesia Physical Exam Respiratory: normal respiratory effort, lungs clear to auscultation Cardiovascular: RRR, no murmur, no edema Vessels: no carotid bruit Gastrointestinal (Abdomen): Bowel sounds present on auscultation. Mild tenderness to palpation on left lower quadrant. No tenderness in other quadrants to palpation. No rebound tenderness present. Neurologic: patellar DTR's 2+ bilat, sensation intact Results & Data Results & Data ([facility]) Vital Signs (Past 12 Hours) Vital Signs Pulse Pulse Resp BP BP Pulse Ox O2 Del Method 05/04/22 06:11 54 L 108/68 98 Nasal Cannula 05/04/22 02:55 65 18 123/72 94 Room Air 05/04/22 02:53 99 Room Air 05/04/22 02:38 57 L 16 128/78 99 Room Air O2 Flow Rate 05/04/22 06:11 2 05/04/22 02:55 05/04/22 02:53 05/04/22 02:38 Resident Activity Tracking Resident Involvement: Resident Care Provided Care Provided: Adult Hospital Medicine
[2022-05-04] MEDS ORDERED: POTASSIUM PHOS 3 MMOL/1 ML INFUSION IV STA (07:29)
[2022-05-04] MEDS: LEVOTHYROXINE SODIUM 100 MCG TABLET PO SCH (07:58)
[2022-05-04] MEDS: SODIUM CHLORIDE 0.9% 1000ML 1,000 ML IV SCH ×2 (07:58→18:01)
[2022-05-04] MEDS ORDERED: POTASSIUM PHOSPHATE 15 MMOL in SODIUM CHLORIDE 0.9% 250 ML IV ONE (08:00)
--- NOTE | 2022-05-04 08:06 | CT Scan Report ---
CT SCAN OF THE ABDOMEN AND PELVIS WITH IV CONTRAST CLINICAL HISTORY: Generalized abdominal pain. COMPARISON STUDY: Abdominal CT dated 02/09/2002. TECHNIQUE: Following the IV administration of 84 cc of Optiray 350, CT scan of the abdomen and pelvi s is performed from the lung bases to the proximal femora. Images are reviewed in the axial, sagittal , and coronal planes. IV contrast was administered without complication. A dose lowering technique wa s utilized adhering to the principles of ALARA. CT DOSE: 338.49 mGy.cm FINDINGS: Lung bases: The heart is normal in size and without pericardial effusion. A 4 mm left lower lobe pulm onary nodule seen on image #34 is unchanged. The lung bases are otherwise clear noting dependent atel ectasis. Liver: The contrast-enhanced liver is normal in size, contour, and attenuation. There is mild intrahe patic biliary ductal dilatation. The hepatic veins and portal veins are patent. Gallbladder: Surgically absent and clips in the gallbladder fossa. Dilatation of the common bile duct is similar to previous. This measures up to 12 mm in diameter. Spleen: Normal in size and attenuation. Pancreas: Unremarkable. Adrenal glands: Unremarkable. Kidneys: The contrast enhanced kidneys are normal in size and without hydronephrosis. The kidneys enh ance symmetrically. Abdominal vasculature: The abdominal aorta is normal in course and caliber. Bowel: The proximal small bowel loops are distended and fluid-filled measuring up to 4.4 cm in diamet er. There are thick-walled and hyperemic loops of small bowel in the left lower quadrant seen on imag e #268. This serves as a transition point, and the distal small bowel is decompressed. Findings are c onsistent with a small bowel obstruction. There is mild inflammation around the inflamed small bowel loops as well as interloop fluid. No pneumatosis intestinalis or portal venous gas is seen. There is postoperative change from rectosigmoid resection with colocolonic anastomosis. There is moderate dive rticulosis of the remaining colon without CT evidence of acute diverticulitis. The appendix is well -visualized and normal. Peritoneum: No intraperitoneal free air is identified. There is trace pelvic ascites. Lymphadenopathy: None. Pelvic viscera: The bladder is partially decompressed and grossly unremarkable. The uterus is surgica lly absent. No adnexal lesion is seen. Skeletal structures: There is mild lumbosacral spondylosis. No lytic or blastic lesions are seen. IMPRESSION: 1. There is a small bowel obstruction. 2. The transition point is located in the left lower quadrant where there are thick-walled and hypere dayday loops of small bowel. Inflammation of the bowel is likely the cause of obstruction. 3. There is surrounding infiltration and interloop fluid as well as trace pelvic ascites. 4. No intraperitoneal free air is identified. No pneumatosis intestinalis or portal venous gas is see n. 5. Intra and extrahepatic biliary ductal dilatation is similar to the 02/09/2022 examination and mayb e related to prior cholecystectomy. Correlate with clinical and laboratory findings. 6. There is evidence of previous rectosigmoid resection. 7. Diverticulosis of the remaining colon without CT evidence of acute diverticulitis. 8. Additional findings as above. ACT 112: Negative or not required by law. Electronically signed by: Erwin Vilchis M.D. 05/04/2022 8:04 AM
--- NOTE | 2022-05-04 14:04 | Electrocardiogram Report ---
Test Reason : Blood Pressure : / mmHG Vent. Rate : 056 BPM Atrial Rate : 056 BPM P-R Int : 146 ms QRS Dur : 080 ms QT Int : 482 ms P-R-T Axes : 024 -03 032 degrees QTc Int : 465 ms Sinus bradycardia Low voltage QRS Nonspecific ST abnormality Abnormal ECG When compared with ECG of 04-MAY-2022 02:56, (unconfirmed) Questionable change in QRS axis Confirmed by Efrem August ([id number]) on 05/04/2022 2:04:27 PM Referred By: REFERRED SELF Confirmed By:Efrem August
--- NOTE | 2022-05-04 14:04 | Electrocardiogram Report ---
Test Reason : Blood Pressure : / mmHG Vent. Rate : 058 BPM Atrial Rate : 058 BPM P-R Int : 154 ms QRS Dur : 078 ms QT Int : 466 ms P-R-T Axes : 056 058 073 degrees QTc Int : 457 ms Sinus bradycardia Otherwise normal ECG When compared with ECG of 13-APR-2022 07:36, Questionable change in QRS axis Confirmed by Efrem August ([id number]) on 05/04/2022 2:04:06 PM Referred By: REFERRED SELF Confirmed By:Efrem August
[2022-05-05] MEDS: LEVOTHYROXINE SODIUM 100 MCG TABLET PO SCH (06:07)
[2022-05-05 07:02] LABS: Hematocrit (blood only) 34.5 % (34.1-44.9); Mean Corpuscular Hemoglobin 30.8 pg (25.0-34.0); Mean Corpuscular Hgb Conc 34.8 g/dL (32.0-36.0); Mean Corpuscular Volume 88.7 fL (80.0-100.0); Mean Platelet Volume 10.6 fL (9.4-12.3); Platelet Count 172 K/uL (130-400); RDW Coefficient of Variation 12.3 % (11.5-14.5); RDW Standard Deviation 39.9 fL (36.4-46.3); Red Blood Count 3.89 M/uL (3.93-5.22); White Blood Count 3.79 K/ul (4.8-10.8)
--- NOTE | 2022-05-05 07:26 | Hospitalist Progress Note ---
Date of Service May 05, 2022 Assessment & Plan (1) Small bowel obstruction: Plan: Margie Norton is a 56yo female with a history of diverticulitis status post partial bowel resection approximately 14 years ago and a history of recurrent small bowel obstruction (last admission in January) presents with LLQ abdominal pain. Imaging suggestive of partial SBO with transition point in the LLQ. -No abdominal distention. Vomiting and nausea has resolved. -Dilaudid 1mg IV q 6 hours PRN for abdominal pain -Phenergan 12.5mg IV q 6 hours PRN for nasuea -IVF with NSS at 100mL/hr x 2 L -Currently NPO. Surgery consultation deferred due to improving symptoms. Advance diet as tolerated. -Labs showed Mg WNL and mildly low phos of 2.1 -Given 15 mmoles of potassium phosphate -Check Mg and PO4 and replete as needed -Follow up with garbage collector driver and GI upon discharge (2) Hypothyroidism: Plan: Chronic -Continue Synthroid 100mcg po daily F/E/N - NSS at 100mL/hr x 2L, monitor electrolytes. Advance diet as tolerated Ppx - Low risk for DVT Code - Full Dispo - med/surg Admission and Anticipated Discharge Date Admission Date: May 04, 2022 Results & Data Results & Data ([facility]) Vital Signs (Past 12 Hours) Vital Signs Temp Pulse Resp BP Pulse Ox O2 Del Method 05/04/22 22:17 36.8 C 57 L 16 119/80 100 Room Air
[2022-05-05 07:36] LABS: BUN Creatinine Ratio 11.9 (10-20); Calcium 8.3 mg/dl (8.5-10.1); Creatinine Clr Calc Pharmacy 95.7 ml/min; Est GFR (African American) 114.7 ml/min
--- NOTE | 2022-05-05 09:47 | Discharge Summary ---
Date of Service May 05, 2022 Admission HPI Per Admitting Provider Margie Norton is a 56yo female with remote history of diverticulitis s/p partial colectomy with recurrent SBO presenting with abdominal pain. Patient woke from sleep 05/04/22 at 12:30 with LLQ abdominal pain, nausea, dizziness and rigors. She vomited 4 times, brown liquid. She was passing gas prior to arrival and had several bowel movements. No additional complaints - patient denies fever, chest pain, cough, SOB, dysuria. In the ER she is afebrile, HD stable. Patient developed some chest discomfort in the ER after receiving Morphine as well as decrease in O2 saturation. ER Course: Morphine 4mg IV, Zofran 4mg IV, NSS x 1L Admission Exam Per Admitting Provider General: patient in mild discomfort, NAD, non-toxic in appearance, AA&O x 4 Skin: warm, dry, intact, no rashes or lesions HEENT: NC/AT, PERRL, EOMI, anicteric sclera, conjunctiva without injection, external ear normal to inspection and nontender, nares patent, moist mucus membranes, dentition intact, no oropharyngeal lesions, neck supple, trachea midline, no LAD, no thyromegaly, no JVD Heart: +S1/S2, regular, no m/r/g Lungs: equal air entry bilaterally, no rales/rhonchi/wheezes Abd: Diminished bowel sounds, soft, ND, tender in LLQ without rebound/guarding or peritonitis, no masses/organomegaly/ascites Ext: warm, 2+ pulses in UE/LE bilaterally, no clubbing/cyanosis or edema Neuro: nonfocal, patient AA&O x 4, speech intact, no facial droop, moving all extremities on command with equal strength 5/5 Principal Diagnosis SBO Discharge Exam Constitutional: well-appearing, no acute distress HEENT: NCAT, no conjunctival injection CV: regular rhythm, no murmur appreciated, extremities well-perfused, no LE edema Resp: CTABL, no wheezes/rales/rhonchi appreciated, no increased work of breathing GI: soft, nondistended, nontender, BS normoactive MSK: no gross deformities appreciated Skin: warm, dry, no rash appreciated Neuro: alert, oriented, no focal neurologic deficit appreciated Discharge Data Allergies Allergy/AdvReac Type Severity Reaction Status Date / Time erythromycin base Allergy Intermediate EDEMA OF Verified 04/17/22 11:06 MOUTH/LIPS oxycodone AdvReac Intermediate Chest Verified 04/17/22 11:06 Pain.SYNCOPY tramadol AdvReac Intermediate CHEST Verified 04/17/22 11:06 PAIN,SYNCOPE Consultations 05/04/22 04:57 ED Decision to Admit Stat Ordered Studies 05/04/22 02:53 CT Abd and Pelvis [CT abd pelvis IV con only] Stat Hospital Course (1) Small bowel obstruction: (2) Hypothyroidism: Plan Margie Norton is a 56yo female with a history of diverticulitis status post partial bowel resection approximately 14 years ago and a history of recurrent small bowel obstruction (last admission in January) presents with LLQ abdominal pain. Imaging suggestive of partial SBO with transition point in the LLQ. Small bowel obstruction -Given Dilaudid for ab pain and Phenergan for nausea. -IVF fluids with NSS given. -Symptoms improved with bowel rest and then slowing advancing diet. -Labs showed Mg WNL and mildly low phos of 2.1 which was repleted. -Follow up with art director and GI upon discharge. -Patient had a normal BM by the time of discharge and was no longer in any pain. Hypothyroidism -Continued Synthroid 100mcg po daily Total Time Total Time Spent Total Time Spent (In Minutes): 20 Discharge Plan Discharge Items Patient Disposition: Home - Self-Care Reason For Visit: SBO Discharge Diagnosis: Small Bowel Obstruction Activity: Resume your previous activity Non-emergency contact: Primary Care Provider Call non-emergency contact if: you have any medication questions, your pain is unusual for you and your temperature is above 101.5 Follow-up/Referrals: Chet Ordonez MD [Primary Care Provider] - Diet: Other - See Diet Comment Diet Comment: low fiber diet until stools normalize. Then high fiber diet Addtl Attending Provider Instructions: You were admitted to the hospital for small bowel obstruction. You were treated with IV fluids, pain medication, nausea medication. We advanced your diet as tolerated and you were able to have some small bowel movements. A discharge summary will be sent to your primary care physician to ensure continuity of care. Please bring this discharge summary with you to your next office appointment so that your provider can review it at that time. Follow-up appointments: * Make a follow-up appointment with your Dr. Ordonez (PCP) within the next week. It is very important that you follow up with them shortly after discharge from the hospital. * Make a follow-up appointment with Dr. Lobo when needed for continue management of your small bowel obstruction. * Keep all your follow-up appointments as already scheduled. If you cannot make an appointment, notify your provider. Medications: Your medication list has been reviewed and reconciled upon discharge to ensure accuracy and continuity of care. An updated list of all your medications is included with your hospital discharge paperwork. Please review this list closely, and make note of any changes. * No new medications were added for you during this admission. * Take your medications as instructed; do not skip a dose of your medicines. Make sure all of your doctors know every medicine you are taking (including [id number] medicines, vitamins, and supplements). Call your primary care provider before taking any new medicines (including over- the-counter medicines, vitamins, and supplements), because some of these may interact with your current medications, or may make your symptoms worse. Tell your primary care provider if you cannot afford your medications. CONTACT YOUR PRIMARY CARE PROVIDERif you experience any of the following: * Worsening of symptoms * Fever, chills, or fatigue * Difficulty following your treatment plan, or difficulty taking medications CALL 911 OR GO TO THE EMERGENCY DEPARTMENTif you experience any of the following: * Sudden, severe abdominal pain or nausea/vomiting * Severe chest pain, or chest pain that radiates (moves) to your jaw or arm * Sudden, severe shortness of breath or difficulty breathing Thank you for allowing us to participate in your care. Pending Studies at Discharge: No Stand-Alone Forms: [facility], Smoking Cessation Medications and DC Order Prescriptions: Continued estradiol 0.0375 mg/24 hr patch weekly 1 patch Transdermal WK Qty: 12 2RF Rx Instructions: CHANGE THIS PATCH EVERY SATURDAY Hair, Skin, Nails with Biotin 7.5-7.5-1,250 mg-unit-mcg Tablet,Chewable 1 tab PO QAM echinacea 500 mg Capsule 500 mg PO QAM multivitamin Tablet 1 tab PO QAM ascorbic acid (vitamin C) [Vitamin C] 500 mg Tablet 500 mg PO QAM aloe vera 25 mg Capsule 1 cap PO QAM calcium carbonate-vitamin D3 [Calcium 500 + D] 500 mg(1,250mg) -200 unit Tablet 1 tab PO QAM levothyroxine 100 mcg tablet 100 mcg PO DAILYBB docusate sodium [Colace] 100 mg capsule 100 mg PO BID Qty: 60 0RF hydrocodone-acetaminophen 5-325 mg tablet 1 tab PO Q4H MDD 6 PRN (Reason: pain) Qty: 8 0RF Discharge Orders: Discharge Order (Routine); Ordered 05/05/22 Ordered By: Erwin Craig/Other Patient Handouts: Small Bowel Obstruction Admission Data Admit Date/Time: 05/04/22 05:05 Attending Provider: Concepción Hoff Admit Provider: Марина Zarate Primary Care Provider: Chet Ordonez Other Providers: Марина Zarate Other Interventions: Discharge Summary Assessment (RN) Last Done: 05/05/22 10:34 Supervising Physician Co-Signing Physician Notes Resident Physician Supervision Note: I independently interviewed and examined the patient and verified the potter history and physical, reviewed labs and image studies and agree with resident findings and care plan. Resident Activity Tracking Resident Involvement: Resident Care Provided Care Provided: Adult Hospital Medicine
== END 2022-05-05 11:42 | disposition home or self-care (01) | DRG 390 ==
LOC: ED 02:50 → SUATTDRO 05:05 → EDINP 05:05 → 3W 06:05

== ENCOUNTER 2023-08-03 15:42 | Inpatient (IN) ==
--- NOTE | 2023-08-03 16:16 | Emergency Department Note ---
Impression & Plan Abdominal pain, Nausea & vomiting, SBO (small bowel obstruction) ED Provider Note HISTORY OF PRESENT ILLNESS: Patient is a 58-year-old female presenting with generalized abdominal pain. Patient reports pain started yesterday. She had multiple rounds of diarrhea overnight and has felt nauseous and had 1 episode of vomiting. States that she has a history of "twisted bowels" which she states she was diagnosed with a bowel obstruction. She has a previous history of a colon resection for recurrent diverticulitis. She reports she has scar tissue and the pain started in the left lower quadrant and now seems to radiate across her abdomen. Denies any chest pain or shortness of breath. Currently rating the pain a 8 out of 10 and describing some significant nausea. Reports she has not eaten since yesterday, she has had multiple episodes of vomiting. Other abdominal surgical history significant for cholecystectomy. Denies any dysuria or hematuria. Denies any fevers. ROS: as above PHYSICAL EXAM: Constitutional: Patient appears in no acute distress. HENT: Head: Normocephalic and atraumatic. Eyes: EOMI, PERRL Mouth/Throat: Mucous membranes moist. Neck: Trachea midline. Neck supple. Cardiovascular: RRR, No murmurs, rubs or gallops. Intact distal pulses. Pulmonary/Chest: No respiratory distress. Breath sounds clear and equal bilaterally. No wheezes or rales. Abdominal: Abdomen soft, no rebound or guarding. Diffuse tenderness to palpation. Musculoskeletal: No edema, tenderness or deformity noted. Skin: Warm and dry. No rash, erythema, pallor or cyanosis Psychiatric: Appropriate mood and affect for situation. Neurological: Alert and keenly responsive. CN II-XII grossly intact, moving all extremities equally and fully. MDM: - Vitals signs stable - History obtained via patient. History as above. - Chronic conditions affecting care: hx of small bowel obstruction; hypothyroidism; congenital MVP - Differential diagnoses include, but are not limited to: small bowel obstruction; ischemic colitis; diverticulitis; colitis; UTI; ureteral stone - Order placed for continuous cardiac monitoring. At this time, monitor showed rate of 85 bpm with normal sinus rhythm, per my interpretation. - External medical records reviewed. Discharge summary dated 05/05/2022 was reviewed. Patient was admitted at that time for abdominal pain and a small bowel obstruction. She had a transition point in the left lower quadrant. - Laboratory workup interpreted by myself showed normal WBC; stable electrolytes; normal lipase; normal lactate - UA showed significant ketonuria. - CT abdomen/pelvis with IV contrast showed small bowel obstruction with transition point in LLQ, per radiology - Patient given 1L NS, 4 mg IV zofran and 25 mcg IV fentanyl. - Discussion was had with manager of case management about patient's case and need for admission - Hospitalist consulted for admission - Patient admitted to [facility] for further evaluation and management. ASSESSMENT AND PLAN: Diagnosis: Abdominal pain; nausea and vomiting; small bowel obstruction Plan: Admit Past Med/Surg History Medical History (Updated 08/03/23 @ 18:36 by Amber Cole MD) Hypothyroidism taking levothyroxine History of intestinal obstruction hx SBO Postmenopausal hormone replacement therapy Bradycardia longstanding hx of sinus marco per review of EKG dating back to 2018 Diverticular disease 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; Last echo was normal per pt (PS) ~2019 Surgical History History of photorefractive keratectomy (PRK) History of section H/O right knee surgery Right knee meniscectomy Family history of reaction to anesthesia sister: nausea H/O oophorectomy Hx of breast reduction, elective History of wisdom tooth extraction History of thumb surgery RIGHT HAND hardware placement and removal; removal of hardware 04/17/22: [place]: LMA#4 Status post trigger finger release History of hysterectomy PARTIAL History of bilateral tubal ligation History of bowel resection S/P DIVERTICULITIS (hemicolectomy) - [facility] () Family History Mother Hypertension Stroke Family/Other Breast cancer maternal cousin Uncle Colorectal cancer paternal Father Atrial fibrillation Sister GIST, non-malignant stomach Other Kidney stones Denies family history of Ovarian cancer Prostate cancer Social History Smoking Status: Never smoker Second Hand Exposure: No; Do You Dip or Chew Tobacco: No; Hx Alcohol Use: Yes Alcohol type: wine Alcohol Intake Frequency Comment: a glass of wine once a week or so Hx Substance Use: No Preferred Language: Turkmen Communication Ability: Effective [employer] Department Supervisor Required: No Beliefs That Will Affect Care: None marital status: Current Living Situation: Spouse Current Living Situation Comment: [place] 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[employer]; 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[place] How many Children do You have: 2 How many Children do You have Comment: 1 son, 1 daughter Feels Safe at Home: Yes Assistive Devices: None Allergies Allergies Allergy/AdvReac Type Severity Reaction Status Date / Time erythromycin base Allergy Intermediate EDEMA OF Verified 08/03/23 16:46 MOUTH/LIPS morphine AdvReac Intermediate Chest Pain Verified 08/03/23 16:46 oxycodone AdvReac Intermediate Chest Verified 08/03/23 16:46 Pain, syncope tramadol AdvReac Intermediate CHEST Verified 08/03/23 16:46 PAIN,SYNCOPE Home Meds Home Medications Medication Instructions Recorded Confirmed aloe vera 25 mg capsule 1 cap PO QAM 03/01/18 08/03/23 ascorbic acid (vitamin C) 500 mg 500 mg PO QAM 03/01/18 08/03/23 tablet (Vitamin C) calcium carbonate 500 mg-vitamin 1 tab PO QAM 03/01/18 08/03/23 D3 5 mcg (200 unit) tablet (Calcium 500 + D) multivitamin 1 tab PO QAM 03/01/18 08/03/23 ascorbic acid 7.5 mg-vit E 7.5 1 tab PO QAM 06/29/19 08/03/23 unit-biotin 1,250 mcg chewable tablet (Hair,Skin,Nails with Biotin) echinacea 500 mg capsule 500 mg PO QAM 06/29/19 08/03/23 levothyroxine 100 mcg tablet 100 mcg PO DAILYBB 07/26/20 08/03/23 Previous Rx's Medication Instructions Recorded docusate sodium 100 mg capsule 100 mg PO BID #60 caps 12/03/20 (Colace) estradiol 0.0375 mg/24 hr weekly See Rx Instructions .Route 02/22/23 transdermal patch .COMPLEX #12 patches Results & Data (ED) Vital Signs Vital Signs - 24 hr 08/03/23 15:44 08/03/23 15:51 08/03/23 16:30 Temperature 36.6 C Temperature Source Temporal Artery Scan Pulse Rate 85 84 Pulse Rate [Apical] 78 Pulse Rate from SpO2 Sensor Pulse Rhythm Regular Pulse Rhythm [Apical] Regular Pulse Strength [Apical] Normal Respiratory Rate 20 20 20 Respiratory Effort / Characteristics Non-Labored Spontaneous Non-Labored Spontaneous Respiratory Depth Normal Normal Respiratory Pattern Regular Blood Pressure 132/82 Blood Pressure [Right Arm] 140/82 Blood Pressure Mean 98 Blood Pressure Mean [Right Arm] 101 Blood Pressure Position [Right Arm] Sitting Pulse Oximetry 98 98 97 Oxygen Delivery Method Room Air Room Air Room Air Sepsis Recent Fever Within 48 Hours No Sepsis New/Unexplained Change in Mental Status N/A Sepsis Action Taken by Nursing No Action Required 08/03/23 17:39 08/03/23 17:51 08/03/23 17:55 Temperature Temperature Source Pulse Rate 72 88 75 Pulse Rate [Apical] Pulse Rate from SpO2 Sensor 76 Pulse Rhythm Pulse Rhythm [Apical] Pulse Strength [Apical] Respiratory Rate 19 22 Respiratory Effort / Characteristics Respiratory Depth Respiratory Pattern Blood Pressure 148/83 H Blood Pressure [Right Arm] Blood Pressure Mean 104 Blood Pressure Mean [Right Arm] Blood Pressure Position [Right Arm] Pulse Oximetry 100 Oxygen Delivery Method Sepsis Recent Fever Within 48 Hours Sepsis New/Unexplained Change in Mental Status Sepsis Action Taken by Nursing 08/03/23 18:00 08/03/23 18:00 Temperature Temperature Source Pulse Rate 82 Pulse Rate [Apical] Pulse Rate from SpO2 Sensor 82 Pulse Rhythm Pulse Rhythm [Apical] Pulse Strength [Apical] Respiratory Rate 18 Respiratory Effort / Characteristics Respiratory Depth Respiratory Pattern Blood Pressure 144/89 H Blood Pressure [Right Arm] Blood Pressure Mean 109 Blood Pressure Mean [Right Arm] Blood Pressure Position [Right Arm] Pulse Oximetry 98 Oxygen Delivery Method Sepsis Recent Fever Within 48 Hours Sepsis New/Unexplained Change in Mental Status Sepsis Action Taken by Nursing Laboratory Data 08/03/23 16:44 08/03/23 16:44 Lab Results 08/03/23 08/03/23 Range/Units 16:44 Unknown WBC 8.27 (4.8-10.8) K/ul RBC 4.97 (4.20-5.40) M/uL Hgb 15.1 (12.0-16.0) g/dl Hct 43.2 (37.0-47.0) % MCV 86.9 (80.0-100.0) fL MCH 30.4 (25.0-34.0) pg MCHC 35.0 (32.0-36.0) g/dL RDW Std Deviation 38.8 (36.4-46.3) fL RDW Coeff of Yani 12.3 (11.5-14.5) % Plt Count 222 (130-400) K/uL MPV 10.5 (9.4-12.4) fL Immature Gran % (Auto) 0.5 % Neut % (Auto) 75.3 % Lymph % (Auto) 16.0 % [place] % (Auto) 7.6 % Eos % (Auto) 0.1 % Baso % (Auto) 0.5 % Neut # (Auto) 6.23 (1.40-6.50) K/uL Lymph # (Auto) 1.32 (1.20-3.40) K/uL [place] # (Auto) 0.63 H (0.11-0.59) K/uL Eos # (Auto) 0.01 (0.00-0.50) K/uL Baso # (Auto) 0.04 (0.00-0.20) K/uL Immature Gran # (Auto) 0.04 (0.01-0.20) K/uL PT 11.0 (9.0-12.0) Seconds INR 1.0 (0.9-1.1) Sodium 139 (136-145) mmol/L Potassium 3.8 (3.5-5.1) mmol/L Chloride 109 H (98-107) mmol/L Carbon Dioxide 19 L (21-32) mmol/L Anion Gap 11 (3-11) BUN 15 (6-23) mg/dl Creatinine 0.80 (0.6-1.2) mg/dl Est Cr Clr Drug Dosing 75.6 ml/min Est GFR ( Amer) 94.9 ml/min Est GFR (Non-Af Amer) 81.8 ml/min BUN/Creatinine Ratio 18.8 (10-20) Glucose 117 H (70-99(Fasting)) mg/dl Lactate 1.5 (0.4-2.0) mmol/L Calcium 10.2 (8.6-10.3) mg/dl Total Bilirubin 1.1 H (0.2-1.0) mg/dl AST 14 (13-39) U/L ALT 11 (7-52) U/L Alkaline Phosphatase 75 (34-104) U/L Total Protein 7.9 (6.0-8.3) gm/dl Albumin 4.6 (3.4-5.0) gm/dl Globulin 3.3 (2.5-4.0) gm/dl Albumin/Globulin Ratio 1.4 (0.9-2) Lipase 15 (11-82) U/L Urine Color Dark Yellow Urine Appearance Cloudy A (Clear) Urine pH 6.5 (4.5-7.5) Ur Specific [place] 1.029 (1.000-1.030) Urine Protein Trace H (Negative) Urine Glucose (UA) Negative (Negative) Urine Ketones 4+ H (Negative) Urine Blood Trace H (Negative) Urine Nitrite Negative (Negative) Urine Bilirubin Negative (Negative) Urine Urobilinogen Negative (Negative) Ur Leukocyte Esterase Negative (Negative) Urine WBC (Auto) 0-5 (0-5) /hpf Urine RBC (Auto) 6-10 H (0-2) /hpf U Hyaline Cast (Auto) 3-5 H (0-2) /lpf U Epithel Cells (Auto) 3-5 H (0-2) /hpf Urine Bacteria (Auto) None Seen (None Seen) Calcium Oxalate Crystal Present A (None Prsent) Urine Mucus Present A (None Prsent) Administered Medications Discontinued Medications Fentanyl Citrate (Fentanyl Citrate Pf 100 Mcg/2 Ml Vial) 25 mcg IV NOW STA Stop: 08/03/23 16:14 Last Admin: 08/03/23 17:02 Dose: 25 mcg Documented By: SHIRA Sodium Chloride (Nss) 1,000 mls @ 999 mls/hr IV .Q1H1M ONE Stop: 08/03/23 17:13 Last Admin: 08/03/23 17:01 Dose: 999 mls/hr Documented By: SHIRA Ioversol (Optiray 320 100ml) 93 ml IV ONCE ONE Stop: 08/03/23 17:48 Last Admin: 08/03/23 17:47 Dose: 93 ml Documented By: RUBIO Ondansetron HCl (Ondansetron Inj 2 Mg/Ml 2 Ml Vial) 4 mg IV NOW STA Stop: 08/03/23 16:14 Last Admin: 08/03/23 17:01 Dose: 4 mg Documented By: SHIRA Imaging Data Radiologist's Impression: Abdomen/Pelvis CT 08/03/23 15:[address] WITH IV CONTRAST CT DOSE: 868.58 mGy.cm HISTORY: Acute left-sided abdominal pain left-sided abdominal pain TECHNIQUE: Multiaxial CT images of the abdomen and pelvis were performed following the IV administration of 93 cc of Optiray, A dose lowering technique was utilized adhering to the principles of ALARA. COMPARISON STUDY: 05/04/2022 FINDINGS: No acute lower thoracic abnormality identified. No pneumatosis or pneumoperitoneum. No portal venous gas. Unremarkable spleen, pancreas and adrenal glands. Cholecystectomy with likely postsurgical biliary ductal dilation redemonstrated. Unremarkable liver. There is patency of the hepatic and portal veins. Unremarkable kidneys without hydronephrosis. Urinary bladder wall thickening with partial distention perivesicular stranding. Hysterectomy. No adnexal mass lesions. No abdominal aortic aneurysm or lymphadenopathy. Colonic diverticulosis. Prior rectosigmoid resection. The majority of the large bowel is decompressed. Normal appendix. Small bowel stricture and with transition point within the abdominal lower quadrant, similar pattern to the prior study. Numerous thick-walled loops of small bowel are noted within the lower abdomen with intraluminal edema and trace ascites. Upstream dilated fluid- filled loops of small bowel measure up to 4.2 cm. No abscess. No acute fracture. IMPRESSION: 1. Small bowel obstruction with transition point within the abdominal left lower quadrant, similar in appearance to the study from 05/04/2022. Numerous thick- walled loops of lower abdominal and upper pelvic small bowel wall thickening again noted with interloop edema and trace ascites. 2. No pneumatosis or pneumoperitoneum. 3. Colonic diverticulosis. 4. Additional findings as above. ACT 112: Negative or not required by law. The above report was generated using voice recognition software. It may contain grammatical, syntax or spelling errors. Electronically signed by: Sarbjit Neri M.D. 08/03/2023 6:15 PM Discharge Plan Visit Data Chief Complaint: Abdominal Pain Stated Complaint: ABDOMINAL FULLER ED Provider: Amber Cole Discharge Problem: Abdominal pain, Nausea & vomiting, SBO (small bowel obstruction) Forms Stand Alone Forms: [employer] Prescriptions Prescriptions: No Action estradiol 0.0375 mg/24 hr patch weekly See Rx Instructions .ROUTE .COMPLEX Qty: 12 3RF Dose Instruction: APPLY 1 PATCH TRANSDERMALLY ONCE WEEKLY. CHANGE THIS PATCH EVERY SATURDAY Rx Instructions: APPLY 1 PATCH TRANSDERMALLY ONCE WEEKLY. CHANGE THIS PATCH EVERY SATURDAY Hair, Skin, Nails with Biotin 7.5-7.5-1,250 mg-unit-mcg Tablet,Chewable 1 tab PO QAM echinacea 500 mg Capsule 500 mg PO QAM multivitamin Tablet 1 tab PO QAM ascorbic acid (vitamin C) [Vitamin C] 500 mg Tablet 500 mg PO QAM aloe vera 25 mg Capsule 1 cap PO QAM calcium carbonate-vitamin D3 [Calcium 500 + D] 500 mg(1,250mg) -200 unit Tablet 1 tab PO QAM levothyroxine 100 mcg tablet 100 mcg PO DAILYBB docusate sodium [Colace] 100 mg capsule 100 mg PO BID Qty: 60 0RF Referrals Referrals: Robert Fay DO [Primary Care Provider] -
--- OUTSIDE RECORDS SUMMARY | 2023-08-03 16:50 | External Medical Summary | Continuity of Care Document ---
Author Name Unknown Organization [facility] [address] [place] [address] [address] [phone] Encounter [facility] FINNBR [id number] Date(s): 05/27/23 - 05/27/23 [facility] [address] [facility] [address] [address] [phone] Encounter Diagnosis Body mass index [BMI] 26.0-26.9, adult(Discharge Diagnosis) - 05/27/23 Preop examination(Discharge Diagnosis) - 05/27/23 Bradycardia(Discharge Diagnosis) - 05/27/23 Extensor tendon laceration, hand, open wound(Discharge Diagnosis) - 05/28/23 Discharge Disposition: Home or Self Care Attending Physician: MD Shin Christopher Allergies, Adverse Reactions, Alerts Substance Reaction Severity Status doxycycline Active erythromycin Active traMADol chest pain Active morphine 1 chest pain, hypoxemia Active 1tolerates dilaudid better Immunizations Given and Recorded Vaccine Date Status Refusal Reason influenza virus vaccine, inactivated 12/21/21 Jerry rded influenza virus vaccine, inactivated 12/27/20 Jerry rded influenza virus vaccine, inactivated 01/07/20 Jerry rded influenza virus vaccine, inactivated 02/05/19 Jerry rded influenza virus vaccine, inactivated 1 01/08/18 Re corded influenza virus vaccine, inactivated 01/15/17 Jerry rded influenza virus vaccine, inactivated 01/07/15 Jerry rded influenza virus vaccine, inactivated 12/29/13 Jerry rded influenza virus vaccine, inactivated 2 01/23/13 Re corded SARS-CoV-2 (COVID-19) mRNA-1273 vaccine 3 05/17/20 Recorded SARS-CoV-2 (COVID-19) mRNA-1273 vaccine 4 04/19/20 Recorded zoster vaccine, inactivated 02/01/20 Recorded zoster vaccine, inactivated 06/08/19 Recorded tetanus/diphtheria/pertuss, acel (Tdap) 10/07/14 G iven tetanus toxoids-diphtheria, Td (Adult) 01/02/12 Re corded tetanus toxoids-diphtheria, Td (Adult) 5 02/27/05 Recorded tetanus toxoids-diphtheria, Td (Adult) 03/26/00 Re corded pneumococcal 23-valent vaccine 6 02/27/05 Recorded hepatitis B adult vaccine 7 02/27/05 Recorded hepatitis B adult vaccine 04/11/99 Recorded hepatitis B adult vaccine 11/09/98 Recorded hepatitis B adult vaccine 09/29/98 Recorded 1Result Comment: [01/10/2018] Fluarix Quad 2310-5212 Syringe 2Result Comment: [03/27/2013] Got @ [facility] [employer] 3Result Comment: 2020-08-07: Historical information-source unspecified 4Result Comment: 2020-08-07: Historical information-source unspecified 5Result Comment: 2020-08-07: Historical information-source unspecified 6Result Comment: 2020-08-07: Historical information-source unspecified 7Result Comment: 2020-08-07: Historical information-source unspecified Medications aloe vera Start: 02/02/16 15:50:00 Start Date: 02/02/16 Status: Ordered biotin Start: 11/29/10 13:53:00, 1 tab, PO, Daily Start Date: 11/29/10 Status: Ordered calcium (as carbonate)-vitamin D 90 mg-1000 intl units (25 mcg) oral tablet Start: 08/17/19 10:35:00 EDT, 1 tab, PO, Daily, Disp# 100 tab, Refills: 10, other Start Date: 08/17/19 Status: Ordered cephalexin Start: 05/21/23 10:11:00 EST Start Date: 05/21/23 Status: Ordered [place]imara 0.0375 mg/24 hours weekly transdermal film, extended release Start: 03/31/20 13:23:00 EST, See Instructions, Disp# 12 each, Refills: 4, Apply 1 patch topical weekly, Pharmacy: [facility]/pharmacy #[id number] Start Date: 03/31/20 Status: Ordered Colace 100 mg oral capsule Start: 02/02/16 16:12:00, 1 cap, PO, Daily, Disp# 100 cap, Refills: 10, PRN: as needed for constipation, given to patient Start Date: 02/02/16 Status: Ordered Echinacea oral tablet Start: 09/03/11 10:41:00, 1 tab, PO, Daily Start Date: 09/03/11 Status: Ordered hyoscyamine 0.125 mg sublingual tablet Start: 03/31/20 13:29:00 EST, 1-2 tab, PO, q6h, Disp# 100 tab, Refills: 1, PRN: Abdominal bloating - gas pain, Pharmacy: [email or web address] Start Date: 03/31/20 Status: Ordered levothyroxine 100 mcg (0.1 mg) oral tablet Start: 03/19/23 9:44:00 EST, 1 tab, PO, Daily, Disp# 90 tab, Refills: 0, Pharmacy: [email or web address] Start Date: 03/19/23 Status: Ordered multivitamin Start: 12/06/09 6:23:51, 1 cap, PO, Daily, Refills: 0, current medication from another provider Start Date: 12/06/09 Status: Ordered [place] 5 mg-325 mg oral tablet Start: 05/21/23 11:59:00 EST, See Instructions, Disp# 10 tab, Refills: 0, 1-2 tabs po every 4-6 hours not to exceed 6 tablets/day, Note to Pharmacy: initial therapy, PRN: as needed for pain, Stop: 05/30/23 12:01:00 EST, Pharmacy: [facility]/pharmacy #[id number],... Start Date: 05/21/23 Stop Date: 05/30/23 Status: Ordered ondansetron 4 mg oral tablet Start: 07/28/20 17:59:00 EDT, 1 tab PO QID PRN Start Date: 07/28/20 Status: Ordered triamcinolone 0.5% topical cream Start: 10/12/22 10:39:00 EDT, 1 appl, topical, tid, Disp# 15 g, Refills: 3, Pharmacy: [email or web address] Start Date: 10/12/22 Status: Ordered Vitamin B12 Methylcobalamin Start: 10/08/17 9:14:00 EDT, Daily Start Date: 10/08/17 Status: Ordered Vitamin C Start: 10/08/17 9:15:00 EDT, Daily Start Date: 10/08/17 Status: Ordered ZyrTEC 10 mg oral tablet Start: 01/30/18 19:18:00 EDT, 1 tab, PO, bid, prn cold weather to prevent hives Start Date: 01/30/18 Status: Ordered Mental Status 05/27/23 Barriers to Learning one year None evide nt Mandatory Health Literacy Documentation Yes Health Literacy Communication Barriers N ever Primary Language Bolivian Problem List Condition Confirmation Course Effective Dates Status H ealth Status Informant Asymptomatic monoclonal gammopathy Confirmed Active Nevus of back Confirmed Active Endometriosis (clinical) 1, 2 Confirmed Active History of cholecystectomy Confirmed Active History of syncope 3 Confirmed Active IBS (irritable bowel syndrome) Confirmed Active Hand laceration Confirmed Active Menopausal syndrome Confirmed Active Migraines 4 Confirmed Active Mitral valve prolapse 5 Confirmed Active Multinodular goiter Confirmed Active Need for prophylactic vaccination and inoculation against influenza Confirmed Active Recurrent intestinal obstruction Confirmed Active 1Septic pelvic thrombophlebitis 2Septic shock secondary to strep endometritis 3recurrent episodes of vasovagal response 4OCP 5ABT prior to dental work Diagnosis Diagnosis Type Effective Dates Health Status Clinical Service Informant Body mass index [BMI] 26.0-26.9, adult Discharge Diagnosis 05/27/23 Non-Specified Preop examination Discharge Diagnosis 05/27/23 Bradycardia Discharge Diagnosis 05/27/23 Extensor tendon laceration, hand, open wound Discharge Diagnosis 05/28/23 Non-Specified Procedures Procedure Date Related Diagnosis Body Site Status Repair of extensor tendon of hand 1 05/28/23 Completed Mammogram 2 04/09/[address] of abdomen and pelvis 3 02/08/22 Completed Mammogram 4 04/03/21 Completed Arthroscopic knee operation 5 01/03/21 Completed MRI of right knee 6 12/13/20 Compl eted Knee X-ray 7 12/03/20 Completed Chest x-ray 8 10/18/[address] of abdomen and pelvis wit h contrast 9 10/17/20 Completed Small bowel follow through 10 08/22/[address] of abdomen and pelvis 11 07/27/20 Completed KUB X-ray 12 07/27/20 Completed Screening mammogram of bilat eral breasts 13 03/30/[address] of abdomen and pelvis 14 12/15/18 Completed Mammogram 15 03/26/18 Completed Cheilectomy 16 03/12/18 Completed Colonoscopy normal 17 12/20/[address] of abdomen and pelvis 18 09/12/[address] of abdomen and pelvis wit h contrast 19 08/07/17 Completed Abdominal X-ray normal 20 07/11/17 Completed Mammogram 21, 22 03/22/17 Complete d KUB X-ray 23 12/14/16 Completed Small bowel series 24 12/13/16 Com pleted Chest x-ray 25 12/12/[address] of abdomen and pelvis 26 12/12/16 Completed Bunionectomy with arthrodesis [address] of abdomen and pelvis 27 01/09/[address] of abdomen and pelvis 28 04/26/15 Completed Chest x-ray 29 04/25/[address] of abdomen and pelvis 30 03/30/15 Completed Mammogram 31 03/18/[address] head without contrast 32 12/20/[address] of facial bones 33 12/20/14 Com pleted Wrist X-ray 34 12/20/14 Completed Release of trigger finger 35 10/12/14 Completed Papanicolaou smear 10/11/14 Comple josi AXR - Abdominal X-ray 36 10/05/14 Completed Mammogram - screening 37 02/25/14 Completed Gastrografin enema 38 02/23/14 Com pleted Small bowel series 02/19/14 Comple josi X-ray of chest and abdomen 39 10/21/13 Completed Bone density scan 40 10/07/13 Comp leted Ultrasound bone density gary urement and interpretation, peripheral site(s), any method 41 02/14/13 Completed sigmoid resection, laparasco pically assisted 10/01/11 Completed Colonoscopy 42 02/18/07 Completed delivery 1990 [facility] ed Reconstruction of thumb 43 1982 Completed Bilateral tubal ligation Completed Cholecystectomy Completed Extraction of wisdom tooth 44 Completed Reduction mammoplasty, bilateral Completed Right salpingo-oophorectomy Completed MIKE - Total abdominal hysterectomy 45 Completed 1left index finger 2Impression: There is no mammographic evidence of malignancy. A 1 year screening mammogram is recommended. 3high- grade small bowel obstruction measures 3.8cm with a collapsed appearance of distal small bowel loops. consider adhesions a likely etiology with zone of transition in the left lower quadrant. alternatively, the small bowel distal to the transition zone in the region of the left iliac fossa is slightly thick- walled, which may reflect a nonspecific enteritis raising the possiblilty that a small bowel stricture may also be present 4ACR BI-RADS CATEGORY 1: NEGATIVE Non mammographic evidence of malignancy. 5right lateral menisectomy 61. Acute appearing complex tear of the medial meniscal body, posterior junction and posterior horn. 2. 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 3. Moderate joint effusion. 4. No acute ligamentous injury. 7Impression: 1. small joint effusion without acute fracture. 2. Mild patellofemoral osteoarthrisis 81. No free air. 2. Persistent small bowel dilatation consistent with a small bowel obstruction. Associated small bowel air-fluid levels. 3. No acute cardiopulmonary findings. 91. Findings are consistent with a small bowel obstruction. A transition point is identified involving a loop of jejunum in the left lower quadrant, and this is similar in appearance to the 07/26/2020 examination. 2. The small bowel below the transition point appears thick walled with mucosal hyperemia. This suggests a nonspecific enteritis, and associated mucosal edema or underlying stricture may be the underlying cause of obstruction. 3. There is postoperative change from sigmoid colon resection with colocolonic anastomosis. 4. There is moderate diverticulosis of the remaining colon without CT evidence of acute diverticulitis. 5. There is trace interloop fluid and a small volume of free fluid in the pelvis. There is no pneumatosis intestinalis, portal venous gas, intraperitoneal free air. 6. Additional findings as above. 10Impression: Unremarkable small bowel follow-through. No evidence for a small bowel obstruction. 11Impression:: 1. Wall thickening of several left abdominal small bowel loops with a few loops of moderately dialted upstream small bowel trace ascites and minimal m esenteric 2. Normal appendix 3. No change in biliary ductal dilation which is likely related to cholecystectomy 12Impression: NO significant changes in a few loops of moderately dilated small bowel 13No mammographic evidence of malignancy. A 1 year screening mammogram is recommended. 14Impression: Small bowel obstruction with transition point in the LLQ. Cholecystectomy. Normal appendix. Prior partial sigmoid colon resection with colocolonic anastomosis. Chronic diverticulosis without acute diverticulitis. 15Impression There is no mammographic evidence of malignancy 16Right first MTP joint cheilectomy with soft tissue reconstruction/repair. 17at [facility], under procedures 181. Resolution of previously noted small bowel wall thickening in the left lower quadrant. No evidence of abnormal small bowel distention or obstruction. Given the resolution since the prior exam, this could suggest enteritis, vasculitis, or angioedema as the etiology. No fixed fibrostenotic stricture. 191. Persistent segment of small bowel wall thickening in a loop in the left mid abdomen, which is the cause of a small bowel obstruction. This is likely a high-grade partial small bowel obstruction. This is more likely to represent stricture/submucosal fibrosis rather than submucosal edema considering its fixed appearance since the prior exam in november. Differential considerations include radiation enteritis, crohns disease, and prior mesenteric ischemia. Mesenteric lymphoma is considered less likely given the obstruction. Other etiologies such as drug induced enteritis, vasculitis, or angioedema are considered less likely because of lack of change of address clerk 8 months 2.Surgically absent uterus 3. Circumferential bladder wall thickening may be present allowing for underdistention. Correlate with urinalysis to exclude cystitis. 20Normal study 21No malignancy. One year screening recommended. 22No malignancy. Repeat 1 year 23Contrast has passed into colon in interval. Dilated loop of small bowel remains in left upper quadrant. Therefore, this is consistent with partial bowel obstruction. 24Impression: 1. Multiple distended loops of proximal to mid small bowel which extend into the deep pelvis which likely represents a transition point of the patients known small bowel obstruction. An additional KUB at 12 hours should be performed to confirm the transition point 2. Suggestion of a tiny apthous ulcer at the gastric antrum. 25with abdominal series- Impression: 1. No active disease in the chest. 2. Nonobstructed abdominal bowel gas pattern noting moderate constipation. 26Impression: 1. small bowel obstruction within the left midabdomen. The loops of bowel distal to the site of obstruction are slightly thickened raising the possibility of an enteritis. There is mild mesenteric edema surrounding the distended loops of small bowel. Therefore, vascular compromise cannot be excluded. There is an additional transition point proximal to the site of obstruction. 2. Postoperative changes as described above. 3. Normal appendix 4. Stable 4 mm nodule within the left lower lobe. 27Consistent with acute diverticulitis of proximal descending colon. Moderate pericolonic infiltration and wall thickening. No free air or abscess. 28Shows conceobstruction, no free air or abscesses were notedrn for entertis or low grade small bowel 29No active disease in the chest. There is no clear evidence of bowel obstruction. Significant constipation is noted throughout the colon. Prominent small bowel loops are suggested in the left upper quadrant. These dont appear pathologically dilated. 30Findings compatible with mid small bowel obstruction. No obvious obstructing lesion is identified and this is likely related to adhesions 31No mammographic evidence of malignancy. A 1year screening is recommended. Pt will receive written notification of results. 32No acute intracranial abnormality 33No fractures witin the maxillofacial region 34No fractures of the left wrist. Scapholunate disslocation 35Release A1 puley, left riing finger. 36Mildly dilated left mid abdominal small bowel loops measuring up to 38 mm. No evidence of free air. 37No mammographic evidence of malignancy. 381. Gottlieb diverticulosis. 2. Postsurgical changes of a partial colonic resection with end to side sigmoid anastomosis. 3. No obstructing lesions identified. 39Neg chest. Nonobstructive bowel pattern with only mild nonobstructive ileus present currently. Nasogastric tube within stomach. 40AP Spine with a T-score of -0.9. Normal. Femur Neck Left with a T-score of -0.9. Normal Femur Neck Right with a T-score of -1.2. Osteopenic. Follow-up exam is recommended in September 2015. 41Heel Screening: T-score was -1.2 42Impression: Melanosis, diverticulosis of colon. Terminal ileum is normal. 43Right 44X 4 45and left salpingo-oophorectomy Vital Signs Most recent to oldest [Reference Range]: 1 Height 166.5 cm (05/27/23 10:36 AM) Patient Weight 74.1 kg (05/27/23 10:36 AM) Body Mass Index 26.73 kg/m2 (05/27/23 10:36 AM) Blood Pressure 106/74mmHg (05/27/23 10:36 AM) Cuff Pulse Pressure 32 mmHg (05/27/23 10:36 AM) Social History Social History Type Response Smoking Status Never smoked cigaret cyndi Sex Female Patient Care team information Care Team Personnel Name: DO Stone Amanda Position: Resident Member Role: Lifetime Relationship Address: Address: [address] [facility] [address] [place] [address] Name: MARLEE Harris Bonnie D Position: Nurse Pract - Surgery MIS Member Role: Lifetime Relationship Address: Address: [address] [place] [address] [place] [id number] [place] Care Team Related Persons Name: MAYNOR RODRIGUEZ Address: home [address] [place] [phone]
--- OUTSIDE RECORDS SUMMARY | 2023-08-03 16:50 | External Medical Summary | Continuity of Care Document ---
Author Name Unknown Organization [place] [id number] Address [address] [place], [place] [id number] Care Team Providers Care Electrical Maintenance Technician Name Role Phone El Carrington Primary Care Physician [phone] [facility] [id number] Date(s): 07/09/23 - 07/09/23 [facility] [address] [id number] [facility] Medicine [address] [address] Encounter Diagnosis Extensor tendon laceration, hand, open wound(Discharge Diagnosis) - 07/09/23 Discharge Disposition: Home or Self Care Attending Physician: MD Johnathan, Christian Cowan Allergies, Adverse Reactions, Alerts Substance Reaction Severity Status doxycycline Active erythromycin Active morphine 1 chest pain, hypoxemia Active traMADol chest pain Active 1tolerates dilaudid better Immunizations Given and Recorded Vaccine Date Status Refusal Reason tetanus/diphtheria/pertuss, acel (Tdap) 05/17/23 R ecorded tetanus/diphtheria/pertuss, acel (Tdap) 10/07/14 G iven SARS-CoV-2 (COVID-19) mRNA-vacc - [id number] 02/12/23 Recorded influenza virus vaccine, inactivated 12/21/21 Jerry rded [...] 01/23/13 Re corded SARS-CoV-2 (COVID-19) mRNA-1273 vaccine 04/12/21 R ecorded SARS-CoV-2 (COVID-19) mRNA-1273 vaccine 3 05/17/20 Recorded SARS-CoV-2 (COVID-19) mRNA-1273 vaccine 4 04/19/20 Recorded zoster vaccine, inactivated 02/01/20 Recorded zoster vaccine, inactivated 06/08/19 Recorded tetanus toxoids-diphtheria, Td (Adult) 01/02/12 Re corded tetanus toxoids-diphtheria, Td (Adult) 5 02/27/05 Recorded tetanus toxoids-diphtheria, Td (Adult) 03/26/00 Re corded pneumococcal 23-valent vaccine 6 02/27/05 Recorded hepatitis B adult vaccine 7 02/27/05 Recorded hepatitis B adult vaccine 04/11/99 Recorded hepatitis B adult vaccine 11/09/98 Recorded hepatitis B adult vaccine 09/29/98 Recorded 1Result Comment: [01/10/2018] Fluarix Quad [id number] Syringe 2Result Comment: [03/27/2013] Got @ [facility] [employer] 3Result Comment: 2020-08-07: Historical information-source unspecified 4Result Comment: 2020-08-07: Historical information-source unspecified 5Result Comment: 2020-08-07: Historical information-source unspecified 6Result Comment: 2020-08-07: Historical information-source unspecified 7Result Comment: 2020-08-07: Historical information-source unspecified Medications aloe vera Start: 02/02/16 15:50:00 Start Date: 02/02/16 Status: Ordered benzonatate 200 mg oral capsule Start: 06/20/23 14:06:00 EST, 1 cap, PO, tid, Disp# 30 cap, cough, Pharmacy: [facility]/pharmacy #[id number] Start Date: 06/20/23 Status: Ordered biotin Start: 11/29/10 13:53:00, 1 tab, PO, Daily Start Date: 11/29/10 Status: Ordered calcium (as carbonate)-vitamin D 90 mg-1000 intl units (25 mcg) oral tablet Start: 08/17/19 10:35:00 EDT, 1 tab, PO, Daily, Disp# 100 tab, Refills: 10, other Start Date: 08/17/19 Status: Ordered Climara 0.0375 mg/24 hours weekly transdermal film, extended release Start: 03/31/20 13:23:00 EST, See Instructions, Disp# 12 each, Refills: 4, Apply 1 patch topical weekly, Pharmacy: [facility]/pharmacy #[id number] Start Date: 03/31/20 Status: Ordered Colace 100 [...] PRN: Abdominal bloating - gas pain, Pharmacy: [facility] Start Date: 03/31/20 Status: Ordered levothyroxine 100 mcg (0.1 mg) oral tablet Start: 06/19/23 9:07:00 EST, 1 tab, PO, Daily, Disp# 90 tab, Refills: 3, Pharmacy: [facility] Start Date: 06/19/23 Status: Ordered multivitamin Start: 12/06/09 6:23:51, 1 cap, PO, Daily, Refills: 0, current medication from another provider Start Date: 12/06/09 Status: Ordered ondansetron 4 mg oral tablet Start: 07/28/20 17:59:00 EDT, 1 tab PO QID PRN Start Date: 07/28/20 Status: Ordered triamcinolone 0.5% topical cream Start: 10/12/22 10:39:00 EDT, 1 appl, topical, tid, Disp# 15 g, Refills: 3, Pharmacy: [facility] Start Date: 10/12/22 Status: Ordered Vitamin B12 Methylcobalamin Start: 10/08/17 9:14:00 EDT, Daily Start Date: 10/08/17 Status: Ordered Vitamin C Start: 10/08/17 9:15:00 EDT, Daily Start Date: 10/08/17 Status: Ordered ZyrTEC 10 mg oral tablet Start: 01/30/18 19:18:00 EDT, 1 tab, PO, bid, prn cold weather to prevent hives Start Date: 01/30/18 Status: Ordered Mental Status 07/09/23 Barriers to Learning one year None evide nt Mandatory Health Literacy Documentation Yes Health Literacy Communication Barriers N ever Primary Language Bengali Problem List Condition Confirmation Course Effective Dates [...] vaccination and inoculation against influenza Confirmed Active Extensor tendon laceration, hand, open wound Confirmed Active Recurrent intestinal obstruction Confirmed Active 1Septic pelvic thrombophlebitis 2Septic shock secondary to strep endometritis 3recurrent episodes of vasovagal response 4OCP 5ABT prior to dental work Diagnosis Diagnosis Type Effective Dates Health Status Cl inical Service Informant Extensor tendon laceration, hand, open wound Discharge Diagnosis 07/09/23 Procedures Procedure Date Related Diagnosis Body Site [...] Completed Colonoscopy 42 02/18/07 Completed delivery 1990 [facility] ed Reconstruction of thumb 43 1982 Completed [...] joint cheile[place] with soft tissue [place]air. 17[place] [facility]. 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 Circumferential [...] normal. 43Right 44X 4 45and left salpingo-oophorectomy Social History Social History Type Response Smoking Status Never smoked cigaret cyndi Sex Female Ortho Outpt Note * Isha Koo: HAYLIE Mann MD, Christian Cowan: MODIFY Event Display: Ortho Outpt Note Authored Date: [id number] Name:ALESSIA RODRIGUEZ Patient Number:[id number] :1965 Date of Service:07/09/2023 CHIEF COMPLAINT: Follow-up s/p left hand index finger extensor tendon repair; DOS: 05/28/2023 HPI: [id number] Spike presents today forevaluation s/p left hand index finger extensor tendon repair. She is still has swelling over her knuckles. She is working with PT on extension and working on bending her index fingers. She notes stiffness of her middle finger and index fingers especially.She is still wearing her brace following surgery. She denies any real complaints of pain. PHYSICAL EXAM: Focus on the left upper extremity (hand/index finger): Puffiness about the knuckles Intact extension with minimal lag Index finger: 60 MP joint flexion/ 90 IP joint flexion Middle and ringfinger 5 cm from distal palmar crease IMPRESSION: 6 weeks s/p left hand index finger extensor tendon repair PLAN: Continue with PT and HEP per protocol to improve ROM Continue elevation for swelling. Follow-up in 3 weeks. ATTESTATION: Isha Farmer, scribing for and in the presence of, Christian Mann, on this date,2:00:08. Electronic Signature on File Electronically Reviewed/Signed by: Isha Koo Author Signature Dt/Tm:07/09/2023 12:23 PM Electronically Reviewed/Signed by: Christian Mann MD Cosigner Signature Dt/Tm: 07/09/2023 03:45 PM Division of Sports Medicine [place] Patient Care team information Care Team Personnel Name: DO Stone Amanda Position: Resident Member Role: Lifetime Relationship Address: Address: [place] [address] [place] Name: DO Gallegos Vinay Position: Resident Member Role: Primary Care Provider Address: Address: [facility] [place] [address] [place] Name: MARLEE Harris Bonnie D Position: Nurse Pract - Surgery MIS Member Role: Lifetime Relationship Address: Address: [address] [place], [place] [address] [address] Care Team Related Persons Name: MAYNOR RODRIGUEZ Address: home [address] [facility] [facility] [place] [phone]
--- OUTSIDE RECORDS SUMMARY | 2023-08-03 16:50 | External Medical Summary | Continuity of Care Document ---
Author Name Unknown Organization [facility] [address] [address] Address [address] [place], [place] [id number] Encounter [facility] FINNBR [id number] Date(s): 05/31/23 - 05/31/23 [facility] [address] [facility] [address] [facility] [address] [place] [address] Encounter Diagnosis Hand laceration(Discharge Diagnosis) - 05/31/23 Extensor tendon laceration, hand, open wound(Discharge Diagnosis) - 05/31/23 Discharge Disposition: Home or Self Care Attending Physician: ARIANNA Bliss Jennifer R Referring Physician: MD Mann Paul S Allergies, Adverse Reactions, Alerts Substance Reaction Severity Status doxycycline Active erythromycin Active traMADol chest pain Active morphine 1 chest pain, hypoxemia Active 1tolerates dilaudid better Assessment and Plan Extracted from: Title:Clinical Document Author:ARIANNA Bliss, Benito Clay Date:05/31/23 ORTHOPAEDICS OUTPATIENT NOTE Name: MARGIE RODRIGUEZ Patient Number: [id number] : 1965 Date of Service: 05/31/2023 Chief Complaint: Postop extensor tendon repair left index finger HPI: Margie is here today with her spouse. She is status post a left hand index finger extensor tendon repair with Dr. Mann on May 28, 2023. She is doing well. No complaints of significant pain. She is not taking any pain medication. She denies any numbness or tingling. She is kept the splint on. She is kept it iced and elevated. OBJECTIVE Vitals: Last Updated 05/31/23 10:49 Date Temp BP Location Pulse RR SpO2 Pain 05/31/23 0 05/27/23 106/74 99 05/27/23 2 Height and Weight: Last Updated 05/27/23 10:36 Date BMI Wt(kg) Wt(lb) Method Ht(cm) (ft-in) Method 05/27/23 26.73 74.1 163 Standing Scale 166.5 5-5 Standing 05/21/23 26.4 73.2 161 Standing Scale 166.5 5-5 05/20/23 26.61 74.2 163 Standing Scale 167 5-5 Standing Physical Exam Exam of her left hand: Incision is clean, dry and intact with retained sutures. There is some dried bloody drainage on her skin in the dressings. The bloody drainage was cleansed with a sterile saline wipe and a new dressing with Xeroform, 4 x 4's and cast padding was applied. Her splint was reapplied. Distal sensation was normal. Mild ecchymosis under the index finger. Mild edema on the dorsum of her hand with no underlying fluctuance or evidence of seroma or hematoma. No range of motion of the wrist attempted today. Distal pulses 1+. Capillary fill is brisk. ASSESSMENT: Status post extensor tendon repair of her left index finger with Dr. Mann on May 28, 2023 PLAN: Continue use of the volar splint. Recommended ice and elevation for swelling. Tylenol and/or ibuprofen as needed for pain. Call with any increased problems, questions or concerns. She does have an appointment next Saturday with Cyndee Rod to start her physical therapy and obtain a thermoplastic splint. She would like to continue her outpatient physical therapy with the principal trainer at [facility] [employer] where she is employed. She states that she has talked to him and he is "comfortable taking care of this". She will follow-up with Dr. Mann as scheduled on June 10, 2023. This chart was completed utilizing Medypal voice recognition software. Grammatical errors, random word insertions, pronoun errors, and in complete sentences are an occasional consequence of the system. Any questions or concerns about the content, text, or information contained within the body of this dictation should be addressed directly to the provider for clarification. Immunizations Given and Recorded Vaccine Date Status [...] 09/29/98 Recorded 1Result Comment: [01/10/2018] Fluarix Quad [id number] Syringe 2Result Comment: [03/27/2013] Got @ [facility] [employer] [facility] 3Result Comment: 2020-08-07: Historical information-source unspecified 4Result [...] 4, Apply 1 patch topical weekly, Pharmacy: [facility]/pharmacy #[id number] Start Date: 03/31/20 Status: Ordered Colace [...] PRN: Abdominal bloating - gas pain, Pharmacy: [facility] Start Date: 03/31/20 Status: Ordered levothyroxine 100 mcg (0.1 mg) oral tablet Start: 03/19/23 9:44:00 EST, 1 tab, PO, Daily, Disp# 90 tab, Refills: 0, Pharmacy: [facility] Start Date: 03/19/23 Status: Ordered [...] tid, Disp# 15 g, Refills: 3, Pharmacy: [facility] Start Date: 10/12/22 Status: Ordered Vitamin B12 Methylcobalamin Start: 10/08/17 9:14:00 EDT, Daily Start Date: 10/08/17 Status: Ordered Vitamin C Start: 10/08/17 9:15:00 EDT, Daily Start Date: 10/08/17 Status: Ordered ZyrTEC 10 mg oral tablet Start: 01/30/18 19:18:00 EDT, 1 tab, PO, bid, prn cold weather to prevent hives Start Date: 01/30/18 Status: Ordered Mental Status 05/31/23 Barriers to Learning one year None evide nt Mandatory Health Literacy Documentation Yes Health Literacy Communication Barriers N ever Primary Language Sami Problem List Condition Confirmation Course Effective Dates [...] Effective Dates Health Status Clinical Service Informant Hand laceration Discharge Diagnosis 05/31/23 Extensor tendon laceration, hand, open wound Discharge Diagnosis 05/31/23 Procedures Procedure Date Related Diagnosis Body Site [...] Completed Colonoscopy 42 02/18/07 Completed delivery 1990 [facility] ed Reconstruction of thumb 43 1982 [...] joint cheilectomy with soft tissue reconstruction/repair. 17at [facility], under procedures 181. 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 Circumferential [...] cyndi Sex Female Ortho Outpt Note * ARIANNA Bliss, Ivania R: PERFORM Event Display: Ortho Outpt Note Authored Date: [id number] ORTHOPAEDICS OUTPATIENT NOTE Name: MARGIE RODRIGUEZ Patient Number: [id number] : 1965 Date of Service: 05/31/2023 Chief Complaint: Postop extensor tendon repair left index finger HPI: Margie is here today with her spouse. She is status post a left hand index finger extensor tendon repair with Dr. Mann on May 28, 2023. She is doing well. No complaints of significant pain. She is not taking any pain medication. She denies any numbness or tingling. She is kept the splint on. She is kept it iced and elevated. OBJECTIVE Vitals: Last Updated 05/31/23 10:49 Date Temp BP Location Pulse RR SpO2 Pain 05/31/23 0 05/27/23 106/74 99 05/27/23 2 Height and Weight: Last Updated 05/27/23 10:36 Date BMI Wt(kg) Wt(lb) Method Ht(cm) (ft-in) Method 05/27/23 26.73 74.1 163 Standing Scale 166.5 5-5 Standing 05/21/23 26.4 73.2 161 Standing Scale 166.5 5-5 05/20/23 26.61 74.2 163 Standing Scale 167 5-5 Standing Physical Exam Exam of her left hand: Incision is clean, dry and intact with retained sutures. There is some driedbloody drainage on her skin in the dressings. The bloody drainage was cleansed with a sterile saline wipe and a new dressing with Xeroform, 4 x 4's and cast padding was applied. Her splint was reapplied. Distal sensation was normal. Mild ecchymosis under the index finger. Mild edema on the dorsum of her hand with no underlying fluctuance or evidence of seroma or hematoma. No range of motion of the wrist attempted today. Distal pulses 1+. Capillary fill is brisk. ASSESSMENT: Status post extensor tendon repair of her left index finger with Dr. Mann on May 28, 2023 PLAN: Continue use of the volar splint. Recommended ice and elevation for swelling. Tylenol and/or ibuprofen as needed for pain. Call with any increased problems, questions or concerns. She does havean appointment next Saturday with Cyndee Rod to start her physical therapy and obtain a thermoplastic splint. She would like to continue her outpatient physical therapy with the principal trainer [facility] where she is employed. She states that she has talked to him and heis "comfortable taking care of this". She will follow-up with Dr. Mann as scheduled on June 10, 2023. This chart was completed utilizing Medypal voice recognition software. Grammatical errors,random word insertions, pronoun errors, and in complete sentences are an occasional consequence of the system. Any questions or concerns about the content, text, or information contained within the body of this dictation should be addressed directly to the provider for clarification. Electronic Signature on File Electronically Reviewed/Signed by: Ivania Bliss PA-C Author Signature Dt/Tm:05/31/2023 02:04PM Division of Sports Medicine Electronically Reviewed/Signed by: Christian Mann MD Cosigner Signature Dt/Tm: 05/31/2023 03:29 PM Division of Sports Medicine [facility] Patient Care team information Care Team Personnel Name: DO Stone Amanda Position: Resident Member Role: Lifetime Relationship Address: Address: [address] [address] Name: MARLEE Harris Bonnie D Position: Nurse Pract - Surgery MIS Member Role: Lifetime Relationship Address: Address: [address] [place] [address] Care Team Related Persons Name: MAYNOR RODRIGUEZ Address: [address] [facility] [facility] [place] [phone]
--- OUTSIDE RECORDS SUMMARY | 2023-08-03 16:50 | External Medical Summary | Continuity of Care Document ---
Author Name Unknown Organization [facility] [address] [address] Address [address] [place], [place] [id number] Encounter [facility] FINNBR [id number] Date(s): 06/10/23 - 06/10/23 [facility] [address] [facility] [address] [facility] Sports Medicine [address] [place] [address] Encounter Diagnosis Extensor tendon laceration, hand, open wound(Discharge Diagnosis) - 06/10/23 Discharge Disposition: Home or Self Care Attending Physician: MD Johnathan, Christian Cowan Referring Physician: MD Johnathan, Christian Cowan Allergies, Adverse [...] 09/29/98 Recorded 1Result Comment: [01/10/2018] Fluarix Quad [id number] Syringe 2Result Comment: [03/27/2013] Got @ [facility] [employer] 3Result Comment: 2020-08-07: Historical information-source unspecified 4Result [...] 4, Apply 1 patch topical weekly, Pharmacy: [facility]/pharmacy #[id number] Start Date: 03/31/20 Status: Ordered Colace 100 [...] PRN: Abdominal bloating - gas pain, Pharmacy: [facility] Start Date: 03/31/20 Status: Ordered levothyroxine 100 mcg (0.1 mg) oral tablet Start: 03/19/23 9:44:00 EST, 1 tab, PO, Daily, Disp# 90 tab, Refills: 0, Pharmacy: [facility] Start Date: 03/19/23 Status: Ordered [...] tid, Disp# 15 g, Refills: 3, Pharmacy: [facility] Start Date: 10/12/22 Status: Ordered Vitamin B12 Methylcobalamin Start: 10/08/17 9:14:00 EDT, Daily Start Date: 10/08/17 Status: Ordered Vitamin C Start: 10/08/17 9:15:00 EDT, Daily Start Date: 10/08/17 Status: Ordered ZyrTEC 10 mg oral tablet Start: 01/30/18 19:18:00 EDT, 1 tab, PO, bid, prn cold weather to prevent hives Start Date: 01/30/18 Status: Ordered Mental Status 06/10/23 Barriers to Learning one year None evide nt Mandatory Health Literacy Documentation Yes Health Literacy Communication Barriers N ever Primary Language Sinhala Problem List Condition Confirmation Course Effective Dates [...] tendon laceration, hand, open wound Discharge Diagnosis 06/10/23 Procedures Procedure Date Related Diagnosis Body Site [...] Completed Colonoscopy 42 02/18/07 Completed delivery 1990 [facility] ed Reconstruction of thumb 43 1982 Completed [...] joint cheilectomy with soft tissue reconstruction/repair. 17at [facility] [place], [place] procedures 181. Resolution of previously noted [...] considered less likely because of lack of chart changer 8 months 2.Surgically absent uterus 3. [...] cyndi Sex Female Ortho Outpt Note * Gilbert Alonzo: PERFORM, MODIFY, MODIFY, MODIFY MD Johnathan, Christian Cowan: MODIFY Event Display: Ortho Outpt Note Authored Date: [id number] Name:ALESSIA RODRIGUEZ Patient Number:[id number] :1965 Date of Service:06/10/2023 CHIEF COMPLAINT: 2 weeks s/p extensor tendon repair left index finger (DOS: 05/28/2023) HPI: Abhi Lala presents today for2 weeks s/p extensor tendon repair left index finger (DOS: 05/28/2023) The patient has been seeing [facility] for physical therapy, and states that she is progressing well. She had some shocking sensations in her fingers recently which have since calmed down. She is wearing her splint time recorder. She has not been taking pain medications. PHYSICAL EXAM: Focusing on the patient'sLEFTupper extremity: Capillary refill is less than 2 seconds Median radial and ulnar motor and sensory functions intact Incision is Benign NOredness NO fluctuance NOerythema Resting finger posture symmetric to remaining fingers No significant swelling IMPRESSION: 57 year old female2 weeks s/p extensor tendon repair left index finger (DOS: 05/28/2023) PLAN: Patient had stitches removed, Steri strips applied. Continue progressing at physical therapy as per protocol forzone 5 extensor tendonlaceration.Continuebracing. Do not use the hand except for approved physical therapy. Follow up in 1 month. ATTESTATION: I, Gilbert Alonzo, have scribed for, and in the presence of, Christian Mann, on this date,06/10/2023 13:28:31. Electronic Signature on File Electronically Reviewed/Signed by: Gilbert Alonzo Author Signature Dt/Tm:06/10/2023 01:33 PM Electronically Reviewed/Signed by: Christian Mann MD Cosigner Signature Dt/Tm: 06/11/2023 08:34 AM Division of Sports Medicine [facility] Patient Care team information Care Team Personnel Name: DO Stone Amanda Position: Resident Member Role: Lifetime Relationship Address: Address: [address] [facility] [address] [place] [address], [place] [address] Name: MARLEE Harris Bonnie D Position: Nurse Pract - Surgery MIS Member Role: Lifetime Relationship Address: Address: [address] [place], [place] [address] [address] Care Team Related Persons Name: MAYNOR RODRIGUEZ Address: home [address] [facility] [facility] [place] [id number]
--- OUTSIDE RECORDS SUMMARY | 2023-08-03 16:50 | External Medical Summary | Continuity of Care Document ---
Author Name Unknown Organization [address] [place] [phone] Care Team Providers Care Blood Donor Unit Assistant Name Role Phone Carrington Gallegos Primary Care Physician [phone] [facility]counter [facility] [id number] Date(s): 06/20/23 - 06/20/23 [facility] [address] [facility] [address] [facility] [address] [place] [address] [phone] Encounter Diagnosis Cough(Discharge Diagnosis) - 06/20/23 Discharge Disposition: Home or Self Care Attending Physician: DO Schmitz Gretchen Elizabeth Allergies, Adverse Reactions, Alerts Substance Reaction Severity Status doxycycline Active erythromycin Active morphine 1 chest pain, hypoxemia Active traMADol chest pain Active 1tolerates dilaudid better Assessment and Plan Extracted from: Title:Office Visit Note Author:DO Gallegos Vinay Date:06/20/23 1.Cough acute uncomplicated -suspect 2/2 post viral and post nasal drip -rx tessalon pearls prn -advised daily flonase -conservative treatment otherwise -f/u prn Immunizations Given and Recorded Vaccine Date Status Refusal Reason tetanus/diphtheria/pertuss, acel (Tdap) 05/17/23 R ecorded tetanus/diphtheria/pertuss, acel (Tdap) 10/07/14 G iven SARS-CoV-2 (COVID-19) mRNA-vacc - [id number] 02/12/23 Recorded influenza virus vaccine, inactivated 12/21/21 [...] 09/29/98 Recorded 1Result Comment: [01/10/2018] Fluarix Quad [id number] Syringe 2Result Comment: [03/27/2013] Got @ [facility] [employer] 3Result Comment: 2020-08-07: Historical information-source unspecified 4Result Comment: 2020-08-07: Historical information-source unspecified 5Result Comment: 2020-08-07: Historical information-source unspecified 6Result Comment: 2020-08-07: Historical information-source unspecified 7Result Comment: 2020-08-07: Historical information-source unspecified Medications aloe vera Start: 02/02/16 15:50:00 Start Date: 02/02/16 Status: Ordered benzonatate 200 mg oral capsule Start: 06/20/23 14:06:00 EST, 1 cap, PO, tid, Disp# 30 cap, cough, Pharmacy: [facility]/pharmacy #[id number] Start Date: 06/20/23 Status: Ordered biotin Start: [...] 4, Apply 1 patch topical weekly, Pharmacy: [facility]/pharmacy #[id number] Start Date: 03/31/20 Status: Ordered Colace 100 [...] PRN: Abdominal bloating - gas pain, Pharmacy: [facility] Start Date: 03/31/20 Status: Ordered levothyroxine 100 mcg (0.1 mg) oral tablet Start: 06/19/23 9:07:00 EST, 1 tab, PO, Daily, Disp# 90 tab, Refills: 3, Pharmacy: [facility] Start Date: 06/19/23 Status: Ordered [...] tid, Disp# 15 g, Refills: 3, Pharmacy: [facility] Start Date: 10/12/22 Status: Ordered Vitamin B12 Methylcobalamin Start: 10/08/17 9:14:00 EDT, Daily Start Date: 10/08/17 Status: Ordered Vitamin C Start: 10/08/17 9:15:00 EDT, Daily Start Date: 10/08/17 Status: Ordered ZyrTEC 10 mg oral tablet Start: 01/30/18 19:18:00 EDT, 1 tab, PO, bid, prn cold weather to prevent hives Start Date: 01/30/18 Status: Ordered Mental Status 06/20/23 Barriers to Learning one year None evide nt Mandatory Health Literacy Documentation Yes Health Literacy Communication Barriers N ever Primary Language [place] Islander Problem List Condition Confirmation Course Effective Dates [...] Diagnosis Diagnosis Type Effective Dates Health Status Clini shelbie Service Informant Cough Discharge Diagnosis 06/20/23 Procedures Procedure Date Related Diagnosis Body Site [...] Completed Colonoscopy 42 02/18/[address] [facility] ed Reconstruction of thumb 43 1982 [...] air. 37No mammographic evidence of malignancy. 381. Gotltieb diverticulosis. 2. Postsurgical changes of a partial [...] Most recent to oldest [Reference Range]: 1 Patient Weight 75.2 kg (06/20/23 1:11 PM) Temperature [36.5-37.9 DegC] 37.0 DegC (06/20/23 1:11 PM) Heart Rate 55 bpm (06/20/23 1:11 PM) Respiratory Rate 18 br/min (06/20/23 1:11 PM) Blood Pressure 112/82mmHg (06/20/23 1:11 PM) Cuff Pulse Pressure 30 mmHg (06/20/23 1:11 PM) Social History Social History Type Response Smoking Status Never smoked cigaret cyndi Sex Female FCM Outpt Note * DO Fay Franklin J: MODIFY DO Gallegos Vinay: PERFORM Event Display: FCM Outpt Note Authored Date: [id number] Chief Complaint has had cough for x2 weeks, dry, painful, congestion History of Present Illness 57 yo female presents to clinic with cough. -about 1.5 weeks ago developed acute illness which resolved over this past weekend. During illness had fever, chills, fatigue, congestion, sore throat, hoarseness, cough (more on the dry side). All symptoms resolved but still with lingering cough. -home covid test was negative -using humidifier, warm tea, DayQuil/NyQuil Review of Systems As stated above in HPI and below: CV: denies chest pain Resp: denies shortness of breath GI: denies abdominal pain,nausea, vomiting, constipation, diarrhea : denies pain with urination, change in urinary frequency Physical Exam Vitals & Measurements T:37.0C HR:55(Monitored) RR:18 BP:112/82 SpO2:96% WT:75.2kg WT:75.200kg(Dosing) PHQ2 Data(Data Documented on:06/20/2023 13:10) Emotional health assessment NEGATIVE General:in no acute distress, pleasant HEENT: No scleral injection or discharge. Moist mucous membranes. Clear oropharynx without erythema/exudate.TMs clear bilaterally. Neck isnontender without lymphadenopathy. Lungs:CTAB, no wheezes/rales/rhonchi Cardiovascular:RRR.No murmurs. Assessment/Plan 1.Cough acute uncomplicated -suspect 2/2 post viral and post nasal drip -rx tessalon pearls prn -advised daily flonase -conservative treatment otherwise -f/u prn Attestation Reviewed the clinical history exam findings and discussed the case with the resident physician. I agree with the impression and plan as noted in the resident documentation above. Problem List/Past Medical History Ongoing Asymptomatic monoclonal gammopathy Diverticulitis of colon Endometriosis (clinical) Extensor tendon laceration, hand, open wound GERD Hand laceration History of cholecystectomy History of syncope IBS (irritable bowel syndrome) Menopausal syndrome Migraines Mitral valve prolapse Multinodular goiter Need for prophylactic vaccination and inoculation against influenza Nevus of back Recurrent intestinal obstruction Sciatica Historical Abdominal pain ANEMIA Biliary dyskinesia CHOLELITHIASIS Diverticulosis H/O: gastrointestinal disease MENORRHAGIA PANCREATITIS. Partial obstruction of small bowel SBO (small bowel obstruction) Use of proton pump inhibitor therapy Procedure/Surgical History Repair of extensor tendon of hand (05/28/2023)Mammogram (04/09/2022)CT of abdomen and pelvis (02/08/2022)Mammogram (04/03/2021)Arthroscopic knee operation (01/03/2021)MRI of right knee (12/13/2020)Knee X-ray (12/03/2020)Chest x-ray (10/18/2020)CT of abdomen and pelvis with contrast (10/17/2020)Small bowel follow through (08/22/2020)CT of abdomen and pelvis (07/27/2020)KUB X-ray (07/27/2020)Screening mammogram of bilateral breasts (03/30/2019)CT of abdomen and pelvis (12/15/2018)Mammogram (03/26/2018)Cheilectomy (03/12/2018)Colonoscopy normal (12/20/2017)CT of abdomen and pelvis (09/12/2017)CT of abdomen and pelvis with contrast (08/07/2017)Abdominal X-ray normal (07/11/2017)Mammogram (03/22/2017)KUB X-ray (12/14/2016)Small bowel series (12/13/2016)Chest x-ray (12/12/2016)CT of abdomen and pelvis (12/12/2016)Bunionectomy with arthrodesis (2016)CT of abdomen and pelvis (01/09/2016)CT of abdomen and pelvis (04/26/2015)Chest x-ray (04/25/2015)CT of abdomen and pelvis (03/30/2015)Mammogram (03/18/2015)Wrist X-ray (12/20/2014)CT of facial bones (12/20/2014)CT head without contrast (12/20/2014)Release of trigger finger (10/12/2014)Papanicolaou smear (10/11/2014)AXR - AbdominalX-ray (10/05/2014)Mammogram - screening (02/25/2014)Gastrografin enema (02/23/2014)Small bowel series (02/19/2014)X-ray of chest and abdomen (10/21/2013)Bone density scan (10/07/2013)Ultrasound bone density measurement and interpretation, peripheral site(s), any method (02/14/2013) sigmoid resection, laparascopically assisted (10/01/2011)Colonoscopy (02/18/2007) delivery (1990)Reconstruction of thumb (1982)Bilateral tubal ligationExtraction of wisdom toothRight salpingo- oophorectomyTAH - Total abdominal hysterectomyReduction mammoplasty, bila teralCholecystectomy Medications aloe vera ascorbic acid(Vitamin C), Daily benzonatate(benzonatate 200 mg oral capsule), 200 mg= 1 cap, PO, tid biotin, 1 tab, PO, Daily calcium-vitamin D(calcium (as carbonate)-vitamin D 90 mg-1000 intl units (25 mcg) oral tablet), 1 tab, PO, Daily, 10 refills cetirizine(ZyrTEC 10 mg oral tablet), 10 mg= 1 tab, PO, bid docusate(Colace 100 mg oral capsule), 100 mg= 1 cap, PO, Daily, PRN, 10 refills echinacea(Echinacea oral tablet), 1 tab, PO, Daily estradiol(Climara 0.0375 mg/24 hours weekly transdermal film, extended release), See Instructions, 4 refills hyoscyamine(hyoscyamine 0.125 mg sublingual tablet), 1-2 tab, PO, q6h, PRN, 1 refills levothyroxine(levothyroxine 100 mcg (0.1 mg) oral tablet), 1 tab, PO, Daily methylcobalamin(Vitamin B12 Methylcobalamin), Daily multivitamin, 1 cap, PO, Daily ondansetron(ondansetron 4 mg oral tablet) triamcinolone topical(triamcinolone 0.5% topical cream), 1 appl, topical, tid, 3 refills Allergies doxycycline erythromycin morphinechest pain, hypoxemia traMADolchest pain Social History Smoking Status Never smoked cigarettes Alcohol - No Risk Use:Current Type:Wine Frequency:1-2 times per month Average drinks per episode in last year:1 Employment/School Status:Employed Description:[employer],: [employer]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 Atrial fibrillation: Mother and Father. BPH - Benign prostatic hypertrophy: Father. Diabetes insipidus: MGF and MGM. Heart attack: PGF (Dx at 75 years). Hypertension: Mother. Lung cancer: PGM. Lupus: Paternal Aunt. Memory loss: Mother. Osteoporosis: Sister. Sjogrens syndrome: Sister. Stroke: Mother (Dx at 78 years). Thrombophilia: Father. Health Status Family Member(s) Brother: History is negative Son: History is negative Daughter: History is negative Family Member(s) Relationship: Brother, Name: Kevin, Age: 36 Years, Cause: suicide, [place] war vet. Immunizations Vaccine Date Status tetanus/diphtheria/pertuss, acel (Tdap) 05/17/2023 Recorded SARS-CoV-2 (COVID-19) mRNA-vacc - [id number] 02/12/2023 Recorded influenza virus vaccine, inactivated 12/2021 Recorded SARS-CoV-2 (COVID-19) mRNA-1273 vaccine 04/12/2021 Recorded influenza virus vaccine, inactivated 12/27/2020 Recorded SARS-CoV-2 (COVID-19) mRNA-1273 vaccine 05/17/2020 Recorded Comments : 2020-08-07: Historical information-source unspecified SARS-CoV-2 (COVID-19) mRNA-1273 vaccine 04/19/2020 Recorded Comments : 2020-08-07: Historical information-source unspecified zoster vaccine, inactivated 02/01/2020 Recorded influenza virus vaccine, inactivated 01/07/2020 Recorded zoster vaccine, inactivated 06/08/2019 Recorded influenza virus vaccine, inactivated 02/05/2019 Recorded influenza virus vaccine, inactivated 01/08/2018 Recorded Comments : [01/10/2018] Fluarix Quad [id number] Syringe influenza virus vaccine, inactivated 01/15/2017 Recorded influenza virus vaccine, inactivated 01/07/2015 Recorded tetanus/diphtheria/pertuss, acel (Tdap) 10/07/2014 Given influenza virus vaccine, inactivated 12/29/2013 Recorded influenza virus vaccine, inactivated 01/23/2013 Recorded Comments : [03/27/2013] Got @ [facility] Imprivata tetanus toxoids-diphtheria, Td (Adult) 01/02/2012 Recorded tetanus toxoids-diphtheria, Td (Adult) 02/27/2005 Recorded Comments : 2020-08-07: Historical information-source unspecified pneumococcal 23-valent vaccine 02/27/2005 Recorded Comments : 2020-08-07: Historical information-source unspecified hepatitis B adult vaccine 02/27/2005 Recorded Comments : 2020-08-07: Historical information-source unspecified tetanus toxoids-diphtheria, Td (Adult) 03/26/2000 Recorded hepatitis B adult vaccine 04/11/1999 Recorded hepatitis B adult vaccine 11/09/1998 Recorded hepatitis B adult vaccine 09/29/1998 Recorded Recommendations Health Maintenance Pending(in the next year) OverDue Adult Influenza Vaccine due10/19/22and every 1year Due Adult COVID-19 Vaccination due06/20/23Unknown Frequency Adult Social Determinants of Health Screening due06/20/23Unknown Frequency Lipid Screening due06/20/23Unknown Frequency Due In Future Breast Cancer Screening not due until04/09/24and every 731day Satisfied(in the past 1 year) Satisfied Adult Tdap/Td Vaccine on05/17/23.Satisfied by DO Gallegos Vinay Body Mass Index on05/27/23.Satisfied by MARIO Bah Courtney D Electronic Signature on File Electronically Reviewed/Signed by: Carrington Gallegos MD Author Signature Dt/Tm:06/20/2023 02:15 PM Resident Department of Family Medicine Electronically Reviewed/Signed by: Robert Fay DO Cosigner Signature Dt/Tm: 06/20/2023 02:16PM Department of Family Medicine [facility] Patient Care team information Care Team Personnel Name: DO Stone Amanda Position: Resident Member Role: Lifetime Relationship Address: Address: [address] [address] [place] Name: DO Gallegos Vinay Position: Resident Member Role: Primary Care Provider Address: Address: [address] [address] [place] Name: MARLEE Harris Bonnie D Position: Nurse Pract - Surgery MIS Member Role: Lifetime Relationship Address: Address: [address] [place] [address] Care Team Related Persons Name: MAYNOR RODRIGUEZ Address: home [address] [phone]
[2023-08-03] MEDS: SODIUM CHLORIDE 0.9% 1,000 ML IV ONE ×2 (17:01→19:07)
[2023-08-03] MEDS: ONDANSETRON INJ 2 MG/ML 2 ML VIAL IV STA (17:01)
[2023-08-03] MEDS: fentaNYL citrate PF 100 MCG/2 ML VIAL IV STA (17:02)
[2023-08-03 17:06] LABS: Basophils # (auto) 0.04 K/uL (0.00-0.20); Basophils % (auto) 0.5 %; Eosinophils # (auto) 0.01 K/uL (0.00-0.50); Eosinophils % (auto) 0.1 %; Hematocrit (blood only) 43.2 % (37.0-47.0); Hemoglobin 15.1 g/dl (12.0-16.0); Immature Granulocytes # (auto) 0.04 K/uL (0.01-0.20); Immature Granulocytes % (auto) 0.5 %; Lymphocytes # (auto) 1.32 K/uL (1.20-3.40); Mean Corpuscular Hemoglobin 30.4 pg (25.0-34.0); Mean Corpuscular Volume 86.9 fL (80.0-100.0); Mean Platelet Volume 10.5 fL (9.4-12.4); Monocytes # (auto) 0.63 K/uL (0.11-0.59); Monocytes % (auto) 7.6 %; Neutrophils # (auto) 6.23 K/uL (1.40-6.50); Neutrophils % (auto) 75.3 %; Platelet Count 222 K/uL (130-400); RDW Coefficient of Variation 12.3 % (11.5-14.5); RDW Standard Deviation 38.8 fL (36.4-46.3); Red Blood Count 4.97 M/uL (4.20-5.40); White Blood Count 8.27 K/ul (4.8-10.8)
[2023-08-03 17:21] LABS: Albumin Globulin Ratio 1.4 (0.9-2); Albumin Level 4.6 gm/dl (3.4-5.0); BUN Creatinine Ratio 18.8 (10-20); Bilirubin,Total 1.1 mg/dl (0.2-1.0); Calcium 10.2 mg/dl (8.6-10.3); Creatinine Clr Calc Pharmacy 75.6 ml/min; Est GFR (African American) 94.9 ml/min; Est GFR (Non-African American) 81.8 ml/min; Globulin 3.3 gm/dl (2.5-4.0); Potassium 3.8 mmol/L (3.5-5.1); Total Protein 7.9 gm/dl (6.0-8.3)
[2023-08-03] MEDS: OPTIRAY 320 100ml IV ONE (17:47)
[2023-08-03 18:04] LABS: Appearance Urine Cloudy (Clear); Bacteria Urine Automated None Seen (None Seen); Bilirubin Urine Negative (Negative); Blood Urine Trace (Negative); Calcium Oxalate Crystals Urine Present (None Prsent); Color Urine Dark Yellow; Glucose Urine UA Negative (Negative); Ketones Urine 4+ (Negative); Leukocyte Esterase Urine Negative (Negative); Mucus Urine Present (None Prsent); Nitrite Urine Negative (Negative); Protein Urine Trace (Negative); Specific Gravity Urine 1.029 (1.000-1.030); Urobilinogen Urine Negative (Negative); WBC Urine Automated 0-5 /hpf (0-5); pH Urine 6.5 (4.5-7.5)
--- NOTE | 2023-08-03 18:17 | CT Scan Report ---
ABDOMEN AND PELVIS CT WITH IV CONTRAST CT DOSE: 868.58 mGy.cm HISTORY: Acute left-sided abdominal pain left-sided abdominal pain TECHNIQUE: Multiaxial CT images of the abdomen and pelvis were performed following the IV administrat ion of 93 cc of Optiray, A dose lowering technique was utilized adhering to the principles of ALARA. COMPARISON STUDY: 05/04/2022 FINDINGS: No acute lower thoracic abnormality identified. No pneumatosis or pneumoperitoneum. No port al venous gas. Unremarkable spleen, pancreas and adrenal glands. Cholecystectomy with likely postsurg ical biliary ductal dilation redemonstrated. Unremarkable liver. There is patency of the hepatic and portal veins. Unremarkable kidneys without hydronephrosis. Urinary bladder wall thickening with partial distention perivesicular stranding. Hysterectomy. No adnexal mass lesions. No abdominal aortic aneurysm or lymph adenopathy. Colonic diverticulosis. Prior rectosigmoid resection. The majority of the large bowel is decompressed . Normal appendix. Small bowel stricture and with transition point within the abdominal lower quadran t, similar pattern to the prior study. Numerous thick-walled loops of small bowel are noted within th e lower abdomen with intraluminal edema and trace ascites. Upstream dilated fluid-filled loops of sma ll bowel measure up to 4.2 cm. No abscess. No acute fracture. IMPRESSION: 1. Small bowel obstruction with transition point within the abdominal left lower quadrant, similar in appearance to the study from 05/04/2022. Numerous thick-walled loops of lower abdominal and upper pel crow small bowel wall thickening again noted with interloop edema and trace ascites. 2. No pneumatosis or pneumoperitoneum. 3. Colonic diverticulosis. 4. Additional findings as above. ACT 112: Negative or not required by law. The above report was generated using voice recognition software. It may contain grammatical, syntax o r spelling errors. Electronically signed by: Sarbjit Neri M.D. 08/03/2023 6:15 PM
--- NOTE | 2023-08-03 19:05 | History & Physical Report ---
Date of Service August 03, 2023 Assessment & Plan (1) SBO (small bowel obstruction): Plan: Small bowel obstruction 1 day of nausea/vomiting. Small bowel obstruction with transition point at the left lower quadrant similar to 05/04/2022 is seen Patient seems to proceed with diarrhea, N/V initially concerning for gastroenteritis however subsequently diarrhea greatly reduced and then pain nausea/vomiting increased. Patient reports prior small bowel obstructions have all improved with bowel rest and medical treatment. Does have a history of bowel resection with diverticulosis and multiple abdominal surgeries NPO, NGT to LIS, IV FM Surgery consulted Tylenol, hydromorphone for pain control Zofran for nausea control, Phenergan second line for nausea. Patient notes that Phenergan generally works very well for her and Zofran works Tylenol. Patient is aware of the risk of extravasation tissue damage with IV Phenergan, will use this as second line on shared decision making Recommended NGT to LIS. Patient declines this time of admission and notes that she has had improvement with n.p.o. bowel rest in the past. If she continues to have further episodes of nausea/vomiting overnight, she reports that she agrees to have the NGT placed at that time General surgery consulted Hypothyroidism Continue Synthroid (2) Hypothyroidism: Plan: Synthroid held while NPO. If n.p.o. for prolonged period can start IV Synthroid 70% dose reduction after 72-hour Plan DVT prophylaxis: Lovenox Diet: N.p.o., IV FM CODE STATUS: Full code Disposition: Medical/telemetry. Does have a prior history of resting bradycardia but with no recent anginal symptoms or equivalent, heart rate is currently normal, no syncope. If bradycardia develops can obtain an EKG and moved to medical telemetry at that time if indicated. She does not have gross electrolyte derangement at time of admission. History of Present Illness Primary Care Provider: Robert Fay DO Margie is a 58-year-old female with past medical history of bowel obstruction, diverticulosis s/p partial colectomy, hypothyroidism, surgical history including bowel resection, hysterectomy with oophorectomy, section who presents with abdominal pain is found to have a partial SBO with left lower quadrant transition point similar to 05/04/2022. No other acute findings, no pneumatosis/pneumoperitoneum Per ER 1 day of LLQ pain, worsening nausea/vomiting no PO intake in [address] with SBO and LLQ. Margie is seen with her at bedside. Thought she ate something off, had diarrhea allnigth with heartburn. Thoguht it may have been food poisoning rather than a SBO due to the diarrhea which i sunusual for her, but pain in her LLQ progressed and continued tohave worsening nausea and vomiting similar to prior SBOS. Paini ncreased, and she knew she had to come to thehospital. Pain is LLQ where her prior SBO pain has been. Nothing toeat or drink since yesterday, is passing gas and had last diarrhea 8:30am just a tiny amount of liquid water. No fevers, has been very cold andchilly. Hot flashes/sweats with her diarrhea. No chest pain, no chest pressure.no shortness of breath Feel similars to prior SBOs except the diarrhea Vomiting is dark green. Noblood/melena. No hematochezia/melena. Hx of colon resection at [facility] for diverticulitis with severe inflammation. Also w history of histerectomy. History of c/s with [facility]. Subsequently had ovary which wrapped around bowel, both ovaries removed. Medical History: Reviewed Medications: Reviewed Surgical History: Reviewed Family history: Reviewed Allergies: Reviewed Social History: No tobacco use. Intermittent social alcohol use, around 1 drink per week Code Status: Full code Allergies Allergy/AdvReac Type Severity Reaction Status Date / Time erythromycin base Allergy Intermediate EDEMA OF Verified 08/03/23 16:46 MOUTH/LIPS morphine AdvReac Intermediate Chest Pain Verified 08/03/23 16:46 oxycodone AdvReac Intermediate Chest Verified 08/03/23 16:46 Pain, syncope tramadol AdvReac Intermediate CHEST Verified 08/03/23 16:46 PAIN,SYNCOPE Home Medications Medication Instructions Recorded Confirmed Type aloe vera 25 mg capsule 1 cap PO QAM 03/01/18 08/03/23 History ascorbic acid (vitamin C) 500 mg 500 mg PO QAM 03/01/18 08/03/23 History tablet (Vitamin C) calcium carbonate 500 mg-vitamin 1 tab PO QAM 03/01/18 08/03/23 History D3 5 mcg (200 unit) tablet (Calcium 500 + D) multivitamin 1 tab PO QAM 03/01/18 08/03/23 History ascorbic acid 7.5 mg-vit E 7.5 1 tab PO QAM 06/29/19 08/03/23 History unit-biotin 1,250 mcg chewable tablet (Hair,Skin,Nails with Biotin) echinacea 500 mg capsule 500 mg PO QAM 06/29/19 08/03/23 History levothyroxine 100 mcg tablet 100 mcg PO DAILYBB 07/26/20 08/03/23 History docusate sodium 100 mg capsule 100 mg PO BID #60 caps 12/03/20 08/03/23 Rx (Colace) estradiol 0.0375 mg/24 hr weekly See Rx Instructions .Route 02/22/23 08/03/23 Rx transdermal patch .COMPLEX #12 patches Past Med/Surg History Medical History (Updated 08/03/23 @ 19:32 by Christian Hamilton MD) Hypothyroidism taking levothyroxine History of intestinal obstruction hx SBO Postmenopausal hormone replacement therapy Bradycardia longstanding hx of sinus marco per review of EKG dating back to 2017 Diverticular disease 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; Last echo was normal per pt (PSH) ~2019 Surgical History History of photorefractive keratectomy (PRK) History of section H/O right knee surgery Right knee meniscectomy Family history of reaction to anesthesia sister: nausea H/O oophorectomy Hx of breast reduction, elective History of wisdom tooth extraction History of thumb surgery RIGHT HAND hardware placement and removal; removal of hardware 04/17/22: GA: LMA#4 Status post trigger finger release History of hysterectomy PARTIAL History of bilateral tubal ligation History of bowel resection S/P DIVERTICULITIS (hemicolectomy) - [facility] () Family History Mother Hypertension Stroke Family/Other Breast cancer maternal cousin Uncle Colorectal cancer paternal Father Atrial fibrillation Sister GIST, non-malignant stomach Other Kidney stones Denies family history of Ovarian cancer Prostate cancer Social History Smoking Status: Never smoker Second Hand Exposure: No; Do You Dip or Chew Tobacco: No; Hx Alcohol Use: Yes Alcohol type: wine Alcohol Intake Frequency Comment: a glass of wine once a week or so Hx Substance Use: No Preferred Language: Georgian Communication Ability: Effective Electronic Equipment Repairer Required: No Beliefs That Will Affect Care: None marital status: Current Living Situation: Spouse Current Living Situation Comment: [place] 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 NAD. Cooperative. HEENT: Atraumatic, normocephalic. Vision/hearing grossly intact Pulm: CTAB A&P. -wheezes, -rales, -rhonchi. Symmetrical chest rise. No increased work of breathing. No respiratory distress. Cardiac: RRR, +sm. Radial pulses intact and symmetrical. Abdominal: Lower quadrant, epigastric tenderness to palpation without rebound/guarding. Bowel sounds present. Abdomen is soft/nonacute Extremities: Warm, dry, moves all extremities equally Results & Data Results & Data Vital Signs (Past 12 Hours) Vital Signs Temp Pulse Pulse Resp BP BP Pulse Ox 08/03/23 18:00 82 18 98 08/03/23 18:00 144/89 H 08/03/23 17:55 75 08/03/23 17:51 88 22 08/03/23 17:39 72 19 148/83 H 100 08/03/23 16:30 78 20 140/82 97 08/03/23 15:51 84 20 98 08/03/23 15:44 36.6 C 85 20 132/82 98 O2 Del Method 08/03/23 18:00 08/03/23 18:00 08/03/23 17:55 08/03/23 17:51 08/03/23 17:39 08/03/23 16:30 Room Air 08/03/23 15:51 Room Air 08/03/23 15:44 Room Air PG Care Time/CCT Total # of Minutes Spent Total Time Spent with Patient: Total time spent is greater than 50% in coordination of care (as documented) at patient's floor/unit and/or counseling patient: Coding Level of Care Code 56091 INT INP/OBS CARE 3/75MIN Diagnoses SBO (small bowel obstruction) K56.609 Hypothyroidism E03.9
[2023-08-03] MEDS: HYDROmorphone INJ 0.5 MG/0.5 ML SYR IV STA (19:06)
[2023-08-03] MEDS: PROMETHAZINE 6.25 MG/50.25 ML NSS IV ONE (19:13)
[2023-08-03] MEDS ORDERED: HYDROmorphone INJ 0.5 MG/0.5 ML SYR IV PRN (19:36)
[2023-08-03] MEDS: PROMETHAZINE 6.25 MG/50.25 ML BAG IV STA (20:02)
--- NOTE | 2023-08-03 20:04 | Surgery Consultation ---
Date of Consultation August 03, 2023 Assessment & Plan (1) SBO (small bowel obstruction): The patient has been admitted on the hospitalist service. From surgical perspective we recommend the following: Implement n.p.o. status Provide IV fluid for hydration Provide analgesics Provide antiemetics I suspect the patient's small bowel obstruction secondary to adhesions from her multiple previous surgeries and episodes of diverticulitis. At the present time she is nontoxic-appearing and is normotensive without tachycardia, fever, leukocytosis, or elevated lactic acid level. She also does not have acute kidney injury. I did discuss the modality of an NG tube with the patient and she wishes to avoid this at this time. I feel that this is reasonable as she is passing flatus. I did discuss with the patient that if she has worsening of her abdominal exam or if she has further nausea and vomiting we will likely need to place an NG tube and she is agreeable to this Additional recommendations with forthcoming based on her clinical course as unfolds Supervising Physician Co-Signing Physician Notes d/w FAHAD Cabrera, labs and imaging reviewed, agree w/ above. Recurrent SBO. CT personally reviewed and interpreted, agree w/ SBO. Hold NG tube for now, Non operative management. History of Present Illness Reason for Consultation: Small bowel obstruction History of Present Illness This is a 58-year-old female who presented to the emergency department secondary to abdominal pain. Patient notes that she has had multiple abdominal surgeries in the past including a , cholecystectomy, hysterectomy that required 2 surgeries, and a colon resection secondary to diverticulitis. She notes that her colon resection was approximately 10 years ago and done at [facility]. She notes that she had multiple episodes of diverticulitis prior to undergoing the surgery which was performed as a 1 stage operation. Patient notes that she has had multiple small bowel obstructions. Her records were reviewed and her most recent admission to [facility] for small bowel obstruction was in January 2022. During this admission her small bowel obstruction was treated successfully in a conservative manner. The patient notes that she developed some generalized abdominal pain the evening of 08/02/2023. Patient merely thought that she had a gastroenteritis but over the course of the past day her abdominal pain became worse. The patient has had associated nausea and vomiting with some loose bowel movements. Because of her ongoing symptomatology she presented to the emergency department. She has had several bouts of emesis including while she was in the emergency department. She notes that she did have a loose bowel movement this morning and since arrival to the emergency department she has been passing flatus. She denies any fevers, shakes, or chills. Since arrival to the emergency department she has had labs and imaging which I independently reviewed. A CT scan of the abdomen pelvis showed that she had a small bowel obstruction with a transition point in the left lower quadrant. There is no pneumatosis or pneumoperitoneum. Labs include a CBC her white blood cell count, hemoglobin, hematocrit, and platelet count were normal. Chemistry profile showed sodium and potassium along with the BUN and creatinine were normal. Her lactic acid level was nonelevated. Her lipase was nonelevated and other than a slight elevation of her bilirubin at 1.1 her LFTs were nonelevated. Urinalysis was not indicative of infection. At the time of my interview she was resting comfortably in bed and she was in no distress. Allergies Allergy/AdvReac Type Severity Reaction Status Date / Time erythromycin base Allergy Intermediate EDEMA OF Verified 08/03/23 16:46 MOUTH/LIPS morphine AdvReac Intermediate Chest Pain Verified 08/03/23 16:46 oxycodone AdvReac Intermediate Chest Verified 08/03/23 16:46 Pain, syncope tramadol AdvReac Intermediate CHEST Verified 08/03/23 16:46 PAIN,SYNCOPE Home Medications Medication Instructions Recorded Confirmed Type aloe vera 25 mg capsule 1 cap PO QAM 03/01/18 08/03/23 History ascorbic acid (vitamin C) 500 mg 500 mg PO QAM 03/01/18 08/03/23 History tablet (Vitamin C) calcium carbonate 500 mg-vitamin 1 tab PO QAM 03/01/18 08/03/23 History D3 5 mcg (200 unit) tablet (Calcium 500 + D) multivitamin 1 tab PO QAM 03/01/18 08/03/23 History ascorbic acid 7.5 mg-vit E 7.5 1 tab PO QAM 06/29/19 08/03/23 History unit-biotin 1,250 mcg chewable tablet (Hair,Skin,Nails with Biotin) echinacea 500 mg capsule 500 mg PO QAM 06/29/19 08/03/23 History levothyroxine 100 mcg tablet 100 mcg PO DAILYBB 07/26/20 08/03/23 History docusate sodium 100 mg capsule 100 mg PO BID #60 caps 12/03/20 08/03/23 Rx (Colace) estradiol 0.0375 mg/24 hr weekly See Rx Instructions .Route 02/22/23 08/03/23 Rx transdermal patch .COMPLEX #12 patches Patient History Medical History Hypothyroidism taking levothyroxine History of intestinal obstruction hx SBO Postmenopausal hormone replacement therapy Bradycardia longstanding hx of sinus marco per review of EKG dating back to 2018 Diverticular disease 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; Last echo was normal per pt (PSH) ~2019 Surgical History History of photorefractive keratectomy (PRK) History of section H/O right knee surgery Right knee meniscectomy Family history of reaction to anesthesia sister: nausea H/O oophorectomy Hx of breast reduction, elective History of wisdom tooth extraction History of thumb surgery RIGHT HAND hardware placement and removal; removal of hardware 04/17/22: GA: LMA#4 Status post trigger finger release History of hysterectomy PARTIAL History of bilateral tubal ligation History of bowel resection S/P DIVERTICULITIS (hemicolectomy) - [facility] () Family History Mother Hypertension Stroke Family/Other Breast cancer maternal cousin Uncle Colorectal cancer paternal Father Atrial fibrillation Sister GIST, non-malignant stomach Other Kidney stones Denies family history of Ovarian cancer Prostate cancer Social History Smoking Status: Never smoker Second Hand Exposure: No; Do You Dip or Chew Tobacco: No; Hx Alcohol Use: Yes Alcohol type: beer, wine and hard liquor Alcohol Intake Frequency Comment: a glass of wine once a week or so Hx Substance Use: No Preferred Language: Upper Sorbian Communication Ability: Effective Corporate Buyer Required: No Beliefs That Will Affect Care: None marital status: Current Living Situation: Spouse Current Living Situation Comment: [place] 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[employer]; 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[place] How many Children do You have: 2 How many Children do You have Comment: 1 son, 1 daughter Other Information That Helps Us Care for You: No Feels Safe at Home: Yes Safety Concerns: Feels Safe At This Time Assistive Devices: Glasses Review of Systems Constitutional: no fever and no chills Ear, Nose, Mouth, Throat: no hearing loss Respiratory: no cough Cardiovascular: no chest pain Gastrointestinal: as per Subjective / HPI Genitourinary: no dysuria Musculoskeletal: no back pain Integumentary: no rash Neurologic: no localized weakness Physical Exam Constitutional: WD/WN, vitals as above Eyes: no conjunctival abnormality ENMT: Ears: no hearing impairment and no external ear abnormality Mouth: no oropharynx abnormality Neck: trachea midline Respiratory: normal respiratory effort, lungs clear to auscultation Cardiovascular: Rate/Rhythm: regular rate and regular rhythm Gastrointestinal (Abdomen): Patient's abdomen is mildly distended but overall soft and nonrigid. There is no tympany to percussion. Bowel sounds are present but hypoactive. There is no rebound tenderness or guarding but patient did have some generalized pain with palpation. Musculoskeletal: No calf tenderness Skin: no rashes Neurologic: moves all extremities Psychiatric: A+Ox3, euthymic affect Results & Data Vital Signs (Past 12 Hours) Vital Signs Temp Pulse Pulse Resp BP BP Pulse Ox 08/03/23 18:00 82 18 98 08/03/23 18:00 144/89 H 08/03/23 17:55 75 08/03/23 17:51 88 22 08/03/23 17:39 72 19 148/83 H 100 08/03/23 16:30 78 20 140/82 97 08/03/23 15:51 84 20 98 08/03/23 15:44 36.6 C 85 20 132/82 98 O2 Del Method 08/03/23 18:00 08/03/23 18:00 08/03/23 17:55 08/03/23 17:51 08/03/23 17:39 08/03/23 16:30 Room Air 08/03/23 15:51 Room Air 08/03/23 15:44 Room Air PG Care Time/CCT Total # of Minutes Spent Total Time Spent with Patient: Total time spent is greater than 50% in coordination of care (as documented) at patient's floor/unit and/or counseling patient: Coding Level of Care Code 19311 IN/OBS CONSULT LVL 5,80M Diagnoses SBO (small bowel obstruction) K59.484
[2023-08-03] MEDS: LACTATED RINGER'S 1,000 ML IV SCH (20:36)
[2023-08-03] MEDS: HYDROmorphone INJ 1 MG/ML SYRINGE IV PRN (20:37)
[2023-08-03] MEDS: ONDANSETRON INJ 2 MG/ML 2 ML VIAL IV PRN (20:41)
[2023-08-03] MEDS: ENOXAPARIN INJ 40 MG/0.4 ML SYR SQ SCH (20:49)
[2023-08-04] MEDS: ACETAMINOPHEN 1,000 MG/100 ML VIAL IV PRN (00:02)
[2023-08-04] MEDS: PROMETHAZINE HCL 6.25 MG in SODIUM CHLORIDE 0.9% 50 ML IV PRN (00:21)
--- NOTE | 2023-08-04 05:34 | Surgery Progress Note ---
Date of Service August 04, 2023 Assessment & Plan (1) SBO (small bowel obstruction): Plan: The patient has been admitted on the hospitalist service. Continue surgical care as follows: Continue n.p.o. status with consideration of advancing diet, beginning with clear liquids, once further return of bowel function is noted Continue IV fluid for hydration until oral intake can be advanced and is deemed adequate Provide analgesics Provide antiemetics As the patient has had improvement of abdominal exam I do not feel an NG tube is required but as previously noted if she does have deterioration of her abdominal exam or further nausea and vomiting an NG tube may be required Check a.m. labs when available Patient was noted to have a temperature recording indicative of low-grade fever Will continue to monitor and if this continues further evaluation for fever can be pursued. Admission and Anticipated Discharge Date Admission Date: August 03, 2023 Supervising Physician Co-Signing Physician Notes pnt s&e, agree w/ above. Recurrent SBO, feeling better. Had flatus in ED, but none since arrival to floor, no bm. afvss, abd soft, minimally distended, NT. labs normal. cont non op management, await return of bowel function. may have ice chips. Subjective Patient is resting comfortably in bed. She notes that since admission she has not had any further nausea and vomiting. She feels as though her abdomen is less painful. She was passing flatus in the emergency department but has not had a bowel movement since admission. Physical Exam Gastrointestinal (Abdomen): This morning the patient's abdomen appears to be somewhat less distended than what was noted at the time of my exam in the emergency department. Bowel sounds are present but hypoactive. There is no rebound tenderness or guarding. There is no abdominal rigidity. There is no tympany to percussion. There is minimal pain with palpation. Results & Data Vital Signs (Past 12 Hours) Vital Signs Temp Pulse Pulse Pulse Resp BP BP 08/03/23 20:30 37.6 C H 75 16 123/78 08/03/23 20:00 74 18 08/03/23 18:00 82 18 08/03/23 18:00 144/89 H 08/03/23 17:55 75 08/03/23 17:51 88 22 08/03/23 17:39 72 19 148/83 H BP Pulse Ox O2 Del Method O2 Flow Rate 08/03/23 20:30 97 Room Air 08/03/23 20:00 135/92 100 Nasal Cannula 2 08/03/23 18:00 98 08/03/23 18:00 08/03/23 17:55 08/03/23 17:51 08/03/23 17:39 100 PG Care Time/CCT Total # of Minutes Spent Total Time Spent with Patient: Total time spent is greater than 50% in coordination of care (as documented) at patient's floor/unit and/or counseling patient: Coding Level of Care Code 53577 SUB INP/OBS CARE 05/16MIN Diagnoses SBO (small bowel obstruction) K56.609
[2023-08-04 06:35] LABS: Basophils # (auto) 0.03 K/uL (0.00-0.20); Basophils % (auto) 0.4 %; Eosinophils # (auto) 0.02 K/uL (0.00-0.50); Eosinophils % (auto) 0.3 %; Hematocrit (blood only) 37.1 % (37.0-47.0); Hemoglobin 12.4 g/dl (12.0-16.0); Immature Granulocytes # (auto) 0.02 K/uL (0.01-0.20); Immature Granulocytes % (auto) 0.3 %; Lymphocytes # (auto) 1.72 K/uL (1.20-3.40); Lymphocytes % (auto) 24.3 %; Mean Corpuscular Hemoglobin 30.5 pg (25.0-34.0); Mean Corpuscular Hgb Conc 33.4 g/dL (32.0-36.0); Mean Corpuscular Volume 91.2 fL (80.0-100.0); Mean Platelet Volume 10.8 fL (9.4-12.4); Monocytes # (auto) 0.77 K/uL (0.11-0.59); Monocytes % (auto) 10.9 %; Neutrophils # (auto) 4.53 K/uL (1.40-6.50); Neutrophils % (auto) 63.8 %; Platelet Count 177 K/uL (130-400); RDW Coefficient of Variation 12.5 % (11.5-14.5); RDW Standard Deviation 41.1 fL (36.4-46.3); Red Blood Count 4.07 M/uL (4.20-5.40); White Blood Count 7.09 K/ul (4.8-10.8)
[2023-08-04 06:48] LABS: BUN Creatinine Ratio 16.4 (10-20); Calcium 8.7 mg/dl (8.6-10.3); Creatinine Clr Calc Pharmacy 85.8 ml/min; Est GFR (Non-African American) 91.4 ml/min; Potassium 4.1 mmol/L (3.5-5.1)
--- NOTE | 2023-08-04 07:14 | Electrocardiogram Report ---
Test Reason : Blood Pressure : / mmHG Vent. Rate : 059 BPM Atrial Rate : 059 BPM P-R Int : 130 ms QRS Dur : 082 ms QT Int : 428 ms P-R-T Axes : 037 014 071 degrees QTc Int : 423 ms Sinus bradycardia with sinus arrhythmia Nonspecific ST and T wave abnormality Abnormal ECG When compared with ECG of 04-MAY-2022 03:59, No significant change was found Confirmed by Nehemiah Espana ([id number]) on 08/04/2023 7:14:06 AM Referred By: Robert Fay Confirmed By:Chavez Espana
--- NOTE | 2023-08-04 14:08 | Hospitalist Progress Note ---
Date of Service August 04, 2023 Assessment & Plan (1) SBO (small bowel obstruction): Plan: Here with recurrent SBO likely 2/2 adhesions. NGT not placed as pt was already starting to improve by the time of admission and declined to have one placed. Feeling much better, no further N/V, is now passing flatus, no BM yet, abd pain much improved and minimal at this point No infection. had diarrhea prior to development of SBO-perhaps a viral gastroenteritis? Stool PCR ordered but not yet collected Continue IVFs Advance diet to clears but advised to not overdo it Continue ambulation Appreciate General Surgery consultation Pain meds and antiemetics as needed Follow CBC, BMP, Mag, Phos in AM and replace lytes as needed (2) Hypothyroidism: Plan: Synthroid held while NPO but will resume for tomorrow now that diet is advanced to clears TSH gets checked annually with PCP at outside lab (3) Microscopic hematuria: Plan: UA now and previously in 2020 noted to have microscopic hematuria. Also with calcium oxalate crystals, no h/o stones and none seen on CT abd/pel Kidneys appear normal on CT as well and bladder appears thickened and with perivesicular stranding She denies any urinary symptoms now and does not have a h/o UTIs She is s/p hysterectomy so no menses Advised to repeat UA as outpatient in 3 weeks and if persists, recommend referral to Urology-discussed this with patient and Plan DVT prophylaxis: Lovenox CODE STATUS: Full code Disposition: continued stay Medical/surgical Admission and Anticipated Discharge Date Admission Date: August 03, 2023 Subjective Feeling much better this afternoon. No nausea,and abd pain is much improved. She is now passing flatus and feels like she's about to have a BM. Has been ambulating the halls all day long and feels hungry. I discussed her care with Surgery Physical Exam Constitutional: WD/WN, vitals as above Respiratory: normal respiratory effort, lungs clear to auscultation Cardiovascular: RRR, no murmur, no edema Gastrointestinal (Abdomen): Inspection/Auscultation: normal bowel sounds; abdomen not distended Percussion/Palpation: + abdomen tender (pauly mild in lower abdomen w/o guarding or rebound) and abdomen soft Skin: no rashes, warm and dry Psychiatric: A+Ox3, euthymic affect Results & Data Results & Data Vital Signs (Past 12 Hours) Vital Signs Temp Pulse Resp BP Pulse Ox O2 Del Method 08/04/23 07:40 36.5 C 50 L 18 109/68 99 Room Air Laboratory Results CBC, BMP, UA reviewed PG Care Time/CCT Total # of Minutes Spent Total Time Spent with Patient: Total time spent is greater than 50% in coordination of care (as documented) at patient's floor/unit and/or counseling patient: Coding Level of Care Code 64931 SUB INP/OBS CARE 2/35MIN Diagnoses SBO (small bowel obstruction) K56.609 Hypothyroidism E03.9 Microscopic hematuria R31.29
[2023-08-05] MEDS: IBUPROFEN 600 MG TAB PO ONE (03:27)
[2023-08-05 05:56] LABS: Adenovirus F 40/41 PCR Not Detected (NotDetected); Astrovirus PCR Not Detected (NotDetected); Campylobacter PCR Not Detected (NotDetected); Cryptosporidium PCR Not Detected (NotDetected); Cyclospora cayetanensis PCR Not Detected (NotDetected); Entamoeba histolytica PCR Not Detected (NotDetected); Enteroaggregative E.coli(EAEC) Not Detected (NotDetected); Enteropathogenic E.coli (EPEC) Not Detected (NotDetected); Enterotoxigenic E.coli (ETEC) Not Detected (NotDetected); Giardia lamblia PCR Not Detected (NotDetected); Norovirus GI/GII PCR Not Detected (NotDetected); Plesiomonas shigelloides PCR Not Detected (NotDetected); Rotavirus A PCR Not Detected (NotDetected); Salmonella PCR Not Detected (NotDetected); Sapovirus PCR Not Detected (NotDetected); Shiga-like Toxin E.coli (STEC) Not Detected (NotDetected); Shigella/Enteroinvasive E.coli Not Detected (NotDetected); Vibrio cholerae PCR Not Detected (NotDetected); Vibrio species PCR Not Detected (NotDetected); Yersinia enterocolitica PCR Not Detected (NotDetected)
[2023-08-05 06:19] LABS: Basophils # (auto) 0.04 K/uL (0.00-0.20); Basophils % (auto) 0.8 %; Eosinophils # (auto) 0.15 K/uL (0.00-0.50); Hematocrit (blood only) 35.1 % (37.0-47.0); Immature Granulocytes # (auto) 0.01 K/uL (0.01-0.20); Immature Granulocytes % (auto) 0.2 %; Lymphocytes # (auto) 1.44 K/uL (1.20-3.40); Lymphocytes % (auto) 28.5 %; Mean Corpuscular Hemoglobin 30.2 pg (25.0-34.0); Mean Corpuscular Hgb Conc 34.2 g/dL (32.0-36.0); Mean Corpuscular Volume 88.4 fL (80.0-100.0); Mean Platelet Volume 10.5 fL (9.4-12.4); Monocytes % (auto) 11.9 %; Neutrophils # (auto) 2.81 K/uL (1.40-6.50); Neutrophils % (auto) 55.6 %; Platelet Count 148 K/uL (130-400); RDW Coefficient of Variation 12.1 % (11.5-14.5); RDW Standard Deviation 39.3 fL (36.4-46.3); Red Blood Count 3.97 M/uL (4.20-5.40); White Blood Count 5.05 K/ul (4.8-10.8)
[2023-08-05] MEDS: LEVOTHYROXINE SODIUM 100 MCG TABLET PO SCH (06:23)
[2023-08-05 06:30] LABS: BUN Creatinine Ratio 11.8 (10-20); Calcium 8.6 mg/dl (8.6-10.3); Creatinine Clr Calc Pharmacy 92.1 ml/min; Est GFR (African American) 112.5 ml/min; Est GFR (Non-African American) 97.1 ml/min; Magnesium 1.7 mg/dl (1.7-2.4); Phosphorus 2.5 mg/dl (2.5-4.9); Potassium 3.8 mmol/L (3.5-5.1)
--- NOTE | 2023-08-05 08:09 | Surgery Progress Note ---
Date of Service August 05, 2023 Assessment & Plan (1) SBO (small bowel obstruction): Plan: Pt tolerating clears, advanced to fulls Having bms and flatus Denies N/V ambulating in halls VSS feeling well abd soft tender not painful Likely resolved SBO if tolerating fulls for breakfast may try low fiber for lunch if pt desires D/C per primary service Admission and Anticipated Discharge Date Admission Date: August 03, 2023 Supervising Physician Co-Signing Physician Notes pnt s&e, agree w/ above. Recurrent SBO, feeling better. +bm and flatus, tolerated fulls. afvss, abd soft, non-distended, NT. labs normal. adv to low fiber, okay for d/c today if tolerates. Subjective Pt sitting up in bed Reports no abd pain + flatus and BMs No N/V Review of Systems Constitutional: no fever and no chills Respiratory: no dyspnea Cardiovascular: no chest pain Gastrointestinal: no abdominal pain, no nausea and no vomiting Genitourinary: no dysuria Musculoskeletal: no muscle weakness Integumentary: no rash Psychiatric: no confusion Physical Exam Physical Exam: alert oriented pleasant Constitutional: cooperative and comfortable; no acute distress Respiratory: normal respiratory effort and able to speak in complete sentences; no respiratory distress Cardiovascular: Rate/Rhythm: regular rate (49) Gastrointestinal (Abdomen): Inspection/Auscultation: abdomen not distended Percussion/Palpation: + abdomen tender and abdomen soft; no guarding Musculoskeletal: no cyanosis or clubbing, extremities motor strength 5/5 Skin: no rashes, warm and dry Psychiatric: A+Ox3, euthymic affect Results & Data Vital Signs (Past 12 Hours) Vital Signs Temp Pulse Resp BP Pulse Ox O2 Del Method 08/04/23 21:02 97.7 F 49 L 16 134/84 99 Room Air Results Complete Blood Count Results: RBC 3.97 M/uL (4.20-5.40) L 08/05/23 WBC 5.05 K/ul (4.8-10.8) 08/05/23 Hgb 12.0 g/dl (12.0-16.0) 08/05/23 Hct 35.1 % (37.0-47.0) L 08/05/23 Plt Count 148 K/uL (130-400) 08/05/23 Results BMP Results: Sodium 139 mmol/L (136-145) 08/05/23 Potassium 3.8 mmol/L (3.5-5.1) 08/05/23 Chloride 109 mmol/L (98-107) H 08/05/23 Carbon Dioxide 25 mmol/L (21-32) 08/05/23 Anion Gap 5 (3-11) 08/05/23 BUN 8 mg/dl (6-23) 08/05/23 Creatinine 0.68 mg/dl (0.6-1.2) 08/05/23 Glucose 93 mg/dl (70-99(Fasting)) 08/05/23 PG Care Time/CCT Total # of Minutes Spent Total Time Spent with Patient: Total time spent is greater than 50% in coordination of care (as documented) at patient's floor/unit and/or counseling patient: Coding Level of Care Code 32790 SUB INP/OBS CARE 05/16MIN Diagnoses SBO (small bowel obstruction) K56.609
--- NOTE | 2023-08-05 16:30 | Discharge Summary ---
Discharge Summary Date of Service August 05, 2023 Notes For Next Care Provider Medication Changes From Visit none Admission HPI Per Admitting Provider Margie is a 58-year-old female with past medical history of bowel obstruction, diverticulosis s/p partial colectomy, hypothyroidism, surgical history including bowel resection, hysterectomy with oophorectomy, section who presents with abdominal pain is found to have a partial SBO with left lower quadrant transition point similar to 05/04/2022. No other acute findings, no pneumatosis/pneumoperitoneum Per ER 1 day of LLQ pain, worsening nausea/vomiting no PO intake in [address] with SBO and LLQ. Margie is seen with her at bedside. Thought she ate something off, had diarrhea allnigth with heartburn. Thoguht it may have been food poisoning rather than a SBO due to the diarrhea which i sunusual for her, but pain in her LLQ progressed and continued tohave worsening nausea and vomiting similar to prior SBOS. Paini ncreased, and she knew she had to come to thehospital. Pain is LLQ where her prior SBO pain has been. Nothing toeat or drink since yesterday, is passing gas and had last diarrhea 8:30am just a tiny amount of liquid water. No fevers, has been very cold andchilly. Hot flashes/sweats with her diarrhea. No chest pain, no chest pressure.no shortness of breath Feel similars to prior SBOs except the diarrhea Vomiting is dark green. Noblood/melena. No hematochezia/melena. Hx of colon resection at [facility] for diverticulitis with severe inflammation. Also w history of histerectomy. History of c/s with [facility]. Subsequently had ovary which wrapped around bowel, both ovaries removed. Medical History: Reviewed Medications: Reviewed Surgical History: Reviewed Family history: Reviewed Allergies: Reviewed Social History: No tobacco use. Intermittent social alcohol use, around 1 drink per week Code Status: Full code Principal Dx & Hospital Course #1 = Principal Diagnosis (1) SBO (small bowel obstruction): Here with recurrent SBO likely 2/2 adhesions. NGT not placed as pt was already starting to improve by the time of admission and declined to have one placed. Feeling much better, no further N/V, is now passing flatus, no BM yet, abd pain much improved and minimal at this point No infection. had diarrhea prior to development of SBO-perhaps a viral gastroenteritis? Stool PCR ordered but not yet collected Improved nicely, no intervention needed. Safe/stable for home after eating r egular diet today08/04. Outpatient follow-up. (2) Microscopic hematuria: UA now and previously in 2020 noted to have microscopic hematuria. Also with calcium oxalate crystals, no h/o stones and none seen on CT abd/pel Kidneys appear normal on CT as well and bladder appears thickened and with perivesicular stranding She denies any urinary symptoms now and does not have a h/o UTIs She is s/p hysterectomy so no menses Advised to repeat UA as outpatient in 3 weeks and if persists, recommend referral to Urology- Previous hospitalist discussed this with patient and tony fine (3) Hypothyroidism: Home on home dosing Plan DVT prophylaxis: Lovenox utilized during her stay safe/stable for home, outpt f/u Discharge Exam In general she is awake and alert pleasant no distress. HEENT normocephalic atraumatic mucous membranes moist. Breathing unlabored no accessory muscle use good effort. Abdomen is soft nondistended nontender no masses organomegaly no guarding or rebound. Updated Medication List Medication Instructions Recorded Confirmed Type aloe vera 25 mg capsule 1 cap PO QAM 03/01/18 08/03/23 History ascorbic acid (vitamin C) 500 mg 500 mg PO QAM 03/01/18 08/03/23 History tablet (Vitamin C) calcium carbonate 500 mg-vitamin 1 tab PO QAM 03/01/18 08/03/23 History D3 5 mcg (200 unit) tablet (Calcium 500 + D) multivitamin 1 tab PO QAM 03/01/18 08/03/23 History ascorbic acid 7.5 mg-vit E 7.5 1 tab PO QAM 06/29/19 08/03/23 History unit-biotin 1,250 mcg chewable tablet (Hair,Skin,Nails with Biotin) echinacea 500 mg capsule 500 mg PO QAM 06/29/19 08/03/23 History levothyroxine 100 mcg tablet 100 mcg PO DAILYBB 07/26/20 08/03/23 History docusate sodium 100 mg capsule 100 mg PO BID #60 caps 12/03/20 08/03/23 Rx (Colace) estradiol 0.0375 mg/24 hr weekly See Rx Instructions .Route 02/22/23 08/03/23 Rx transdermal patch .COMPLEX #12 patches Hospital Stay Data Consultations 08/03/23 18:34 ED Decision to Admit Stat 08/03/23 20:29 Consult General Surgery Routine Diagnostic Imagining Performed 08/03/23 15:51 CT abd pelvis IV con only Stat Pending Results Patient Have Any Pending Studies at Discharge: No Discharge Instructions Given to Patient (Per Discharging Provider) Small bowel obstructionas we discussed, most small bowel obstructions end up being due to adhesions (small bands of scar tissue that formed in response to prior surgeries). Since our small intestine flowed freely into her abdominal cavity, it can sometimes run into these adhesions and get "kinked"however, since her intestines continue to contract every 3-5 minutes, usually over a few days small bowel obstructions essentially "fix themselves". As we discussed, there was really nothing that you did or ate to cause it, more a byproduct of having had prior abdominal surgeries and a little bit of bad luck. He appears safe to go home, no restrictions, follow-up with your regular family doc in a week or 2. The little bit of blood in your urine on urinalysis is a fairly common findingit is likely nothing, but it is something that we cannot just "totally ignore"have your family doc repeat a urinalysis in 3-4 weeks. If the blood persists, then we would need to investigate further, but this is not often the case. Total Time Total Time Spent Total Time Spent (In Minutes): <30
--- NOTE | 2023-08-05 16:31 | Billing Data ---
Date of Service August 05, 2023 Coding Level of Care Code 76834 IN/OBS DISCH 30 MIN/LESS
== END 2023-08-05 13:46 | disposition home or self-care (01) | DRG 390 ==
LOC: ED 15:42 → SUATTDRO 19:41 → 3E 19:41

== ENCOUNTER 2025-03-03 23:44 | Inpatient (IN) ==
--- NOTE | 2025-03-04 00:38 | Emergency Department Note ---
Impression & Plan Abdominal pain, Nausea & vomiting, SBO (small bowel obstruction) ED Provider Note CHIEF COMPLAINT: Vomiting, abdominal pain HISTORY OF PRESENTING ILLNESS: Patient is a pleasant, 59-year-old female who arrives to the emergency department for evaluation of vomiting with abdominal pain. Patient does report a history of a bowel obstruction. She is concerned, as her symptoms are similar to previous. She reports symptoms began today, after eating a small amount of food. She reports pain was immediate. And then vomiting persisted. She reports she took [id number] medications, which did not help her symptoms. She reports no fever, dysuria, diarrhea, or constipation. REVIEW OF SYSTEMS: See HPI for pertinent positives and pertinent negatives. ALLERGIES: See below MEDICATIONS: See below PAST MEDICAL HISTORY: See below PHYSICAL EXAM: VITALS: Vitals are noted on the nurse's note and reviewed by myself. Vital signs stable. GENERAL: 59-year-old female, in no acute distress, nondiaphoretic, well- developed well-nourished. SKIN: The skin was without rashes, erythema, edema, or bruising. HEART: Regular rate and rhythm without murmurs gallops or rubs. LUNGS: Clear to auscultation bilaterally without wheezes, rales or rhonchi. No retractions or accessory muscle use. ABDOMEN: Diffuse tenderness to palpation throughout the abdomen. No rebound tenderness or guarding. MUSCULOSKELETAL: No muscle atrophy, erythema, or edema noted. Normal gait. Strength 5/5 throughout. NEURO: Patient was alert and oriented to person place and time. No focal neurological deficits. DIFFERENTIAL DIAGNOSIS: Appendicitis, ovarian cyst, ovarian torsion, infections, diverticulitis, UTI, obstruction, mesenteric ischemia, aortic pathology, inflammatory bowel disease, renal colic, PUD, pancreatitis, biliary pathology, hernia, volvulus, constipation, as well as other pathologies. ED COURSE AND MEDICAL DECISION MAKING: HISTORY FROM INDEPENDENT HISTORIAN: Family member at bedside serving as secondary historian. 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 Patient was placed on the photoengraving machine operator/tender and continuous pulse ox. Patient was noted to be in normal sinus rhythm at an initial rate of 64 bpm per my interpretation. INTERPRETATION OF LABS: I interpreted the labs with full lab results as below in the lab section of this note. Pertinent lab results discussed in the MDM section below. INTERPRETATION OF IMAGING: Imaging studies were interpreted by myself and read by radiology as per the imaging section of this note. MDM SUMMARY: The patient is a pleasant, 59-year-old female who arrives to the emergency department for evaluation of the above-stated complaint. Saline lock was established, lab work was obtained. CBC shows no leukocytosis, no anemia. CMP is unremarkable. Lipase negative. Urinalysis positive ketones, positive blood, 2+ leukocyte esterase, 4+ bacteria, consistent with infection. Patient was provided IV Rocephin. IV fluids, and IV pain control were provided as well as IV Zofran for nausea. CT imaging of the abdomen and pelvis with IV contrast was obtained, which shows mild interval regression of the previously noted partial small bowel obstruction within the redemonstrated transition point in the left lower quadrant. Interval mild regression of the long segmental circumferential enhancing mural thickening of the small bowel loops seen next to the transition point as well as adjacent mesenteric haziness and minimal interloop fluid. Findings consistent with likely partial small bowel obstruction likely due to inflammatory stricture possibly Crohn's. Was also has an eccentric mural thickening in the upper rectum along the right lateral wall which is a new interval finding possibly postoperative however possibly neoplastic until excluded. General surgery consultation obtained, they will evaluate the patient during admission. The patient was admitted to the [facility] hospitalist group, Dr. Strong, agreed to evaluate except the patient for admission. Please refer to his documentation, as well as general surgery's documentation for further patient workup and care. DIAGNOSIS: Abdominal pain, nausea, vomiting, SBO The chart was completed utilizing [employer] Speech voice recognition software. Grammatical errors, random word insertions, pronoun errors, and incomplete sentences are an occasional consequence of this system due to software limitations, ambient noise, and hardware issues. Any formal questions or concerns about the content, text, or information contained within the body of this dictation should be directly addressed to the provider for clarification. Past Med/Surg History Problem List (Updated 03/09/25 @ 09:54 by MARLEE Mancuso) SBO (small bowel obstruction) (Acute) Nausea & vomiting (Acute) Abdominal pain (Acute) UTI (urinary tract infection) Small bowel stricture Partial small bowel obstruction S/P left knee arthroscopy Tear of meniscus of left knee Tinnitus, bilateral Microscopic hematuria SBO (small bowel obstruction) (Acute) Nausea & vomiting (Acute) Abdominal pain (Acute) Hypothyroidism taking levothyroxine Painful orthopaedic hardware Nausea & vomiting (Acute) Hand numbness Carpal tunnel syndrome, bilateral Plantar fasciitis of left foot Foot pain, left Acute lateral meniscal injury of right knee S/P right knee arthroscopy Chondral loose body of right knee joint Tear of medial meniscus of right knee Loose body in knee Avulsion injury of knee region Knee effusion, right Postmenopausal hormone replacement therapy Encounter for pre-operative examination Bradycardia longstanding hx of sinus marco per review of EKG dating back to 2017 Medical History Bradycardia longstanding hx of sinus marco per review of EKG dating back to 2018 Tear of meniscus of left knee Slow to wake up after anesthesia Hypothyroidism History of intestinal obstruction hx SBO, "multiple" ; last was ~08/2024, states self treated Diverticular disease 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; Last echo was normal per pt (PSH) ~2019 Surgical History H/O hand surgery History of photorefractive keratectomy (PRK) History of section H/O right knee surgery Right knee meniscectomy Family history of reaction to anesthesia sister: nausea H/O oophorectomy Hx of breast reduction, elective History of wisdom tooth extraction History of thumb surgery RIGHT HAND hardware placement and removal; removal of hardware 04/17/22: GA: LMA#4 Status post trigger finger release History of hysterectomy PARTIAL History of bilateral tubal ligation History of bowel resection S/P DIVERTICULITIS (hemicolectomy) - [facility] () Family History Mother Hypertension Stroke Family/Other Breast cancer maternal cousin Uncle Colorectal cancer paternal Father Atrial fibrillation Sister GIST, non-malignant stomach Other Kidney stones Denies family history of Ovarian cancer Prostate cancer Social History Smoking Status: Never smoker Second Hand Exposure: No; Do You Dip or Chew Tobacco: No; Hx Alcohol Use: Yes Alcohol type: wine Alcohol Intake Frequency Comment: a glass of wine once a week or so Hx Substance Use: No Preferred Language: Argentine Communication Ability: Effective Cloth Bolt Bander Required: No Beliefs That Will Affect Care: None marital status: Current Living Situation: Spouse Current Living Situation Comment: Dany 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[employer]; 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[place] How many Children do You have: 2 How many Children do You have Comment: 1 son, 1 daughter Feels Safe at Home: Yes Assistive Devices: None Allergies Allergies Allergy/AdvReac Type Severity Reaction Status Date / Time erythromycin base Allergy Intermediate EDEMA OF Verified 03/04/25 00:53 MOUTH/LIPS morphine AdvReac Intermediate Chest Pain Verified 03/04/25 00:53 oxycodone AdvReac Intermediate Chest Verified 03/04/25 00:53 Pain, syncope tramadol AdvReac Intermediate CHEST Verified 03/04/25 00:53 PAIN,SYNCOPE, BRADICARDIA Home Meds Home Medications Medication Instructions Recorded Confirmed aloe vera 25 mg capsule 1 cap PO QAM 03/01/18 03/04/25 ascorbic acid (vitamin C) 500 mg 500 mg PO QAM 03/01/18 03/04/25 tablet (Vitamin C) calcium 500 mg (as 1 tab PO QAM 03/01/18 03/04/25 carbonate)-vitamin D3 5 mcg (200 unit) tablet (Calcium 500 + D) multivitamin 1 tab PO QAM 03/01/18 03/04/25 levothyroxine 100 mcg tablet 100 mcg PO DAILYBB 07/26/20 03/04/25 apple cider vinegar 250 mg 250 mg PO DAILY 12/22/24 03/04/25 chewable tablet escitalopram oxalate 10 mg tablet 10 mg PO HS 12/22/24 03/04/25 estradiol 0.0375 mg/24 hr weekly 0.0375 mg transdermal WK 03/04/25 03/04/25 transdermal patch Previous Rx's Medication Instructions Recorded docusate sodium 100 mg capsule 100 mg PO BID #60 caps 12/03/20 (Colace) ondansetron 4 mg disintegrating 4 mg PO Q6H PRN nausea and 12/29/24 tablet vomiting #10 tabs Results & Data (ED) Vital Signs Vital Signs - 24 hr 03/03/25 23:54 Temperature 36.6 C Temperature Source Temporal Artery Scan Pulse Rate 64 Pulse Rhythm Regular Pulse Strength Normal Respiratory Rate 18 Respiratory Effort / Characteristics Non-Labored Spontaneous Respiratory Depth Normal Respiratory Pattern Regular Blood Pressure 118/76 Blood Pressure Mean 90 Pulse Oximetry 99 Oxygen Delivery Method Room Air Sepsis Recent Fever Within 48 Hours No Sepsis New/Unexplained Change in Mental Status No Sepsis Action Taken by Nursing No Action Required Home Medications Current Medication List: was personally reviewed by me Laboratory Data Attestation: I reviewed the patient's lab results. 03/05/25 06:21 03/05/25 06:21 Lab Results 03/04/25 03/04/25 Range/Units 00:12 01:02 WBC 8.71 (4.8-10.8) K/ul RBC 5.10 (4.20-5.40) M/uL Hgb 15.7 (12.0-16.0) g/dL Hct 43.8 (37.0-47.0) % MCV 85.9 (80.0-100.0) fL MCH 30.8 (25.0-34.0) pg MCHC 35.8 (32.0-36.0) g/dL RDW Std Deviation 37.8 (36.4-46.3) fL RDW Coeff of Yani 12.0 (11.5-14.5) % Plt Count 257 (130-400) K/uL MPV 10.9 (9.4-12.4) fL Immature Gran % (Auto) 0.5 % Neut % (Auto) 74.4 % Lymph % (Auto) 16.6 % [place] % (Auto) 7.3 % Eos % (Auto) 0.6 % Baso % (Auto) 0.6 % Neut # (Auto) 6.48 (1.40-6.50) K/uL Lymph # (Auto) 1.45 (1.20-3.40) K/uL [place] # (Auto) 0.64 H (0.11-0.59) K/uL Eos # (Auto) 0.05 (0.00-0.50) K/uL Baso # (Auto) 0.05 (0.00-0.20) K/uL Immature Gran # (Auto) 0.04 (0.01-0.20) K/uL Sodium 139 (136-145) mmol/L Potassium 3.7 (3.5-5.1) mmol/L Chloride 104 (98-107) mmol/L Carbon Dioxide 23 (21-32) mmol/L Anion Gap 12 H (3-11) BUN 15 (6-23) mg/dl Creatinine 0.98 (0.6-1.2) mg/dl Est Cr Clr Drug Dosing 68.3 ml/min eGFR 66.90 BUN/Creatinine Ratio 15.3 (10-20) Glucose 131 H (70-99(Fasting)) mg/dl Calcium 10.3 (8.6-10.3) mg/dl Total Bilirubin 1.0 (0.2-1.0) mg/dl AST 24 (13-39) U/L ALT 22 (7-52) U/L Alkaline Phosphatase 78 (34-104) U/L Total Protein 9.1 H (6.0-8.3) gm/dl Albumin 5.0 (3.4-5.0) gm/dl Globulin 4.1 H (2.5-4.0) gm/dl Albumin/Globulin Ratio 1.2 (0.9-2) Lipase 18 (11-82) U/L Urine Color Dark Yellow Urine Appearance Cloudy A (Clear) Urine pH 7.0 (4.5-7.5) Ur Specific [place] 1.028 (1.000-1.030) Urine Protein 1+ H (Negative) Urine Glucose (UA) Negative (Negative) Urine Ketones 1+ H (Negative) Urine Blood 1+ H (Negative) Urine Nitrite Negative (Negative) Urine Bilirubin 1+ H (Negative) Urine Urobilinogen Negative (Negative) Ur Leukocyte Esterase 2+ H (Negative) Urine WBC (Auto) 0-5 (0-5) /hpf Urine RBC (Auto) 6-10 H (0-2) /hpf U Hyaline Cast (Auto) 6-10 H (0-2) /lpf U Epithel Cells (Auto) 11-20 H (0-2) /hpf Urine Bacteria (Auto) 4+ H (None Seen) Urine Mucus Present A (None Prsent) Urine Comment Administered Medications Discontinued Medications Escitalopram Oxalate (Escitalopram Oxalate 10 Mg Tab) 10 mg PO HS WAYNE Stop: 04/03/25 20:59 Last Admin: 03/04/25 20:32 Dose: 10 mg Documented By: SIMON Hydromorphone HCl (Hydromorphone Inj 0.5 Mg/0.5 Ml Syr) 0.5 mg IV NOW STA Stop: 03/04/25 00:58 Last Admin: 03/04/25 01:06 Dose: 0.5 mg Documented By: RITA Sodium Chloride (Nss) 1,000 mls @ 999 mls/hr IV .Q1H1M STA Stop: 03/04/25 01:38 Last Infusion: 03/04/25 01:51 Dose: Infused Documented By: Admin: 03/04/25 00:50 Dose: 999 mls/hr Documented By: RITA Ceftriaxone Sodium (Rocephin) 2,000 mg in 50 mls @ 100 mls/hr IV NOW STA Stop: 03/04/25 02:38 Last Infusion: 03/04/25 03:04 Dose: Infused Documented By: Admin: 03/04/25 02:34 Dose: 100 mls/hr Documented By: RITA Metronidazole (Flagyl) 500 mg in 100 mls @ 100 mls/hr IV Q8H WAYNE; Protocol Stop: 03/14/25 13:59 Last Infusion: 03/05/25 07:15 Dose: Infused Documented By: Admin: 03/05/25 06:14 Dose: 100 mls/hr Documented By: Infusion: 03/04/25 21:32 Dose: Infused Documented By: Admin: 03/04/25 20:32 Dose: 100 mls/hr Documented By: Infusion: 03/04/25 15:35 Dose: Infused Documented By: [facility] Admin: 03/04/25 13:54 Dose: 100 mls/hr Documented By: santiago Potassium Chloride/Sodium Chloride (Normal Saline W/20 Meq Kcl) 20 meq in 1,000 mls @ 100 mls/hr IV .Q10H WAYNE Stop: 03/07/25 04:29 Last Admin: 03/05/25 12:19 Dose: Not Given Documented By: Infusion: 03/05/25 12:19 Dose: Infused Documented By: Admin: 03/05/25 01:31 Dose: 100 mls/hr Documented By: Infusion: 03/05/25 01:31 Dose: Infused Documented By: Admin: 03/04/25 15:39 Dose: 100 mls/hr Documented By: santiago Infusion: 03/04/25 15:39 Dose: Infused Documented By: santiago Admin: 03/04/25 05:00 Dose: 100 mls/hr Documented By: RITA Metronidazole (Flagyl) 500 mg in 100 mls @ 100 mls/hr IV ONE STA; Protocol Stop: 03/04/25 05:22 Last Infusion: 03/04/25 05:57 Dose: Infused Documented By: Admin: 03/04/25 04:57 Dose: 100 mls/hr Documented By: RITA Pantoprazole Sodium (Protonix) 40 mg in 10 mls @ 5 mls/min IV BID WAYNE Stop: 04/03/25 08:59 Last Admin: 03/05/25 07:48 Dose: 5 mls/min Documented By: Admin: 03/04/25 20:32 Dose: 5 mls/min Documented By: Admin: 03/04/25 08:18 Dose: 5 mls/min Documented By: magdalena Ceftriaxone Sodium (Rocephin) 2,000 mg in 50 mls @ 100 mls/hr IV Q24H WAYNE Stop: 03/15/25 01:59 Last Infusion: 03/05/25 02:20 Dose: Infused Documented By: Admin: 03/05/25 01:32 Dose: 100 mls/hr Documented By: SIMON Acetaminophen (Ofirmev) 1,000 mg in 100 mls @ 400 mls/hr IV Q8H PRN PRN Reason: Headache or Pain Stop: 03/07/25 08:17 Last Infusion: 03/04/25 10:50 Dose: Infused Documented By: magdalena Admin: 03/04/25 10:24 Dose: 400 mls/hr Documented By: magdalena Methylprednisolone 40 mg/ (Syringe) 0.64 mls @ 1.5 mls/min IV BID WAYNE Stop: 04/03/25 09:29 Last Admin: 03/05/25 08:24 Dose: 1.5 mls/min Documented By: Admin: 03/04/25 20:32 Dose: 1.5 mls/min Documented By: Admin: 03/04/25 10:23 Dose: 1.5 mls/min Documented By: magdalena Ioversol (Optiray 320 100ml) 100 ml IV ONCE ONE Stop: 03/04/25 01:33 Last Admin: 03/04/25 01:33 Dose: 93 ml Documented By: JOSH Levothyroxine Sodium (Levothyroxine Sodium 100 Mcg Tablet) 100 mcg PO DAILYBB WAYNE Stop: 04/03/25 06:29 Last Admin: 03/05/25 06:14 Dose: 100 mcg Documented By: Admin: 03/04/25 05:57 Dose: 100 mcg Documented By: SIMON Miscellaneous ( (Estradiol 0.0375 Mg/24 Hr Patch Weekly)~Order Awaiting Action) 1 each N/A QS [facility] Stop: 04/03/25 07:59 Last Admin: 03/05/25 07:15 Dose: Not Given Documented By: Admin: 03/04/25 23:51 Dose: Not Given Documented By: Admin: 03/04/25 15:35 Dose: Not Given Documented By: magdalena Admin: 03/04/25 09:23 Dose: Not Given Documented By: magdalena Ondansetron HCl (Ondansetron Inj 2 Mg/Ml 2 Ml Vial) 4 mg IV NOW STA Stop: 03/04/25 00:39 Last Admin: 03/04/25 00:50 Dose: 4 mg Documented By: RITA Imaging Data Attestation: I personally reviewed and interpreted this imaging study as follows: Discharge Plan Visit Data Chief Complaint: Vomiting Stated Complaint: VOMITING,ABD PAIN ED Provider: Minda Altamirano ED Midlevel Provider: Kristen Yi Discharge Problem: Abdominal pain, Nausea & vomiting, SBO (small bowel obstruction) Patient Disposition: Admitted As Inpatient Condition: Fair Discharge Instructions Interventions: ED Discharge Assessment Last Done: 03/04/25 05:22
[2025-03-04] MEDS: ONDANSETRON INJ 2 MG/ML 2 ML VIAL IV STA (00:50)
[2025-03-04] MEDS: SODIUM CHLORIDE 0.9% 1,000 ML IV STA (00:50)
[2025-03-04 01:01] LABS: Hematocrit (blood only) 43.8 % (37.0-47.0); Hemoglobin 15.7 g/dL (12.0-16.0); Immature Granulocytes # (auto) 0.04 K/uL (0.01-0.20); Immature Granulocytes % (auto) 0.5 %; Mean Corpuscular Hemoglobin 30.8 pg (25.0-34.0); Mean Corpuscular Volume 85.9 fL (80.0-100.0); Platelet Count 257 K/uL (130-400); RDW Standard Deviation 37.8 fL (36.4-46.3); Red Blood Count 5.10 M/uL (4.20-5.40); White Blood Count 8.71 K/ul (4.8-10.8)
[2025-03-04] MEDS: HYDROmorphone INJ 0.5 MG/0.5 ML SYR IV STA (01:06)
[2025-03-04 01:21] LABS: Alanine Aminotransferase 22.0 U/L (7-52); Albumin Globulin Ratio 1.2 (0.9-2); Albumin Level 5.0 gm/dl (3.4-5.0); Alkaline Phosphatase 78.0 U/L (34-104); Anion Gap 12.0 (3-11); Bilirubin,Total 1.0 mg/dl (0.2-1.0); Blood Urea Nitrogen 15.0 mg/dl (6-23); Calcium 10.3 mg/dl (8.6-10.3); Carbon Dioxide 23.0 mmol/L (21-32); Chloride 104.0 mmol/L (98-107); Creatinine Clr Calc Pharmacy 68.3 ml/min; Globulin 4.1 gm/dl (2.5-4.0); Glucose 131.0 mg/dl (70-99(Fasting)); Lipase 18.0 U/L (11-82); Potassium 3.7 mmol/L (3.5-5.1); Sodium 139.0 mmol/L (136-145); Total Protein 9.1 gm/dl (6.0-8.3)
[2025-03-04] MEDS: OPTIRAY 320 100ml IV ONE (01:33)
[2025-03-04 01:36] LABS: Appearance Urine Cloudy (Clear); Bacteria Urine Automated 4+ (None Seen); Glucose Urine UA Negative (Negative); WBC Urine Automated 0-5 /hpf (0-5)
[2025-03-04] MEDS: cefTRIAXone SODIUM 2,000 MG/50 ML BAG IV STA (02:34)
--- NOTE | 2025-03-04 03:21 | CT Scan Report ---
EXAM: CT abd pelvis IV con only CLINICAL HISTORY: Rule out of obstruction. TECHNIQUE: CT of the abdomen and pelvis was performed with the following protocol: axial images and reconstructed coronal and sagittal images. 93 mL Optiary 320 mg/mL Intravenous contrast was administered, One of the following dose reduction techniques was utilized for this exam: automated exposure control, adjustment of the mA and/or kV according to patient size, and use of iterative reconstruction. COMPARISON: 08/03/2023 FINDINGS: Sections of the lower thorax show subpleural reticulations in the basal regions. A small sliding hiatal hernia is again noted. Abdomen: Gastrointestinal tract: Multiple dilated proximal small bowel loops are seen, demonstrating air-fluid levels, with a maximum caliber of 36 mm and a transition point in the left lower quadrant where long segmental circumferential enhancing mural thickening of small bowel loops is noted, with adjacent mesenteric haziness and minimal interloop fluid. The findings represent a partial small bowel obstruction, likely due to an inflammatory stricture or process involving the small bowel loops. Possible Crohn's disease. The distal small bowel loops are collapsed. Postsurgical changes at the rectosigmoid junction are again noted. Uncomplicated colonic diverticulosis is noted. Enhancing eccentric mural thickening in the upper rectum along the right lateral wall is identified. This is a new interval finding. The appendix appears unremarkable. Liver: The liver is normal in size and density. No focal lesions, cysts, or masses are identified. Gallbladder and Biliary System: Post-cholecystectomy status. Dilated intrahepatic biliary radicles and common bile duct due to post-surgical changes, likely. The common bile duct measures 16 mm in maximum caliber. Stable. Pancreas: The pancreatic head, body, and tail are visualized and appear normal in size and density. Spleen: The spleen is normal in size, shape, and density. No splenic lesions or masses are identified. Kidneys and Adrenal Glands: Both kidneys are normal in size. No renal calculi or hydronephrosis. The adrenal glands are unremarkable. Pelvis: Urinary bladder: Partially distended. Post-hysterectomy status. No adnexal lesions. Peritoneal and Retroperitoneal Structures: Minimal interloop fluid in the left lower quadrant. Subcentimetric mesenteric nodes are noted. Bones and Soft Tissues: Degenerative changes in the lumbar spine, predominantly at the L4-L5 and L5-S1 levels, with severe reduction of intervertebral disc spaces and vacuum phenomena. IMPRESSION: 1. Mild interval regression of the previously noted partial small bowel obstruction, with a maximum caliber of 36 mm (compared to 42 mm in the prior study) and a redemonstrated transition point in the left lower quadrant. There is interval mild regression of the long segmental circumferential enhancing mural thickening of the small bowel loops seen next to the transition point, as well as adjacent mesenteric haziness and minimal interloop fluid. The findings represent partial small bowel obstruction, likely due to an inflammatory stricture or process involving the small bowel loops. Possible Crohn's disease. Correlation with prior clinical history is recommended. 2. Enhancing eccentric mural thickening in the upper rectum along the right lateral wall. This is a new interval finding. This could be postoperative sequelae or inflammatory in nature; however, the possibility of a neoplastic etiology cannot be excluded. Histopathological correlation is recommended if clinically warranted. 3. Postsurgical changes at the rectosigmoid junction are again noted. 4. Uncomplicated colonic diverticulosis is again noted. Electronically signed by Germain Samuels 03-04-2025 03:21 AM
[2025-03-04] MEDS ORDERED: ACETAMINOPHEN 1,000 MG/100 ML VIAL IV PRN (04:17)
--- NOTE | 2025-03-04 04:20 | History & Physical Report ---
Date of Service March 04, 2025 Assessment & Plan (1) Partial small bowel obstruction: (2) Small bowel stricture: (3) Abdominal pain: Plan The patient is a 59-year-old female with a past medical history including bilateral tinnitus, history of previous small bowel obstructions, hy pothyroidism, and postmenopausal state. She presents to the emergency department with complaint of a recurrence of abdominal pain, similar to previous small bowel obstructions. Workup in the emergency department included CT scan of abdomen pelvis which showed a recurrence and progression of partial small bowel obstruction, with transition point left lower quadrant, likely due to inflammatory stricture, with concerns around possible Crohn's. At the postsurgical rectosigmoid joint, there is an enhancing eccentric mural thickness of the right lateral wall, differential clinic postop changes versus inflammation versus neoplastic. From the ED the patient received the following: Normal saline 1 L fluid bolus, Zofran 4 mg IV, Dilaudid 0.5 mg IV, and ceftriaxone 2 g IV. She was then referred for evaluation for admission to the [facility]. Partial small bowel obstruction- Likely due to inflammatory stricture or process involving the small bowel loops. Possible Crohn's disease. Reading is different from previous CT scans. There is an enhancing eccentric mural thickening in the upper rectum on the right lateral wall, which is a new interval finding. This can be a postoperative sequelae or inflammatory nature however the possibility of a neoplastic etiology cannot be excluded. Last colonoscopy was about 4 years ago per patient. N.p.o. except essential meds with sips of water Has been given ceftriaxone 2 g IV in ED, continue Placed on Flagyl 5 mg IV every 8 hours. General surgery has been consulted by the ED Consult gastroenterology, question whether steroid may be evaluated with inflammatory stricture. No need for NG tube at this time NSS + KCl 20 mEq at 100 mL/h Zofran 4 mg IV every 6 hours as needed Acetaminophen 1 g IV every 8 hours as needed for mild pain or fever Avoid narcotics due to concern regarding slowing bowel activity Protonix 40 mg IV twice daily Abnormal urinalysis- Patient without symptomatology No notation of colovesical fistula on CT Follow urine culture and sensitivity Patient will be on ceftriaxone for GI, and will cover as well Hypothyroidism- Continue levothyroxine with sips of water Psychiatric- Continue escitalopram with sips of water History of Present Illness Chief Complaint: The patient presents to the emergency department with complaint of abdominal pain similar to previous small bowel obstructions, accompanied by some nausea without vomiting. Primary Care Provider: Robert Fay DO The patient is a 59-year-old female with a past medical history including bilateral tinnitus, history of previous small bowel obstructions, hypothyroidism, and postmenopausal state. She presents to the emergency department with complaint of a recurrence of abdominal pain, similar to previous small bowel obstructions. Workup in the emergency department included CT scan of abdomen pelvis which showed a recurrence and progression of partial small bowel obstruction, with transition point left lower quadrant, likely due to inflammatory stricture, with concerns around possible Crohn's. At the postsurgical rectosigmoid joint, there is an enhancing eccentric mural thickness of the right lateral wall, differential clinic postop changes versus inflammation versus neoplastic. From the ED the patient received the following: Normal saline 1 L fluid bolus, Zofran 4 mg IV, Dilaudid 0.5 mg IV, and ceftriaxone 2 g IV. She was then referred for evaluation for admission to the [facility]. Allergies Allergy/AdvReac Type Severity Reaction Status Date / Time erythromycin base Allergy Intermediate EDEMA OF Verified 03/04/25 00:53 MOUTH/LIPS morphine AdvReac Intermediate Chest Pain Verified 03/04/25 00:53 oxycodone AdvReac Intermediate Chest Verified 03/04/25 00:53 Pain, syncope tramadol AdvReac Intermediate CHEST Verified 03/04/25 00:53 PAIN,SYNCOPE, BRADICARDIA Home Medications Medication Instructions Recorded Confirmed Type aloe vera 25 mg capsule 1 cap PO QAM 03/01/18 03/04/25 History ascorbic acid (vitamin C) 500 mg 500 mg PO QAM 03/01/18 03/04/25 History tablet (Vitamin C) calcium 500 mg (as 1 tab PO QAM 03/01/18 03/04/25 History carbonate)-vitamin D3 5 mcg (200 unit) tablet (Calcium 500 + D) multivitamin 1 tab PO QAM 03/01/18 03/04/25 History levothyroxine 100 mcg tablet 100 mcg PO DAILYBB 07/26/20 03/04/25 History docusate sodium 100 mg capsule 100 mg PO BID #60 caps 12/03/20 03/04/25 Rx (Colace) apple cider vinegar 250 mg 250 mg PO DAILY 12/22/24 03/04/25 History chewable tablet escitalopram oxalate 10 mg tablet 10 mg PO HS 12/22/24 03/04/25 History ondansetron 4 mg disintegrating 4 mg PO Q6H PRN nausea and 12/29/24 03/04/25 Rx tablet vomiting #10 tabs estradiol 0.0375 mg/24 hr weekly 0.0375 mg transdermal WK 03/04/25 03/04/25 History transdermal patch Past Med/Surg History Problem List (Updated 03/04/25 @ 04:51 by Sergio Strong MD) Small bowel stricture Partial small bowel obstruction S/P left knee arthroscopy Tear of meniscus of left knee Tinnitus, bilateral Microscopic hematuria SBO (small bowel obstruction) (Acute) Nausea & vomiting (Acute) Abdominal pain (Acute) Hypothyroidism taking levothyroxine Painful orthopaedic hardware Nausea & vomiting (Acute) Hand numbness Carpal tunnel syndrome, bilateral Plantar fasciitis of left foot Foot pain, left Acute lateral meniscal injury of right knee S/P right knee arthroscopy Chondral loose body of right knee joint Tear of medial meniscus of right knee Loose body in knee Avulsion injury of knee region Knee effusion, right Postmenopausal hormone replacement therapy Encounter for pre-operative examination Bradycardia longstanding hx of sinus marco per review of EKG dating back to 2018 Medical History Bradycardia longstanding hx of sinus marco per review of EKG dating back to 2018 Tear of meniscus of left knee Slow to wake up after anesthesia Hypothyroidism History of intestinal obstruction hx SBO, "multiple" ; last was ~08/2024, states self treated Diverticular disease 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; Last echo was normal per pt (PSH) ~2019 Surgical History H/O hand surgery History of photorefractive keratectomy (PRK) History of section H/O right knee surgery Right knee meniscectomy Family history of reaction to anesthesia sister: nausea H/O oophorectomy Hx of breast reduction, elective History of wisdom tooth extraction History of thumb surgery RIGHT HAND hardware placement and removal; removal of hardware 04/17/22: [place]: LMA#4 Status post trigger finger release History of hysterectomy PARTIAL History of bilateral tubal ligation History of bowel resection S/P DIVERTICULITIS (hemicolectomy) - [facility] () Family History Mother Hypertension Stroke Family/Other Breast cancer maternal cousin Uncle Colorectal cancer paternal Father Atrial fibrillation Sister GIST, non-malignant stomach Other Kidney stones Denies family history of Ovarian cancer Prostate cancer Social History Smoking Status: Never smoker Second Hand Exposure: No; Do You Dip or Chew Tobacco: No; Hx Alcohol Use: Yes Alcohol type: beer, wine and hard liquor Alcohol Intake Frequency Comment: a glass of wine once a week or so Hx Substance Use: No Preferred Language: Palestinian Communication Ability: Effective Hat Marker Required: No Beliefs That Will Affect Care: None marital status: Current Living Situation: Spouse Current Living Situation Comment: [place] 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[employer]; 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[place] How many Children do You have: 2 How many Children do You have Comment: 1 son, 1 daughter Feels Safe at Home: Yes Assistive Devices: None Review of Systems Review of Systems: The patient denies chest pain, palpitations, shortness of breath, dyspnea on exertion, cough, lower extremity swelling, sore throat, fevers, chills, sweats, vomiting, blood in urine or stool, dysuria, urinary frequency or urgency, lightheadedness, dizziness, headache, memory loss, loss of consciousness, rash, abnormal bruising or bleeding, imbalance, focal or generalized weakness, numbness or tingling in arms or legs, generalized arthralgias or myalgias, back or neck pain, or night sweats. The review of systems is otherwise negative other than for that already noted above, and at least 10 systems have been reviewed. Physical Exam Physical Exam: The patient is awake, alert and oriented 3, well developed and well nourished, normocephalic and atraumatic, lying in bed and in no acute distress. HEENT--PERRL, EOMI, mucous membranes and oropharynx mildly dry. Neck--supple. No JVD. No bruits. Thyroid normal, trachea midline, no adenopathy. Heart--normal S1 and S2. No murmurs, rubs or gallops. Lungs--clear bilaterally, no respiratory distress, no accessory muscle use. Abdomen--asymmetric bowel sounds, right side greater than left. Nontender post Dilaudid. Mildly firm. Extremities--no cyanosis or clubbing. No edema. There are good distal pulses b/l. Dermatologic--normal skin turgor, normal color, no abnormal lymph nodes, no rash. Neurologic--cranial nerves II through XII grossly intact. Rheumatologic--normal range of motion. Psychiatric--normal affect. Results & Data Results & Data Vital Signs (Past 12 Hours) Vital Signs Temp Pulse Pulse Resp BP BP Pulse Ox 03/04/25 03:42 73 14 95 03/04/25 03:30 113/03/04/25 03:30 11303/04/25 03:30 113/03/04/25 03:30 113/03/04/25 03:30 113/03/04/25 03:30 71 13 94 03/04/25 03:21 71 14 95 03/04/25 03:12 69 15 94 03/04/25 03:00 119/66 03/04/25 03:00 119/66 03/04/25 03:00 119/66 03/04/25 03:00 119/66 03/04/25 03:00 119/66 03/04/25 03:00 71 16 94 03/04/25 02:51 69 14 94 03/04/25 02:42 68 17 90 03/04/25 02:36 70 20 133/88 99 03/04/25 02:33 75 16 94 03/04/25 02:33 133/88 03/04/25 02:33 133/88 03/04/25 02:33 133/88 03/04/25 02:33 75 16 133/88 92 03/04/25 02:10 70 03/04/25 01:15 100 03/04/25 01:10 66 20 118/81 100 03/03/25 23:54 36.6 C 64 18 118/76 99 O2 Del Method 03/04/25 03:42 03/04/25 03:30 03/04/25 03:30 03/04/25 03:30 03/04/25 03:30 03/04/25 03:30 03/04/25 03:30 03/04/25 03:21 03/04/25 03:12 03/04/25 03:00 03/04/25 03:00 03/04/25 03:00 03/04/25 03:00 03/04/25 03:00 03/04/25 03:00 03/04/25 02:51 03/04/25 02:42 03/04/25 02:36 Room Air 03/04/25 02:33 03/04/25 02:33 03/04/25 02:33 03/04/25 02:33 03/04/25 02:33 Room Air 03/04/25 02:10 03/04/25 01:15 Room Air 03/04/25 01:10 Room Air 03/03/25 23:54 Room Air Laboratory Results Laboratory Results WBC 8.71 K/ul (4.8-10.8) 03/04/25 00:12 RBC 5.10 M/uL (4.20-5.40) 03/04/25 00:12 Hgb 15.7 g/dL (12.0-16.0) 03/04/25 00:12 Hct 43.8 % (37.0-47.0) 03/04/25 00:12 MCV 85.9 fL (80.0-100.0) 03/04/25 00:12 MCH 30.8 pg (25.0-34.0) 03/04/25 00:12 MCHC 35.8 g/dL (32.0-36.0) 03/04/25 00:12 RDW Std Deviation 37.8 fL (36.4-46.3) 03/04/25 00:12 RDW Coeff of Yani 12.0 % (11.5-14.5) 03/04/25 00:12 Plt Count 257 K/uL (130-400) 03/04/25 00:12 MPV 10.9 fL (9.4-12.4) 03/04/25 00:12 Immature Gran % (Auto) 0.5 % 03/04/25 00:12 Neut % (Auto) 74.4 % 03/04/25 00:12 Lymph % (Auto) 16.6 % 03/04/25 00:12 [place] % (Auto) 7.3 % 03/04/25 00:12 Eos % (Auto) 0.6 % 03/04/25 00:12 Baso % (Auto) 0.6 % 03/04/25 00:12 Neut # (Auto) 6.48 K/uL (1.40-6.50) 03/04/25 00:12 Lymph # (Auto) 1.45 K/uL (1.20-3.40) 03/04/25 00:12 [place] # (Auto) 0.64 K/uL (0.11-0.59) H 03/04/25 00:12 Eos # (Auto) 0.05 K/uL (0.00-0.50) 03/04/25 00:12 Baso # (Auto) 0.05 K/uL (0.00-0.20) 03/04/25 00:12 Immature Gran # (Auto) 0.04 K/uL (0.01-0.20) 03/04/25 00:12 Sodium 139 mmol/L (136-145) 03/04/25 00:12 Potassium 3.7 mmol/L (3.5-5.1) 03/04/25 00:12 Chloride 104 mmol/L (98-107) 03/04/25 00:12 Carbon Dioxide 23 mmol/L (21-32) 03/04/25 00:12 Anion Gap 12 (3-11) H 03/04/25 00:12 BUN 15 mg/dl (6-23) 03/04/25 00:12 Creatinine 0.98 mg/dl (0.6-1.2) 03/04/25 00:12 Est Cr Clr Drug Dosing 68.3 ml/min 03/04/25 00:12 eGFR 66.90 03/04/25 00:12 BUN/Creatinine Ratio 15.3 (10-20) 03/04/25 00:12 Glucose 131 mg/dl (70-99(Fasting)) H 03/04/25 00:12 Calcium 10.3 mg/dl (8.6-10.3) 03/04/25 00:12 Total Bilirubin 1.0 mg/dl (0.2-1.0) 03/04/25 00:12 AST 24 U/L (13-39) 03/04/25 00:12 ALT 22 U/L (7-52) 03/04/25 00:12 Alkaline Phosphatase 78 U/L (34-104) 03/04/25 00:12 Total Protein 9.1 gm/dl (6.0-8.3) H 03/04/25 00:12 Albumin 5.0 gm/dl (3.4-5.0) 03/04/25 00:12 Globulin 4.1 gm/dl (2.5-4.0) H 03/04/25 00:12 Albumin/Globulin Ratio 1.2 (0.9-2) 03/04/25 00:12 Lipase 18 U/L (11-82) 03/04/25 00:12 Urine Color Dark Yellow 03/04/25 01:02 Urine Appearance Cloudy (Clear) A 03/04/25 01:02 Urine pH 7.0 (4.5-7.5) 03/04/25 01:02 Ur Specific [place] 1.028 (1.000-1.030) 03/04/25 01:02 Urine Protein 1+ (Negative) H 03/04/25 01:02 Urine Glucose (UA) Negative (Negative) 03/04/25 01:02 Urine Ketones 1+ (Negative) H 03/04/25 01:02 Urine Blood 1+ (Negative) H 03/04/25 01:02 Urine Nitrite Negative (Negative) 03/04/25 01:02 Urine Bilirubin 1+ (Negative) H 03/04/25 01:02 Urine Urobilinogen Negative (Negative) 03/04/25 01:02 Ur Leukocyte Esterase 2+ (Negative) H 03/04/25 01:02 Urine WBC (Auto) 0-5 /hpf (0-5) 03/04/25 01:02 Urine RBC (Auto) 6-10 /hpf (0-2) H 03/04/25 01:02 U Hyaline Cast (Auto) 6-10 /lpf (0-2) H 03/04/25 01:02 U Epithel Cells (Auto) 11-20 /hpf (0-2) H 03/04/25 01:02 Urine Bacteria (Auto) 4+ (None Seen) H 03/04/25 01:02 Urine Mucus Present (None Prsent) A 03/04/25 01:02 Urine Comment 03/04/25 01:02 Impressions Abdomen/Pelvis CT 03/04/25 00:38 EXAM: CT abd pelvis IV con only CLINICAL HISTORY: Rule out of obstruction. TECHNIQUE: CT of the abdomen and pelvis was performed with the following protocol: axial images and reconstructed coronal and sagittal images. 93 mL Optiary 320 mg/mL Intravenous contrast was administered, One of the following dose reduction techniques was utilized for this exam: automated exposure control, adjustment of the mA and/or kV according to patient size, and use of iterative reconstruction. COMPARISON: 08/03/2023 FINDINGS: Sections of the lower thorax show subpleural reticulations in the basal regions. A small sliding hiatal hernia is again noted. Abdomen: Gastrointestinal tract: Multiple dilated proximal small bowel loops are seen, demonstrating air-fluid levels, with a maximum caliber of 36 mm and a transition point in the left lower quadrant where long segmental circumferential enhancing mural thickening of small bowel loops is noted, with adjacent mesenteric haziness and minimal interloop fluid. The findings represent a partial small bowel obstruction, likely due to an inflammatory stricture or process involving the small bowel loops. Possible Crohn's disease. The distal small bowel loops are collapsed. Postsurgical changes at the rectosigmoid junction are again noted. Uncomplicated colonic diverticulosis is noted. Enhancing eccentric mural thickening in the upper rectum along the right lateral wall is identified. This is a new interval finding. The appendix appears unremarkable. Liver: The liver is normal in size and density. No focal lesions, cysts, or masses are identified. Gallbladder and Biliary System: Post-cholecystectomy status. Dilated intrahepatic biliary radicles and common bile duct due to post-surgical changes, likely. The common bile duct measures 16 mm in maximum caliber. Stable. Pancreas: The pancreatic head, body, and tail are visualized and appear normal in size and density. Spleen: The spleen is normal in size, shape, and density. No splenic lesions or masses are identified. Kidneys and Adrenal Glands: Both kidneys are normal in size. No renal calculi or hydronephrosis. The adrenal glands are unremarkable. Pelvis: Urinary bladder: Partially distended. Post-hysterectomy status. No adnexal lesions. Peritoneal and Retroperitoneal Structures: Minimal interloop fluid in the left lower quadrant. Subcentimetric mesenteric nodes are noted. Bones and Soft Tissues: Degenerative changes in the lumbar spine, predominantly at the L4-L5 and L5-S1 levels, with severe reduction of intervertebral disc spaces and vacuum phenomena. IMPRESSION: 1. Mild interval regression of the previously noted partial small bowel obstruction, with a maximum caliber of 36 mm (compared to 42 mm in the prior study) and a redemonstrated transition point in the left lower quadrant. There is interval mild regression of the long segmental circumferential enhancing mural thickening of the small bowel loops seen next to the transition point, as well as adjacent mesenteric haziness and minimal interloop fluid. The findings represent partial small bowel obstruction, likely due to an inflammatory stricture or process involving the small bowel loops. Possible Crohn's disease. Correlation with prior clinical history is recommended. 2. Enhancing eccentric mural thickening in the upper rectum along the right lateral wall. This is a new interval finding. This could be postoperative sequelae or inflammatory in nature; however, the possibility of a neoplastic etiology cannot be excluded. Histopathological correlation is recommended if clinically warranted. 3. Postsurgical changes at the rectosigmoid junction are again noted. 4. Uncomplicated colonic diverticulosis is again noted. Electronically signed by Germain Samuels 03-04-2025 03:21 AM Code Status & VTE Plan Code Status Full code VTE Prophylaxis Plan VTE Prophylaxis will be ordered: Yes PG Care Time/CCT Total # of Minutes Spent Total Time Spent with Patient: Total time spent is greater than 50% in coordination of care (as documented) at patient's floor/unit and/or counseling patient: Coding Level of Care Code 27146 INT INP/OBS CARE 3/75MIN Diagnoses Partial small bowel obstruction K56.600 Small bowel stricture K56.699 Abdominal pain R10.9
[2025-03-04] MEDS: metroNIDAZOLE 500 MG/100 ML BAG IV STA (04:57)
[2025-03-04] MEDS: NSS + 20MEQ KCL 20 MEQ/1,000 ML BAG IV SCH (05:00)
[2025-03-04] MEDS ORDERED: ONDANSETRON INJ 2 MG/ML 2 ML VIAL IV PRN (05:44)
[2025-03-04] MEDS: LEVOTHYROXINE SODIUM 100 MCG TABLET PO SCH (05:57)
[2025-03-04] MEDS: PANTOprazole 40 MG/10 ML SYR IV SCH (08:18)
[2025-03-04] MEDS: ACETAMINOPHEN 1,000 MG/100 ML VIAL IV PRN (10:24)
--- NOTE | 2025-03-04 10:35 | Gastrointestinal Consultation ---
Date of Consultation March 04, 2025 Assessment & Plan (1) Partial small bowel obstruction: -Currently NPO status. -Does not appear to have emergent surgical needs, though surgery has been consulted to weigh in. -She is currently on IV antibiotics as initiated per primary team, but will also add Solumedrol for now. -Will obtain stool PCR to rule out infectious process. -Will plan for outpatient colonoscopy when acute process resolves. Supervising Physician Co-Signing Physician Notes I personally saw and examined the patient. I have reviewed the chart and agree with the documentation provided by the COMMISSIONS MANAGER including discussion about the assessment, treatment and plan. Briefly, 59-year-old female with a past medical history including bilateral tinnitus, history of previous small bowel obstructions felt to be due to scar tissue, partial colectomy due to diverticulitis, hypothyroidism, and postmenopausal state. She presents to the emergency department with severe abdominal pain that she recognized as being similar to her history of SBOs. She typically tries to conservatively manage obstructions at home with diet modification and laxatives per her reports. She notes several hospitalizations for SBOs in the past without surgery. Her last colonoscopy was around 4-5 years ago. She notes she eats a low residue diet since her obstructions and colectomy. When I saw her, she was walking and passing gas and multiple bowel movements. We can start a liquid diet on her. Get a KUB tomorrow morning. Given abnormal CRP ESR prior history of SBO's that started after diverticulitis, favor adhesions over IBD. I do think she deserves a follow-up colonoscopy after this episode resolves outpatient. We can do TI intubation with biopsies. History of Present Illness Reason for Consultation: PSBO Attending Physician: Milo Cortez MD History of Present Illness The patient is a 59-year-old female with a past medical history including bilateral tinnitus, history of previous small bowel obstructions felt to be due to scar tissue, partial colectomy due to diverticulitis, hypothyroidism, and postmenopausal state. She presents to the emergency department with severe abdominal pain that she recognized as being similar to her history of SBOs. She typically tries to conservatively manage obstructions at home with diet modification and laxatives per her reports. She notes several hospitalizations for SBOs in the past without surgery. Her last colonoscopy was around 4-5 years ago. She notes she eats a low residue diet since her obstructions and colectomy. She had a CT scan of abdomen pelvis which showed a recurrence and progression of partial small bowel obstruction, with transition point left lower quadrant, likely due to inflammatory stricture, with concerns regarding possible Crohn's. At the postsurgical rectosigmoid joint, there is an enhancing eccentric mural thickness of the right lateral wall, differential clinic postop changes versus inflammation versus neoplastic. CRP 0.81. ESR 22. At the current time, she is resting comfortably in bed. She is moving her bowels and passing gas. Pain is greatly improved. No nausea/vomiting. No NG requirements this admission. She is currently on IV Ceftriaxone & Flagyl per primary team. No personal history of Crohn's Disease. No pertinent family history. She notes she has frequent bowel movements since her partial colectomy. Allergies Allergy/AdvReac Type Severity Reaction Status Date / Time erythromycin base Allergy Intermediate EDEMA OF Verified 03/04/25 00:53 MOUTH/LIPS morphine AdvReac Intermediate Chest Pain Verified 03/04/25 00:53 oxycodone AdvReac Intermediate Chest Verified 03/04/25 00:53 Pain, syncope tramadol AdvReac Intermediate CHEST Verified 03/04/25 00:53 PAIN,SYNCOPE, BRADICARDIA Home Medications Medication Instructions Recorded Confirmed Type aloe vera 25 mg capsule 1 cap PO QAM 03/01/18 03/04/25 History ascorbic acid (vitamin C) 500 mg 500 mg PO QAM 03/01/18 03/04/25 History tablet (Vitamin C) calcium 500 mg (as 1 tab PO QAM 03/01/18 03/04/25 History carbonate)-vitamin D3 5 mcg (200 unit) tablet (Calcium 500 + D) multivitamin 1 tab PO QAM 03/01/18 03/04/25 History levothyroxine 100 mcg tablet 100 mcg PO DAILYBB 07/26/20 03/04/25 History docusate sodium 100 mg capsule 100 mg PO BID #60 caps 12/03/20 03/04/25 Rx (Colace) apple cider vinegar 250 mg 250 mg PO DAILY 12/22/24 03/04/25 History chewable tablet escitalopram oxalate 10 mg tablet 10 mg PO HS 12/22/24 03/04/25 History ondansetron 4 mg disintegrating 4 mg PO Q6H PRN nausea and 12/29/24 03/04/25 Rx tablet vomiting #10 tabs estradiol 0.0375 mg/24 hr weekly 0.0375 mg transdermal WK 03/04/25 03/04/25 History transdermal patch Patient History Medical History Bradycardia longstanding hx of sinus marco per review of EKG dating back to 2017 Tear of meniscus of left knee Slow to wake up after anesthesia Hypothyroidism History of intestinal obstruction hx SBO, "multiple" ; last was ~08/2024, states self treated Diverticular disease 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; Last echo was normal per pt (PSH) ~2019 Surgical History H/O hand surgery History of photorefractive keratectomy (PRK) History of section H/O right knee surgery Right knee meniscectomy Family history of reaction to anesthesia sister: nausea H/O oophorectomy Hx of breast reduction, elective History of wisdom tooth extraction History of thumb surgery RIGHT HAND hardware placement and removal; removal of hardware 04/17/22: GA: LMA#4 Status post trigger finger release History of hysterectomy PARTIAL History of bilateral tubal ligation History of bowel resection S/P DIVERTICULITIS (hemicolectomy) - [facility] () Family History Mother Hypertension Stroke Family/Other Breast cancer maternal cousin Uncle Colorectal cancer paternal Father Atrial fibrillation Sister GIST, non-malignant stomach Other Kidney stones Denies family history of Ovarian cancer Prostate cancer Social History Smoking Status: Never smoker Second Hand Exposure: No; Do You Dip or Chew Tobacco: No; Hx Alcohol Use: Yes Alcohol type: wine Alcohol Intake Frequency Comment: a glass of wine once a week or so Hx Substance Use: No Preferred Language: Portuguese Communication Ability: Effective Chainman Required: No Beliefs That Will Affect Care: None marital status: Current Living Situation: Spouse Current Living Situation Comment: [place] 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[employer]; 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[place] How many Children do You have: 2 How many Children do You have Comment: 1 son, 1 daughter Other Information That Helps Us Care for You: No Feels Safe at Home: Yes Safety Concerns: Feels Safe At This Time Assistive Devices: None Review of Systems Constitutional: no fever and no chills Respiratory: no cough Gastrointestinal: + abdominal pain (improving) and + diarr hea/loose stools; no blood in stools Psychiatric: no problem reported Physical Exam Constitutional: well developed Respiratory: normal respiratory effort Cardiovascular: Rate/Rhythm: regular rate Gastrointestinal (Abdomen): normal bowel sounds, soft, nontender, no hepatosplenomegaly Psychiatric: Orientation: alert and oriented x 3 Results & Data Vital Signs (Past 12 Hours) Vital Signs Temp Pulse Pulse Resp BP BP Pulse Ox 03/04/25 07:44 36.3 C L 62 18 122/75 99 03/04/25 05:46 36.3 C L 59 L 17 112/68 98 03/04/25 05:00 63 16 101/69 96 03/04/25 04:30 65 16 106/72 95 03/04/25 04:00 68 16 121/73 95 03/04/25 03:42 73 14 95 03/04/25 03:30 113/77 03/04/25 03:30 113/77 03/04/25 03:30 113/77 03/04/25 03:30 113/77 03/04/25 03:30 113/77 03/04/25 03:30 71 13 94 03/04/25 03:21 71 14 95 03/04/25 03:12 69 15 94 03/04/25 03:00 119/66 03/04/25 03:00 119/66 03/04/25 03:00 119/66 03/04/25 03:00 119/66 03/04/25 03:00 119/66 03/04/25 03:00 71 16 94 03/04/25 02:51 69 14 94 03/04/25 02:42 68 17 90 03/04/25 02:36 70 20 133/88 99 03/04/25 02:33 75 16 94 03/04/25 02:33 133/88 03/04/25 02:33 133/88 03/04/25 02:33 133/88 03/04/25 02:33 75 16 133/88 92 03/04/25 02:10 70 03/04/25 01:15 100 03/04/25 01:10 66 20 118/81 100 03/03/25 23:54 36.6 C 64 18 118/76 99 O2 Del Method 03/04/25 07:44 Room Air 03/04/25 05:46 Room Air 03/04/25 05:00 Room Air 03/04/25 04:30 Room Air 03/04/25 04:00 Room Air 03/04/25 03:42 03/04/25 03:30 03/04/25 03:30 03/04/25 03:30 03/04/25 03:30 03/04/25 03:30 03/04/25 03:30 03/04/25 03:21 03/04/25 03:12 03/04/25 03:00 03/04/25 03:00 03/04/25 03:00 03/04/25 03:00 03/04/25 03:00 03/04/25 03:00 03/04/25 02:51 03/04/25 02:42 03/04/25 02:36 Room Air 03/04/25 02:33 03/04/25 02:33 03/04/25 02:33 03/04/25 02:33 03/04/25 02:33 Room Air 03/04/25 02:10 03/04/25 01:15 Room Air 03/04/25 01:10 Room Air 03/03/25 23:54 Room Air PG Care Time/CCT Total # of Minutes Spent Total Time Spent with Patient: Total time spent is greater than 50% in coordination of care (as documented) at patient's floor/unit and/or counseling patient: Coding Level of Care Code 90708 IN/OBS CONSULT LVL 4,60M Diagnoses Partial small bowel obstruction K56.600
--- NOTE | 2025-03-04 11:10 | Surgery Consultation ---
Date of Consultation March 04, 2025 Assessment & Plan (1) Small bowel stricture: (2) Partial small bowel obstruction: 59 year old female with history of sigmoid colectomy for recurrent diverticulitis along with multiple other abdominal surgeries and recurrent SBO presented to ED with complaint of sudden onset of LLQ abdominal pain that started yesterday afternoon with associated dry heaves , bloating, and nausea. CT scan with partial SBO with transition in LLQ with inflammatory narrowing of small bowel concerning for possible Crohn's disease. No acute surgical intervention recommended at this time. Continue conservative management. She will need colonoscopy and likely small bowel studies (enterography, small bowel follow through ) as an outpatient. Okay for clear liquids this evening. Continue medical management and GI management. Discussed with DR. Ramirez who agrees with above. History of Present Illness Reason for Consultation: SBO with inflammatory stricture Attending Physician: Milo Cortez MD History of Present Illness 59 year old female with history of sigmoid colectomy for recurrent diverticulitis along with multiple other abdominal surgeries and recurrent SBOs presented to ED with complaint of sudden onset of LLQ abdominal pain that started yesterday afternoon with associated dry heaves , bloating, and nausea. States very similar to prior episodes of SBO. Last admission was in July of 2023 but she states she has had a few episodes this year which she self managed at home a few times. Has required NGT in past. She currently states she is feeling better, having bowel movements and passing flatus, still slightly nauseated but bloating and pain improved. GI planning for IV steroids based on CT imaging results. Last colonoscopy was 4-5 years ago. Allergies Allergy/AdvReac Type Severity Reaction Status Date / Time erythromycin base Allergy Intermediate EDEMA OF Verified 03/04/25 00:53 MOUTH/LIPS morphine AdvReac Intermediate Chest Pain Verified 03/04/25 00:53 oxycodone AdvReac Intermediate Chest Verified 03/04/25 00:53 Pain, syncope tramadol AdvReac Intermediate CHEST Verified 03/04/25 00:53 PAIN,SYNCOPE, BRADICARDIA Home Medications Medication Instructions Recorded Confirmed Type aloe vera 25 mg capsule 1 cap PO QAM 03/01/18 03/04/25 History ascorbic acid (vitamin C) 500 mg 500 mg PO QAM 03/01/18 03/04/25 History tablet (Vitamin C) calcium 500 mg (as 1 tab PO QAM 03/01/18 03/04/25 History carbonate)-vitamin D3 5 mcg (200 unit) tablet (Calcium 500 + D) multivitamin 1 tab PO QAM 03/01/18 03/04/25 History levothyroxine 100 mcg tablet 100 mcg PO DAILYBB 07/26/20 03/04/25 History docusate sodium 100 mg capsule 100 mg PO BID #60 caps 12/03/20 03/04/25 Rx (Colace) apple cider vinegar 250 mg 250 mg PO DAILY 12/22/24 03/04/25 History chewable tablet escitalopram oxalate 10 mg tablet 10 mg PO HS 12/22/24 03/04/25 History ondansetron 4 mg disintegrating 4 mg PO Q6H PRN nausea and 12/29/24 03/04/25 Rx tablet vomiting #10 tabs estradiol 0.0375 mg/24 hr weekly 0.0375 mg transdermal WK 03/04/25 03/04/25 History transdermal patch Patient History Medical History Bradycardia longstanding hx of sinus marco per review of EKG dating back to 2017 Tear of meniscus of left knee Slow to wake up after anesthesia Hypothyroidism History of intestinal obstruction hx SBO, "multiple" ; last was ~08/2024, states self treated Diverticular disease 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; Last echo was normal per pt (PSH) ~2019 Surgical History H/O hand surgery History of photorefractive keratectomy (PRK) History of section H/O right knee surgery Right knee meniscectomy Family history of reaction to anesthesia sister: nausea H/O oophorectomy Hx of breast reduction, elective History of wisdom tooth extraction History of thumb surgery RIGHT HAND hardware placement and removal; removal of hardware 04/17/22: GA: LMA#4 Status post trigger finger release History of hysterectomy PARTIAL History of bilateral tubal ligation History of bowel resection S/P DIVERTICULITIS (hemicolectomy) - [facility] () Family History Mother Hypertension Stroke Family/Other Breast cancer maternal cousin Uncle Colorectal cancer paternal Father Atrial fibrillation Sister GIST, non-malignant stomach Other Kidney stones Denies family history of Ovarian cancer Prostate cancer Social History Smoking Status: Never smoker Second Hand Exposure: No; Do You Dip or Chew Tobacco: No; Hx Alcohol Use: Yes Alcohol type: wine Alcohol Intake Frequency Comment: a glass of wine once a week or so Hx Substance Use: No Preferred Language: Greek Communication Ability: Effective Group Chief Operator Required: No Beliefs That Will Affect Care: None marital status: Current Living Situation: Spouse Current Living Situation Comment: [place] 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[employer]; 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[place] How many Children do You have: 2 How many Children do You have Comment: 1 son, 1 daughter Other Information That Helps Us Care for You: No Feels Safe at Home: Yes Safety Concerns: Feels Safe At This Time Assistive Devices: None Review of Systems Review of Systems: All systems reviewed & are unremarkable except as noted in HPI & below Physical Exam Constitutional: cooperative and comfortable; no acute distress and not ill appearing Respiratory: normal respiratory effort, lungs clear to auscultation Cardiovascular: RRR, no murmur, no edema Gastrointestinal (Abdomen): Inspection/Auscultation: abdomen normal to inspection and + hypoactive bowel sounds; abdomen not distended and + abnormal bowel sounds Percussion/Palpation: + abdomen tender (mild in LLQ) and abdomen soft; no guarding, abdomen not rigid and abdomen not firm Skin: no rashes, warm and dry Psychiatric: Orientation: alert and oriented x 3 Results & Data Vital Signs (Past 12 Hours) Vital Signs Temp Pulse Pulse Resp BP BP Pulse Ox 03/04/25 07:44 36.3 C L 62 18 122/75 99 03/04/25 05:46 36.3 C L 59 L 17 112/68 98 03/04/25 05:00 63 16 101/69 96 03/04/25 04:30 65 16 106/72 95 03/04/25 04:00 68 16 121/73 95 03/04/25 03:42 73 14 95 03/04/25 03:30 113/03/04/25 03:30 113/03/04/25 03:30 11303/04/25 03:30 113/03/04/25 03:30 113/77 03/04/25 03:30 71 13 94 03/04/25 03:21 71 14 95 03/04/25 03:12 69 15 94 03/04/25 03:00 119/66 03/04/25 03:00 119/66 03/04/25 03:00 119/66 03/04/25 03:00 119/66 03/04/25 03:00 119/66 03/04/25 03:00 71 16 94 03/04/25 02:51 69 14 94 03/04/25 02:42 68 17 90 03/04/25 02:36 70 20 133/88 99 03/04/25 02:33 75 16 94 03/04/25 02:33 133/88 03/04/25 02:33 133/88 03/04/25 02:33 133/88 03/04/25 02:33 75 16 133/88 92 03/04/25 02:10 70 03/04/25 01:15 100 03/04/25 01:10 66 20 118/81 100 03/03/25 23:54 36.6 C 64 18 118/76 99 O2 Del Method 03/04/25 07:44 Room Air 03/04/25 05:46 Room Air 03/04/25 05:00 Room Air 03/04/25 04:30 Room Air 03/04/25 04:00 Room Air 03/04/25 03:42 03/04/25 03:30 03/04/25 03:30 03/04/25 03:30 03/04/25 03:30 03/04/25 03:30 03/04/25 03:30 03/04/25 03:21 03/04/25 03:12 03/04/25 03:00 03/04/25 03:00 03/04/25 03:00 03/04/25 03:00 03/04/25 03:00 03/04/25 03:00 03/04/25 02:51 03/04/25 02:42 03/04/25 02:36 Room Air 03/04/25 02:33 03/04/25 02:33 03/04/25 02:33 03/04/25 02:33 03/04/25 02:33 Room Air 03/04/25 02:10 03/04/25 01:15 Room Air 03/04/25 01:10 Room Air 03/03/25 23:54 Room Air Laboratory Results 03/04/25 03/04/25 03/04/25 Range/Units 09:16 01:02 00:12 WBC 8.71 (4.8-10.8) K/ul RBC 5.10 (4.20-5.40) M/uL Hgb 15.7 (12.0-16.0) g/dL Hct 43.8 (37.0-47.0) % MCV 85.9 (80.0-100.0) fL MCH 30.8 (25.0-34.0) pg MCHC 35.8 (32.0-36.0) g/dL RDW Std Deviation 37.8 (36.4-46.3) fL RDW Coeff of Yani 12.0 (11.5-14.5) % Plt Count 257 (130-400) K/uL MPV 10.9 (9.4-12.4) fL Immature Gran % (Auto) 0.5 % Neut % (Auto) 74.4 % Lymph % (Auto) 16.6 % [place] % (Auto) 7.3 % Eos % (Auto) 0.6 % Baso % (Auto) 0.6 % Neut # (Auto) 6.48 (1.40-6.50) K/uL Lymph # (Auto) 1.45 (1.20-3.40) K/uL [place] # (Auto) 0.64 H (0.11-0.59) K/uL Eos # (Auto) 0.05 (0.00-0.50) K/uL Baso # (Auto) 0.05 (0.00-0.20) K/uL Immature Gran # (Auto) 0.04 (0.01-0.20) K/uL ESR 22 (0-30) mm/hr Sodium 139 (136-145) mmol/L Potassium 3.7 (3.5-5.1) mmol/L Chloride 104 (98-107) mmol/L Carbon Dioxide 23 (21-32) mmol/L Anion Gap 12 H (3-11) BUN 15 (6-23) mg/dl Creatinine 0.98 (0.6-1.2) mg/dl Est Cr Clr Drug Dosing 68.3 ml/min eGFR 66.90 BUN/Creatinine Ratio 15.3 (10-20) Glucose 131 H (70-99(Fasting)) mg/dl Calcium 10.3 (8.6-10.3) mg/dl Total Bilirubin 1.0 (0.2-1.0) mg/dl AST 24 (13-39) U/L ALT 22 (7-52) U/L Alkaline Phosphatase 78 (34-104) U/L C-Reactive Protein 0.81 H (0-0.5) mg/dl Total Protein 9.1 H (6.0-8.3) gm/dl Albumin 5.0 (3.4-5.0) gm/dl Globulin 4.1 H (2.5-4.0) gm/dl Albumin/Globulin Ratio 1.2 (0.9-2) Lipase 18 (11-82) U/L Urine Color Dark Yellow Urine Appearance Cloudy A (Clear) Urine pH 7.0 (4.5-7.5) Ur Specific [place] 1.028 (1.000-1.030) Urine Protein 1+ H (Negative) Urine Glucose (UA) Negative (Negative) Urine Ketones 1+ H (Negative) Urine Blood 1+ H (Negative) Urine Nitrite Negative (Negative) Urine Bilirubin 1+ H (Negative) Urine Urobilinogen Negative (Negative) Ur Leukocyte Esterase 2+ H (Negative) Urine WBC (Auto) 0-5 (0-5) /hpf Urine RBC (Auto) 6-10 H (0-2) /hpf U Hyaline Cast (Auto) 6-10 H (0-2) /lpf U Epithel Cells (Auto) 11-20 H (0-2) /hpf Urine Bacteria (Auto) 4+ H (None Seen) Urine Mucus Present A (None Prsent) Urine Comment Diagnostic Findings EXAM: CT abd pelvis IV con only CLINICAL HISTORY: Rule out of obstruction. TECHNIQUE: CT of the abdomen and pelvis was performed with the following protocol: axial images and reconstructed coronal and sagittal images. 93 mL Optiary 320 mg/mL Intravenous contrast was administered, One of the following dose reduction techniques was utilized for this exam: automated exposure control, adjustment of the mA and/or kV according to patient size, and use of iterative reconstruction. COMPARISON: 08/03/2023 FINDINGS: Sections of the lower thorax show subpleural reticulations in the basal regions. A small sliding hiatal hernia is again noted. Abdomen: Gastrointestinal tract: Multiple dilated proximal small bowel loops are seen, demonstrating air-fluid levels, with a maximum caliber of 36 mm and a transition point in the left lower quadrant where long segmental circumferential enhancing mural thickening of small bowel loops is noted, with adjacent mesenteric haziness and minimal interloop fluid. The findings represent a partial small bowel obstruction, likely due to an inflammatory stricture or process involving the small bowel loops. Possible Crohn's disease. The distal small bowel loops are collapsed. Postsurgical changes at the rectosigmoid junction are again noted. Uncomplicated colonic diverticulosis is noted. Enhancing eccentric mural thickening in the upper rectum along the right lateral wall is identified. This is a new interval finding. The appendix appears unremarkable. Liver: The liver is normal in size and density. No focal lesions, cysts, or masses are identified. Gallbladder and Biliary System: Post-cholecystectomy status. Dilated intrahepatic biliary radicles and common bile duct due to post-surgical changes, likely. The common bile duct measures 16 mm in maximum caliber. Stable. Pancreas: The pancreatic head, body, and tail are visualized and appear normal in size and density. Spleen: The spleen is normal in size, shape, and density. No splenic lesions or masses are identified. Kidneys and Adrenal Glands: Both kidneys are normal in size. No renal calculi or hydronephrosis. The adrenal glands are unremarkable. Pelvis: Urinary bladder: Partially distended. Post-hysterectomy status. No adnexal lesions. Peritoneal and Retroperitoneal Structures: Minimal interloop fluid in the left lower quadrant. Subcentimetric mesenteric nodes are noted. Bones and Soft Tissues: Degenerative changes in the lumbar spine, predominantly at the L4-L5 and L5-S1 levels, with severe reduction of intervertebral disc spaces and vacuum phenomena. IMPRESSION: 1. Mild interval regression of the previously noted partial small bowel obstruction, with a maximum caliber of 36 mm (compared to 42 mm in the prior study) and a redemonstrated transition point in the left lower quadrant. There is interval mild regression of the long segmental circumferential enhancing mural thickening of the small bowel loops seen next to the transition point, as well as adjacent mesenteric haziness and minimal interloop fluid. The findings represent partial small bowel obstruction, likely due to an inflammatory stricture or process involving the small bowel loops. Possible Crohn's disease. Correlation with prior clinical history is recommended. 2. Enhancing eccentric mural thickening in the upper rectum along the right lateral wall. This is a new interval finding. This could be postoperative sequelae or inflammatory in nature; however, the possibility of a neoplastic etiology cannot be excluded. Histopathological correlation is recommended if clinically warranted. 3. Postsurgical changes at the rectosigmoid junction are again noted. 4. Uncomplicated colonic diverticulosis is again noted. I personally reviewed ct scan images and concur with above findings
--- NOTE | 2025-03-04 13:19 | Hospitalist Progress Note ---
Date of Service March 04, 2025 Assessment & Plan (1) Partial small bowel obstruction: Plan: Appears to have resolved. Appreciate gastroenterology and general surgery consultation and recommendations. She will be started on a clear liquid diet this evening and advance as tolerated. No indication for surgery or endoscopy at this time. (2) Small bowel stricture: Plan: By history. She has had small bowel obstructions in the past. (3) UTI (urinary tract infection): Plan: Possible. Continue current antibiotic therapy. Await final urine culture results (4) Hypothyroidism: Plan: Resume usual thyroid replacement therapy orally when taking p.o. Plan Hopefully she can go home tomorrow, March 05 Admission and Anticipated Discharge Date Admission Date: March 04, 2025 Subjective Alert and oriented. No distress. She has been seen by gastroenterology and general surgery. She is now on a liquid diet. The small bowel obstruction appears to have resolved. She is passing flatus. She may have a UTI although she is asymptomatic. She remains on Rocephin and Flagyl for now and urine culture is pending. Review of Systems 2 Review of Systems: Constitutionalno fever or chills ENTno blurred vision, no double vision, no epistaxis, no sore throat Respiratoryno cough, no wheezing, no shortness of breath Cardiacno palpitations, no chest pain, no syncope Shelly nausea, vomiting, diarrhea, melena, hematochezia GUno urinary retention, no urinary incontinence, no dysuria, no hematuria Musculoskeletalno joint pain, no muscle tenderness Skinno bruising, no rashes, no pruritus Neurono isolated weakness, no paresthesia, no weakness Psychno depression, no anxiety Physical Exam 2 Physical Exam: General-alert and oriented x3, no fever, no chills HEENT-head atraumatic and normocephalic, pupils equal and reactive to light, extraocular muscles intact Neck-no lymphadenopathy or thyromegaly, trachea midline Chest-clear to auscultation. No rales, wheezing or rhonchi Cardiac-regular rate and rhythm, normal S1 and S2 Abdomen-normal bowel sounds, no hepatosplenomegaly Extremities-no cyanosis, clubbing, or edema Neuro-cranial nerves II through XII intact, motor and sensory function within normal limits, strength symmetrical, no focal deficits Psych-normal affect, normal mood Results & Data Results & Data Vital Signs (Past 12 Hours) Vital Signs Temp Pulse Pulse Pulse Resp BP BP 03/04/25 12:11 36.5 C 59 L 16 105/61 03/04/25 11:29 58 L 03/04/25 07:44 36.3 C L 62 18 122/75 03/04/25 05:46 36.3 C L 59 L 17 112/68 03/04/25 05:00 63 16 101/69 03/04/25 04:30 65 16 106/72 03/04/25 04:00 68 16 121/73 03/04/25 03:42 73 14 03/04/25 03:30 113/77 03/04/25 03:30 113/77 03/04/25 03:30 113/77 03/04/25 03:30 113/77 03/04/25 03:30 113/77 03/04/25 03:30 71 13 03/04/25 03:21 71 14 03/04/25 03:12 69 15 03/04/25 03:00 119/66 03/04/25 03:00 119/66 03/04/25 03:00 119/66 03/04/25 03:00 119/66 03/04/25 03:00 119/66 03/04/25 03:00 71 16 03/04/25 02:51 69 14 03/04/25 02:42 68 17 03/04/25 02:36 70 20 133/88 03/04/25 02:33 75 16 03/04/25 02:33 133/88 03/04/25 02:33 133/88 03/04/25 02:33 133/88 03/04/25 02:33 75 16 133/88 03/04/25 02:10 70 Pulse Ox O2 Del Method 03/04/25 12:11 99 Room Air 03/04/25 11:29 03/04/25 07:44 99 Room Air 03/04/25 05:46 98 Room Air 03/04/25 05:00 96 Room Air 03/04/25 04:30 95 Room Air 03/04/25 04:00 95 Room Air 03/04/25 03:42 95 03/04/25 03:30 03/04/25 03:30 03/04/25 03:30 03/04/25 03:30 03/04/25 03:30 03/04/25 03:30 94 03/04/25 03:21 95 03/04/25 03:12 94 03/04/25 03:00 03/04/25 03:00 03/04/25 03:00 03/04/25 03:00 03/04/25 03:00 03/04/25 03:00 94 03/04/25 02:51 94 03/04/25 02:42 90 03/04/25 02:36 99 Room Air 03/04/25 02:33 94 03/04/25 02:33 03/04/25 02:33 03/04/25 02:33 03/04/25 02:33 92 Room Air 03/04/25 02:10 Laboratory Results 03/04/25 00:12 03/04/25 00:12 PG Care Time/CCT Total # of Minutes Spent Total Time Spent with Patient: Total time spent is greater than 50% in coordination of care (as documented) at patient's floor/unit and/or counseling patient: Coding Level of Care Code 71125 SUB INP/OBS CARE 3/50MIN Diagnoses Partial small bowel obstruction K56.600 Small bowel stricture K56.699 UTI (urinary tract infection) N39.0 Hypothyroidism E03.9
[2025-03-04] MEDS: metroNIDAZOLE 500 MG/100 ML BAG IV SCH (13:54)
[2025-03-04] MEDS: ESCITALOPRAM OXALATE 10 MG TAB PO SCH (20:32)
[2025-03-04 23:08] LABS: Adenovirus F 40/41 PCR Not Detected (NotDetected); Campylobacter PCR Not Detected (NotDetected); Enteroaggregative E.coli(EAEC) Not Detected (NotDetected); Shiga-like Toxin E.coli (STEC) Not Detected (NotDetected); Vibrio species PCR Not Detected (NotDetected)
[2025-03-04 23:29] VITALS: O2SAT 96
[2025-03-05] MEDS: cefTRIAXone SODIUM 2,000 MG/50 ML BAG IV SCH (01:32)
[2025-03-05 07:55] LABS: Alanine Aminotransferase 36.0 U/L (7-52); Albumin Globulin Ratio 1.4 (0.9-2); Albumin Level 3.9 gm/dl (3.4-5.0); Alkaline Phosphatase 69.0 U/L (34-104); Anion Gap 7.0 (3-11); Bilirubin,Total 0.5 mg/dl (0.2-1.0); Blood Urea Nitrogen 12.0 mg/dl (6-23); Calcium 8.8 mg/dl (8.6-10.3); Carbon Dioxide 19.0 mmol/L (21-32); Chloride 112.0 mmol/L (98-107); Creatinine Clr Calc Pharmacy 96.7 ml/min; Globulin 2.7 gm/dl (2.5-4.0); Glucose 124.0 mg/dl (70-99(Fasting)); Magnesium 2.0 mg/dl (1.7-2.4); Potassium 4.5 mmol/L (3.5-5.1); Sodium 138.0 mmol/L (136-145); Total Protein 6.6 gm/dl (6.0-8.3)
[2025-03-05 08:12] LABS: Hematocrit (blood only) 35.6 % (37.0-47.0); Hemoglobin 12.1 g/dL (12.0-16.0); Immature Granulocytes # (auto) 0.07 K/uL (0.01-0.20); Immature Granulocytes % (auto) 0.6 %; Mean Corpuscular Hemoglobin 30.0 pg (25.0-34.0); Mean Corpuscular Volume 88.1 fL (80.0-100.0); Platelet Count 195 K/uL (130-400); RDW Standard Deviation 39.7 fL (36.4-46.3); Red Blood Count 4.04 M/uL (4.20-5.40); White Blood Count 11.17 K/ul (4.8-10.8)
[2025-03-05 08:20] VITALS: BP 113/76; RESP 19; TEMP 97.6
--- NOTE | 2025-03-05 09:53 | Surgery Progress Note ---
Date of Service March 05, 2025 Assessment & Plan (1) Small bowel stricture: (2) Partial small bowel obstruction: Plan: 59 year old female with history of sigmoid colectomy for recurrent diverticulitis along with multiple other abdominal surgeries and recurrent SBO. CT scan with partial SBO with transition in LLQ with inflammatory narrowing of small bowel concerning for possible Crohn's disease. 03/05/2025 resolved SBO +bowel function Plan: continue diet Further imaging/endoscopy interventions as recommended by Gi our services signing off Admission and Anticipated Discharge Date Admission Date: March 04, 2025 Subjective feeling great no abdominal pain having loose bowel movements tolerating regular diet Physical Exam Constitutional: WD/WN, vitals as above cooperative and comfortable; no acute distress, not ill appearing, not in distress and not diaphoretic Respiratory: normal respiratory effort; no respiratory distress Skin: no rashes, warm and dry Psychiatric: A+Ox3, euthymic affect Results & Data Vital Signs (Past 12 Hours) Vital Signs Temp Pulse Resp BP Pulse Ox O2 Del Method 03/05/25 08:19 36.4 C 72 19 113/76 96 Room Air 03/04/25 23:28 36.8 C 72 18 122/81 96 Room Air Laboratory Results 03/05/25 03/04/25 Range/Units 06:21 Unknown WBC 11.17 H (4.8-10.8) K/ul RBC 4.04 L (4.20-5.40) M/uL Hgb 12.1 D (12.0-16.0) g/dL Hct 35.6 L (37.0-47.0) % MCV 88.1 (80.0-100.0) fL MCH 30.0 (25.0-34.0) pg MCHC 34.0 (32.0-36.0) g/dL RDW Std Deviation 39.7 (36.4-46.3) fL RDW Coeff of Yani 12.3 (11.5-14.5) % Plt Count 195 (130-400) K/uL MPV 10.8 (9.4-12.4) fL Immature Gran % (Auto) 0.6 % Neut % (Auto) 85.4 % Lymph % (Auto) 8.7 % [place] % (Auto) 5.2 % Eos % (Auto) 0.0 % Baso % (Auto) 0.1 % Neut # (Auto) 9.54 H (1.40-6.50) K/uL Lymph # (Auto) 0.97 L (1.20-3.40) K/uL [place] # (Auto) 0.58 (0.11-0.59) K/uL Eos # (Auto) 0.00 (0.00-0.50) K/uL Baso # (Auto) 0.01 (0.00-0.20) K/uL Immature Gran # (Auto) 0.07 (0.01-0.20) K/uL Sodium 138 (136-145) mmol/L Potassium 4.5 D (3.5-5.1) mmol/L Chloride 112 H (98-107) mmol/L Carbon Dioxide 19 L (21-32) mmol/L Anion Gap 7 (3-11) BUN 12 (6-23) mg/dl Creatinine 0.64 D (0.6-1.2) mg/dl Est Cr Clr Drug Dosing 96.7 ml/min eGFR 102.37 BUN/Creatinine Ratio 18.8 (10-20) Glucose 124 H (70-99(Fasting)) mg/dl Calcium 8.8 (8.6-10.3) mg/dl Magnesium 2.0 (1.7-2.4) mg/dl Total Bilirubin 0.5 D (0.2-1.0) mg/dl AST 29 (13-39) U/L ALT 36 (7-52) U/L Alkaline Phosphatase 69 (34-104) U/L Total Protein 6.6 D (6.0-8.3) gm/dl Albumin 3.9 (3.4-5.0) gm/dl Globulin 2.7 (2.5-4.0) gm/dl Albumin/Globulin Ratio 1.4 (0.9-2) Stool Calprotectin Pending Stl C. cayetanensis PCR Not Detected (NotDetected) Stool Rotavirus A PCR Not Detected (NotDetected) Stl Adenov F 40/41 PCR Not Detected (NotDetected) Stool Astrovirus (PCR) Not Detected (NotDetected) Stool Campylobacter PCR Not Detected (NotDetected) Stool Cryptosporidium PCR Not Detected (NotDetected) Stl E.coli Shiga Tox PCR Not Detected (NotDetected) Stl Enterotoxigenic E PCR Not Detected (NotDetected) Stool EPEC (PCR) Not Detected (NotDetected) Stool EAEC (PCR) Not Detected (NotDetected) Stl E. histolytica PCR Not Detected (NotDetected) Stool Giardia Lamblia PCR Not Detected (NotDetected) Stool Salmonella PCR Not Detected (NotDetected) Stool Sapovirus (PCR) Not Detected (NotDetected) Stl P. shigelloides PCR Not Detected (NotDetected) Stl Shigella/EIEC PCR Not Detected (NotDetected) St Y.enterocolitica PCR Not Detected (NotDetected) Stool Vibrio (PCR) Not Detected (NotDetected) Stl Vibrio cholerae PCR Not Detected (NotDetected) Stl Norovirus GI/GII PCR Not Detected (NotDetected)
--- NOTE | 2025-03-05 11:19 | XRay Report ---
KUB HISTORY: PSBO COMPARISON STUDY: 05/04/2024 FINDINGS: Stable right upper quadrant surgical clips there is left abdominal small bowel distention m easuring up to 4.5 cm diameter, stable. No other bowel distention seen. There is mild retained stool. No gross free air. IMPRESSION: Stable small bowel distention. ACT 112: Negative or not required by law. The above report was generated using voice recognition software. It may contain grammatical, syntax o r spelling errors. Electronically signed by: Sagar Thomas M.D. 03/05/2025 11:18 AM
--- NOTE | 2025-03-05 12:17 | Discharge Summary ---
Discharge Summary Date of Service March 05, 2025 Principal Dx & Hospital Course #1 = Principal Diagnosis (1) Partial small bowel obstruction: Appears to have resolved. Appreciate gastroenterology and general surgery consultation and recommendations. Diet has been advanced and is well-tolerated. She is having bowel movements. No nausea or vomiting. No indication for surgery or endoscopy at this time. (2) Small bowel stricture: By history. She has had small bowel obstructions in the past. (3) UTI (urinary tract infection): Possible. Treated while hospitalized with IV antibiotics. No further antibiotic treatment warranted (4) Hypothyroidism: Stable. Thyroid medication has been resumed Plan Home today, March 05 Admission HPI Per Admitting Provider The patient is a 59-year-old female with a past medical history including bilat eral tinnitus, history of previous small bowel obstructions, hypothyroidism, and postmenopausal state. She presents to the emergency department with complaint of a recurrence of abdominal pain, similar to previous small bowel obstructions. Workup in the emergency department included CT scan of abdomen pelvis which showed a recurrence and progression of partial small bowel obstruction, with transition point left lower quadrant, likely due to inflammatory stricture, with concerns around possible Crohn's. At the postsurgical rectosigmoid joint, there is an enhancing eccentric mural thickness of the right lateral wall, differential clinic postop changes versus inflammation versus neoplastic. From the ED the patient received the following: Normal saline 1 L fluid bolus, Zofran 4 mg IV, Dilaudid 0.5 mg IV, and ceftriaxone 2 g IV. [facility] Exam General-alert and oriented x3, no fever, no chills HEENT-head atraumatic and normocephalic, pupils equal and reactive to light, extraocular muscles intact Neck-no lymphadenopathy or thyromegaly, trachea midline Chest-clear to auscultation. No rales, wheezing or rhonchi Cardiac-regular rate and rhythm, normal S1 and S2 Abdomen-normal bowel sounds, no hepatosplenomegaly Extremities-no cyanosis, clubbing, or edema Neuro-cranial nerves II through XII intact, motor and sensory function within normal limits, strength symmetrical, no focal deficits Psych-normal affect, normal mood Discharge Plan Discharge Items Patient Disposition: Home - Self-Care Reason For Visit: PSBO, INFLAMMATORY STRICTURE Discharge Diagnosis: Recurrent small bowel obstruction possible UTI Activity: Resume your previous activity Non-emergency contact: Primary Care Provider Call non-emergency contact if: your symptoms worsen Follow-up/Referrals: Robert Fay, DO [Primary Care Provider] - Diet: Regular Diet Texture: Mechanical soft (ground) Addtl Attending Provider Instructions: All medications remain the same. See primary care provider soon as possible for follow-up Pending Studies at Discharge: No Stand-Alone Forms: My [facility] [employer], Smoking Cessation Medications and DC Order Prescriptions: Continued multivitamin Tablet 1 tab PO QAM ascorbic acid (vitamin C) [Vitamin C] 500 mg Tablet 500 mg PO QAM aloe vera 25 mg Capsule 1 cap PO QAM Patient Comments: not taking calcium carbonate-vitamin D3 [Calcium 500 + D] 500 mg(1,250mg) -200 unit Tablet 1 tab PO QAM levothyroxine 100 mcg tablet 100 mcg PO DAILYBB docusate sodium [Colace] 100 mg capsule 100 mg PO BID Qty: 60 0RF apple cider vinegar 250 mg Tablet,Chewable 250 mg PO DAILY escitalopram oxalate 10 mg tablet 10 mg PO HS ondansetron 4 mg tablet,disintegrating 4 mg PO Q6H PRN (Reason: nausea and vomiting) Qty: 10 0RF estradiol 0.0375 mg/24 hr patch weekly 0.0375 mg transdermal WK Rx Instructions: CHANGES EVERY SATURDAY Discharge Orders: Discharge Order (Routine); Ordered 03/05/25 Ordered By: Milo Cortez Admission Data Admit Date/Time: 03/04/25 04:19 Attending Provider: Milo Cortez Admit Provider: Sergio Strong Primary Care Provider: Robert Fay Other Providers: Sergio Strong; Alfredo Darby; Maria C Perry Jr Hospital Stay Data Consultations 03/04/25 03:44 ED Decision to Admit Stat 03/04/25 03:47 Consult General Surgery Routine 03/04/25 05:44 Consult Gastroenterology Routine Diagnostic Imagining Performed 03/04/25 00:38 CT abd pelvis IV con only Stat Pending Results Patient Have Any Pending Studies at Discharge: No Discharge Instructions Given to Patient (Per Discharging Provider) All medications remain the same. See primary care provider soon as possible for follow-up Total Time Total Time Spent Total Time Spent (In Minutes): 45 minutes. Total time included patient exam, discharge planning, medication reconciliation, and communication with other providers. Coding Level of Care Code 13326 INP/OBS DISCH >30 MIN Diagnoses Partial small bowel obstruction K56.600 Small bowel stricture K56.699 UTI (urinary tract infection) N39.0 Hypothyroidism E03.9
[2025-03-05 12:23] VITALS: PULSE 62
--- NOTE | 2025-03-05 12:36 | Gastroenterology Progress Note ---
Date of Service March 05, 2025 Assessment & Plan (1) Partial small bowel obstruction: Plan: Patient currently preparing to be discharged. Suspect etiology of PSBO is due to adhesions, but patient should have a colonoscopy with intubation/biopsies of the TI as an outpatient. She notes that she gets her colonoscopies through [facility] and has already discussed her discharge needs with her PCP. Admission and Anticipated Discharge Date Admission Date: March 04, 2025 Subjective Patient is a 59 yo female with PSBO. Patient notes significant improvement today. She denies abdominal pain. She is tolerating a diet. She is moving her bowels and passing gas. A KUB this morning shows stable distention. No acute concerns/worsening issues. Review of Systems Gastrointestinal: no abdominal pain, no constipation and no diarrhea/loose stools Physical Exam Gastrointestinal (Abdomen): Inspection/Auscultation: abdomen normal to inspection and normal bowel sounds; abdomen not distended Results & Data Results & Data Vital Signs (Past 12 Hours) Vital Signs Temp Pulse Pulse Resp BP Pulse Ox O2 Del Method 03/05/25 12:22 36.4 C 62 72 19 113/76 96 03/05/25 08:19 36.4 C 72 19 113/76 96 Room Air PG Care Time/CCT Total # of Minutes Spent Total Time Spent with Patient: Total time spent is greater than 50% in coordination of care (as documented) at patient's floor/unit and/or counseling patient: Coding Level of Care Code 18253 SUB INP/OBS CARE 2/35MIN Diagnoses Partial small bowel obstruction K56.600
== END 2025-03-05 13:07 | disposition home or self-care (01) | DRG 389 ==
LOC: ED 23:44 → 2N 03-04 04:19 → SUATTDRO 03-04 04:19 → 2N 03-04 05:22